=== PATIENT | female | born 1960 | race Hispanic/Latino ===

== ENCOUNTER 2018-08-23 14:15 | Emergency (ER) | payer OTHER ==
[2018-08-23 15:29] LABS: Absolute Monocytes 0.5 K/uL (0.1-1.3); Absolute Neutrophil 7.1 K/uL (1.8-8.0); Basophils % 0.4 % (0-1.3); Eosinophils % 1.7 % (0-4.4); Hematocrit 38.2 % (36.0-45.0); Lymphocytes % 11.6 % (15.3-44.8); MPV 10.1 fL (7.6-11.3); Monocytes % 6.1 % (3.3-12.3); RBC Red Blood Cell Count 4.08 M/uL (3.86-4.86)
[2018-08-23 15:50] LABS: Potassium 4.2 mmol/L (3.5-5.1)
--- NOTE | 2018-08-23 16:41 | ER ---
Nurse's Notes [facility] Name: Jena Corrales Age: 58 yrs Sex: Female : 1960 Arrival Date: 08/23/2018 Time: 14:19 Bed 3 Private MD: Diagnosis: Hypoglycemia, unspecified;Chronic kidney disease, stage 3 (moderate) Presentation: 08/23 14:26 Presenting complaint: EMS states: Called out for low blood sugar. BGL 22, improved to hb 140 after D10 250 mls. 18g LEFT AC. Transition of care: patient was not received from another setting of care. Onset of symptoms was August 23, 2018. Risk Assessment: Do you want to hurt yourself or someone else? Patient reports no desire to harm self or others. Initial Sepsis Screen: Does the patient meet any 2 criteria? No. Patient's initial sepsis screen is negative. Does the patient have a suspected source of infection? No. Patient's initial sepsis screen is negative. Care prior to arrival: Medication(s) given: IV initiated. 18 GA, in the left antecubital area. 14:26 Method Of Arrival: EMS: [facility] 14:26 Acuity: NUZHAT 3 hb Triage Assessment: 14:30 General: Appears in no apparent distress. Behavior is calm, cooperative. Pain: Denies hb pain. EENT: No deficits noted. No signs and/or symptoms were reported regarding the EENT system. Neuro: Level of Consciousness is awake, alert, obeys commands, Oriented to person, place, time, situation. Cardiovascular: Heart tones S1 S2 present Capillary refill < 3 seconds Patient's skin is warm and dry. Respiratory: Airway is patent Respiratory effort is even, unlabored, Respiratory pattern is regular, symmetrical. GI: No signs and/or symptoms were reported involving the gastrointestinal system. : No signs and/or symptoms were reported regarding the genitourinary system. Derm: Skin is intact, is healthy with good turgor. Musculoskeletal: No signs and/or symptoms reported regarding the musculoskeletal system. Historical: - Allergies: 14:30 No Known Allergies; hb - PMHx: 14:30 Diabetes - NIDDM; Myocardial infarction; Hypertension; hb - Immunization history:: Adult Immunizations up to date. - Social history:: Smoking status: Patient/guardian denies using tobacco. - Ebola Screening: : No symptoms or risks identified at this time. Screenin:31 Abuse screen: Denies threats or abuse. Denies injuries from another. Nutritional hb screening: No deficits noted. Tuberculosis screening: No symptoms or risk factors identified. Fall Risk Total Muro Fall Scale indicates Low Risk Score (25-44 pts). Fall prevention measures have been instituted. Side Rails Up X 2 Frequent Obs/Assesments occuring As available Patient and Family Educated on Fall Prevention Program and strategies. Assessment: 14:34 General: SEE TRIAGE ASSESSMENT. hb 15:30 Reassessment: Patient appears in no apparent distress at this time. Patient and/or hb family updated on plan of care and expected duration. Pain level reassessed. Patient is alert, oriented x 3, equal unlabored respirations, skin warm/dry/pink. 16:30 Reassessment: Patient appears in no apparent distress at this time. Patient and/or hb family updated on plan of care and expected duration. Pain level reassessed. Patient is alert, oriented x 3, equal unlabored respirations, skin warm/dry/pink. Vital Signs: 14:28 BP 177 / 79; Pulse 71; Resp 15; Temp 98.1; Pulse Ox 100% on R/A; Pain 0/10; hb 15:41 BP 160 / 79; Pulse 68; Resp 16; Pulse Ox 99% on R/A; sg 16:45 BP 156 / 76; Pulse 66; Resp 16; Pulse Ox 100% on R/A; hb ED Course: 14:19 Patient arrived in ED. hb 14:20 Juan Francois MD is Attending Physician. gs 14:28 Triage completed. hb 14:28 Arm band placed on. hb 14:34 Patient has correct armband on for positive identification. Bed in low position. Call hb light in reach. Side rails up X2. 14:34 Maintain EMS IV. Dressing intact. Good blood return noted. Site clean \T\ dry. Gauge \T\ hb site: 18G LEFT AC. 16:40 Sandeep Ramos MD is Referral Physician. gs 16:42 Capo Bains MD is Referral Physician. gs 17:01 Loren Perez, STEPH is Primary Nurse. hb 17:02 No provider procedures requiring assistance completed. IV discontinued, intact, hb bleeding controlled, No redness/swelling at site. Pressure dressing applied. Administered Medications: No medications were administered Point of Care Testing: Blood Glucose: 14:27 Blood Glucose: 97 mg/dL; hb 15:55 Blood Glucose: 80 mg/dL; hb Ranges: Outcome: 16:40 Discharge ordered by . gs 17:02 Discharged to home via wheelchair, with family. hb 17:02 Condition: stable 17:02 Discharge instructions given to patient, family, Instructed on discharge instructions, follow up and referral plans. medication usage, Demonstrated understanding of instructions, follow-up care, medications. 17:03 Patient left the ED. hb Signatures: Babar Larson RN RN sg Loren Perez RN RN hb Juan Francois MD MD gs Corrections: (The following items were deleted from the chart) 14:35 14:26 Acuity: NUZHAT 4 hb hb
--- NOTE | 2018-08-23 16:41 | EDPHYS ---
Physician Documentation [facility] Name: Jena Corrales Age: 58 yrs Sex: Female : 1960 Arrival Date: 08/23/2018 Time: 14:19 Bed 3 Private MD: ED Physician Juan Francois HPI: 08/23 21:00 This 58 yrs old Female presents to ER via EMS with complaints of Low Blood gs Sugar. 21:00 Onset: The symptoms/episode began/occurred acutely, today. Associated signs and gs symptoms: Pertinent negatives: constipation, decreased urine output. Current symptoms: In the emergency department the patient's symptoms have resolved. The patient has experienced similar episodes in the past, a few times. The patient has not recently seen a physician. Historical: - Allergies: 14:30 No Known Allergies; hb - PMHx: 14:30 Diabetes - NIDDM; Myocardial infarction; Hypertension; hb - Immunization history:: Adult Immunizations up to date. - Social history:: Smoking status: Patient/guardian denies using tobacco. - Ebola Screening: : No symptoms or risks identified at this time. ROS: 21:00 All other systems are negative. gs Exam: 21:00 Head/Face: Normocephalic, atraumatic. Eyes: Pupils equal round and reactive to light, gs extra-ocular motions intact. Lids and lashes normal. Conjunctiva and sclera are non-icteric and not injected. Cornea within normal limits. Periorbital areas with no swelling, redness, or edema. ENT: Nares patent. No nasal discharge, no septal abnormalities noted. Tympanic membranes are normal and external auditory canals are clear. Oropharynx with no redness, swelling, or masses, exudates, or evidence of obstruction, uvula midline. Mucous membranes moist. Neck: Trachea midline, no thyromegaly or masses palpated, and no cervical lymphadenopathy. Supple, full range of motion without nuchal rigidity, or vertebral point tenderness. No Meningismus. Chest/axilla: Normal chest wall appearance and motion. Nontender with no deformity. No lesions are appreciated. Cardiovascular: Regular rate and rhythm with a normal S1 and S2. No gallops, murmurs, or rubs. Normal PMI, no JVD. No pulse deficits. Respiratory: Lungs have equal breath sounds bilaterally, clear to auscultation and percussion. No rales, rhonchi or wheezes noted. No increased work of breathing, no retractions or nasal flaring. Abdomen/GI: Soft, non-tender, with normal bowel sounds. No distension or tympany. No guarding or rebound. No evidence of tenderness throughout. Back: No spinal tenderness. No costovertebral tenderness. Full range of motion. Skin: Warm, dry with normal turgor. Normal color with no rashes, no lesions, and no evidence of cellulitis. MS/ Extremity: Pulses equal, no cyanosis. Neurovascular intact. Full, normal range of motion. Neuro: Awake and alert, GCS 15, oriented to person, place, time, and situation. Cranial nerves II-XII grossly intact. Motor strength 5/5 in all extremities. Sensory grossly intact. Cerebellar exam normal. Normal gait. 21:00 Constitutional: The patient appears alert, awake. Vital Signs: 14:28 BP 177 / 79; Pulse 71; Resp 15; Temp 98.1; Pulse Ox 100% on R/A; Pain 0/10; hb 15:41 BP 160 / 79; Pulse 68; Resp 16; Pulse Ox 99% on R/A; sg 16:45 BP 156 / 76; Pulse 66; Resp 16; Pulse Ox 100% on R/A; hb MDM: 14:45 Patient medically screened. gs 21:00 Differential diagnosis: hypoglycemic episode. Data reviewed: vital signs, nurses notes, gs lab test result(s). Counseling: I had a detailed discussion with the patient and/or guardian regarding: the historical points, exam findings, and any diagnostic results supporting the discharge/admit diagnosis, lab results, radiology results. Response to treatment: the patient's symptoms have markedly improved after treatment, the patient's condition has returned to base line. 08/23 14:24 Order name: Glucose, Ancillary Testing; Complete Time: 14:29 EDMS 08/23 14:49 Order name: CBC with Diff; Complete Time: 15:54 08/23 14:41 Order name: Diet Ada 2000 Gume; Complete Time: 14:41 sg 08/23 14:49 Order name: Basic Metabolic Panel; Complete Time: 15:54 08/23 15:59 Order name: Glucose, Ancillary Testing EDMS 08/23 16:40 Order name: Glucose, Ancillary Testing EDMS Administered Medications: No medications were administered Point of Care Testing: Blood Glucose: 14:27 Blood Glucose: 97 mg/dL; hb 15:55 Blood Glucose: 80 mg/dL; hb Ranges: Critical Glucose Levels:Adult <50 mg/dl or >400 mg/dl <40 mg/dl or >180 mg/dl Disposition: 08/23/18 16:40 Discharged to Home. Impression: Hypoglycemia, unspecified, Chronic kidney disease, stage 3 (moderate). - Condition is Stable. - Discharge Instructions: Hypoglycemia, Blood Glucose Monitoring, Adult, Chronic Kidney Disease, Adult. - Medication Reconciliation Form, Thank You Letter, Antibiotic Education, Prescription Opioid Use form. - Follow up: Sandeep Ramos MD; When: 2 - 3 days; Reason: Re-evaluation by your physician. Follow up: Capo Bains MD; When: 1 - 2 days; Reason: Re-evaluation by your physician. - Notes: half dose of insulin until can see kidney specialist or core driller helper Signatures: Dispatcher [employer] EDLoren Christian RN RN Juan Francois MD MD Corrections: (The following items were deleted from the chart) 16:42 16:40 08/23/2018 16:40 Discharged to Home. Impression: Hypoglycemia, unspecified; gs Chronic kidney disease, stage 3 (moderate). Condition is Stable. Forms are Medication Reconciliation Form, Thank You Letter, Antibiotic Education, Prescription Opioid Use. Follow up: Sandeep Ramos; When: 2 - 3 days; Reason: Re-evaluation by your physician. 17:03 16:42 08/23/2018 16:40 Discharged to Home. Impression: Hypoglycemia, unspecified; hb Chronic kidney disease, stage 3 (moderate). Condition is Stable. Discharge Instructions: Hypoglycemia, Blood Glucose Monitoring, Adult, Chronic Kidney Disease, Adult. Forms are Medication Reconciliation Form, Thank You Letter, Antibiotic Education, Prescription Opioid Use. Follow up: Sandeep Ramos; When: 2 - 3 days; Reason: Re-evaluation by your physician. Follow up: Capo Bains; When: 1 - 2 days; Reason: Re-evaluation by your physician. gs
== END 2018-08-23 17:03 | disposition home or self-care (01) ==
LOC: ER 14:15
DX: E11.22 Type 2 diabetes mellitus with diabetic chronic kidney disease (principal); E11.65 Type 2 diabetes mellitus with hyperglycemia; I12.9 Hypertensive chronic kidney disease with stage 1 through stage 4 chronic kidney disease, or unspecified chronic kidney disease; N18.3 Chronic kidney disease, stage 3 (moderate)
CPT/HCPCS: 36415; 80048; 82962; 85025; 99283

== ENCOUNTER 2019-12-12 08:40 | Emergency (ER) | payer SELFPAY ==
--- OUTSIDE RECORDS SUMMARY | 2019-12-12 08:59 | XMS REPORT | Continuity of Care Document ---
:1960 Author Organization [facility] t Address [address] [place] [address] Care Team Providers Name Role Phone Georgette Mckeon RN Attending Clinician Problems This patient has no known problems. Allergies, Adverse Reactions, Alerts This patient has no known allergies or adverse reactions. Medications This patient has no known medications. Procedures This patient has no known procedures. Encounters Start End Encounter Admission Attending Care Care Encounter Source Date/Time Date/Time Type Type Clinicians Facility Department ID 2019-12-05 2019-12-05 Patient Georgette Mckeon [id number] 00:00:00 00:00:00 Outreach E [place] [id number] [place] [id number] 2019-12-01 2019-12-01 Patient Georgette Mckeon [id number] 00:00:00 00:00:00 Outreach E [place] [id number] [place] [id number] 2019-11-30 2019-11-30 Patient Georgette Mckeon [id number] 00:00:00 00:00:00 Outreach E Reeves [id number] [place] [id number] Results This patient has no known results.
--- OUTSIDE RECORDS SUMMARY | 2019-12-12 09:02 | XMS REPORT | Summary of Care ---
:1960 Author Organization [facility] Address [address] [place] [id number] Care Team Providers Name Role Phone Pcp, Patient Does Not Have A Primary Care Provider +[id number] 0-0000 Reason for Visit Reason Comments Transition Of Care Encounter Details Date Type Department Care Team Description 11/25/[address] [facility] Crys Zhang Transition Of [facility]- [address] [place] [id number] Allergies Active Allergy Reactions Severity Noted Date Comments Levofloxacin Other - See comments 11/17/2019 weaknes Acetaminophen-Codeine Nausea and/or Vomiting 0 documented as of this encounter (statuses as of 11/25/2019) Medications Medication Sig Dispensed Refills Start Date End Date Status insulin NPH hum/reg inject 45 % 0 Active insulin hm (INSULIN under the skin 2 70/30 SC) (two) times daily. calcitrioL 0.5 mcg Take 1 capsule 15 capsule 0 11/25/201911/27 Active capsuleIndications: by mouth every Diabetic foot other day for 30 infection days. furosemide 40 mg Take 2 tablets 60 tablet 0 11/24/2019 020 Active tabletIndications: by mouth daily Diabetic foot for 30 days. infection lisinopril 20 mg Take 1 tablet by 30 tablet 0 11/25/201912/24 Active tabletIndications: mouth daily for Diabetic foot 30 days. infection NIFEdipine ER 90 mg Take 1 tablet by 30 tablet 0 11/25/2019 Active tabletIndications: mouth daily for Diabetic foot 30 days. infection vancomycin 1,000 mg Infuse 1,000 mg 53800 mg 0 11/24/201912/2019 Active injectionIndications: every 24 Diabetic foot (twenty-four) infection hours for 10 doses. amoxicillin-pot Take 1 tablet by 5 tablet 0 11/24/20192019 Active clavulanate 500 mg mouth daily for (AUGMENTIN) 500-125 5 days. mg tabletIndications: Diabetic foot infection documented as of this encounter (statuses as of 11/25/2019) Active Problems Problem Noted Date Diabetic foot infection 11/18/2019 Morbid obesity with body mass index of 50 or higher documented as of this encounter (statuses as of 11/25/2019) Social History Tobacco Use Types Packs/Day Years Used Date Former Smoker Smokeless Tobacco: Never Used Sex Assigned at Date Recorded Not on file Job Start Date Occupation Industry Not on file Not on file Not on file Travel History Travel Start Travel End No recent travel history available. COVID-19 Exposure Response Date Recorded In the last month, have you been in contact with No / Unsure 11/17/2019 10:29 PM CDT someone who was confirmed or suspected to have Coronavirus / COVID-19? documented as of this encounter Last Filed Vital Signs Not on filedocumented in this encounter Plan of Treatment Health Maintenance Due Date Last Done Comments PNEUMOCOCCAL 0-64 YEARS COMBINED 1968 SERIES (1 of 1 - PPSV23) EYE EXAM 1972 LDL-C 1972 URINE MICROALBUMIN 1972 DTaP,Tdap,and Td Vaccines (1 - 1973 Tdap) FOOT EXAM 1980 PAP SMEAR 1983 Breast Cancer Screening 2002 (MAMMOGRAM) COLONOSCOPY 2012 Zoster Recombinant Vaccine 2012 (SHINGRIX) (1 of 2) LUNG CANCER SCREEN: Recommended 2017 for age 55-80 with 30 + pack year history INFLUENZA VACCINE (#1) 2019 HgA1C 05/19/2020 11/17/2019 Depression Screening 11/17/2020 11/18/2019 CREATININE (SERUM) 11/23/2020 11/24/2019, 11/23/2019, 11/21/2019, Additional history exists HEPATITIS C (HCV) SCREEN Completed 11/19/2019 documented as of this encounter Implants Implanted Type Area Hot Roller Device Shelf Model / Identifier Expiration Serial / Date Lot Catheter Hemosplit Hemodialysis Long Ter m Dialysis 14.5fr 27cm Bard #[id number] - Sn/A Dialysis Right: Bard 06/24/2020 [id number] / Implanted: Qty: 1 on 11/21/2019 by Debby Oviedo MD at [facility] Catheter Chest N/A / [id number] documented as of this encounter Results Not on filedocumented in this encounter Insurance Payer Benefit Plan / Subscriber ID Effective Phone Address T ype Group Dates MEDICAID MEDICAID SSI PENDING 2019-Pres [address] [place] [address] documented as of this encounter
--- OUTSIDE RECORDS SUMMARY | 2019-12-12 09:02 | XMS REPORT | Summary of Care ---
:1960 Author Organization [address] [address] Care Team Providers Name Role Phone Pcp, Patient Does Not Have A Primary Care Provider +1-000-00 0-0000 Jeff Mckeon hand glove cleaner Quiana Velazquez MSW Licensed Clinical Mainframe Systems Engineer Unav[employer]a ble Reason for Visit Reason Comments Transportation Encounter Details Date Type Department Care Team Description 12/01/2019 Patient Outreach [facility] Jimena Mckeon, RN Transportation [address] [address] Allergies Active Allergy Reactions Severity Noted Date Comments Levofloxacin Other - See comments 11/17/2019 weaknes Acetaminophen-Codeine Nausea and/or Vomiting 0 documented as of this encounter (statuses as of 12/01/2019) Medications Medication Sig Dispensed Refills Start Date End Date Status insulin NPH hum/reg inject 45 % under 0 Active insulin hm (INSULIN the skin 2 (two) 70/30 SC) times daily. calcitrioL 0.5 mcg Take 1 capsule by 15 capsule 0 11/25/2019 0 12/25/2019 Active capsuleIndications: mouth every other Diabetic foot day for 30 days. infection furosemide 40 mg Take 2 tablets by 60 tablet 0 11/24/2019 08/2 12/2019 Active tabletIndications: mouth daily for Diabetic foot 30 days. infection lisinopril 20 mg Take 1 tablet by 30 tablet 0 11/25/201912/24 Active tabletIndications: mouth daily for Diabetic foot 30 days. infection NIFEdipine ER 90 mg Take 1 tablet by 30 tablet 0 11/25/2019 Active tabletIndications: mouth daily for Diabetic foot 30 days. infection vancomycin 1,000 mg Infuse 1,000 mg 30008 mg 0 11/24/201912/2019 Active injectionIndications every 24 : Diabetic foot (twenty-four) infection hours for 10 doses. documented as of this encounter (statuses as of 12/01/2019) Active Problems Problem Noted Date Diabetic foot infection 11/18/2019 Morbid obesity with body mass index of 50 or higher documented as of this encounter (statuses as of 12/01/2019) Social History Tobacco Use Types Packs/Day Years Used Date Former Smoker Smokeless Tobacco: Never Used Sex Assigned at Date Recorded Not on file COVID-19 Exposure Response Date Recorded In the last month, have you been in contact with No / Unsure 11/17/2019 10:29 PM CDT someone who was confirmed or suspected to have Coronavirus / COVID-19? documented as of this encounter Last Filed Vital Signs Not on filedocumented in this encounter Progress Notes Georgette Mckeon RN - 12/01/2019 3:47 PM CDTCHP: WILLIAM was able to get transportation approved and arranged through [facility] priority transport [phone]. 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 CELESTINA Duffy with [facility] [phone] was notified. WILLIAM called patient's spouse Osman Albrecht and informed him. He stated he was "incredible grateful" and he will go to HD in his own vehicle and will complete all admission paperwork needed. WILLIAM will continue to collaborate with CELESTINA Duffy at [facility] to assist her with getting the patient the coverage needed so she will get access to help her with care and transportation. Georgette Mckeon, BSN, RN, [facility] Outpatient Secondary School TeacherElectric Sealing Machine OperatorScotland Memorial Hospital O: [phone] M: [phone] documented in this encounter Plan of Treatment Health Maintenance Due Date Last Done Comments PNEUMOCOCCAL 0-64 YEARS COMBINED 1968 SERIES (1 of 1 - PPSV23) EYE EXAM 1972 LDL-C 1972 URINE MICROALBUMIN 1972 FOOT EXAM 1980 DTaP,Tdap,and Td Vaccines (1 - 1981 Tdap) PAP SMEAR 1983 Breast Cancer Screening 2002 (MAMMOGRAM) COLON CANCER SCREENING ANNUAL 2012 FIT/FOBT COLON CANCER SCREENING FIT DNA 2012 EVERY 3 YEARS COLON CANCER SCREENING 2012 SIGMOIDOSCOPY EVERY 5 YEARS COLONOSCOPY 2012 Colorectal Cancer Screening 2012 Zoster Recombinant Vaccine 2012 (SHINGRIX) (1 of 2) LUNG CANCER SCREEN: Recommended 2017 for age 55-80 with 30 + pack year history INFLUENZA VACCINE (#1) 2019 HgA1C 05/19/2020 11/17/2019 Depression Screening 11/17/2020 11/18/2019 CREATININE (SERUM) 11/23/2020 11/24/2019, 11/23/2019, 11/21/2019, Additional history exists HEPATITIS C (HCV) SCREEN Completed 11/19/2019 documented as of this encounter Implants Implanted Type Area Sound Engineer Device Shelf Model / Identifier Expiration Serial / Date Lot Catheter Hemosplit Hemodialysis Long Ter m Dialysis 14.5fr 27cm Bard #[id number] - Sn/A Dialysis Right: Bard 06/24/2020 [id number] / Implanted: Qty: 1 on 11/21/2019 by Debby Oviedo MD at [facility] Catheter Chest N/A / [id number] documented as of this encounter Results Not on filedocumented in this encounter
--- OUTSIDE RECORDS SUMMARY | 2019-12-12 09:02 | XMS REPORT | Summary of Care ---
:1960 Author Organization [address] [address] Care Team Providers Name Role Phone Pcp, Patient Does Not Have A Primary Care Provider +1-000-00 0-0000 Jeff Mckeon RNmanager hi Quiana Velazquez MSW Licensed Clinical Flight Communications Officer Unavaila ble Reason for Visit Reason Comments Referral/consult CHP Referral Encounter Details Date Type Department Care Team Description 11/30/2019 Patient Outreach [facility] Georgette Mckeon RN Referral/consult [address] (CHP Refer ral) [place], [place] [address] Allergies Active Allergy Reactions Severity Noted Date Comments Levofloxacin Other - See comments 11/17/2019 weaknes Acetaminophen-Codeine Nausea and/or Vomiting 0 documented as of this encounter (statuses as of 11/30/2019) Medications Medication Sig Dispensed Refills Start Date [...] infection vancomycin 1,000 mg Infuse 1,000 mg 42400 mg 0 11/24/201912/2019 Active injectionIndications every 24 : Diabetic foot (twenty-four) infection hours for 10 doses. documented as of this encounter (statuses as of 11/30/2019) Active Problems Problem Noted Date Diabetic foot infection 11/18/2019 Morbid obesity with body mass index of 50 or higher documented as of this encounter (statuses as of 11/30/2019) Social History Tobacco Use Types Packs/Day Years [...] encounter Progress Notes Georgette Mckeon RN - 11/30/2019 5:24 PM CDTCHP Referral: Acute osteomyelitis of right foot with abscess S/p R 4th and 5th ray resection with bone biopsy of R 3rd metatarsal by Dr. Yanez 11/[address] Yanez. Wound-vac placed.Wound vac approval for discharge to home. IV, zosyn day6 P Woundculturesis wound culture resistant to clindamycin, erythromycin, IDconsultDr Farooqverbal instruction will start Vanco 1 gm with HD for 10 days, Hematuria likely on menses patient to follow up with PCP for post menopausal bleed Patient not sure if she is on her cycle Hgb 7.7 will trend UA ordered Trend CBC/BMP UTI costive e coli found Augmentin 500 mg daily 5 days CKD 5, hyperkalemia, metabolic acidosis Medically manage with IV insulin, kayexalate, IV bicarb drip HD started 11/21 Surgery consult for Permcathdone HD on [facility] with an approved HD chair With Dr Kunal bar HTN, poorly controlled Gioowcthpkryogfrzp77 mg daily Lisinopril 20 mg daily Hydralazine prn Pt. Agreed to participate in CHP. Pt. Needs bloodpressure machine. Please educate patient on all diagnosis. Pt. Is an JASON case. Thank you, Helen Zhang LVN CHP RN CM called the patient and her spouse(per patient). Her spouse explained she has missed both of her HD appts on Mon/Wed d/t not having transportation. She is WC bound weighing at 300 lbs per patient's spouse. CM will speak with team at [facility] in [place] and confirm she still has achair time at 1600. CM will attempt to seek Management's approval to get a voucher for her transportation with [facility] to get patient to/from HD until the SW at [facility] can assist with transportation. The patient and her spouse are considering placement at [facility]; however, they do not accept SSIPending patients. STEPH Bower from [facility] had called in [facility] for the patient to take since she has missed a total of 3 HD appointments. WILLIAM called [facility] to see what was the delay; able to speak with pharmacist and he stated the order was transcribed as powder. He will change to liquid and dispense to patient. CM called and notified patient's spouse he can pick pack worker prior to 7pm. He verbalized understanding. STEPH Bower from [facility] did mention the electronics teacher might suggest patient to go to ER for HD. Per Fabricio, Amanda denies feeling any additional discomforts at this time. CM will route this to inpt team at [facility] in the event she does return. SUSY Gray, RN, [facility] Outpatient Solution Design EngineerOperations/DispatchCount Includes [facility] O: [phone] M: [phone] documented in this encounter Plan of Treatment [...] of this encounter Implants Implanted Type Area Demolition Worker Device Shelf Model / Identifier Expiration Serial / Date Lot Catheter Hemosplit Hemodialysis Long Ter m Dialysis 14.5fr 27cm Bard #[id number] - Sn/A Dialysis Right: Bard 06/24/2020 [id number] / Implanted: Qty: 1 on 11/21/2019 by Debby Oviedo MD at [facility] Catheter Chest N/A / [id number] documented as of this encounter Results Not on filedocumented in this encounter
--- OUTSIDE RECORDS SUMMARY | 2019-12-12 09:02 | XMS REPORT | Summary of Care ---
:1960 Author Organization [address] [address] Care Team Providers Name Role Phone Pcp, Patient Does Not Have A Primary Care Provider +1-000-00 0-0000 Jeff Mckeon manager audit Quiana Velazquez MSW Licensed Clinical Glass Forming Crew Member Unavaila ble Reason for Visit Reason Comments Transportation Encounter Details Date Type Department Care Team Description 12/05/2019 Patient Outreach [facility] Jimena Mckeon, RN Transportation [address] [address] Allergies Active Allergy Reactions Severity Noted Date Comments Levofloxacin Other - See comments 11/17/2019 weaknes Acetaminophen-Codeine Nausea and/or Vomiting 0 documented as of this encounter (statuses as of 12/05/2019) Medications Medication Sig Dispensed Refills Start Date [...] daily for Diabetic foot 30 days. infection documented as of this encounter (statuses as of 12/05/2019) Active Problems Problem Noted Date Diabetic foot infection 11/18/2019 Morbid obesity with body mass index of 50 or higher documented as of this encounter (statuses as of 12/05/2019) Social History Tobacco Use Types Packs/Day Years [...] encounter Progress Notes Georgette Mckeon RN - 12/05/2019 11:30 AM CDTCHP: Pt spouse, Fabricio called CM this am to report the patient did well with HD on Thursday. He also mentioned this week re: transportation. WILLIAM obtained approval from management to arrange [facility] today, Thursday and Thursday for hemodialysis. CM sent the vouchers to [facility] and then called the patient's spouse to inform him of the arranged transportation. He expressed thanks and agreed with plan. SUSY Gray, RN, [facility] Outpatient Mucker CofferdamFreelance PatternmakerNovant Health New [facility] O: [phone] M: [phone] documented in this encounter Plan of Treatment [...] of this encounter Implants Implanted Type Area Stamping Die Try Out Worker Device Shelf Model / Identifier Expiration Serial / Date Lot Catheter Hemosplit Hemodialysis Long Ter m Dialysis 14.5fr 27cm Bard #[id number] - Sn/A Dialysis Right: Bard 06/24/2020 [id number] / Implanted: Qty: 1 on 11/21/2019 by Debby Oviedo MD at [facility] Catheter Chest N/A / [id number] documented as of this encounter Results Not on filedocumented in this encounter
--- OUTSIDE RECORDS SUMMARY | 2019-12-12 09:02 | XMS REPORT | Summary of Care ---
:1960 Author Organization [facility] Address [address] [place] [address] Care Team Providers Name Role Phone Pcp, Patient Does Not Have A Primary Care Provider +1-000-00 0-0000 Reason for Visit Reason Comments Transition Of Care Encounter Details Date Type Department Care Team Description 11/25/[address] [facility] Crys Zhang Transition Of [facility]- [address] [place] [id number] Allergies Active Allergy Reactions Severity Noted Date [...] infection vancomycin 1,000 mg Infuse 1,000 mg 77849 mg 0 11/24/201912/2019 Active injectionIndications: every 24 [...] of this encounter Implants Implanted Type Area Ornamental Metal Worker Helper Device Shelf Model / Identifier Expiration Serial / Date Lot Catheter Hemosplit Hemodialysis Long Ter m Dialysis 14.5fr 27cm Bard #[id number] - Sn/A Dialysis Right: Bard 06/24/2020 [id number] / Implanted: Qty: 1 on 11/21/2019 by Debby Oviedo MD at [facility] Catheter Chest N/A / [id number] documented as of this encounter Results Not on filedocumented in this encounter Insurance Payer Benefit Plan / Subscriber ID Effective Phone Address T ype Group Dates MEDICAID MEDICAID SSI PENDING 2019-Pres [address] [place] [address] documented as of this encounter
--- OUTSIDE RECORDS SUMMARY | 2019-12-12 09:02 | XMS REPORT | Summary of Care ---
:1960 Author Organization [facility] Address [address] [place] [address] Care Team Providers Name Role Phone Pcp, Patient Does Not Have A Primary Care Provider +1-000-00 0-0000 Reason for Visit Reason Comments Follow-up referral from WILLIAM Zhang Encounter Details Date Type Department Care Team Description 11/25/2019 Patient Outreach [facility] Elsy Banks Follow-up ([address] from WILLIAM Zhang ) [place], [place] [address] Allergies Active Allergy Reactions [...] mg Take 2 tablets 60 tablet 0 11/24/2019/ 020 Active tabletIndications: by mouth daily Diabetic foot for 30 days. infection lisinopril 20 mg Take 1 tablet by 30 tablet 0 11/25/201912/24 Active tabletIndications: mouth daily for Diabetic foot 30 days. infection NIFEdipine ER 90 mg Take 1 tablet by 30 tablet 0 11/25/2019 Active tabletIndications: mouth daily for Diabetic foot 30 days. infection vancomycin 1,000 mg Infuse 1,000 mg 68087 mg 0 11/24/201912/2019 Active injectionIndications: every 24 [...] on filedocumented in this encounter Progress Notes Elsy Banks - 11/25/2019 4:04 PM CDTCCHWAbram Banks was sent a referral from WILLIAM Zhang for CHP so I will give her a call. documented in this encounter Plan of Treatment [...] of this encounter Implants Implanted Type Area Special Collections Librarian Device Shelf Model / Identifier Expiration Serial / Date Lot Catheter Hemosplit Hemodialysis Long Ter m Dialysis 14.5fr 27cm Bard #[id number] - Sn/A Dialysis Right: Bard 06/24/2020 [id number] / Implanted: Qty: 1 on 11/21/2019 by Debby Oviedo MD at [facility] Catheter Chest N/A / [id number] documented as of this encounter Results Not on filedocumented in this encounter Insurance Payer Benefit Plan / Subscriber ID Effective Phone Address T ype Group Dates MEDICAID MEDICAID SSI PENDING 2019-Pres [address] [place] [id number] documented as of this encounter
--- OUTSIDE RECORDS SUMMARY | 2019-12-12 09:02 | XMS REPORT | Summary of Care ---
:1960 Author Organization [address] [address] Care Team Providers Name Role Phone Pcp, Patient Does Not Have A Primary Care Provider +1-000-00 0-0000 Jeff Mckeon RNwarp spinner Quiana Velazquez MSW Licensed Clinical Pharmacoepidemiologist Unavaila ble Reason for Visit Reason Comments Referral/consult CHP Referral Encounter Details Date Type Department Care Team Description 11/30/2019 Patient Outreach [facility] Georgette Mckeon RN Referral/consult [address] (CHP Refer ral) [place], [place] [address] Allergies Active Allergy Reactions [...] infection vancomycin 1,000 mg Infuse 1,000 mg 55894 mg 0 11/24/201912/2019 Active injectionIndications every 24 [...] Georgette Mckeon RN - 11/30/2019 5:24 PM CDTCHP: Acute osteomyelitis of right foot with abscess [...] 11/21 Surgery consult for Permcathdone HD on [facility] with an approved HD chair With Dr Kunal bar HTN, poorly controlled Rdiabtljaintkxjigb82 mg daily Lisinopril 20 mg daily Hydralazine [...] spouse. CM will speak with team at [facility] in [place] and confirm she still has achair time at 1600. CM will attempt to seek Management's approval to get a voucher for her transportation with [facility] to get patient to/from HD until the SW at [facility] can assist with transportation. The patient and her spouse are considering placement at [facility]; however, they do not accept SSIPending patients. STEPH Bower from [facility] had called in [facility] for the patient to take since she has missed a total of 3 HD appointments. WILLIAM called [facility] to see what was the delay; able to speak with pharmacist and he stated the order was transcribed as powder. He will change to liquid and dispense to patient. CM called and notified patient's spouse he can pickle pumper prior to 7pm. He verbalized understanding. STEPH Bower from [facility] did mention the scowman might suggest patient to go to ER for HD. Per Fabricio, Amanda denies feeling any additional discomforts at this time. CM will route this to inpt team at [facility] in the event she does return. SUSY Gray, RN, [facility] Outpatient Business ManagerRadial Drill Press OperatorEcu Health Beaufort Hospital O: [phone] M: [phone] documented in this encounter Plan of Treatment [...] of this encounter Implants Implanted Type Area Pattern Carrier Device Shelf Model / Identifier Expiration Serial / Date Lot Catheter Hemosplit Hemodialysis Long Ter m Dialysis 14.5fr 27cm Bard #[id number] - Sn/A Dialysis Right: Bard 06/24/2020 [id number] / Implanted: Qty: 1 on 11/21/2019 by Debby Oviedo MD at [facility] Catheter Chest N/A / [id number] documented as of this encounter Results Not on filedocumented in this encounter
--- OUTSIDE RECORDS SUMMARY | 2019-12-12 09:02 | XMS REPORT | Summary of Care ---
:1960 Author Organization [facility] Address [address] [place] [address] Care Team Providers Name Role Phone Pcp, Patient Does Not Have A Primary Care Provider +[id number] Reason for Referral (Routine) Status Reason Specialty Diagnoses / Referred By Referred To Procedures Contact Contact Pending Review Diagnoses Diabetic foot infection Vashti Mckinney Pcp, Patient Does Procedures Discharge Follow-up: PCP PATIENT DOES NOT HAVE A PCP; 2 Weeks MILADY Wolfe Not Have A [address] [facility] [address] [facility] [address] Phone: (Routine) Status Reason Specialty Diagnoses / Referred By Referred To Procedures Contact Contact Pending Review ORT-ORTHOPAEDIC Diagnoses Diabetic foot infection Varun Yanez SURGERY Procedures Discharge Follow-Up: Specialty Service ORT-ORTHOPAEDIC SURGERY; 2 Weeks , CARLOS [address] [facility] [address] [place] [address] (Routine) Status Reason Specialty Diagnoses / Referred By Referred To Procedures Contact Contact Pending Review IM-NEPHROLOGY Diagnoses Diabetic foot infection Vashti Mckinney Procedures Discharge Follow-Up: Specialty Service IM-NEPHROLOGY; 2 Weeks MILADY Wolfe [address] [facility] [place] [address] (Routine) Status Reason Specialty Diagnoses / Referred By Referred To Procedures Contact Contact New Request Diagnostic Diagnoses ANGEL (acute kidney injury) Elicia Nielsen Procedures FL TIME OR (NON-REPORTABLE) MD Debby [address] [facility] [address] [place] [address] Radiology Services (Routine) Status Reason Specialty Diagnoses / Referred By Referred To Procedures Contact Contact New Request Diagnostic Diagnoses Renal failure, unspecified chronicity Nielsen, Radiology Procedures XR CHEST 1 VW MD Debby [address] [facility] [address] [place] [address] (Routine) Status Reason Specialty Diagnoses / Referred By Referred To Procedures Contact Contact New Request Diagnostic Diagnoses Diabetic foot infection Varun Yanez Radiology Procedures FL TIME OR (NON-REPORTABLE) Jr., DPM [address] [place] [address] [place] [address] MRI/CAT Scan (SUAD) Status Reason Specialty Diagnoses / Referred By Referred To Procedures Contact Contact New Request Diagnostic Diagnoses Diabetic foot infection Varun Yanez Radiology Procedures CT FOOT RIGHT WO CONTRAST Jr., DPM [address] [place] [address] [place] [address] (SUAD) Status Reason Specialty Diagnoses / Referred By Referred To Procedures Contact Contact New Request Vascular Procedures Varun Yanez Sonography BILATERAL DUPLEX Jr., DPM SCAN OF ARTERY BY [address] [place] [address] BROWN [address] [place] [address] Radiology Services (Routine) Status Reason Specialty Diagnoses / Referred By Referred To Procedures Contact Contact New Request Diagnostic Diagnoses Diabetic foot infection Renal failure, unspecified chronicity Alroumoh, Radiology Procedures US RETROPERITONEAL COMPLETE Nicolas Soliman MD [address] [place] [address] [place] [address] Radiology Services (STAT) Status Reason Specialty Diagnoses / Referred By Referred To Procedures Contact Contact New Request Diagnostic Diagnoses Penetrating wound of right foot, initial encounter Petros Glover Radiology Procedures XR FOOT <3 VW RIGHT Siri MD [id number] [place] [address] Reason for Visit Reason Comments Foot Pain right foot infection Auth/Cert Status Reason Specialty Diagnoses / Referred By Referred To Procedures Contact Contact Emergency Medicine [facility] Em ergency Dept [address] [place] [address] Fax: Encounter Details Date Type Department Care Team Description 11/17/2019 - [facility] ADC Medicine Doris Joseph, PAC [address] [facility] [address] [place] [address] Diabetic foot 11/24/2019 Encounter Surgery Unit Rebeca Kraft MD [address] [place] [address] [address] [place] [address] [place], [place] [id number] Allergies Active Allergy Reactions Severity Noted Date Comments Levofloxacin Other - See comments 11/17/2019 weaknes Acetaminophen-Codeine Nausea and/or Vomiting 0 documented as of this encounter (statuses as of 11/24/2019) Medications Medication Sig Dispensed Refills Start Date [...] infection vancomycin 1,000 mg Infuse 1,000 mg 14249 mg 0 11/24/201912/2019 Active injectionIndications: every 24 Diabetic foot (twenty-four) infection hours for 10 doses. amoxicillin-pot Take 1 tablet by 5 tablet 0 11/24/20192019 Active clavulanate 500 mg mouth daily for (AUGMENTIN) 500-125 5 days. mg tabletIndications: Diabetic foot infection documented as of this encounter (statuses as of 11/24/2019) Active Problems Problem Noted Date Diabetic foot infection 11/18/2019 Morbid obesity with body mass index of 50 or higher documented as of this encounter (statuses as of 11/24/2019) Social History Tobacco Use Types Packs/Day Years Used Date Former Smoker Smokeless Tobacco: Never Used Tobacco Cessation: Counseling Given: Yes Sex Assigned at Date Recorded Not on [...] of this encounter Last Filed Vital Signs Vital Sign Reading Time Taken Comments Blood Pressure 156/86 11/24/2019 11:04 AM CDT Pulse 81 11/24/2019 11:04 AM CDT Temperature 36.4 C (97.6 F) 11/24/2019 11:04 AM CDT Respiratory Rate 18 11/24/2019 11:04 AM CDT Oxygen Saturation 97% 11/24/2019 11:04 AM CDT Inhaled Oxygen Concentration - - Weight 140 kg (308 lb 9.6 oz) 11/24/2019 4:04 AM CDT Height 167.6 cm (5' 6") 11/18/2019 4:27 AM CDT Body Mass Index 49.81 11/18/2019 4:27 AM CDT documented in this encounter Discharge Instructions Jose Francisco Peña - 11/21/2019 11:35 AM CDTYour follow up appointment with Dr. Yanez is November, at 1:30 pm. Address: [address] [place] [address] If you need to cancel or make changes call the office as soon as possible. AttachmentsThe following attachments cannot be sent through Care Everywhere. Diabetic Foot Pressure Injuries, Discharge Instructions (Zambian)Vancomycin injection (Zambian)Amoxicillin; Clavulanic Acid tablets (Zambian)Calcitriol capsules (Zambian)Nifedipine extended-release tablets (Zambian)Furosemide tablets (Zambian)Lisinopril tablets (Zambian)documented in this encounter Progress Notes Jaziel Bolden FNP - 11/24/2019 3:51 PM CDT Subjective: Patient is a 59 year old female who presents with right foot pain with increased erythema, tenderness, warmth and an odor. Patient found to have osteomyelitis to right 4th and 5th metatarsal head which I have been consulted for. Patient underwent amputation of right 4th and 5th digit on Thursday. Patient also found to have new onset kidney failure requiring dialysis. Patient examined at bedside. Reports diarrhea improving. Denies pain. Objective: Vitals: 11/23/19 2312 11/24/19 0404 11/24/19 0727 11/24/19 1104 BP: (!) 178/72 (!) 198/72 (!) 162/67 (!) 156/86 Pulse: 77 83 80 81 Resp: 18 18 18 18 Temp: 36.3 C (97.4 F) 36.1 C (96.9 F) 36.2 C (97.1 F) 36.4 C (97.6 F) TempSrc: Temporal Artery Temporal Artery Temporal Artery Temporal Artery SpO2: 95% 97% 95% 97% Weight: 308 lb 9.6 oz (140 kg) Height: CBC WBC (10*3/L) Date Value 11/24/2019 12.15 (H) RBC (10*6/L) Date Value 11/24/2019 2.82 (L) PLT (10*3/L) Date Value 11/24/2019 279 HGB (g/dL) Date Value 11/24/2019 8.3 (L) HCT (%) Date Value 11/24/2019 27.0 (L) CMP NA (mmol/L) Date Value 11/24/2019 136 K (mmol/L) Date Value 11/24/2019 4.2 CALCIUM (mg/dL) Date Value 11/24/2019 8.0 (L) CL (mmol/L) Date Value 11/24/2019 102 BUN (mg/dL) Date Value 11/24/2019 35 (H) CREATININE (mg/dL) Date Value 11/24/2019 3.86 (H) GLUCOSE (mg/dL) Date Value 11/24/2019 224 (H) CO2 TOTAL (mmol/L) Date Value 11/24/2019 27 ALBUMIN (g/dL) Date Value 11/20/2019 2.6 (L) T PROTEIN (g/dL) Date Value 11/20/2019 6.4 TOTAL BILI (mg/dL) Date Value 11/20/2019 0.3 ALTv (U/L) Date Value 11/20/2019 7 AST(SGOT) (U/L) Date Value 11/20/2019 9 (L) ALK PHOS (U/L) Date Value 11/20/[address] right foot 11/17: EXAM: CT FOOT RIGHT WO CONTRAST HISTORY: Osteomyelitis suspected, foot swelling, diabetic COMPARISON: None available. TECHNIQUE: Contiguous 3.0 mm slices were acquired without contrast. Multiplanar reconstructions were obtained. FINDINGS: There is diffuse soft tissue swelling of the foot, and ankle most localized at the plantar lateral aspect of the forefoot. Soft tissue ulceration is seen along the lateral aspect of the fifth metatarsal head and base. Focal osteopenia and cortical erosions are visualized at these sites with associated subcutaneous swelling and gas involving the fifth metatarsal base, head and fifth phalanx with questionable erosions involving the right lateral fourth metatarsal head and proximal phalanx base. Chronic articular collapse with sclerotic remodeling is seen about the great toe proximal phalanx and the articular margins of the talonavicular, subtalar, calcaneocuboid, navicular cuneiform joints as well as the second through fifth TMT joint. A remote lateral malleolus fracture is noted. A remote anterior fragmented tibial plafond fracture versus fragmented osteochondral defect is noted. IMPRESSION Ulcerations with subcutaneous gas and osteomyelitis involving the fifth toe and fifth metatarsal base and head with suspicion for osteomyelitis of the fourth metatarsal head and fourth digit proximal phalanx base. Recommend MRI for further characterization. ROS: CV: S1, S2 RESP: Good breath sounds ABD: nonteneder, bowel sounds present Skin: Right foot wound vac in place with large amount of bloody drainage in canister s/p amputation of 4th and 5th digit Extremities: lymphedema changes, left great toe and 1st toe amputation Assessment and plan: Osteomyelitis to right foot 4th and 5th metatarsal, s/p amputation Diabetes mellitus with neuropathy ESRD, on dialysis UTI, urine culture positive for E.coli Blood culture show no growth Wound culture positive for staph Leukocytosis Zosyn day 2 Upon discharge, recommend Vancomycin with each HD for total of 10 doses for wound infection and Augmentin 500mg PO daily for total of 5 day for UTI Will continue to monitor Patient examined and discussed with Dr. Foley Nicolas Candelaria MD - 11/24/2019 2:55 PM CDT Medicine Progress Note Hemodialysis note Date of Service: 11/24/2019 Chief Complaint: Feeling weak 24-HOUR EVENTS: 59 year-old female with pmh of DM, HTN, CHF, CKD, CAD who presents with one week history of right foot pain for the past 10 days. She notes that she had increased erythema, tenderness, warmth, reddish drainage, and odor. Additional symptoms includes: fever, chills, nausea. Patient to progress to end-stage renal disease is started on dialysis Patient was seen on dialysis blood pressure being not controlled we Haile for 2 L we increased ultrafiltration to 3 L SUBJECTIVE: Patient was started on dialysis today tolerated well CURRENT MEDICATIONS - reviewed. PHYSICAL EXAM: BP (!) 156/86 | Pulse 81 | Temp 36.4 C (97.6 F) (Temporal Artery) | Resp 18 | Ht 5' 6" (1.676 m) | Wt 308 lb 9.6 oz (140 kg) | SpO2 97% | BMI 49.81 kg/m Intake/Output Summary (Last 24 hours) at 11/24/2019 1455 Last data filed at 11/24/2019 0404 Gross per 24 hour Intake Output 1200 ml Net -1200 ml General: alert and oriented x 3; no apparent distress HEENT: pupils equal, round, reactive to light; extraocular movements intact; oropharynx clear; moistmucous membranes, normocephalic atraumatic Neck: supple, no lymphadenopathy, no bruits, no JVD, full range of motion Lungs: clear to auscultation bilaterally Cardio: S1, S2 normal; no murmurs, rubs or gallops, regular rate and rhythm Abdomen: soft; non-tender; non-distended; normoactive bowel sounds Extremities: no clubbing, cyanosis, +2 edema dressing on the right foot with wound VAC Skin: no rashes Neuro: cranial nerves II through XII grossly intact; sensation grossly intact; muscle strength 5 outof 5 in all four extremities LABS/IMAGING - reviewed, pertinent results as below: CBC BMP PT/INR WBC (10*3/L) Date Value 11/24/2019 12.15 (H) NA (mmol/L) Date Value 11/24/2019 136 No results found for: PT RBC (10*6/L) Date Value 11/24/2019 2.82 (L) K (mmol/L) Date Value 11/24/2019 4.2 No results found for: PTINR PLT (10*3/L) Date Value 11/24/2019 279 CALCIUM (mg/dL) Date Value 11/24/2019 8.0 (L) HGB (g/dL) Date Value 11/24/2019 8.3 (L) CL (mmol/L) Date Value 11/24/2019 102 aPTT HCT (%) Date Value 11/24/2019 27.0 (L) BUN (mg/dL) Date Value 11/24/2019 35 (H) No results found for: APTTPAT CREATININE (mg/dL) Date Value 11/24/2019 3.86 (H) Radiology Xr Chest 1 Vw Result Date: 11/21/2019 Cardiomegaly The right internal jugular dialysis catheter with its tip in the upper right atrium is visualized. The patchy opacity in the right paracardiac region is likely result of overlapping shadows. ASSESSMENT/PLAN Jena Whitehead is a 59 year old female with PMH as listed above, admitted to the hospital with: ESRD status post for his dialysis today continue HD Continue Lasix for better volume control Hyperkalmia resolved Low K diet Patient didn't be dialyzed on low potassium bath Secondary hyperparathyroidism Continue calcitriol Will monitor the patient Patient didn't be dialyzed on high calcium bath Edema over volume: Continue the goal add Lasix Ananya Diaz LBSW - 11/24/2019 11:47 AM CDT Care Management Discharge Disposition Note (DCDN) 5-2-1 Interventions: Disease specific education;Clear discharge plan;Teach back 5-2-1 Providers: Physician;Maintenance Trainer/Counselling Psychologist;Nurse 5-2-1 Patient Capacity Improvements: Discharge Plan for ongoing care and services: Home Health (HH);Other Is this a new referral: Yes Patient Choice completed for referred services: Yes DME location: Other DME location: Durable Medical Equipment: Home Health location: [facility], [address] [place] [address] () [phone] (F) [phone] Discharge location(s): [facility], [address] [place] [address] () [phone] (F) [phone] Patient choice completed for referred services: Yes Discussed with patient/patients family involved in decision making: Yes Patient or family caregiver understands, and agrees with discharge plan. Community resources/referrals made or provided to patient: No Resources/Referrals: [facility] Resources Fact Sheets Transportation: Private Vehicle Mental Status: Alert & Oriented to Person,Place & Time Living Arrangement: Home Other living arrangement: Address of living arrangement: [address] [place] [address] [address] [facility] [address] Funding Resources: Self Pay Nursing informed of discharge plan: [place] of RN informed: Expected discharge date: Time: Additional Information: Arrangements have been arranged for new HD with [facility] (-- [phone]) with IV Vanco x 10 days, [employer] wound vac has been delivered and [facility] has been arranged for 6 care home visits CM/SW Name & Contact number: ADRIENNE Huffman Ph. [phone] The following information has been provided to the facility noted above: reason for the patient discharge or transfer; patients physical and psychosocial status; summary of care, treatment, servicesprovided to patient; and the patient progress toward goals. Vashti Kimball FNP - 11/23/2019 2:28 PM CDT [facility] Hospitalist Progress Note SUBJECTIVE: Patient lying in bed denies any pain CURRENT MEDICATIONS - reviewed. Current Facility-Administered Medications Medication Dose Route Frequency Last Rate Last Dose [START ON 11/24/2019] furosemide (LASIX) injection 80 mg 80 mg Slow IV Push DAILY NIFEdipine ER (AFEDITAB CR) tablet 60 mg 60 mg Oral DAILY 60 mg at 11/23/19 0917 piperacillin-tazobactam (ZOSYN) 2.25 g in NaCl 0.9% (NS) 100 mL MINI-BAG 2.25 g IV Piggyback Q12H ABX acetaminophen (TYLENOL) tablet 650 mg 650 mg Oral Q6HPRN 650 mg at 11/23/19 0841 calcitrioL (ROCALTROL) capsule 0.5 mcg 0.5 mcg Oral Q OTHERDAY 0.5 mcg at 11/23/19 1204 hydralAZINE (APRESOLINE) injection 10 mg 10 mg Intravenous PRN - SEE INSTRUCTIONS 10 mg at 11/22/19 1115 lisinopril (PRINIVIL,ZESTRIL) tablet 20 mg 20 mg Oral DAILY NaCl 0.9% (NS) injection 10 mL 10 mL Slow IV Push PRN 10 mL at 11/23/19 1145 dextrose 50 % in water (D50W) injection 25 mL 25 mL Slow IV Push PRN glucagon (GLUCAGEN DIAGNOSTIC KIT) injection 1 mg 1 mg Intramuscular PRN heparin (porcine) injection 5,000 Units 5,000 Units Subcutaneous Q12H Stopped at 11/23/19 0828 ondansetron (ZOFRAN (PF)) injection 4 mg 4 mg Slow IV Push Q6HPRN Sliding Scale Insulin-Regular + Fsbg Testing Subcutaneous AC+HS Stopped at 11/23/19 1130 PHYSICAL EXAM: BP (!) 171/85 | Pulse 69 | Temp 36.4 C (97.5 F) (Oral) | Resp 17 | Ht 1.676 m (5' 6") | Wt 139.5 kg (307 lb 8.7 oz) | SpO2 98% | BMI 49.64 kg/m General: NAD HEENT: Anicteric sclerae, NCAT Lungs: CTAB Cardio: RRR, strong symmetric pulses Abdomen: obese,Soft, NTND Genitourinary: No lesions Musculoskeletal: Right third and fourth toe with wound VAC draining Skin: No rash or lesions, normal turgot Neuro: AAOx3, no focal deficits Psych: Normal affect LABS/IMAGING - reviewed, pertinent results as below: CBC BMP PT/INR WBC (10*3/L) Date Value 11/21/2019 11.43 (H) NA (mmol/L) Date Value 11/23/2019 136 No results found for: PT RBC (10*6/L) Date Value 11/21/2019 2.58 (L) K (mmol/L) Date Value 11/23/2019 4.3 No results found for: PTINR PLT (10*3/L) Date Value 11/21/2019 311 CALCIUM (mg/dL) Date Value 11/23/2019 7.2 (L) HGB (g/dL) Date Value 11/21/2019 7.7 (L) CL (mmol/L) Date Value 11/23/2019 106 aPTT HCT (%) Date Value 11/21/2019 24.4 (L) BUN (mg/dL) Date Value 11/23/2019 50 (H) No results found for: APTTPAT CREATININE (mg/dL) Date Value 11/23/2019 4.84 (H) IMAGING- Hospital Encounter on 11/17/19 XR FOOT <3 VW RIGHT Narrative EXAM: XR FOOT <3 VW RIGHT HISTORY: wound COMPARISON: None FINDINGS: Imaging of the right foot demonstrates diffuse severe swelling. Soft tissue gas and ulceration are seen along the fifth ray at the phalanx, fifth metatarsal head/neck and metatarsal base. Osteolysis and bony fragmentation is seen in these regions. Additionally, soft tissue gas is seen at the level of the great toe with subtle osteolysis noted about the lateral margin of the great toe distal phalanx. Chronic articular collapse with sclerotic remodeling is seen about the great toe proximal phalanx and the articular margins of the talonavicular, subtalar, calcaneocuboid, navicular cuneiform joints and second through fifth TMT joints. Impression Ulcerations with osteomyelitis involving the fifth toe, proximal and fifth metatarsal and great toe. Charcot arthropathy. Cellulitis. IOz MD., have reviewed this study and agree with the above report. FL TIME OR (NON-REPORTABLE) Narrative These images do not require a Radiology diagnostic report. FL TIME OR (NON-REPORTABLE) Narrative These images do not require a Radiology diagnostic report. CT FOOT RIGHT WO CONTRAST Narrative EXAM: CT FOOT RIGHT WO CONTRAST HISTORY: Osteomyelitis suspected, foot swelling, diabetic COMPARISON: None available. TECHNIQUE: Contiguous 3.0 mm slices were acquired without contrast. Multiplanar reconstructions were obtained. FINDINGS: There is diffuse soft tissue swelling of the foot, and ankle most localized at the plantar lateral aspect of the forefoot. Soft tissue ulceration is seen along the lateral aspect of the fifth metatarsal head and base. Focal osteopenia and cortical erosions are visualized at these sites with associated subcutaneous swelling and gas involving the fifth metatarsal base, head and fifth phalanx with questionable erosions involving the right lateral fourth metatarsal head and proximal phalanx base. Chronic articular collapse with sclerotic remodeling is seen about the great toe proximal phalanx and the articular margins of the talonavicular, subtalar, calcaneocuboid, navicular cuneiform joints as well as the second through fifth TMT joint. A remote lateral malleolus fracture is noted. A remote anterior fragmented tibial plafond fracture versus fragmented osteochondral defect is noted. Impression Ulcerations with subcutaneous gas and osteomyelitis involving the fifth toe and fifth metatarsal base and head with suspicion for osteomyelitis of the fourth metatarsal head and fourth digit proximal phalanx base. Recommend MRI for further characterization. Charcot arthropathy. Preliminary Report Dictated by Resident: Romraio Wood I, Oz Peres MD., have reviewed this study and agree with the above report. US RETROPERITONEAL COMPLETE Narrative HISTORY: ANGEL . RENAL ULTRASOUND TECHNIQUE: Limited abdominal ultrasound examination performed evaluating the kidneys using man scale and color doppler imaging. Quality is slightly limited secondary to scanning being performed on a portable unit at bedside. COMPARISON: None. FINDINGS: RIGHT KIDNEY:The right kidney measures 10.5 cm (184 mL). No hydronephrosis. LEFT KIDNEY: Normal size, contour, and echotexture. The left kidney measures 11.5 cm (156 mL). No hydronephrosis. A 3 cm x 2 cm anechoic lesion suggestive of a simple cyst is at the lower pole of left kidney Both kidneys show increased cortical echogenicity with decreased corticomedullary differentiation. Cortical thickness is maintained on both sides. BLADDER: Unremarkable. Incidental finding of a hydropic gallbladder, with multiple echogenic foci with distal shadowing in the dependent part of the gallbladder compatible with gallstones. Impression Bilateral normal size kidneys with increased cortical echogenicity and decreased cortical medullary differentiation. Findings are compatible with medical renal disease. XR CHEST 1 VW Narrative PROCEDURE: XR CHEST 1 VW CLINICAL INDICATION: Line placement COMPARISON: None FINDINGS: A tunneled dialysis catheter with its tip in right atrium is visualized. Heart is enlarged. Central venous congestion. Patchy opacities in the right pericardiac region. Rest of the lungs are clear. No pleural effusion or pneumothorax is seen. The heart is normal in size. No acute bony abnormality. Impression Cardiomegaly The right internal jugular dialysis catheter with its tip in the upper right atrium is visualized. The patchy opacity in the right paracardiac region is likely result of overlapping shadows. ASSESSMENT/PLAN Jena Whitehead is a 59 year old female with PMH as listed above, admitted to the hospital with: Acute osteomyelitis of right foot with abscess S/p R 4th and 5th ray resection with bone biopsy of R 3rd metatarsal by Dr. Yanez 11/[address] Yanez. Wound-vac placed. Waiting for wound vac approval for discharge to home IV, zosyn day 5 Wound cultures is wound culture resistant to clindamycin, erythromycin, ID consult Dr Foley verbal instruction will start Vanco with HD for 10 days, Please defer to ID's note Hematuria likely on menses Patient not sure if she is on her cycle Hgb 7.7 will trend UA ordered Trend CBC/BMP CKD 5, hyperkalemia, metabolic acidosis Medically manage with IV insulin, kayexalate, IV bicarb drip HD started 11/21 Surgery consult for Permcath done HD on [facility] with an approved HD chair With Dr Kunal bar HTN, poorly controlled Increase nifedipine 90 mg daily Lisinopril 20 mg daily Hydralazine prn Prophylaxis: DVT- heparin Stress Ulcer: no indication for prophylaxis Code Status: addressed: full code Disposition: Home health awaiting for approval for wound VAC and non weight bearing right foot, if patient discharged home HD chair approved [facility] was viewed during this stay MILADY Quintero Associated attestation - Saulo Jara MD - 11/23/2019 8:57 PM CDTI personally evaluated and examined the patient on 11/23/2019 and agree with the note as detailed by the nurse practitioner. I actively participated in the decision- making process. In summary, patient was admitted for osteomyelitis of right foot with abscess and ESRD. Rest of plan per below. Saulo Jara M.D. 11/23/2019 8:57 PM Nicolas Syed MD - 11/23/2019 10:23 AM CDT Medicine Progress Note Hemodialysis note Date of Service: 11/23/2019 Chief Complaint: Feeling weak 24-HOUR EVENTS: 59 year-old female with pmh of DM, HTN, CHF, CKD, CAD who presents with one week history of right foot pain for the past 10 days. She notes that she had increased erythema, tenderness, warmth, reddish drainage, and odor. Additional symptoms includes: fever, chills, nausea. Patient to progress to end-stage renal disease is started on dialysis Patient was seen on dialysis blood pressure being not controlled we Haile for 2 L we increased ultrafiltration to 3 L SUBJECTIVE: Patient was started on dialysis today tolerated well CURRENT MEDICATIONS - reviewed. PHYSICAL EXAM: BP (!) 197/94 | Pulse 71 | Temp 36.5 C (97.7 F) (Axillary) | Resp 21 | Ht 5' 6" (1.676 m) |Wt 314 lb (142.4 kg) | SpO2 97% | BMI 50.68 kg/m Intake/Output Summary (Last 24 hours) at 11/23/2019 1019 Last data filed at 11/22/2019 1700 Gross per 24 hour Intake 800 ml Output 1000 ml Net -200 ml General: alert and oriented x 3; no apparent distress HEENT: pupils equal, round, reactive to light; extraocular movements intact; oropharynx clear; moistmucous membranes, normocephalic atraumatic Neck: supple, no lymphadenopathy, no bruits, no JVD, full range of motion Lungs: clear to auscultation bilaterally Cardio: S1, S2 normal; no murmurs, rubs or gallops, regular rate and rhythm Abdomen: soft; non-tender; non-distended; normoactive bowel sounds Extremities: no clubbing, cyanosis, +2 edema dressing on the right foot with wound VAC Skin: no rashes Neuro: cranial nerves II through XII grossly intact; sensation grossly intact; muscle strength 5 outof 5 in all four extremities LABS/IMAGING - reviewed, pertinent results as below: CBC BMP PT/INR WBC (10*3/L) Date Value 11/21/2019 11.43 (H) NA (mmol/L) Date Value 11/23/2019 136 No results found for: PT RBC (10*6/L) Date Value 11/21/2019 2.58 (L) K (mmol/L) Date Value 11/23/2019 4.3 No results found for: PTINR PLT (10*3/L) Date Value 11/21/2019 311 CALCIUM (mg/dL) Date Value 11/23/2019 7.2 (L) HGB (g/dL) Date Value 11/21/2019 7.7 (L) CL (mmol/L) Date Value 11/23/2019 106 aPTT HCT (%) Date Value 11/21/2019 24.4 (L) BUN (mg/dL) Date Value 11/23/2019 50 (H) No results found for: APTTPAT CREATININE (mg/dL) Date Value 11/23/2019 4.84 (H) Radiology Xr Chest 1 Vw Result Date: 11/21/2019 Cardiomegaly The right internal jugular dialysis catheter with its tip in the upper right atrium is visualized. The patchy opacity in the right paracardiac region is likely result of overlapping shadows. ASSESSMENT/PLAN Jena Whitehead is a 59 year old female with PMH as listed above, admitted to the hospital with: ESRD status post for his dialysis today Will challenge the patient increase the goal 3 L Add Lasix for better volume control Hyperkalmia resolved Low K diet Patient didn't be dialyzed on low potassium bath Secondary hyperparathyroidism Start the patient on calcitriol Will monitor the patient Patient didn't be dialyzed on high calcium bath Edema over volume: Increase the goal add Lasix Nicolas Syed MD - 11/23/2019 10:19 AM CDT Medicine Progress Note Date of Service: 11/23/2019 Chief Complaint: Feeling weak 24-HOUR EVENTS: 59 year-old female with pmh of DM, HTN, CHF, CKD, CAD who presents with one week history of right foot pain for the past 10 days. She notes that she had increased erythema, tenderness, warmth, reddish drainage, and odor. Additional symptoms includes: fever, chills, nausea. Patient to progress to end-stage renal disease is started on dialysis SUBJECTIVE: Patient was started on dialysis today tolerated well CURRENT MEDICATIONS - reviewed. PHYSICAL EXAM: BP (!) 197/94 | Pulse 71 | Temp 36.5 C (97.7 F) (Axillary) | Resp 21 | Ht 5' 6" (1.676 m) |Wt 314 lb (142.4 kg) | SpO2 97% | BMI 50.68 kg/m Intake/Output Summary (Last 24 hours) at 11/23/2019 1019 Last data filed at 11/22/2019 1700 Gross per 24 hour Intake 800 ml Output 1000 ml Net -200 ml General: alert and oriented x 3; no apparent distress HEENT: pupils equal, round, reactive to light; extraocular movements intact; oropharynx clear; moistmucous membranes, normocephalic atraumatic Neck: supple, no lymphadenopathy, no bruits, no JVD, full range of motion Lungs: clear to auscultation bilaterally Cardio: S1, S2 normal; no murmurs, rubs or gallops, regular rate and rhythm Abdomen: soft; non-tender; non-distended; normoactive bowel sounds Extremities: no clubbing, cyanosis, +2 edema dressing on the right foot with wound VAC Skin: no rashes Neuro: cranial nerves II through XII grossly intact; sensation grossly intact; muscle strength 5 outof 5 in all four extremities LABS/IMAGING - reviewed, pertinent results as below: CBC BMP PT/INR WBC (10*3/L) Date Value 11/21/2019 11.43 (H) NA (mmol/L) Date Value 11/23/2019 136 No results found for: PT RBC (10*6/L) Date Value 11/21/2019 2.58 (L) K (mmol/L) Date Value 11/23/2019 4.3 No results found for: PTINR PLT (10*3/L) Date Value 11/21/2019 311 CALCIUM (mg/dL) Date Value 11/23/2019 7.2 (L) HGB (g/dL) Date Value 11/21/2019 7.7 (L) CL (mmol/L) Date Value 11/23/2019 106 aPTT HCT (%) Date Value 11/21/2019 24.4 (L) BUN (mg/dL) Date Value 11/23/2019 50 (H) No results found for: APTTPAT CREATININE (mg/dL) Date Value 11/23/2019 4.84 (H) Radiology Xr Chest 1 Vw Result Date: 11/21/2019 Cardiomegaly The right internal jugular dialysis catheter with its tip in the upper right atrium is visualized. The patchy opacity in the right paracardiac region is likely result of overlapping shadows. ASSESSMENT/PLAN Jena Whitehead is a 59 year old female with PMH as listed above, admitted to the hospital with: 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 status post for his dialysis today Will go on another session of dialysis today Will try to challenge the patient to establish better volume control Hyperkalmia Low K diet Patient didn't be dialyzed on low potassium bath Secondary hyperparathyroidism Start the patient on calcitriol Will monitor the patient Patient didn't be dialyzed on high calcium bath HAGMA status post dialysis DC bicarbonate drip Will monitor the patient closely DM As per primary team HTN still elevated Start the patient on JONA inhibitor RT DM foot ulcer S/P Rt 4th and 5th toes amputation Monitor vanco level Follow-up with surgery and hospitalist DM Foot ulcer Ananya Diaz LBSW - 11/23/2019 8:30 AM CDTSubjective Patient ID: Jena Whitehead is a 59 year old female. Arrangements have been made for [facility] (under [facility] for care home wound care) and [facility]. (chair time will be scheduled for M-W-F at 1600, [facility] wound vac referral has been submitted and currently pending authorization. Anticipated discharge today if wound vac if approved and delivered. 1520: Pt has been approved for jorge wound vac. Scheduled for delivery today to patient's room. All arrangements have been made. Per , awaiting recs from Dr. Foley, ID. ADRIENNE Sotelo Counselling Psychologist - Care Management [facility] [phone] [email or web address] Review of Systems Objective Physical Exam Assessment/Plan Home with hh, wound vac and dialysis Saulo Kapoor MD - 11/22/2019 7:57 PM CDT [facility] Hospitalist Progress Note SUBJECTIVE: HD initiated today. CURRENT MEDICATIONS - reviewed. Current Facility-Administered Medications Medication Dose Route Frequency Last Rate Last Dose [START ON 11/23/2019] calcitrioL (ROCALTROL) capsule 0.5 mcg 0.5 mcg Oral Q OTHERDAY heparin (PF) 1,000 unit/mL injection 1,000 Units 1,000 Units Slow IV Push DIALYSIS ONCE - PT ROOM Followed by heparin (PF) 1,000 unit/mL injection 1,000 Units 1,000 Units Slow IV Push DIALYSIS ONCE - PT ROOM hydralAZINE (APRESOLINE) injection 10 mg 10 mg Intravenous PRN - SEE INSTRUCTIONS 10 mg at 11/22/19 1115 [START ON 11/23/2019] lisinopril (PRINIVIL,ZESTRIL) tablet 20 mg 20 mg Oral DAILY [START ON 11/23/2019] NIFEdipine ER (AFEDITAB CR) tablet 90 mg 90 mg Oral DAILY NaCl 0.9% (NS) injection 10 mL 10 mL Slow IV Push PRN dextrose 50 % in water (D50W) injection 25 mL 25 mL Slow IV Push PRN glucagon (GLUCAGEN DIAGNOSTIC KIT) injection 1 mg 1 mg Intramuscular PRN heparin (porcine) injection 5,000 Units 5,000 Units Subcutaneous Q12H 5,000 Units at 11/21/200659 ondansetron (ZOFRAN (PF)) injection 4 mg 4 mg Slow IV Push Q6HPRN piperacillin-tazobactam (ZOSYN) 3.375 g in NaCl 0.9% (NS) 100 mL MINI-BAG 3.375 g IV Piggyback Q6H ABX 3.375 g at 11/22/19 1716 Sliding Scale Insulin-Regular + Fsbg Testing Subcutaneous AC+HS 2 Units at 11/22/19 1716 PHYSICAL EXAM: BP 139/61 | Pulse 79 | Temp 36.6 C (97.8 F) (Temporal Artery) | Resp 18 | Ht 1.676 m (5' 6") | Wt 143 kg (315 lb 4.1 oz) | SpO2 93% | BMI 50.88 kg/m General: No respiratory distress Neuro: AAOx3, no focal deficits Psych: Normal affect LABS/IMAGING - reviewed, pertinent results as below: CBC BMP PT/INR WBC (10*3/L) Date Value 11/21/2019 11.43 (H) NA (mmol/L) Date Value 11/21/2019 139 No results found for: PT RBC (10*6/L) Date Value 11/21/2019 2.58 (L) K (mmol/L) Date Value 11/21/2019 4.8 No results found for: PTINR PLT (10*3/L) Date Value 11/21/2019 311 CALCIUM (mg/dL) Date Value 11/21/2019 6.3 (L) HGB (g/dL) Date Value 11/21/2019 7.7 (L) CL (mmol/L) Date Value 11/21/2019 110 (H) aPTT HCT (%) Date Value 11/21/2019 24.4 (L) BUN (mg/dL) Date Value 11/21/2019 65 (H) No results found for: APTTPAT CREATININE (mg/dL) Date Value 11/21/2019 6.20 (H) IMAGING- Hospital Encounter on 11/17/19 XR FOOT <3 VW RIGHT Narrative EXAM: XR FOOT <3 VW RIGHT HISTORY: wound COMPARISON: None FINDINGS: Imaging of the right foot demonstrates diffuse severe swelling. Soft tissue gas and ulceration are seen along the fifth ray at the phalanx, fifth metatarsal head/neck and metatarsal base. Osteolysis and bony fragmentation is seen in these regions. Additionally, soft tissue gas is seen at the level of the great toe with subtle osteolysis noted about the lateral margin of the great toe distal phalanx. Chronic articular collapse with sclerotic remodeling is seen about the great toe proximal phalanx and the articular margins of the talonavicular, subtalar, calcaneocuboid, navicular cuneiform joints and second through fifth TMT joints. Impression Ulcerations with osteomyelitis involving the fifth toe, proximal and fifth metatarsal and great toe. Charcot arthropathy. Cellulitis. I, Oz Peres MD., have reviewed this study and agree with the above report. FL TIME OR (NON-REPORTABLE) Narrative These images do not require a Radiology diagnostic report. FL TIME OR (NON-REPORTABLE) Narrative These images do not require a Radiology diagnostic report. CT FOOT RIGHT WO CONTRAST Narrative EXAM: CT FOOT RIGHT WO CONTRAST HISTORY: Osteomyelitis suspected, foot swelling, diabetic COMPARISON: None available. TECHNIQUE: Contiguous 3.0 mm slices were acquired without contrast. Multiplanar reconstructions were obtained. FINDINGS: There is diffuse soft tissue swelling of the foot, and ankle most localized at the plantar lateral aspect of the forefoot. Soft tissue ulceration is seen along the lateral aspect of the fifth metatarsal head and base. Focal osteopenia and cortical erosions are visualized at these sites with associated subcutaneous swelling and gas involving the fifth metatarsal base, head and fifth phalanx with questionable erosions involving the right lateral fourth metatarsal head and proximal phalanx base. Chronic articular collapse with sclerotic remodeling is seen about the great toe proximal phalanx and the articular margins of the talonavicular, subtalar, calcaneocuboid, navicular cuneiform joints as well as the second through fifth TMT joint. A remote lateral malleolus fracture is noted. A remote anterior fragmented tibial plafond fracture versus fragmented osteochondral defect is noted. Impression Ulcerations with subcutaneous gas and osteomyelitis involving the fifth toe and fifth metatarsal base and head with suspicion for osteomyelitis of the fourth metatarsal head and fourth digit proximal phalanx base. Recommend MRI for further characterization. Charcot arthropathy. Preliminary Report Dictated by Resident: Romario Wood I, Oz Peres MD., have reviewed this study and agree with the above report. US RETROPERITONEAL COMPLETE Narrative HISTORY: ANGEL . RENAL ULTRASOUND TECHNIQUE: Limited abdominal ultrasound examination performed evaluating the kidneys using man scale and color doppler imaging. Quality is slightly limited secondary to scanning being performed on a portable unit at bedside. COMPARISON: None. FINDINGS: RIGHT KIDNEY:The right kidney measures 10.5 cm (184 mL). No hydronephrosis. LEFT KIDNEY: Normal size, contour, and echotexture. The left kidney measures 11.5 cm (156 mL). No hydronephrosis. A 3 cm x 2 cm anechoic lesion suggestive of a simple cyst is at the lower pole of left kidney Both kidneys show increased cortical echogenicity with decreased corticomedullary differentiation. Cortical thickness is maintained on both sides. BLADDER: Unremarkable. Incidental finding of a hydropic gallbladder, with multiple echogenic foci with distal shadowing in the dependent part of the gallbladder compatible with gallstones. Impression Bilateral normal size kidneys with increased cortical echogenicity and decreased cortical medullary differentiation. Findings are compatible with medical renal disease. XR CHEST 1 VW Narrative PROCEDURE: XR CHEST 1 VW CLINICAL INDICATION: Line placement COMPARISON: None FINDINGS: A tunneled dialysis catheter with its tip in right atrium is visualized. Heart is enlarged. Central venous congestion. Patchy opacities in the right pericardiac region. Rest of the lungs are clear. No pleural effusion or pneumothorax is seen. The heart is normal in size. No acute bony abnormality. Impression Cardiomegaly The right internal jugular dialysis catheter with its tip in the upper right atrium is visualized. The patchy opacity in the right paracardiac region is likely result of overlapping shadows. ASSESSMENT/PLAN Jena Whitehead is a 59 year old female with PMH as listed above, admitted to the hospital with: Acute osteomyelitis of right foot with abscess S/p R 4th and 5th ray resection with bone biopsy of R 3rd metatarsal by Dr. Yanez 11/[address] Yanez. Wound-vac placed. IV vancomycin, zosyn day 4 F/u cultures ID consult CKD 5, hyperkalemia, metabolic acidosis Medically manage with IV insulin, kayexalate, IV bicarb drip HD started 11/21 Surgery consult for Permcath. Dr. Reid notified. NPO pmn. HTN, poorly controlled Increase nifedipine dose Hydralazine prn Prophylaxis: DVT- heparin Stress Ulcer: no indication for prophylaxis Code Status: Full Disposition: Home health vs SNF/LTAC Nicolas Candelaria MD - 11/22/2019 3:17 PM CDT Medicine Progress Note Date of Service: 11/22/2019 Chief Complaint: Feeling weak 24-HOUR EVENTS: 59 year-old female with pmh of DM, HTN, CHF, CKD, CAD who presents with one week history of right foot pain for the past 10 days. She notes that she had increased erythema, tenderness, warmth, reddish drainage, and odor. Additional symptoms includes: fever, chills, nausea. Patient to progress to end-stage renal disease is started on dialysis SUBJECTIVE: Patient was started on dialysis today tolerated well CURRENT MEDICATIONS - reviewed. PHYSICAL EXAM: Patient Vitals for the past 24 hrs: BP Temp Temp src Pulse Resp SpO2 Weight 11/22/19 1409 (!) 140/55 11/22/19 1205 (!) 192/75 36.3 C (97.4 F) TEMPORAL ART 79 18 96 % 11/22/19 1131 (!) 199/86 36.7 C (98 F) 77 18 315 lb 4.1 oz (143 kg) 11/22/19 1120 (!) 219/98 73 11/22/19 1100 (!) 212/103 74 11/22/19 1030 (!) 217/101 73 11/22/19 1000 (!) 211/97 73 11/22/19 0930 (!) 213/105 76 11/22/19 0900 (!) 198/90 79 11/22/19 0846 (!) 204/95 78 11/22/19 0829 (!) 191/88 36.9 C (98.5 F) Oral 81 20 317 lb 7.4 oz (144 kg) 11/22/19 0737 (!) 159/77 36.6 C (97.9 F) TEMPORAL ART 84 20 97 % 11/22/19 0442 (!) 176/81 36.7 C (98.1 F) TEMPORAL ART 80 20 97 % 317 lb (143.8 kg) 11/22/19 0058 (!) 159/78 36.5 C (97.7 F) TEMPORAL ART 83 20 97 % 11/21/19 2018 (!) 148/79 36.7 C (98 F) TEMPORAL ART 78 18 96 % 11/21/19 1644 (!) 160/67 36.7 C (98.1 F) 82 20 95 % 11/21/19 1610 (!) 160/64 20 11/21/19 1555 (!) 159/69 18 11/21/19 1537 (!) 149/61 82 20 91 % 11/21/19 1522 (!) 152/58 36.3 C (97.4 F) TEMPORAL ART 82 20 92 % Intake/Output Summary (Last 24 hours) at 11/22/2019 1517 Last data filed at 11/22/2019 1205 Gross per 24 hour Intake 1122 ml Output 2940 ml Net -1818 ml General: alert and oriented x 3; no apparent distress HEENT: pupils equal, round, reactive to light; extraocular movements intact; oropharynx clear; moistmucous membranes, normocephalic atraumatic Neck: supple, no lymphadenopathy, no bruits, no JVD, full range of motion Lungs: clear to auscultation bilaterally Cardio: S1, S2 normal; no murmurs, rubs or gallops, regular rate and rhythm Abdomen: soft; non-tender; non-distended; normoactive bowel sounds Extremities: no clubbing, cyanosis, +2 edema dressing on the right foot with wound VAC Skin: no rashes Neuro: cranial nerves II through XII grossly intact; sensation grossly intact; muscle strength 5 outof 5 in all four extremities LABS/IMAGING - reviewed, pertinent results as below: CBC BMP PT/INR WBC (10*3/L) Date Value 11/21/2019 11.43 (H) NA (mmol/L) Date Value 11/21/2019 139 No results found for: PT RBC (10*6/L) Date Value 11/21/2019 2.58 (L) K (mmol/L) Date Value 11/21/2019 4.8 No results found for: PTINR PLT (10*3/L) Date Value 11/21/2019 311 CALCIUM (mg/dL) Date Value 11/21/2019 6.3 (L) HGB (g/dL) Date Value 11/21/2019 7.7 (L) CL (mmol/L) Date Value 11/21/2019 110 (H) aPTT HCT (%) Date Value 11/21/2019 24.4 (L) BUN (mg/dL) Date Value 11/21/2019 65 (H) No results found for: APTTPAT CREATININE (mg/dL) Date Value 11/21/2019 6.20 (H) Radiology Xr Chest 1 Vw Result Date: 11/21/2019 Cardiomegaly The right internal jugular dialysis catheter with its tip in the upper right atrium is visualized. The patchy opacity in the right paracardiac region is likely result of overlapping shadows. ASSESSMENT/PLAN Jena Whitehead is a 59 year old female with PMH as listed above, admitted to the hospital with: 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 status post for his dialysis today Will go on another session of dialysis tomorrow Will try to challenge the patient to establish better volume control Hyperkalmia Low K diet Patient didn't be dialyzed on low potassium bath Secondary hyperparathyroidism Start the patient on calcitriol Will monitor the patient Patient didn't be dialyzed on high calcium bath HAGMA status post dialysis DC bicarbonate drip Will monitor the patient closely DM As per primary team HTN still elevated Start the patient on JONA inhibitor RT DM foot ulcer S/P Rt 4th and 5th toes amputation Monitor vanco level Follow-up with surgery and hospitalist DM Foot ulcer Ananya Diaz LBSW - 11/22/2019 12:54 PM CDTSubjective Patient ID: Jena Whitehead is a 59 year old female. Faxed [facility] Wound Vac application for review. Will await determination for financial assistance as patient is unfunded. Will arrange for [facility] for home health for care home visits for wound care. ADRIENNE Sotelo Counselling Psychologist - Care Management [facility] [phone] [email or web address] Review of Systems Objective Physical Exam Assessment/Plan Home with wound vac, contracted care home visits and new HD Maria Victoria Bains MD - 11/21/2019 6:57 PM CDTNephrology follow-up note Subjective A 59 Y/o woman with PMHx of DM on insulin , HTN, CHF , CAD Patient presented with worsening pain over rt foot Patient had CKD , was seen by inspector structural bonding >5 years ago, not following with PCP , labs from last year Cr 3.3, GFR 13 , patient was also taking NSAID intermittently Physical exam General: AAOX3, NAD , obese Chest: CTAB, no, rales or wheezes Herat: RRR, Normal S1,2 Abd: Soft, NT Extremities: trace edema on RT with foot dressed S/P Rt 4th and 5th toes amputation Will start HD once catheter placed, Plan is to stop bicarb drip after HD Physical exam General: AAOX3, NAD , obese Chest: CTAB, no, rales or wheezes Herat: RRR, Normal S1,2 Abd: Soft, NT Extremities: trace edema on RT with foot dressed Assessment and plan 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 US with echogenic kidneys Will initiate HD this admission Will monitor RFT Monitor vanco level Avoid NSAID Hyperkalmia Low K diet HAGMA Due to CKD and Saline bicarb drip as needed DM As per primary team HTN Elevated Will start nifedipine RT DM foot ulcer S/P Rt 4th and 5th toes amputation Monitor vanco level DM Foot ulcer TONTSVarun ray Jr., DPM - 11/21/2019 7:09 AM CDTS: Patient seen at bedside. Is complaining of diarrhea O: Wound vac in place, well sealed. No erythema to wound. No pain. Wound culture returned as Staph. Aureus. Awaiting sensitivities WBC decreased compared to previous day A: S/p right fourth and fifth ray amputation with incision and drainage of right foot P: 1. Continue current antibiotics, awaiting ID consult 2. Social work consult for SNF or LTAC placement 3. PICC line placement 4. Continue wound vac and nonweightbearing right lower extremity TONT Chadwick Miller MD - 11/20/2019 3:29 PM CDT Nephrology progress note Subjective A 59 Y/o woman with PMHx of DM on insulin , HTN, CHF , CAD Patient presented with worsening pain over rt foot Patient had CKD , was seen by inspector structural bonding >5 years ago, not following with PCP , labs from last year Cr 3.3, GFR 13 , patient was also taking NSAID intermittently Today S/P Rt 4th and 5th toes amputation Will start HD tomorrow , once catheter placed Discharge bicarb drip after HD tomorrow SW for OP dialysis arrangement Social History Socioeconomic History Marital status: Spouse name: Not on file Number of children: Not on file Years of education: Not on file Highest education level: Not on file Occupational History Not on file Social Needs Financial resource strain: Not on file Food insecurity: Worry: Not on file Inability: Not on file Transportation needs: Medical: Not on file Non-medical: Not on file Tobacco Use Smoking status: Former Smoker Smokeless tobacco: Never Used Substance and Sexual Activity Alcohol use: Not on file Drug use: Not on file Sexual activity: Not on file Lifestyle Physical activity: Days per week: Not on file Minutes per session: Not on file Stress: Not on file Relationships Social connections: Talks on phone: Not on file Gets together: Not on file Attends bahai service: Not on file Active member of club or organization: Not on file Attends meetings of clubs or organizations: Not on file Relationship status: Not on file Intimate partner violence: Fear of current or ex partner: Not on file Emotionally abused: Not on file Physically abused: Not on file Forced sexual activity: Not on file Other Topics Concern Not on file Social History Narrative Not on file Allergies Allergen Reactions Levaquin [Levofloxacin] Other - See comments weaknes Tylenol-Codeine #3 [Acetaminophen-Codeine] Nausea and/or Vomiting Current Discharge Medication List STOP taking these medications insulin NPH hum/reg insulin hm (INSULIN 70/30 SC) Comments: Reason for Stopping: Current Facility-Administered Medications: [START ON 11/21/2019] sodium bicarbonate 75 mEq IV Solution, 75 mEq, IV Infusion, CONTINUOUS, Chadwick Miller MD NIFEdipine ER (AFEDITAB CR) tablet 60 mg, 60 mg, Oral, DAILY, Chadwick Miller MD, 60 mg at 11/20/19 0834 dextrose 50 % in water (D50W) injection 25 mL, 25 mL, Slow IV Push, PRN, Rebeca Kraft MD glucagon (GLUCAGEN DIAGNOSTIC KIT) injection 1 mg, 1 mg, Intramuscular, PRN, Rebeca Kraft MD heparin (porcine) injection 5,000 Units, 5,000 Units, Subcutaneous, Q12H, Rebeca Kraft MD, 5,000 Units at 11/20/19 0834 ondansetron (ZOFRAN (PF)) injection 4 mg, 4 mg, Slow IV Push, Q6HPRN, Rebeca Kraft MD piperacillin-tazobactam (ZOSYN) 3.375 g in NaCl 0.9% (NS) 100 mL MINI-BAG, 3.375 g, IV Piggyback, Q6H ABX, Rebeca Kraft MD, 3.375 g at 11/20/19 1052 Sliding Scale Insulin-Regular + Fsbg Testing, , Subcutaneous, AC+HS, Rebeca Kraft MD, 8 Units at 11/20/19 1128 BP 125/63 | Pulse 72 | Temp 36.2 C (97.2 F) (Temporal Artery) | Resp 18 | Ht 1.676 m (5' 6") | Wt 144.5 kg (318 lb 8 oz) | SpO2 97% | BMI 51.41 kg/m Physical exam General: AAOX3, NAD , obese Chest: CTAB, no, rales or wheezes Herat: RRR, Normal S1,2 Abd: Soft, NT Extremities: trace edema on RT with foot dressed CBC WBC (10*3/L) Date Value 11/20/2019 18.33 (H) RBC (10*6/L) Date Value 11/20/2019 2.54 (L) PLT (10*3/L) Date Value 11/20/2019 274 HGB (g/dL) Date Value 11/20/2019 7.6 (L) HCT (%) Date Value 11/20/2019 23.9 (L) CMP NA (mmol/L) Date Value 11/20/2019 135 K (mmol/L) Date Value 11/20/2019 4.9 CALCIUM (mg/dL) Date Value 11/20/2019 7.1 (L) CL (mmol/L) Date Value 11/20/2019 110 (H) BUN (mg/dL) Date Value 11/20/2019 59 (H) CREATININE (mg/dL) Date Value 11/20/2019 5.42 (H) GLUCOSE (mg/dL) Date Value 11/20/2019 269 (H) CO2 TOTAL (mmol/L) Date Value 11/20/2019 18 (L) ALBUMIN (g/dL) Date Value 11/20/2019 2.6 (L) T PROTEIN (g/dL) Date Value 11/20/2019 6.4 TOTAL BILI (mg/dL) Date Value 11/20/2019 0.3 ALTv (U/L) Date Value 11/20/2019 7 AST(SGOT) (U/L) Date Value 11/20/2019 9 (L) ALK PHOS (U/L) Date Value 11/20/2019 52 Assessment and plan 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 CURRENT MEDICATIONS - reviewed. Current Facility-Administered Medications Medication Dose Route Frequency Last Rate Last Dose [START ON 11/21/2019] sodium bicarbonate 75 mEq IV Solution 75 mEq IV Infusion CONTINUOUS NIFEdipine ER (AFEDITAB CR) tablet 60 mg 60 mg Oral DAILY 60 mg at 11/20/19 0834 dextrose 50 % in water (D50W) injection 25 mL 25 mL Slow IV Push PRN glucagon (GLUCAGEN DIAGNOSTIC KIT) injection 1 mg 1 mg Intramuscular PRN heparin (porcine) injection 5,000 Units 5,000 Units Subcutaneous Q12H 5,000 Units at 11/20/200734 ondansetron (ZOFRAN (PF)) injection 4 mg 4 mg Slow IV Push Q6HPRN piperacillin-tazobactam (ZOSYN) 3.375 g in NaCl 0.9% (NS) 100 mL MINI-BAG 3.375 g IV Piggyback Q6H ABX 3.375 g at 11/20/19 1052 Sliding Scale Insulin-Regular + Fsbg Testing Subcutaneous AC+HS 8 Units at 11/20/19 1128 PHYSICAL EXAM: BP 125/63 | Pulse 72 | Temp 36.2 C (97.2 F) (Temporal Artery) | Resp 18 | Ht 5' 6" (1.676 m) | Wt 318 lb 8 oz (144.5 kg) | SpO2 97% | BMI 51.41 kg/m General: No respiratory distress Neuro: AAOx3, no focal deficits Psych: Normal affect LABS/IMAGING - reviewed, pertinent results as below: CBC BMP PT/INR WBC (10*3/L) Date Value 11/20/2019 18.33 (H) NA (mmol/L) Date Value 11/20/2019 135 No results found for: PT RBC (10*6/L) Date Value 11/20/2019 2.54 (L) K (mmol/L) Date Value 11/20/2019 4.9 No results found for: PTINR PLT (10*3/L) Date Value 11/20/2019 274 CALCIUM (mg/dL) Date Value 11/20/2019 7.1 (L) HGB (g/dL) Date Value 11/20/2019 7.6 (L) CL (mmol/L) Date Value 11/20/2019 110 (H) aPTT HCT (%) Date Value 11/20/2019 23.9 (L) BUN (mg/dL) Date Value 11/20/2019 59 (H) No results found for: APTTPAT CREATININE (mg/dL) Date Value 11/20/2019 5.42 (H) IMAGING- Hospital Encounter on 11/17/19 XR FOOT <3 VW RIGHT Narrative EXAM: XR FOOT <3 VW RIGHT HISTORY: wound COMPARISON: None FINDINGS: Imaging of the right foot demonstrates diffuse severe swelling. Soft tissue gas and ulceration are seen along the fifth ray at the phalanx, fifth metatarsal head/neck and metatarsal base. Osteolysis and bony fragmentation is seen in these regions. Additionally, soft tissue gas is seen at the level of the great toe with subtle osteolysis noted about the lateral margin of the great toe distal phalanx. Chronic articular collapse with sclerotic remodeling is seen about the great toe proximal phalanx and the articular margins of the talonavicular, subtalar, calcaneocuboid, navicular cuneiform joints and second through fifth TMT joints. Impression Ulcerations with osteomyelitis involving the fifth toe, proximal and fifth metatarsal and great toe. Charcot arthropathy. Cellulitis. I, Oz Peres MD., have reviewed this study and agree with the above report. FL TIME OR (NON-REPORTABLE) Narrative These images do not require a Radiology diagnostic report. CT FOOT RIGHT WO CONTRAST Narrative EXAM: CT FOOT RIGHT WO CONTRAST HISTORY: Osteomyelitis suspected, foot swelling, diabetic COMPARISON: None available. TECHNIQUE: Contiguous 3.0 mm slices were acquired without contrast. Multiplanar reconstructions were obtained. FINDINGS: There is diffuse soft tissue swelling of the foot, and ankle most localized at the plantar lateral aspect of the forefoot. Soft tissue ulceration is seen along the lateral aspect of the fifth metatarsal head and base. Focal osteopenia and cortical erosions are visualized at these sites with associated subcutaneous swelling and gas involving the fifth metatarsal base, head and fifth phalanx with questionable erosions involving the right lateral fourth metatarsal head and proximal phalanx base. Chronic articular collapse with sclerotic remodeling is seen about the great toe proximal phalanx and the articular margins of the talonavicular, subtalar, calcaneocuboid, navicular cuneiform joints as well as the second through fifth TMT joint. A remote lateral malleolus fracture is noted. A remote anterior fragmented tibial plafond fracture versus fragmented osteochondral defect is noted. Impression Ulcerations with subcutaneous gas and osteomyelitis involving the fifth toe and fifth metatarsal base and head with suspicion for osteomyelitis of the fourth metatarsal head and fourth digit proximal phalanx base. Recommend MRI for further characterization. Charcot arthropathy. Preliminary Report Dictated by Resident: Oz Mccarthy MD., have reviewed this study and agree with the above report. US RETROPERITONEAL COMPLETE Narrative HISTORY: ANGEL . RENAL ULTRASOUND TECHNIQUE: Limited abdominal ultrasound examination performed evaluating the kidneys using man scale and color doppler imaging. Quality is slightly limited secondary to scanning being performed on a portable unit at bedside. COMPARISON: None. FINDINGS: RIGHT KIDNEY:The right kidney measures 10.5 cm (184 mL). No hydronephrosis. LEFT KIDNEY: Normal size, contour, and echotexture. The left kidney measures 11.5 cm (156 mL). No hydronephrosis. A 3 cm x 2 cm anechoic lesion suggestive of a simple cyst is at the lower pole of left kidney Both kidneys show increased cortical echogenicity with decreased corticomedullary differentiation. Cortical thickness is maintained on both sides. BLADDER: Unremarkable. Incidental finding of a hydropic gallbladder, with multiple echogenic foci with distal shadowing in the dependent part of the gallbladder compatible with gallstones. Impression Bilateral normal size kidneys with increased cortical echogenicity and decreased cortical medullary differentiation. Findings are compatible with medical renal disease. ASSESSMENT/PLAN Jena Whitehead is a 59 year old female with PMH as listed above, admitted to the hospital with: Acute osteomyelitis of right foot with abscess S/p R 4th and 5th ray resection with bone biopsy of R 3rd metatarsal by Dr. Yanez 11/[address] Yanez. Wound-vac placed. IV vancomycin, zosyn day 3 F/u cultures ID consult CKD 5, hyperkalemia, metabolic acidosis Medically manage with IV insulin, kayexalate, IV bicarb drip Discussed with Dr. Miller. Plan to start HD this admission. Surgery consult for [facility]. Dr. Reid notified. NPO pmn. HTN On nifedipine Prophylaxis: DVT- heparin Stress Ulcer: no indication for prophylaxis Code Status: Full Disposition: Home health vs SNF/LTAC Jac Salvador MD Jac Leblanc MD - 11/19/2019 6:20 PM CDT [facility] Hospitalist Progress Note SUBJECTIVE: No acute events overnight. CURRENT MEDICATIONS - reviewed. Current Facility-Administered Medications Medication Dose Route Frequency Last Rate Last Dose [START ON 11/20/2019] NIFEdipine ER (AFEDITAB CR) tablet 60 mg 60 mg Oral DAILY sodium bicarbonate 75 mEq IV Solution 75 mEq IV Infusion CONTINUOUS 50 mL/hr at 11/19/19 1234 75 mEq at 11/19/19 1234 dextrose 50 % in water (D50W) injection 25 mL 25 mL Slow IV Push PRN glucagon (GLUCAGEN DIAGNOSTIC KIT) injection 1 mg 1 mg Intramuscular PRN heparin (porcine) injection 5,000 Units 5,000 Units Subcutaneous Q12H 5,000 Units at 11/19/200740 ondansetron (ZOFRAN (PF)) injection 4 mg 4 mg Slow IV Push Q6HPRN piperacillin-tazobactam (ZOSYN) 3.375 g in NaCl 0.9% (NS) 100 mL MINI-BAG 3.375 g IV Piggyback Q6H ABX 3.375 g at 11/19/19 1629 Sliding Scale Insulin-Regular + Fsbg Testing Subcutaneous AC+HS 8 Units at 11/19/19 1629 PHYSICAL EXAM: BP (!) 189/77 | Pulse 84 | Temp 37.1 C (98.7 F) | Resp 18 | Ht 5' 6" (1.676 m) | Wt 317 lb 6.4 oz (144 kg) | SpO2 98% | BMI 51.23 kg/m General: No respiratory distress Neuro: AAOx3, no focal deficits Psych: Normal affect LABS/IMAGING - reviewed, pertinent results as below: CBC BMP PT/INR WBC (10*3/L) Date Value 11/19/2019 12.85 (H) NA (mmol/L) Date Value 11/19/2019 136 No results found for: PT RBC (10*6/L) Date Value 11/19/2019 2.71 (L) K (mmol/L) Date Value 11/19/2019 6.0 (H) No results found for: PTINR PLT (10*3/L) Date Value 11/19/2019 252 CALCIUM (mg/dL) Date Value 11/19/2019 7.9 (L) HGB (g/dL) Date Value 11/19/2019 8.2 (L) CL (mmol/L) Date Value 11/19/2019 112 (H) aPTT HCT (%) Date Value 11/19/2019 25.9 (L) BUN (mg/dL) Date Value 11/19/2019 53 (H) No results found for: APTTPAT CREATININE (mg/dL) Date Value 11/19/2019 5.81 (H) IMAGING- Hospital Encounter on 11/17/19 XR FOOT <3 VW RIGHT Narrative EXAM: XR FOOT <3 VW RIGHT HISTORY: wound COMPARISON: None FINDINGS: Imaging of the right foot demonstrates diffuse severe swelling. Soft tissue gas and ulceration are seen along the fifth ray at the phalanx, fifth metatarsal head/neck and metatarsal base. Osteolysis and bony fragmentation is seen in these regions. Additionally, soft tissue gas is seen at the level of the great toe with subtle osteolysis noted about the lateral margin of the great toe distal phalanx. Chronic articular collapse with sclerotic remodeling is seen about the great toe proximal phalanx and the articular margins of the talonavicular, subtalar, calcaneocuboid, navicular cuneiform joints and second through fifth TMT joints. Impression Ulcerations with osteomyelitis involving the fifth toe, proximal and fifth metatarsal and great toe. Charcot arthropathy. Cellulitis. I, Oz Peres MD., have reviewed this study and agree with the above report. FL TIME OR (NON-REPORTABLE) Narrative These images do not require a Radiology diagnostic report. CT FOOT RIGHT WO CONTRAST Narrative EXAM: CT FOOT RIGHT WO CONTRAST HISTORY: Osteomyelitis suspected, foot swelling, diabetic COMPARISON: None available. TECHNIQUE: Contiguous 3.0 mm slices were acquired without contrast. Multiplanar reconstructions were obtained. FINDINGS: There is diffuse soft tissue swelling of the foot, and ankle most localized at the plantar lateral aspect of the forefoot. Soft tissue ulceration is seen along the lateral aspect of the fifth metatarsal head and base. Focal osteopenia and cortical erosions are visualized at these sites with associated subcutaneous swelling and gas involving the fifth metatarsal base, head and fifth phalanx with questionable erosions involving the right lateral fourth metatarsal head and proximal phalanx base. Chronic articular collapse with sclerotic remodeling is seen about the great toe proximal phalanx and the articular margins of the talonavicular, subtalar, calcaneocuboid, navicular cuneiform joints as well as the second through fifth TMT joint. A remote lateral malleolus fracture is noted. A remote anterior fragmented tibial plafond fracture versus fragmented osteochondral defect is noted. Impression Ulcerations with subcutaneous gas and osteomyelitis involving the fifth toe and fifth metatarsal base and head with suspicion for osteomyelitis of the fourth metatarsal head and fourth digit proximal phalanx base. Recommend MRI for further characterization. Charcot arthropathy. Preliminary Report Dictated by Resident: Romario Wood I, zO Peres MD., have reviewed this study and agree with the above report. US RETROPERITONEAL COMPLETE Narrative HISTORY: ANGEL . RENAL ULTRASOUND TECHNIQUE: Limited abdominal ultrasound examination performed evaluating the kidneys using man scale and color doppler imaging. Quality is slightly limited secondary to scanning being performed on a portable unit at bedside. COMPARISON: None. FINDINGS: RIGHT KIDNEY:The right kidney measures 10.5 cm (184 mL). No hydronephrosis. LEFT KIDNEY: Normal size, contour, and echotexture. The left kidney measures 11.5 cm (156 mL). No hydronephrosis. A 3 cm x 2 cm anechoic lesion suggestive of a simple cyst is at the lower pole of left kidney Both kidneys show increased cortical echogenicity with decreased corticomedullary differentiation. Cortical thickness is maintained on both sides. BLADDER: Unremarkable. Incidental finding of a hydropic gallbladder, with multiple echogenic foci with distal shadowing in the dependent part of the gallbladder compatible with gallstones. Impression Bilateral normal size kidneys with increased cortical echogenicity and decreased cortical medullary differentiation. Findings are compatible with medical renal disease. ASSESSMENT/PLAN Jena Whitehead is a 59 year old female with PMH as listed above, admitted to the hospital with: Acute osteomyelitis of right foot with abscess S/p R 4th and 5th ray resection with bone biopsy of R 3rd metatarsal by Dr. Yanez 11/[address] Yanez. Needs woundvac. IV vancomycin, zosyn day 2 F/u cultures ID consult CKD 5, hyperkalemia, metabolic acidosis Medically manage with IV insulin, kayexalate, IV bicarb drip May need HD initiation this admission HTN On nifedipine Prophylaxis: DVT- heparin Stress Ulcer: no indication for prophylaxis Code Status: Full Disposition: Home health Jac Salvador MD Varun Mckeon Jr., DPM - 11/19/2019 4:56 PM CDTS: Patient seen at bedside resting comfortably. No complaints of n/v/f/d O: WBC decreased compared to preop levels Dressing removed at bedside with breakthrough bleeding noted on the dressing. After removal of dressing the wound is noted to have large amounts of granular tissue with no foul odor, no necrotic tissue, no purulence noted A: S/p 1 day right fourth and fifth ray amputation P: 1. NWB right LE 2. Wound vac right foot 125mmHg continuous with dressing change q48h 3. Awaiting surgical pathology to rule out osteomyelitis right third metatarsal Chadwick Snider MD - 11/19/2019 12:46 PM CDT Nephrology progress note Subjective A 59 Y/o woman with PMHx of DM on insulin , HTN, CHF , CAD Patient presented with worsening pain over rt foot Patient had CKD , was seen by inspector structural bonding >5 years ago, not following with PCP , labs from last year Cr 3.3, GFR 13 , patient was also taking NSAID intermittently Today Feels better S/P Rt 4th and 5th toes amputation Cr slightly better K elevated, will start on bicarb drip , received kayexalate If continue to have hyperkaliemia and elevated RFT then will start on HD on Thursday Social History Socioeconomic History Marital status: Spouse name: Not on file Number of children: Not on file Years of education: Not on file Highest education level: Not on file Occupational History Not on file Social Needs Financial resource strain: Not on file Food insecurity: Worry: Not on file Inability: Not on file Transportation needs: Medical: Not on file Non-medical: Not on file Tobacco Use Smoking status: Former Smoker Smokeless tobacco: Never Used Substance and Sexual Activity Alcohol use: Not on file Drug use: Not on file Sexual activity: Not on file Lifestyle Physical activity: Days per week: Not on file Minutes per session: Not on file Stress: Not on file Relationships Social connections: Talks on phone: Not on file Gets together: Not on file Attends bahai service: Not on file Active member of club or organization: Not on file Attends meetings of clubs or organizations: Not on file Relationship status: Not on file Intimate partner violence: Fear of current or ex partner: Not on file Emotionally abused: Not on file Physically abused: Not on file Forced sexual activity: Not on file Other Topics Concern Not on file Social History Narrative Not on file Allergies Allergen Reactions Levaquin [Levofloxacin] Other - See comments weaknes Tylenol-Codeine #3 [Acetaminophen-Codeine] Nausea and/or Vomiting Current Discharge Medication List STOP taking these medications insulin NPH hum/reg insulin hm (INSULIN 70/30 SC) Comments: Reason for Stopping: Current Facility-Administered Medications: [START ON 11/20/2019] NIFEdipine ER (AFEDITAB CR) tablet 60 mg, 60 mg, Oral, DAILY, Chadwick Miller MD sodium bicarbonate 75 mEq IV Solution, 75 mEq, IV Infusion, CONTINUOUS, Chadwick Miller MD, Last Rate: 50 mL/hr at 11/19/19 1234, 75 mEq at 11/19/19 1234 dextrose 50 % in water (D50W) injection 25 mL, 25 mL, Slow IV Push, PRN, Rbeeca Kraft MD glucagon (GLUCAGEN DIAGNOSTIC KIT) injection 1 mg, 1 mg, Intramuscular, PRN, Rebeca Kraft MD heparin (porcine) injection 5,000 Units, 5,000 Units, Subcutaneous, Q12H, Rebeca Kraft MD, 5,000 Units at 11/19/19 0840 ondansetron (ZOFRAN (PF)) injection 4 mg, 4 mg, Slow IV Push, Q6HPRN, Rebeca Kraft MD piperacillin-tazobactam (ZOSYN) 3.375 g in NaCl 0.9% (NS) 100 mL MINI-BAG, 3.375 g, IV Piggyback, Q6H ABX, Rebeca Kraft MD, 3.375 g at 11/19/19 1043 Sliding Scale Insulin-Regular + Fsbg Testing, , Subcutaneous, AC+HS, Rebeca Kraft MD, 8 Units at 11/19/19 1114 BP (!) 174/76 | Pulse 84 | Temp 36.2 C (97.1 F) | Resp 18 | Ht 1.676 m (5' 6") | Wt 144 kg (317 lb 6.4 oz) | SpO2 99% | BMI 51.23 kg/m Physical exam General: AAOX3, NAD , obese Chest: CTAB, no, rales or wheezes Herat: RRR, Normal S1,2 Abd: Soft, NT Extremities: trace edema on RT with foot dressed CBC WBC (10*3/L) Date Value 11/19/2019 12.85 (H) RBC (10*6/L) Date Value 11/19/2019 2.71 (L) PLT (10*3/L) Date Value 11/19/2019 252 HGB (g/dL) Date Value 11/19/2019 8.2 (L) HCT (%) Date Value 11/19/2019 25.9 (L) CMP NA (mmol/L) Date Value 11/19/2019 136 K (mmol/L) Date Value 11/19/2019 6.0 (H) CALCIUM (mg/dL) Date Value 11/19/2019 7.9 (L) CL (mmol/L) Date Value 11/19/2019 112 (H) BUN (mg/dL) Date Value 11/19/2019 53 (H) CREATININE (mg/dL) Date Value 11/19/2019 5.81 (H) GLUCOSE (mg/dL) Date Value 11/19/2019 280 (H) CO2 TOTAL (mmol/L) Date Value 11/19/2019 14 (L) ALBUMIN (g/dL) Date Value 11/17/2019 3.3 (L) T PROTEIN (g/dL) Date Value 11/17/2019 7.8 TOTAL BILI (mg/dL) Date Value 11/17/2019 0.4 ALTv (U/L) Date Value 11/17/2019 9 AST(SGOT) (U/L) Date Value 11/17/2019 16 ALK PHOS (U/L) Date Value 11/17/2019 73 Assessment and plan 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 US with echogenic kidneys Patient might need to initiate HD this admission Will monitor RFT Monitor vanco level Avoid NSAID Hyperkalmia Low K diet Hyperkalemia trreatmetn HAGMA Due to CKD and Saline Will start bicarb drip DM As per primary team HTN Elevated Will start nifedipine RT DM foot ulcer S/P Rt 4th and 5th toes amputation Monitor vanco level DM Foot ulcer Senia Murdock - 11/18/2019 11:53 AM CDTPre-surg visit with patient; high density finishing operator initiated a relationship of care and support with patient, facilitated story telling, and listened empathetically as patient shared her medical and some of her life narrative. Patient expressed her gratitude to and confidence in God and her relationship with Him. Patient is coping well and anticipating wellness. Global Mobility Specialist offered and patient accepted prayer. Global Mobility Specialist provided support through listening presence and prayer. Future high density finishing operator support is available if ne eded/wanted. Ananya Atkins LBSW - 11/18/2019 10:27 AM CDTSubjective Patient ID: Jena Whitehead is a 59 year old female. Care Management Social Functional Assessment Patient Name: Jena Whitehead Age: [age] year old Sex: female Previous admit date: N/A Current diagnosis and co-morbidities: Diabetic foot infectionn;Osteomyelitis Readmission Questions: Was patient discharged from any acute care hospital within the last 30 days: No Social Functional Assessment: Primary language spoken/preferred: Zambian Mental Status: Alert & Oriented to Person,Place & Time Information given by: Self Patient's support system: Spouse Name and number of support system: Fabricio Ch, Primary Nutrition Services Aide: Self;Spouse MPOA: No Living Arrangement: Home Address of living arrangement : [address] [facility] [address] Persons living in home: Self;Spouse Barriers to returning home: None Baseline functional status- ambulation: Requires minimal to moderate assistance Functional status-baseline personal care: Requires minimal to moderate assistance Baseline functional status- driving: Dependent Baseline functional status- grocery shopping: Requires minimal to moderate assistance Functional status-baseline housekeeping: Requires minimal to moderate assistance Functional status-baseline meal prep: Independent Current functional status same as prior: Yes Do you have a PCP?: No Refered to: [facility] Home Health Care Agency: No Provider Services: No DME Company: No Equipment: Wheelchair: Manual;Walker;Cane Hemodialysis: No Community resources utilized: None Funding Resources: Self Pay Prescription coverage plan: Self Pay Pharmacy where meds are filled: Other Other pharmacy: [facility] Anticipated services prior to disharge: Continue Medical Eval Expected mode of discharge transportation: Same as support system Additional Recommendations for DC: Medical clearance Additional info required for discharge planning: Pending medical evaluation Recommended discharge plan: Home [facility] Complete: Social Functional Assessment complete: Yes Alcohol Use Screening (AUDIT-C) How often do you have a drink containing alcohol?: Never SCORE: 0 Did patient elect to have resources provided: No Role of Care Management explained. Any issues or concerns with obtaining/affording your medications at home: no. Are you or your support system able to olive picker medications at discharge: yes. Review of Systems Objective Physical Exam Assessment/Plan Home with . SW will assess for discharge needs. ADRIENNE Sotelo Counselling Psychologist - Care Management [facility] [phone] [email or web address] documented in this encounter Plan of Treatment Name Type Priority Associated Diagnoses Date/Ti me SURGICAL PATHOLOGY EXAM LAB STAT 10/26 4:52 PM CDT Name Type Priority Associated Diagnoses Order S chedule SURGICAL PATHOLOGY EXAM LAB Routine ONCE for 1 Occurrences starting 2019, 1 completed BASIC METABOLIC PANEL LAB Routine EVERY 24 HOURS (START (NA, K, CL, CO2, GLUCOSE, TI ME ADJUSTABLE) for 3 BUN, CREATININE, CA) Days st arting 11/23/2019 until 0, 1 completed URINALYSIS LAB Routine ONCE for 1 Occu rrences starting 2019 until 11/23/2019 Health Maintenance Due Date Last Done Comments [...] 11/17/2019 Depression Screening 11/17/2020 11/18/2019 CREATININE (SERUM) 11/22/2020 11/23/2019, 11/21/2019, 11/20/2019, Additional history exists HEPATITIS C (HCV) SCREEN Completed 11/19/2019 documented as of this encounter Implants Implanted Type Area Protective Signal Operator Device Shelf Model / Identifier Expiration Serial / Date Lot Catheter Hemosplit Hemodialysis Long Ter m Dialysis 14.5fr 27cm Bard #[id number] - Sn/A Dialysis Right: Bard 06/24/2020 [id number] / Implanted: Qty: 1 on 11/21/2019 by Debby Oviedo MD at [facility] Catheter Chest N/A / [id number] documented as of this encounter Procedures Procedure Name Priority Date/Time Associated Comments Diagnosis POCT GLUCOSE Routine 11/24/2019 Results for (AUTOMATED) 12:55 PM CDT this procedure are in the results section. POCT GLUCOSE Routine 11/24/2019 Results for (AUTOMATED) 7:32 AM CDT this procedure are in the results section. CBC WITH DIFF Routine 11/24/2019 Results for 4:30 AM CDT this procedure are in the results section. BASIC METABOLIC PANEL Routine 11/24/2019 Result s for (NA, K, CL, CO2, 4:30 AM CDT this proced ure GLUCOSE, BUN, are in the CREATININE, CA) results section. POCT GLUCOSE Routine 11/23/2019 Results for (AUTOMATED) 7:28 PM CDT this procedure are in the results section. POCT GLUCOSE Routine 11/23/2019 Results for (AUTOMATED) 3:38 PM CDT this procedure are in the results section. POCT GLUCOSE Routine 11/23/2019 Results for (AUTOMATED) 11:05 AM CDT this procedure are in the results section. POCT GLUCOSE Routine 11/23/2019 Results for (AUTOMATED) 7:39 AM CDT this procedure are in the results section. BASIC METABOLIC PANEL Routine 11/23/2019 Result s for (NA, K, CL, CO2, 4:35 AM CDT this proced ure GLUCOSE, BUN, are in the CREATININE, CA) results section. PHOSPHORUS Routine 11/23/2019 Results for 4:35 AM CDT this procedure are in the results section. POCT GLUCOSE Routine 11/22/2019 Results for (AUTOMATED) 8:42 PM CDT this procedure are in the results section. POCT GLUCOSE Routine 11/22/2019 Results for (AUTOMATED) 3:45 PM CDT this procedure are in the results section. POCT GLUCOSE Routine 11/22/2019 Results for (AUTOMATED) 12:08 PM CDT this procedure are in the results section. POCT GLUCOSE Routine 11/22/2019 Results for (AUTOMATED) 7:39 AM CDT this procedure are in the results section. POCT GLUCOSE Routine 11/21/2019 Results for (AUTOMATED) 8:00 PM CDT this procedure are in the results section. POCT GLUCOSE Routine 11/21/2019 Results for (AUTOMATED) 3:40 PM CDT this procedure are in the results section. XR CHEST 1 VW Routine 11/21/2019 Renal failure, Results for 2:13 PM CDT unspecified this procedure chronicity are in the results section. FL TIME OR Routine 11/21/2019 ANGEL (acute kidney Results fo r (NON-REPORTABLE) 1:42 PM CDT injury) this proced ure are in the results section. CENTRAL VENOUS ACCESS Level 2 11/21/2019 penetrating wound CATHETER PLACEMENT (within 6 12:18 PM CDT of Right foot, hours) diabetic foot infection, osteomyelitis, renal failure POCT GLUCOSE Routine 11/21/2019 Results for (AUTOMATED) 7:10 AM CDT this procedure are in the results section. CBC WITH DIFF Routine 11/21/2019 Results for 3:10 AM CDT this procedure are in the results section. BASIC METABOLIC PANEL Routine 11/21/2019 Result s for (NA, K, CL, CO2, 3:10 AM CDT this proced ure GLUCOSE, BUN, are in the CREATININE, CA) results section. POCT GLUCOSE Routine 11/20/2019 Results for (AUTOMATED) 8:40 PM CDT this procedure are in the results section. CLOSTRIDIUM DIFFICILE Routine 11/20/2019 Result s for TOXIN 6:34 PM CDT this procedure are in the results section. POCT GLUCOSE Routine 11/20/2019 Results for (AUTOMATED) 11:09 AM CDT this procedure are in the results section. POCT GLUCOSE Routine 11/20/2019 Results for (AUTOMATED) 7:17 AM CDT this procedure are in the results section. CBC WITH DIFF Routine 11/20/2019 Results for 3:37 AM CDT this procedure are in the results section. COMP. METABOLIC PANEL Routine 11/20/2019 Result s for (40437) 3:37 AM CDT this procedure are in the results section. POCT GLUCOSE Routine 11/19/2019 Results for (AUTOMATED) 11:09 PM CDT this procedure are in the results section. POCT GLUCOSE Routine 11/19/2019 Results for (AUTOMATED) 7:02 PM CDT this procedure are in the results section. BASIC METABOLIC PANEL Routine 11/19/2019 Result s for (NA, K, CL, CO2, 6:41 PM CDT this proced ure GLUCOSE, BUN, are in the CREATININE, CA) results section. POCT GLUCOSE Routine 11/19/2019 Results for (AUTOMATED) 4:16 PM CDT this procedure are in the results section. POCT GLUCOSE Routine 11/19/2019 Results for (AUTOMATED) 10:49 AM CDT this procedure are in the results section. POCT GLUCOSE Routine 11/19/2019 Results for (AUTOMATED) 8:10 AM CDT this procedure are in the results section. BASIC METABOLIC PANEL Routine 11/19/2019 Result s for (NA, K, CL, CO2, 6:19 AM CDT this proced ure GLUCOSE, BUN, are in the CREATININE, CA) results section. THYROID STIMULATING Add-on 11/19/2019 Results for HORMONE 6:19 AM CDT this procedure are in the results section. HBC ANTIBODY (IGM & Routine 11/19/2019 Results for IGG) 3:50 AM CDT this procedure are in the results section. HCV ANTIBODY Routine 11/19/2019 Results for 3:50 AM CDT this procedure are in the results section. HEPATITIS B SURFACE Routine 11/19/2019 Results for ANTIGEN 3:50 AM CDT this procedure are in the results section. HEPATITIS B SURFACE Routine 11/19/2019 Results for ANTIBODY 3:50 AM CDT this procedure are in the results section. CBC WITH DIFF Routine 11/19/2019 Results for 3:50 AM CDT this procedure are in the results section. POCT GLUCOSE Routine 11/18/2019 Results for (AUTOMATED) 7:30 PM CDT this procedure are in the results section. FL TIME OR Routine 11/18/2019 Diabetic foot Results for (NON-REPORTABLE) 5:36 PM CDT infection this proced ure are in the results section. ASPIRATE OR ABSCESS STAT 11/18/2019 Results for CULTURE(AEROBIC/ANAERO 4:48 PM CDT this procedure BIC) are in the results section. FOOT AMPUTATION Level 3 11/18/2019 Right Foot (within 12 4:03 PM CDT osteomyelitis hours) POCT GLUCOSE Routine 11/18/2019 Results for (AUTOMATED) 3:20 PM CDT this procedure are in the results section. US RETROPERITONEAL Routine 11/18/2019 Diabetic foot Results for COMPLETE 10:59 AM CDT infection this procedure Renal failure, are in the unspecified results chronicity section. BILATERAL DUPLEX SCAN SUAD 11/18/2019 OF ARTERY BY VASCULAR 10:53 AM CDT LAB POCT GLUCOSE Routine 11/18/2019 Results for (AUTOMATED) 10:52 AM CDT this procedure are in the results section. CT FOOT RIGHT WO SUAD 11/18/2019 Diabetic foot Results fo r CONTRAST 9:49 AM CDT infection this procedure are in the results section. PROTEIN CREAT RATIO Routine 11/18/2019 Results for URINE RANDOM 9:32 AM CDT this procedure are in the results section. URINE CULTURE Routine 11/18/2019 Results for 9:32 AM CDT this procedure are in the results section. URIC ACID Routine 11/18/2019 Results for 8:17 AM CDT this procedure are in the results section. CREATINE KINASE Routine 11/18/2019 Results for 8:17 AM CDT this procedure are in the results section. POCT GLUCOSE Routine 11/18/2019 Results for (AUTOMATED) 7:28 AM CDT this procedure are in the results section. CHLORIDE, URINE RANDOM Routine 11/18/2019 Resul ts for 7:05 AM CDT this procedure are in the results section. SODIUM, URINE RANDOM Routine 11/18/2019 Results for 7:05 AM CDT this procedure are in the results section. POTASSIUM, URINE Routine 11/18/2019 Results for RANDOM 7:05 AM CDT this procedure are in the results section. UREA NITROGEN, URINE Routine 11/18/2019 Results for RANDOM 7:05 AM CDT this procedure are in the results section. CREATININE, URINE Routine 11/18/2019 Results fo r RANDOM 7:05 AM CDT this procedure are in the results section. POCT GLUCOSE Routine 11/18/2019 Results for (AUTOMATED) 5:35 AM CDT this procedure are in the results section. INTACT PTH CALCIUM Routine 11/18/2019 Results f or GROUP 3:49 AM CDT this procedure are in the results section. URINALYSIS STAT 11/18/2019 Penetrating wound Results fo r 1:56 AM CDT of right foot, this procedur e initial encounter are in the results section. POCT GLUCOSE Routine 11/18/2019 Results for (AUTOMATED) 1:33 AM CDT this procedure are in the results section. POCT GLUCOSE Routine 11/18/2019 Results for (AUTOMATED) 12:55 AM CDT this procedure are in the results section. POCT GLUCOSE Routine 11/18/2019 Results for (AUTOMATED) 12:35 AM CDT this procedure are in the results section. BLOOD CULTURE SCREEN STAT 11/18/2019 Diabetic foot Result s for 12:32 AM CDT infection this procedure are in the results section. COVID-19 (ID NOW RAPID STAT 11/18/2019 Diabetic foot Resu lts for TESTING) 12:31 AM CDT infection this procedure are in the results section. LACTIC ACID WHOLE STAT 11/18/2019 Diabetic foot Results f or BLOOD 12:30 AM CDT infection this procedure are in the results section. BLOOD CULTURE SCREEN STAT 11/18/2019 Diabetic foot Result s for 12:29 AM CDT infection this procedure are in the results section. XR FOOT <3 VW RIGHT STAT 11/17/2019 Penetrating wound Res ults for 11:47 PM CDT of right foot, this procedur e initial encounter are in the results section. GLYCOSYLATED Add-on 11/17/2019 Results for HEMOGLOBIN (A1C) 11:28 PM CDT this proced ure are in the results section. CBC WITH DIFF STAT 11/17/2019 Penetrating wound Results f or 11:28 PM CDT of right foot, this procedur e initial encounter are in the results section. COMP. METABOLIC PANEL STAT 11/17/2019 Penetrating wound R esults for ([id number]) 11:28 PM CDT of right foot, this procedur e initial encounter are in the results section. NOTICE OF PRIVACY Routine 11/17/2019 PRACTICES 10:19 PM CDT CONSENT/REFUSAL FOR Routine 11/17/2019 DIAGNOSIS AND 10:19 PM CDT TREATMENT documented in this encounter Results POCT GLUCOSE (AUTOMATED) (11/24/2019 12:55 PM CDT) Pathologist Sig Medisse POCT GLU 227 (H) 70 - 110 mg/dL [facility] Specimen Blood Performing Organization Address [facility] Phone Number [facility] CLIA: [id number], [address] [place], [place] [address] POCT GLUCOSE (AUTOMATED) (11/24/2019 7:32 AM CDT) Pathologist Sig Medisse POCT GLU 192 (H) 70 - 110 mg/dL [facility] Specimen Blood Performing Organization Address [facility] Phone Number [facility] CLIA: [id number], [address] [place] [address] CBC WITH DIFF (11/24/2019 4:30 AM CDT) Pathologist Sig Medisse WBC 12.15 (H) 4.30 - 11.10 [facility] 10*3/L [facility] RBC 2.82 (L) 3.93 - 5.25 [facility] 10*6/L [facility] HGB 8.3 (L) 11.6 - 15.0 [facility] g/dL [facility] HCT 27.0 (L) 35.7 - 45.2 % [facility] MCV 95.7 (H) 80.6 - 95.5 fL [facility] MCH 29.4 25.9 - 32.8 pg [facility] MCHC 30.7 (L) 31.6 - 35.1 [facility] g/dL [facility] RDW-SD 46.5 39.0 - 49.9 fL [facility] RDW-CV 13.3 12.0 - 15.5 % [facility] PLT 279 166 - 358 [facility] 10*3/L [facility] MPV 11.1 9.5 - 12.9 fL [facility] NRBC/100 WBC 0.0 0.0 - 10.0 /100 [facility] WBCs [facility] NRBC x10^3 <0.01 10*3/L [facility] GRAN MAT (NEUT) % 74.1 % [facility] IMM GRAN % 0.70 % [facility] LYMPH % 13.1 % [facility] MONO % 8.4 % [facility] EOS % 3.3 % [facility] BASO % 0.4 % [facility] GRAN MAT x10^3(ANC) 9.01 (H) 1.88 - 7.09 [facility] 10*3/uL [facility] IMM GRAN x10^3 0.08 (H) 0.00 - 0.06 [facility] 10*3/uL [facility] LYMPH x10^3 1.59 1.32 - 3.29 [facility] 10*3/uL [facility] MONO x10^3 1.02 (H) 0.33 - 0.92 [facility] 10*3/uL [facility] EOS x10^3 0.40 (H) 0.03 - 0.39 [facility] 10*3/uL [facility] BASO x10^3 0.05 0.01 - 0.07 [facility] 10*3/uL [facility] Specimen Blood - HAND, RIGHT Performing Organization Address City/State/Zipcode Phone Number [facility] CLIA: [id number], [address] [place] [address] BASIC METABOLIC PANEL (NA, K, CL, CO2, GLUCOSE, BUN, CREATININE, CA) (11/24/2019 4:30 AM CDT) NA 136 135 - 145 [facility] mmol/L [facility] K 4.2 3.5 - 5.0 [facility] mmol/L [facility] CL 102 98 - 108 mmol/L [facility] CO2 TOTAL 27 23 - 31 mmol/L [facility] AGAP 7 2 - 16 [facility] BUN 35 (H) 7 - 23 mg/dL [facility] GLUCOSE 224 (H) 70 - 110 mg/dL [facility] CREATININE 3.86 (H) 0.50 - 1.04 [facility] mg/dL [facility] CALCIUM 8.0 (L) 8.6 - 10.6 [facility] mg/dL [facility] eGFR Calculation 12.0 mL/min/1.73m2 [facility] ([facility] LABORATORY [place]) eGFR Calculation 14.6 mL/min/1.73m2 [facility] () [facility] Specimen Blood - HAND, RIGHT Narrative Performed At [facility] of Glomerular Filtration Rate (GFR) [facility] and Staging of Kidney Disease* + + +- + | GFR (mL/min/1.73 m2) | With Kidney Damage | Without Kidney Damage + + +- + | >90 | Stage one | Normal + + +- + | 60-89 | Stage two | Decreased GFR + + +- + | 30-59 | Stage three | Stage three + + +- + | 15-29 | Stage four | Stage four + + +- + | <15 (or dialysis) | Stage five | Stage five + + +- + *Each stage assumes the associated GFR level has been in effect for at least three months. Stages 1 to 5, with or without kidney disease, indicate chronic kidney disease. Notes: Determination of stages one and two (with eGFR >59mL/min/1.73 m2) requires estimation of kidney damage for at least three months as defined by structural or functional abnormalities of the kidney, manifested by either: Pathological abnormalities or Markers of kidney damage (including abnormalities in the composition of the blood or urine or abnormalities in imaging tests). Performing Organization Address City/[facility] Cent[facility] Phone Number [facility] CLIA: [id number], [address] [place] [address] POCT GLUCOSE (AUTOMATED) (11/23/2019 7:28 PM CDT) [facility] POCT GLU 241 (H) 70 - 110 mg/dL [facility] Specimen Blood Performing Organization Address City/[facility] Cent[facility]ode Phone Number [facility] CLIA: [id number], [address] [place], [place] [address] POCT GLUCOSE (AUTOMATED) (11/23/2019 3:38 PM CDT) Pathologist Sig nature POCT GLU 223 (H) 70 - 110 mg/dL [facility] Specimen Blood Performing Organization Address [facility] Phone Number [facility] CLIA: [id number], [address] [place] [address] POCT GLUCOSE (AUTOMATED) (11/23/2019 11:05 AM CDT) Pathologist Sig nature POCT GLU 159 (H) 70 - 110 mg/dL [facility] Specimen Blood Performing Organization Address [facility] Phone Number [facility] CLIA: [id number], [address] [place] [address] POCT GLUCOSE (AUTOMATED) (11/23/2019 7:39 AM CDT) Pathologist Sig nature POCT GLU 211 (H) 70 - 110 mg/dL [facility] Specimen Blood Performing Organization Address [facility] Phone Number [facility] CLIA: [id number], [address] BASIC METABOLIC PANEL (NA, K, CL, CO2, GLUCOSE, BUN, CREATININE, CA) (11/23/2019 4:35 AM CDT) NA 136 135 - 145 [facility] mmol/L [facility] K 4.3 3.5 - 5.0 [facility] mmol/L [facility] CL 106 98 - 108 mmol/L [facility] CO2 TOTAL 23 23 - 31 mmol/L [facility] AGAP 7 2 - 16 [facility] BUN 50 (H) 7 - 23 mg/dL [facility] GLUCOSE 243 (H) 70 - 110 mg/dL [facility] CREATININE 4.84 (H) 0.50 - 1.04 [facility] mg/dL [facility] CALCIUM 7.2 (L) 8.6 - 10.6 [facility] mg/dL [facility] eGFR Calculation 9.3 mL/min/1.73m2 [facility] ([facility] [place]) eGFR Calculation 11.2 mL/min/1.73m2 [facility] ([facility]) [facility] Specimen Blood - HAND, RIGHT Narrative Performed At [facility] Glomerular Filtration Rate (GFR) [facility] and Staging of Kidney Disease* + + +- + | GFR (mL/min/1.73 m2) | With Kidney Damage | Without Kidney Damage + + +- + | >90 | Stage one | Normal + + +- + | 60-89 | Stage two | Decreased GFR + + +- + | 30-59 | Stage three | Stage three + + +- + | 15-29 | Stage four | Stage four + + +- + | <15 (or dialysis) | Stage five | Stage five + + +- + *Each stage assumes the associated GFR level has been in effect for at least three months. Stages 1 to 5, with or without kidney disease, indicate chronic kidney disease. Notes: Determination of stages one and two (with eGFR >59mL/min/1.73 m2) requires estimation of kidney damage for at least three months as defined by structural or functional abnormalities of the kidney, manifested by either: Pathological abnormalities or Markers of kidney damage (including abnormalities in the composition of the blood or urine or abnormalities in imaging tests). Performing Organization Address [facility] Cent[facility]ode Phone Number [facility] CLIA: [id number], [address] [place] [address] PHOSPHORUS (11/23/2019 4:35 AM CDT) Pathologist Sig nature PHOSPHORUS 5.5 (H) 2.5 - 5.0 mg/dL [facility] Specimen Blood - HAND, RIGHT Performing Organization Address [facility] Phone Number [facility] CLIA: [id number], [address] POCT GLUCOSE (AUTOMATED) (11/22/2019 8:42 PM CDT) Pathologist Sig nature POCT GLU 271 (H) 70 - 110 mg/dL [facility] Specimen Blood Performing Organization Address [facility] Phone Number [facility] CLIA: [id number], [address] [id number] [address] POCT GLUCOSE (AUTOMATED) (11/22/2019 3:45 PM CDT) Pathologist Sig nature POCT GLU 191 (H) 70 - 110 mg/dL [facility] Specimen Blood Performing Organization Address [facility] Phone Number [facility] CLIA: [id number], [address] POCT GLUCOSE (AUTOMATED) (11/22/2019 12:08 PM CDT) Pathologist Sig nature POCT GLU 157 (H) 70 - 110 mg/dL [facility] Specimen Blood Performing Organization Address [facility] Phone Number [facility] CLIA: [id number], [address] POCT GLUCOSE (AUTOMATED) (11/22/2019 7:39 AM CDT) Pathologist Sig nature POCT GLU 228 (H) 70 - 110 mg/dL [facility] Specimen Blood Performing Organization Address [facility] Phone Number [facility] CLIA: [id number], [address] POCT GLUCOSE (AUTOMATED) (11/21/2019 8:00 PM CDT) Pathologist Sig nature POCT GLU 251 (H) 70 - 110 mg/dL [facility] Specimen Blood Performing Organization Address [facility] Phone Number [facility] CLIA: [id number], [address] POCT GLUCOSE (AUTOMATED) (11/21/2019 3:40 PM CDT) Pathologist Sig nature POCT GLU 211 (H) 70 - 110 mg/dL [facility] Specimen Blood Performing Organization Address [facility] Phone Number [facility] CLIA: [id number], [address] XR CHEST 1 VW (11/21/2019 2:13 PM CDT) Specimen Impressions Performed At PACS/VR/DOSE Cardiomegaly The right internal jugular dialysis cath eter with its tip in the upper right atrium is visualized. The patchy opacity in the right paracard iac region is likely result of overlapping shadows. Narrative Performed At PROCEDURE: XR CHEST 1 VW PACS/VR/DOSE CLINICAL INDICATION: Line placement COMPARISON: None FINDINGS: A tunneled dialysis catheter with its ti p in right atrium is visualized. Heart is enlarged. Central venous conges tion. Patchy opacities in the right pericardiac region. Rest of the lungs are clear. No pleural effusion or pn eumothorax is seen. The heart is normal in size. No acute bony abnormality. Procedure Note [facility], Radiant Results Inft User - 2019 3:17 PM CDT PROCEDURE: XR CHEST 1 VW CLINICAL INDICATION: Line placement COMPARISON: None FINDINGS: A tunneled dialysis catheter with its ti p in right atrium is visualized. Heart is enlarged. Central venous conges tion. Patchy opacities in the right pericardiac region. Rest of the lungs are clear. No pleural effusion or pneumothorax is seen. The heart is normal in size. No acute bony abnormality. IMPRESSION Cardiomegaly The right internal jugular dialysis cath eter with its tip in the upper right atrium is visualized. The patchy opacity in the right paracard iac region is likely result of overlapping shadows. Performing Organization Address City/State/Zipcode Phone Number PACS/VR/DOSE [place] TIME OR (NON-REPORTABLE) (11/21/2019 1:42 PM CDT) Specimen Narrative Performed At These images do not require a Radiology diagnostic rep ort. PACS Performing Organization Address [facility] Cent[facility] Phone Number PACS POCT GLUCOSE (AUTOMATED) (11/21/2019 7:10 AM CDT) Pathologist Sig nature POCT GLU 193 (H) 70 - 110 mg/dL [facility] Specimen Blood Performing Organization Address City/[facility]/Zipcode Phone Number [facility] CLIA: [id number], [address] [place], [place] [address] Basic Metabolic Panel (NA, K, CL, CO2, GLUCOSE, BUN, CREATININE, CA) (11/21/2019 3:10 AM CDT) NA 139 135 - 145 [facility] mmol/L [facility] K 4.8 3.5 - 5.0 [facility] mmol/L [facility] CL 110 (H) 98 - 108 mmol/L [facility] CO2 TOTAL 19 (L) 23 - 31 mmol/L [facility] AGAP 10 2 - 16 [facility] BUN 65 (H) 7 - 23 mg/dL [facility] GLUCOSE 226 (H) 70 - 110 mg/dL [facility] CREATININE 6.20 (H) 0.50 - 1.04 [facility] mg/dL [facility] CALCIUM 6.3 (L) 8.6 - 10.6 [facility] mg/dL [facility] eGFR Calculation 7.0 mL/min/1.73m2 [facility] (Non[facility] LABORATORY [place]) eGFR Calculation 8.4 mL/min/1.73m2 [facility] () [facility] Specimen Blood - ARM, RIGHT Narrative Performed At [facility] Glomerular Filtration Rate (GFR) [facility] and Staging of Kidney Disease* + + +- + | GFR (mL/min/1.73 m2) | With Kidney Damage | Without Kidney Damage + + +- + | >90 | Stage one | Normal + + +- + | 60-89 | Stage two | Decreased GFR + + +- + | 30-59 | Stage three | Stage three + + +- + | 15-29 | Stage four | Stage four + + +- + | <15 (or dialysis) | Stage five | Stage five + + +- + *Each stage assumes the associated GFR level has been in effect for at least three months. Stages 1 to 5, with or without kidney disease, indicate chronic kidney disease. Notes: Determination of stages one and two (with eGFR >59mL/min/1.73 m2) requires estimation of kidney damage for at least three months as defined by structural or functional abnormalities of the kidney, manifested by either: Pathological abnormalities or Markers of kidney damage (including abnormalities in the composition of the blood or urine or abnormalities in imaging tests). Performing Organization Address City/State/Zipcode Phone Number [facility] CLIA: [id number], [address] [place], [place] [address] CBC with Differential (11/21/2019 3:10 AM CDT) [facility] WBC 11.43 (H) 4.30 - 11.10 [facility] 10*3/L [facility] RBC 2.58 (L) 3.93 - 5.25 [facility] 10*6/L [facility] HGB 7.7 (L) 11.6 - 15.0 [facility] g/dL [facility] HCT 24.4 (L) 35.7 - 45.2 % [facility] MCV 94.6 80.6 - 95.5 fL [facility] MCH 29.8 25.9 - 32.8 pg [facility] MCHC 31.6 31.6 - 35.1 [facility] g/dL [facility] RDW-SD 47.8 39.0 - 49.9 fL [facility] RDW-CV 13.7 12.0 - 15.5 % [facility] PLT 311 166 - 358 [facility] 10*3/L [facility] MPV 10.8 9.5 - 12.9 fL [facility] NRBC/100 WBC 0.0 0.0 - 10.0 /100 [facility] WBCs [facility] NRBC x10^3 <0.01 10*3/L [facility] GRAN MAT (NEUT) % 69.1 % [facility] IMM GRAN % 0.60 % [facility] LYMPH % 18.5 % [facility] MONO % 8.1 % [facility] EOS % 3.1 % [facility] BASO % 0.6 % [facility] GRAN MAT x10^3(ANC) 7.90 (H) 1.88 - 7.09 [facility] 10*3/uL [facility] IMM GRAN x10^3 0.07 (H) 0.00 - 0.06 [facility] 10*3/uL [facility] LYMPH x10^3 2.11 1.32 - 3.29 [facility] 10*3/uL [facility] MONO x10^3 0.93 (H) 0.33 - 0.92 [facility] 10*3/uL [facility] EOS x10^3 0.35 0.03 - 0.39 [facility] 10*3/uL [facility] BASO x10^3 0.07 0.01 - 0.07 [facility] 10*3/uL [facility] Specimen Blood - ARM, RIGHT Performing Organization Address City/State/Zipcode Phone Number [facility] CLIA: [id number], [address] [place], [place] [address] POCT GLUCOSE (AUTOMATED) (11/20/2019 8:40 PM CDT) Pathologist Sig nature POCT GLU 230 (H) 70 - 110 mg/dL [facility] Specimen Blood Performing Organization Address [facility] Phone Number [facility] CLIA: [id number], [address] [place] [address] CLOSTRIDIUM DIFFICILE TOXIN (11/20/2019 6:34 PM CDT) Pathologist Sig nature Clostridioides Negative Negative [facility] (Clostridium) difficile [facility] RY Specimen Stool - ANAL Performing Organization Address [facility] Phone Number [facility] CLIA: [id number], [address] [place] [address] POCT GLUCOSE (AUTOMATED) (11/20/2019 11:09 AM CDT) Pathologist Sig nature POCT GLU 336 (H) 70 - 110 mg/dL [facility] Specimen Blood Performing Organization Address [facility] Phone Number [facility] CLIA: [id number], [address] [place] [address] POCT GLUCOSE (AUTOMATED) (11/20/2019 7:17 AM CDT) Pathologist Sig nature POCT GLU 276 (H) 70 - 110 mg/dL [facility] Specimen Blood Performing Organization Address [facility] Phone Number [facility] CLIA: [id number], [address] [place] [address] COMP. METABOLIC PANEL ([id number]) (11/20/2019 3:37 AM CDT) NA 135 135 - 145 [facility] mmol/L [facility] K 4.9 3.5 - 5.0 [facility] mmol/L [facility] CL 110 (H) 98 - 108 mmol/L [facility] CO2 TOTAL 18 (L) 23 - 31 mmol/L [facility] AGAP 7 2 - 16 [facility] BUN 59 (H) 7 - 23 mg/dL [facility] GLUCOSE 269 (H) 70 - 110 mg/dL [facility] CREATININE 5.42 (H) 0.50 - 1.04 [facility] mg/dL [facility] TOTAL BILI 0.3 0.1 - 1.1 mg/dL [facility] CALCIUM 7.1 (L) 8.6 - 10.6 [facility] mg/dL [facility] T PROTEIN 6.4 6.3 - 8.2 g/dL [facility] ALBUMIN 2.6 (L) 3.5 - 5.0 g/dL [facility] ALK PHOS 52 34 - 122 U/L [facility] ALTv 7 5 - 35 U/L [facility] AST(SGOT) 9 (L) 13 - 40 U/L [facility] eGFR Calculation 8.1 mL/min/1.73m2 [facility] [place]) eGFR Calculation 9.9 mL/min/1.73m2 [facility] () [facility] Specimen Blood - ARM, RIGHT Narrative Performed At Association of Glomerular Filtration Rate (GFR) [facility] LAB[facility]ATORY and Staging of Kidney Disease* + + +- + | GFR (mL/min/1.73 m2) | With Kidney Damage | Without Kidney Damage + + +- + | >90 | Stage one | Normal + + +- + | 60-89 | Stage two | Decreased GFR + + +- + | 30-59 | Stage three | Stage three + + +- + | 15-29 | Stage four | Stage four + + +- + | <15 (or dialysis) | Stage five | Stage five + + +- + *Each stage assumes the associated GFR level has been in effect for at least three months. Stages 1 to 5, with or without kidney disease, indicate chronic kidney disease. Notes: Determination of stages one and two (with eGFR >59mL/min/1.73 m2) requires estimation of kidney damage for at least three months as defined by structural or functional abnormalities of the kidney, manifested by either: Pathological abnormalities or Markers of kidney damage (including abnormalities in the composition of the blood or urine or abnormalities in imaging tests). Performing Organization Address City/State/Zipcode Phone Number [facility] CLIA: [id number], [address] [place], [place] [address] CBC with Differential (11/20/2019 3:37 AM CDT) Pathologist Sig nature WBC 18.33 (H) 4.30 - 11.10 [facility] 10*3/L [facility] RBC 2.54 (L) 3.93 - 5.25 [facility] 10*6/L [facility] HGB 7.6 (L) 11.6 - 15.0 [facility] g/dL [facility] HCT 23.9 (L) 35.7 - 45.2 % [facility] MCV 94.1 80.6 - 95.5 fL [facility] MCH 29.9 25.9 - 32.8 pg [facility] MCHC 31.8 31.6 - 35.1 [facility] g/dL [facility] RDW-SD 46.7 39.0 - 49.9 fL [facility] RDW-CV 13.7 12.0 - 15.5 % [facility]OR[facility] PLT 274 166 - 358 [facility] 10*3/L [facility] MPV 10.8 9.5 - 12.9 fL [facility] NRBC/100 WBC 0.0 0.0 - 10.0 /100 [facility] WBCs [facility] NRBC x10^3 <0.01 10*3/L [facility] GRAN MAT (NEUT) % 85.7 % [facility] IMM GRAN % 0.40 % [facility] LYMPH % 8.0 % [facility] MONO % 5.5 % [facility] EOS % 0.2 % [facility] BASO % 0.2 % [facility] GRAN MAT x10^3(ANC) 15.70 (H) 1.88 - 7.09 [facility] 10*3/uL [facility]ITAL [facility] IMM GRAN x10^3 0.08 (H) 0.00 - 0.06 [facility] 10*3/uL [facility] LYMPH x10^3 1.46 1.32 - 3.29 [facility] 10*3/uL [facility] MONO x10^3 1.01 (H) 0.33 - 0.92 [facility] 10*3/uL [facility]ITAL [facility] EOS x10^3 0.04 0.03 - 0.39 [facility] 10*3/uL [facility] BASO x10^3 0.04 0.01 - 0.07 [facility] 10*3/uL [facility] Specimen Blood - ARM, RIGHT Performing Organization Address [facility] Phone Number [facility] CLIA: [id number], [address] [place] [address] POCT GLUCOSE (AUTOMATED) (11/19/2019 11:09 PM CDT) Pathologist Sig nature POCT GLU 279 (H) 70 - 110 mg/dL [facility] Specimen Blood Performing Organization Address [facility] Phone Number [facility] CLIA: [id number], [address] [place] [address] POCT GLUCOSE (AUTOMATED) (11/19/2019 7:02 PM CDT) Pathologist Sig nature POCT GLU 338 (H) 70 - 110 mg/dL [facility] Specimen Blood Performing Organization Address [facility] Phone Number [facility] CLIA: [id number], [address] [place] [address] BASIC METABOLIC PANEL (NA, K, CL, CO2, GLUCOSE, BUN, CREATININE, CA) (11/19/2019 6:41 PM CDT) NA 136 135 - 145 [facility] mmol/L [facility] K 5.1 (H) 3.5 - 5.0 [facility] mmol/L [facility] CL 110 (H) 98 - 108 mmol/L [facility] CO2 TOTAL 16 (L) 23 - 31 mmol/L [facility] AGAP 10 2 - 16 [facility] BUN 55 (H) 7 - 23 mg/dL [facility] GLUCOSE 345 (H) 70 - 110 mg/dL [facility] CREATININE 5.62 (H) 0.50 - 1.04 [facility] mg/dL [facility] CALCIUM 7.6 (L) 8.6 - 10.6 [facility] mg/dL [facility] eGFR Calculation 7.8 mL/min/1.73m2 [facility] ([facility] LABORATORY [place] Citizen) eGFR Calculation 9.4 mL/min/1.73m2 [facility] () [facility] Specimen Blood - ARM, RIGHT Narrative Performed At Association of Glomerular Filtration Rate (GFR) [facility] LAB[facility]ATORY and Staging of Kidney Disease* + + +- + | GFR (mL/min/1.73 m2) | With Kidney Damage | Without Kidney Damage + + +- + | >90 | Stage one | Normal + + +- + | 60-89 | Stage two | Decreased GFR + + +- + | 30-59 | Stage three | Stage three + + +- + | 15-29 | Stage four | Stage four + + +- + | <15 (or dialysis) | Stage five | Stage five + + +- + *Each stage assumes the associated GFR level has been in effect for at least three months. Stages 1 to 5, with or without kidney disease, indicate chronic kidney disease. Notes: Determination of stages one and two (with eGFR >59mL/min/1.73 m2) requires estimation of kidney damage for at least three months as defined by structural or functional abnormalities of the kidney, manifested by either: Pathological abnormalities or Markers of kidney damage (including abnormalities in the composition of the blood or urine or abnormalities in imaging tests). Performing Organization Address [facility] Phone Number [facility] CLIA: [id number], [address] [place] [address] POCT GLUCOSE (AUTOMATED) (11/19/2019 4:16 PM CDT) Pathologist Sig nature POCT GLU 345 (H) 70 - 110 mg/dL [facility] LAB[facility] Specimen Blood Performing Organization Address [facility] Phone Number [facility] CLIA: [id number], [address] [place] [address] POCT GLUCOSE (AUTOMATED) (11/19/2019 10:49 AM CDT) Pathologist Sig nature POCT GLU 379 (H) 70 - 110 mg/dL [facility] LAB[facility] Specimen Blood Performing Organization Address [facility] Phone Number [facility] CLIA: [id number], [address] [place] POCT GLUCOSE (AUTOMATED) (11/19/2019 8:10 AM CDT) Pathologist Sig nature POCT GLU 281 (H) 70 - 110 mg/dL [facility] Specimen Blood Performing Organization Address [facility] Phone Number [facility] CLIA: [id number], [address] [place], [place] [address] THYROID STIMULATING HORMONE (11/19/2019 6:19 AM CDT) Pathologist Sig nature TSH 0.56Comment: Biotin 0.45 - 4.70 [facility] has been reported mIU/L [facility] to cause a negative bias, interpret results relative to patient's use of biotin. Specimen Blood - ARM, LEFT Performing Organization Address [facility] Phone Number [facility] CLIA: [id number], [address] [place], [place] [address] [facility] [facility] Basic Metabolic Panel (NA, K, CL, CO2, GLUCOSE, BUN, CREATININE, CA) (11/19/2019 6:19 AM CDT) NA 136 135 - 145 [facility] mmol/L [facility] K 6.0 (H) 3.5 - 5.0 [facility] mmol/L [facility] CL 112 (H) 98 - 108 mmol/L [facility] CO2 TOTAL 14 (L) 23 - 31 mmol/L [facility] AGAP 10 2 - 16 [facility] BUN 53 (H) 7 - 23 mg/dL [facility] GLUCOSE 280 (H) 70 - 110 mg/dL [facility] CREATININE 5.81 (H) 0.50 - 1.04 [facility] mg/dL [facility] CALCIUM 7.9 (L) 8.6 - 10.6 [facility] mg/dL [facility] eGFR Calculation 7.5 mL/min/1.73m2 [facility] ([facility] LABORATORY [place]) eGFR Calculation 9.1 mL/min/1.73m2 [facility] () [facility] Specimen Blood - ARM, LEFT Narrative Performed At Association of Glomerular Filtration Rate (GFR) [facility] LABORATORY and Staging of Kidney Disease* + + +- + | GFR (mL/min/1.73 m2) | With Kidney Damage | Without Kidney Damage + + +- + | >90 | Stage one | Normal + + +- + | 60-89 | Stage two | Decreased GFR + + +- + | 30-59 | Stage three | Stage three + + +- + | 15-29 | Stage four | Stage four + + +- + | <15 (or dialysis) | Stage five | Stage five + + +- + *Each stage assumes the associated GFR level has been in effect for at least three months. Stages 1 to 5, with or without kidney disease, indicate chronic kidney disease. Notes: Determination of stages one and two (with eGFR >59mL/min/1.73 m2) requires estimation of kidney damage for at least three months as defined by structural or functional abnormalities of the kidney, manifested by either: Pathological abnormalities or Markers of kidney damage (including abnormalities in the composition of the blood or urine or abnormalities in imaging tests). Performing Organization Address City/[facility]/Zipcode Phone Number [facility] CLIA: [id number], [address] [place] [address] [facility] Hepatitis B Core Antibody, Total (11/19/2019 3:50 AM CDT) Pathologist Sig nature HBC Negative [facility] HBC Semi-Quantitative 3.62 [facility] Specimen Blood - ARM, LEFT Performing Organization Address [facility] Phone Number [facility] CLIA: [id number], [address] [place] [address] [facility] HEPATITIS B SURFACE ANTIGEN (11/19/2019 3:50 AM CDT) Pathologist Sig nature HBsAg Negative Negative [facility] HBsAg 0.28 [facility] Semi-Quantitative SERVICES Specimen Blood - ARM, LEFT Performing Organization Address [facility] Phone Number [facility] CLIA: [id number], [address] [place], [place] [address] [facility] HEPATITIS B SURFACE ANTIBODY (11/19/2019 3:50 AM CDT) Pathologist Sig nature HBsAB Negative [facility] HBsAb 0.00 mIU/mL [facility] Semi-Quantitative SERVICES Specimen Blood - ARM, LEFT Narrative Performed At Interpretation: Hepatitis B Surface An tibody [facility] Negative - Patient is considered to be not immu ne to infection with HBV. Positive - Anti-HBs detected at greater than or equal to 12 mIU/mL. Patient is considered to be immune to infection with HBV. Performing Organization Address City/State/Zipcode Phone Number [facility] CLIA: [id number], [address] [place] [address] [facility] HCV ANTIBODY (11/19/2019 3:50 AM CDT) Pathologist Sig nature HCV Ab Negative [facility] HCV Semi-Quantitative 0.02 [facility] Specimen Blood - ARM, LEFT Performing Organization Address City/State/Zipcode Phone Number [facility] CLIA: [id number], [address] [place] [address] [facility] CBC with Differential (11/19/2019 3:50 AM CDT) Pathologist Sig nature WBC 12.85 (H) 4.30 - 11.10 [facility] 10*3/L [facility] RBC 2.71 (L) 3.93 - 5.25 [facility] 10*6/L [facility] HGB 8.2 (L) 11.6 - 15.0 [facility] g/dL [facility] HCT 25.9 (L) 35.7 - 45.2 % [facility] MCV 95.6 (H) 80.6 - 95.5 fL [facility] MCH 30.3 25.9 - 32.8 pg [facility] MCHC 31.7 31.6 - 35.1 [facility] g/dL [facility] RDW-SD 50.2 (H) 39.0 - 49.9 fL [facility] RDW-CV 14.6 12.0 - 15.5 % [facility] PLT 252 166 - 358 [facility] 10*3/L [facility] MPV 12.4 9.5 - 12.9 fL [facility] NRBC/100 WBC 0.0 0.0 - 10.0 /100 [facility] WBCs [facility] NRBC x10^3 <0.01 10*3/L [facility] GRAN MAT (NEUT) % 94.4 % [facility] IMM GRAN % 0.50 % [facility] LYMPH % 4.2 % [facility] MONO % 0.8 % [facility] EOS % 0.0 % [facility] BASO % 0.1 % [facility] GRAN MAT x10^3(ANC) 12.14 (H) 1.88 - 7.09 [facility] 10*3/uL [facility] IMM GRAN x10^3 0.06 0.00 - 0.06 [facility] 10*3/uL HOSPITAL LAB[facility]ORY LYMPH x10^3 0.54 (L) 1.32 - 3.[address] [facility] MONO x10^3 0.10 (L) 0.33 - 0.[address] [facility] EOS x10^3 <0.03 (L) 0.03 - 0.39 [facility] 10*3/uL [facility] BASO x10^3 <0.03 0.01 - 0.[address] [facility] Specimen Blood - ARM, LEFT Performing Organization Address City/[facility] Cent[facility] Phone Number [facility] CLIA: [id number], [address] POCT GLUCOSE (AUTOMATED) (11/18/2019 7:30 PM CDT) Pathologist Sig nature POCT GLU 144 (H) 70 - 110 mg/dL [facility] Specimen Blood Performing Organization Address [facility] Phone Number [facility] CLIA: [id number], [address] FL TIME OR (NON-REPORTABLE) (11/18/2019 5:36 PM CDT) Specimen Narrative Performed At These images do not require a Radiology diagnostic rep ort. PACS Performing Organization Address City/[facility] Cent[facility]ode Phone Number PACS ASPIRATE OR ABSCESS CULTURE(AEROBIC/ANAEROBIC) (11/18/2019 4:48 PM CDT) Aspirate or 2+ Mixed organisms - [facility] Abscess Culture suggests endogenous SERVICES microbial contamination Aspirate or 1+ Staphylococcus [facility] Abscess Culture aureus SERVICES Gram stain Numerous Gram positive [facility] cocci SERVICES Gram stain Few PMNs or [facility] Mononuclear cells SERVICES observed Specimen Swab - WOUND Organism Antibiotic Method Susceptibility Staphylococcus aureus Clindamycin SUSCEPTIBILITY TESTING >=8 : Resistant Staphylococcus aureus Erythromycin SUSCEPTIBILITY TESTING >=8 : Resistant Staphylococcus aureus Oxacillin SUSCEPTIBILITY TESTING 0.5 : Susceptible Staphylococcus aureus Rifampin SUSCEPTIBILITY TESTING <=0 .5: Susceptible Staphylococcus aureus Tetracycline SUSCEPTIBILITY TESTING >=1 6: Resistant Staphylococcus aureus Trimethoprim/Sulfamet SUSCEPTIBILITY TESTI NG <=10: Susceptible hoxazole Performing Organization Address City/[facility]/Zipcode Phone Number [facility] CLIA: [id number], [address] [place], [place] [address] [facility] POCT GLUCOSE (AUTOMATED) (11/18/2019 3:20 PM CDT) [facility] POCT GLU 106 70 - 110 mg/dL [facility] Specimen Blood Performing Organization Address City/[facility]/Zipcode Phone Number [facility] CLIA: [id number], [address] [place], [place] [address] US RETROPERITONEAL COMPLETE (11/18/2019 10:59 AM CDT) Specimen Impressions Performed At PACS/VR/DOSE Bilateral normal size kidneys with incre ased cortical echogenicity and decreased cortical medullary differentiation. Findings are compatible with medical renal disease. Narrative Performed At HISTORY: ANGEL . PACS/VR/DOSE RENAL ULTRASOUND TECHNIQUE: Limited abdominal ultrasound examination performed evaluating the kidneys using man scale and color doppler imaging . Quality is slightly limited secondary to scanning being perf ormed on a portable unit at bedside. COMPARISON: None. FINDINGS: RIGHT KIDNEY:The right kidney measures 1 0.5 cm (184 mL). No hydronephrosis. LEFT KIDNEY: Normal size, contour, and e chotexture. The left kidney measures 11.5 cm (156 mL). No hydronephrosis. A 3 cm x 2 cm anechoic lesion suggestive of a simple cyst is at the lo wer pole of left kidney Both kidneys show increased cortical ech ogenicity with decreased corticomedullary differentiation. Cortical thickness i s maintained on both sides. BLADDER: Unremarkable. Incidental finding of a hydropic gallbladder, with mul tiple echogenic foci with distal shadowing in the dependent part of the gal lbladder compatible with gallstones. Procedure Note [facility] [[email or web address] Radiant Results Inft User - 2019 11:34 AM CDT HISTORY: ANGEL . RENAL ULTRASOUND TECHNIQUE: Limited abdominal ultrasound examination performed evaluating the kidneys using man scale and color d oppler imaging. Quality is slightly limited secondary to scanning being perf ormed on a portable unit at bedside. COMPARISON: None. FINDINGS: RIGHT KIDNEY:The right kidney measures 1 0.5 cm (184 mL). No hydronephrosis. LEFT KIDNEY: Normal size, contour, and e chotexture. The left kidney measures 11.5 cm (156 mL). No hydronephr osis. A 3 cm x 2 cm anechoic lesion suggestive of a simple cyst is at the lo wer pole of left kidney Both kidneys show increased cortical ech ogenicity with decreased corticomedullary differentiation. Cortic al thickness is maintained on both sides. BLADDER: Unremarkable. Incidental finding of a hydropic gallbla dder, with multiple echogenic foci with distal shadowing in the dependent p art of the gallbladder compatible with gallstones. IMPRESSION Bilateral normal size kidneys with incre ased cortical echogenicity and decreased cortical medullary differentia tion. Findings are compatible with medical renal disease. Performing Organization Address City/[facility] Phone Number PACS/VR/DOSE POCT GLUCOSE (AUTOMATED) (11/18/2019 10:52 AM CDT) Pathologist Sig nature POCT GLU 109 70 - 110 mg/dL [facility] Specimen Blood Performing Organization Address City/[facility]/Zipcode Phone Number [facility] CLIA: [id number], [address] [place], [place] [address] FOOT RIGHT WO CONTRAST (11/18/2019 9:49 AM CDT) Specimen Impressions Performed At PACS/VR/DOSE Ulcerations with subcutaneous gas and osteomyelitis in volving the fifth toe and fifth metatarsal base and head with suspicion for osteomyelitis of the fourth metatarsal head and fourth digit proximal phalanx base. Recommend MRI for further characterization. Charcot arthropathy. Preliminary Report Dictated by Resident: Romario Wood I, Oz Peres MD., have reviewed this study and a gree with the above report. Narrative Performed At EXAM: CT FOOT RIGHT WO CONTRAST PACS/VR/DOSE HISTORY: Osteomyelitis suspected, foot s welling, diabetic COMPARISON: None available. TECHNIQUE: Contiguous 3.0 mm slices were acquired without contrast. Multiplanar reconstructions were obtaine d. FINDINGS: There is diffuse soft tissue swelling of the foot, and ankle most localized at the plantar lateral aspect of the for efoot. Soft tissue ulceration is seen along the lateral aspect of the fifth metatarsal head and base. Focal osteopenia and cortical erosions are vis ualized at these sites with associated subcutaneous swelling and gas involving the fifth metatarsal base, head and fifth phalanx with questionable erosion s involving the right lateral fourth metatarsal head and proximal phalanx ba se. Chronic articular collapse with sclerotic remodeling is se en about the great toe proximal phalanx and the articular margins of the talonavicular, subtalar, calcaneocuboid, navicular cuneiform join ts as well as the second through fifth TMT joint. A remote lateral malleo haroon fracture is noted. A remote anterior fragmented tibial plafond fracture versus fra gmented osteochondral defect is noted. Procedure Note [facility], Radiant Results Inft User - 2019 2:05 PM CDT EXAM: CT FOOT RIGHT WO CONTRAST HISTORY: Osteomyelitis suspected, foot s welling, diabetic COMPARISON: None available. TECHNIQUE: Contiguous 3.0 mm slices were acquired without contrast. Multiplanar reconstructions were obtaine d. FINDINGS: There is diffuse soft tissue swelling of the foot, and ankle most localized at the plantar lateral aspect of the for efoot. Soft tissue ulceration is seen along the lateral aspect of the fif th metatarsal head and base. Focal osteopenia and cortical erosions are vis ualized at these sites with associated subcutaneous swelling and gas involving the fifth metatarsal base, head and fifth phalanx with questi onable erosions involving the right lateral fourth metatarsal head and proxi mal phalanx base. Chronic articular collapse with sclerotic remodeling is se en about the great toe proximal phalanx and the articular margins of the talonavicular, subtalar, calcaneocuboid, navicular cuneiform join ts as well as the second through fifth TMT joint. A remote lateral malleo haroon fracture is noted. A remote anterior fragmented tibial plafond fract ure versus fragmented osteochondral defect is noted. IMPRESSION Ulcerations with subcutaneous gas and os teomyelitis involving the fifth toe and fifth metatarsal base and head with suspicion for osteomyelitis of the fourth metatarsal head and fourth digit proximal phalanx base. Recommend MRI for further characterization. Charcot arthropathy. Preliminary Report Dictated by Resident: Romario Wood I, Oz Peres MD., have reviewed th is study and agree with the above report. Performing Organization Address City/State/Zipcode Phone Number PACS/VR/DOSE URINE CULTURE (11/18/2019 9:32 AM CDT) URINE CULTURE >100,000 CFU/mL [facility] Escherichia coli SERVICES Specimen Urine - URINE, CLEAN CATCH Organism Antibiotic Method Susceptibility Escherichia coli Ampicillin SUSCEPTIBILITY TESTING <=2: Temi ceptible Escherichia coli Cefazolin SUSCEPTIBILITY TESTING <=4: Temi ceptible Escherichia coli Ceftriaxone SUSCEPTIBILITY TESTING <=1: Temi ceptible Escherichia coli Ciprofloxacin SUSCEPTIBILITY TESTING <=0.25: Susceptible Escherichia coli Ertapenem SUSCEPTIBILITY TESTING <=0.5: S usceptible Escherichia coli Gentamicin SUSCEPTIBILITY TESTING <=1: Temi ceptible Escherichia coli Levofloxacin SUSCEPTIBILITY TESTING <=0.12: Susceptible Escherichia coli Nitrofurantoin SUSCEPTIBILITY TESTING <=16: Buckley sceptible Escherichia coli Piperacillin/Tazobactam SUSCEPTIBILITY TESTING <=4: Susceptible Escherichia coli Trimethoprim/Sulfamethoxa SUSCEPTIBILITY TESTIN G <=20: Susceptible zole Comment: Nitrofurantoin is not recommended for us e in treating pyelonephritis or systemic disease. Performing Organization Address City/[facility]/Zipcode Phone Number [facility] SERVICES CLIA: [id number], [address] [place], [place] [address] [facility] PROTEIN CREAT RATIO URINE RANDOM (11/18/2019 9:32 AM CDT) Pathologist Sig nature T. PROT U 255 mg/dL [facility] CREAT U 50.0 mg/dL [facility] Protein/Creatinine 5.1 (H) 0.0 - 2.0 [facility] Urine HOSPITAL LABORATORY Specimen Urine - URINE, CLEAN CATCH Performing Organization Address City/[facility]/Zipcode Phone Number [facility] CLIA: [id number], [address] [place], [place] [address] URIC ACID (11/18/2019 8:17 AM CDT) Pathologist Sig nature URIC ACID 6.7 (H) 2.9 - 6.0 mg/dL [facility] Specimen Blood - ARM, LEFT Performing Organization Address City/[facility] Phone Number [facility] CLIA: [id number], [address] [place], [place] [address] CREATINE KINASE (11/18/2019 8:17 AM CDT) Pathologist Sig nature CK 61 33 - 194 U/L [facility] Specimen Blood - ARM, LEFT Performing Organization Address [facility] Phone Number [facility] CLIA: [id number], [address] [place], [place] [address] POCT GLUCOSE (AUTOMATED) (11/18/2019 7:28 AM CDT) Pathologist Sig kenna POCT GLU 72 70 - 110 mg/dL [facility] Specimen Blood Performing Organization Address [facility] Phone Number [facility] CLIA: [id number], [address] [place] [address] [address] CHLORIDE, URINE RANDOM (11/18/2019 7:05 AM CDT) Pathologist Sig nature CL URINE 87 24 - 255 mmol/L [facility] SERVICES Specimen Urine - URINE, CLEAN CATCH Performing Organization Address [facility] Phone Number [facility] CLIA: [id number], [address] [place] [address] [facility] UREA NITROGEN, URINE RANDOM (11/18/2019 7:05 AM CDT) Pathologist Sig nature UREA N UR 256 mg/dL [facility] SERVICES Specimen Urine - URINE, CLEAN CATCH Performing Organization Address [facility] Phone Number [facility] CLIA: [id number], [address] [place] [address] [facility] CREATININE, URINE RANDOM (11/18/2019 7:05 AM CDT) Pathologist Sig nature CREAT U 47.3 mg/dL [facility] Specimen Urine - URINE, CLEAN CATCH Performing Organization Address [facility] Phone Number [facility] CLIA: [id number], [address] [place], [place] [address] SODIUM, URINE RANDOM (11/18/2019 7:05 AM CDT) Pathologist Sig nature NA URINE 99 mmol/L [facility] Specimen Urine - URINE, CLEAN CATCH Performing Organization Address [facility] Phone Number [facility] CLIA: [id number], [address] [place], [place] [address] POTASSIUM, URINE RANDOM (11/18/2019 7:05 AM CDT) Pathologist Sig nature K URINE 14.0 mmol/L [facility] Specimen Urine - URINE, CLEAN CATCH Performing Organization Address [facility] Phone Number [facility] CLIA: [id number], [address] [place] [address] POCT GLUCOSE (AUTOMATED) (11/18/2019 5:35 AM CDT) Pathologist Sig nature POCT GLU 88 70 - 110 mg/dL [facility] Specimen Blood Performing Organization Address [facility] Phone Number [facility] CLIA: [id number], [address] [place], [place] [address] INTACT PTH CALCIUM GROUP (11/18/2019 3:49 AM CDT) CALCIUM 7.5 (L) 8.6 - 10.6 [facility] mg/dL SERVICES PTH-INTACT 593.8 (H) 12.0 - 88.0 [facility] pg/mL SERVICES PTH-CA Interpretation Comment: Further [facility] clinical data SERVICES needed for interpretation. Specimen Blood - ARM, LEFT Performing Organization Address [facility] Phone Number [facility] CLIA: [id number], [address] [place], [place] [address] URINALYSIS (11/18/2019 1:56 AM CDT) Pathologist Sig nature APPEARANCE Cloudy (A) Clear [facility] COLOR Yellow Yellow [facility] PH 5.0 4.8 - 8.0 [facility] SP GRAVITY 1.008 1.003 - 1.030 [facility] GLU U QUAL Normal Normal [facility] BLOOD 3+ (A) Negative [facility] KETONES Negative Negative [facility] PROTEIN 100 mg/dL (A) Negative [facility] UROBILIN Normal Normal [facility] BILIRUBIN Negative Negative [facility] NITRITE Negative Negative [facility] LEUK BRIEN 500/uL (A) Negative [facility] RBC/HPF 76 (H) 0 - 3 HPF [facility] WBC/HPF 137 (H) 0 - 5 HPF [facility] BACTERIA Few (A) Negative [facility] MUCOUS Slight (A) Negative LPF [facility] SQ EPITH 2 HPF [facility] Specimen Urine - URINE, CLEAN CATCH Performing Organization Address [facility] Phone Number [facility] CLIA: [id number], [address] [place] [address] POCT GLUCOSE (AUTOMATED) (11/18/2019 1:33 AM CDT) Pathologist Sig nature POCT GLU 110 70 - 110 mg/dL [facility] Specimen Blood Performing Organization Address [facility] Phone Number [facility] CLIA: [id number], [address] [place] [address] POCT GLUCOSE (AUTOMATED) (11/18/2019 12:55 AM CDT) Pathologist Sig nature POCT GLU 50 (LL) 70 - 110 mg/dL [facility] Specimen Blood Performing Organization Address [facility] Phone Number [facility] CLIA: [id number], [address] [place] [address] POCT GLUCOSE (AUTOMATED) (11/18/2019 12:35 AM CDT) Pathologist Sig nature POCT GLU 45 (LL) 70 - 110 mg/dL [facility] Specimen Blood Performing Organization Address [facility] Phone Number [facility] CLIA: [id number], [address] [place] [address] BLOOD CULTURE SCREEN (11/18/2019 12:32 AM CDT) Blood No organisms isolated No growth [facility] Culture-Aerobic Comment: HOSPITAL Previous preliminary verifie d result was Culture In Progress on 11/18/2019 at 0401 CDT LABORATORY Previous preliminary verifie d result was No growth at 24 hours on 11/19/2019 at 0101 CDT Previous preliminary verifie d result was No growth at 48 hours on 11/20/2019 at 0101 CDT Previous preliminary verifie d result was No growth at 72 hours on 11/21/2019 at 0101 CDT Blood No organisms isolated No growth [facility] Culture-Anaerobic Comment: HOSPITAL Previous preliminary verifie d result was Culture In Progress on 11/18/2019 at 0401 CDT LABORATORY Previous preliminary verifie d result was No growth at 24 hours on 11/19/2019 at 0101 CDT Previous preliminary verifie d result was No growth at 48 hours on 11/20/2019 at 0101 CDT Previous preliminary verifie d result was No growth at 72 hours on 11/21/2019 at 0101 CDT Specimen Blood - VENOUS Performing Organization Address City/State/Zipcode Phone Number [facility] CLIA: [id number], [address] [place], [place] [address] COVID-19 (ID NOW RAPID TESTING) (11/18/2019 12:31 AM CDT) [facility] SARS-CoV-2 Rapid ID Not Detected Not Detected [facility] Specimen Swab - NASOPHARYNGEAL SWAB Narrative Performed At ID NOW COVID-19 Assay is an isothermal nucleic [facility] acid amplification test intended for the qualitative detection of nucleic acid from SARS-CoV-2 viral RNA in nasopharyngeal (FIELD SERVICE COORDINATOR) specimens. It is used under Emergency Use Authorization (EUA) by FDA. The limit of detection (LOD) of the assay is 125 Genome Equivalents/mL. A positive result is indicative of the presence of SARS-CoV-2 RNA. Clinical correlation with patient history and other diagnostic information is necessary to determine patient infection status. A negative (Not Detected) result does not preclude SARS-CoV-2 infection. In patients with clinical symptoms and other tests that are consistent with SARS-CoV-2 infection, negative results should be treated as presumptive negative and a new specimen should be tested with alternative PCR molecular test. Invalid: Please collect a new specimen for repeat patient testing if clinically indicated. Performing Organization Address City/[facility]/Zipcode Phone Number [facility] CLIA: [id number], [address] [place], [place] [address] LABORATORY [facility] Lactic Acid Whole Blood (11/18/2019 12:30 AM CDT) Pathologist Sig nature LACTIC ACID 0.97 mmol/L [facility] Specimen Blood - VENOUS Performing Organization Address [facility]/Zipcode Phone Number [facility] CLIA: [id number], [address] [place], [place] [address] LABORATORY [facility] BLOOD CULTURE SCREEN (11/18/2019 12:29 AM CDT) Blood No organisms isolated No growth [facility] Culture-Aerobic Comment: [facility] Previous preliminary verifie d result was Culture In Progress on 11/18/2019 at 0401 CDT LABORATORY Previous preliminary verifie d result was No growth at 24 hours on 11/19/2019 at 0101 CDT Previous preliminary verifie d result was No growth at 48 hours on 11/20/2019 at 0101 CDT Previous preliminary verifie d result was No growth at 72 hours on 11/21/2019 at 0101 CDT Blood No organisms isolated No growth [facility] Culture-Anaerobic Comment: [facility] Previous preliminary verifie d result was Culture In Progress on 11/18/2019 at 0401 CDT LABORATORY Previous preliminary verifie d result was No growth at 24 hours on 11/19/2019 at 0101 CDT Previous preliminary verifie d result was No growth at 48 hours on 11/20/2019 at 0101 CDT Previous preliminary verifie d result was No growth at 72 hours on 11/21/2019 at 0101 CDT Specimen Blood - VENOUS Performing Organization Address [facility]/Zipcode Phone Number [facility] CLIA: [id number], [address] [place], [place] [address] [facility] XR FOOT <3 VW RIGHT (11/17/2019 11:47 PM CDT) Specimen Impressions Performed At PACS/VR/DOSE Ulcerations with osteomyelitis involving the fifth toe , proximal and fifth metatarsal and great toe. Charcot arthropathy. Cellulitis. I, Oz Peres MD., have reviewed this study and a gree with the above report. Narrative Performed At EXAM: PACS/VR/DOSE XR FOOT <3 VW RIGHT HISTORY: wound COMPARISON: None FINDINGS: Imaging of the right foot demonstrates diffuse severe swelling. Soft tissue gas and ulceration are seen along the fi fth ray at the phalanx, fifth metatarsal head/neck and metatarsal base. Osteolysis a nd bony fragmentation is seen in these regions. Additionally, soft tissue gas is seen at the level of the great toe with subtle osteo lysis noted about the lateral margin of the great toe distal phalanx. Chronic articular collapse with sclerotic remodeling is seen about the great toe proxi mal phalanx and the articular margins of the talonavicular, subtalar, calc aneocuboid, navicular cuneiform joints and second through fift h TMT joints. Procedure Note [facility], Radiant Results Inft User - 2019 7:08 AM CDT EXAM: XR FOOT <3 VW RIGHT HISTORY: wound COMPARISON: None FINDINGS: Imaging of the right foot demonstrates d iffuse severe swelling. Soft tissue gas and ulceration are seen along the fi fth ray at the phalanx, fifth metatarsal head/neck and metatarsal base . Osteolysis and bony fragmentation is seen in these regions. Additionally, soft tissue gas is seen at the level of the great toe with subtle osteo lysis noted about the lateral margin of the great toe distal phalanx. Chronic articular collapse with sclerotic remodeling is seen about the g reat toe proximal phalanx and the articular margins of the talonavicular, subtalar, calcaneocuboid, navicular cuneiform joints and second through fift h TMT joints. IMPRESSION Ulcerations with osteomyelitis involving the fifth toe, proximal and fifth metatarsal and great toe. Charcot arthropathy. Cellulitis. IOz MD., have reviewed th is study and agree with the above report. Performing Organization Address City/State/Zipcode Phone Number PACS/VR/DOSE Glycosylated Hemoglobin (A1C) (11/17/2019 11:28 PM CDT) Pathologist Sig nature HGB A1C 5.3 4.0 - 6.0 % [facility] Specimen Blood - VENOUS Narrative Performed At %A1C (NGSP) Interpretation (ADA) [facility] 4.8-5.6 Normal or (Non-Diabetic Ra nge) 5.7-6.4 Increased Risk (Pre-Diabet ic) >6.5 Diabetes Indicated Performing Organization Address City/State/Zipcode Phone Number [facility] CLIA: [id number], [address] [place] [address] COMP. Metabolic Panel (28188) (11/17/2019 11:28 PM CDT) NA 138 135 - 145 [facility] mmol/L [facility] K 4.4 3.5 - 5.0 [facility] mmol/L [facility] CL 111 (H) 98 - 108 mmol/L [facility] CO2 TOTAL 16 (L) 23 - 31 mmol/L [facility] AGAP 11 2 - 16 [facility] BUN 51 (H) 7 - 23 mg/dL [facility] GLUCOSE 60 (L) 70 - 110 mg/dL [facility] CREATININE 6.47 (H) 0.50 - 1.04 [facility] mg/dL [facility] TOTAL BILI 0.4 0.1 - 1.1 mg/dL [facility] CALCIUM 8.0 (L) 8.6 - 10.6 [facility] mg/dL [facility] T PROTEIN 7.8 6.3 - 8.2 g/dL [facility] ALBUMIN 3.3 (L) 3.5 - 5.0 g/dL [facility] ALK PHOS 73 34 - 122 U/L [facility] ALTv 9 5 - 35 U/L [facility] AST(SGOT) 16 13 - 40 U/L [facility] eGFR Calculation 6.6 mL/min/1.73m2 [facility] (Non-[facility] LABORATORY [place]) eGFR Calculation 8.0 mL/min/1.73m2 [facility] () [facility] Specimen Blood - VENOUS Narrative Performed At Association of Glomerular Filtration Rate (GFR) [facility] and Staging of Kidney Disease* + + +- + | GFR (mL/min/1.73 m2) | With Kidney Damage | Without Kidney Damage + + +- + | >90 | Stage one | Normal + + +- + | 60-89 | Stage two | Decreased GFR + + +- + | 30-59 | Stage three | Stage three + + +- + | 15-29 | Stage four | Stage four + + +- + | <15 (or dialysis) | Stage five | Stage five + + +- + *Each stage assumes the associated GFR level has been in effect for at least three months. Stages 1 to 5, with or without kidney disease, indicate chronic kidney disease. Notes: Determination of stages one and two (with eGFR >59mL/min/1.73 m2) requires estimation of kidney damage for at least three months as defined by structural or functional abnormalities of the kidney, manifested by either: Pathological abnormalities or Markers of kidney damage (including abnormalities in the composition of the blood or urine or abnormalities in imaging tests). Performing Organization Address City/State/Zipcode Phone Number [facility] CLIA: [id number], [address] [place], [place] [address] CBC with DIFF (11/17/2019 11:28 PM CDT) Pathologist Sig nature WBC 16.20 (H) 4.30 - 11.10 [facility] 10*3/L [facility] RBC 3.01 (L) 3.93 - 5.25 [facility] 10*6/L [facility] HGB 8.9 (L) 11.6 - 15.0 [facility] g/dL [facility] HCT 28.8 (L) 35.7 - 45.2 % [facility] MCV 95.7 (H) 80.6 - 95.5 fL [facility] MCH 29.6 25.9 - 32.8 pg [facility] MCHC 30.9 (L) 31.6 - 35.1 [facility] g/dL [facility] RDW-SD 49.1 39.0 - 49.9 fL [facility] RDW-CV 13.9 12.0 - 15.5 % [facility] PLT 287 166 - 358 [facility] 10*3/L [facility] MPV 11.1 9.5 - 12.9 fL [facility] NRBC/100 WBC 0.0 0.0 - 10.0 /100 [facility] WBCs [facility] NRBC x10^3 <0.01 10*3/L [facility] GRAN MAT (NEUT) % 78.2 % [facility] IMM GRAN % 0.80 % [facility] LYMPH % 9.8 % [facility] MONO % 9.6 % [facility] EOS % 1.2 % [facility] BASO % 0.4 % [facility] GRAN MAT x10^3(ANC) 12.68 (H) 1.88 - 7.09 [facility] 10*3/uL [facility] IMM GRAN x10^3 0.13 (H) 0.00 - 0.06 [facility] 10*3/uL [facility] LYMPH x10^3 1.59 1.32 - 3.29 [facility] 103/uL [facility] MONO x10^3 1.55 (H) 0.33 - 0.92 [facility] 103/uL [facility] EOS x10^3 0.19 0.03 - 0.[address]/uL [facility] BASO x10^3 0.06 0.01 - 0.[address]/[facility] LABORATORY Specimen Blood - VENOUS Performing Organization Address City/State/Zipcode Phone Number [facility] CLIA: [id number], [address] [place] [address] documented in this encounter Visit Diagnoses Diagnosis Diabetic foot infection - Primary 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, not stated as uncontrolled Penetrating wound of right foot, initial encounter Osteomyelitis of right foot, unspecified type Renal failure, unspecified chronicity ANGEL (acute kidney injury) Acute kidney failure, unspecified Morbid obesity with body mass index of 5 0 or higher documented in this encounter Administered Medications Medication Order MAR Action Action Date Dose Rate Site acetaminophen (TYLENOL) tablet Given 11/24/2019 8:22 AM CDT 650 mg 650 mg 650 mg, Oral, Q6HPRN, Starting Thu11/22/19 at 2144, Until Discontinued, Routine, Pain (scale 1-3) Given 11/23/2019 5:27 PM CDT 650 mg Given 11/23/2019 8:41 AM CDT 650 mg calcitrioL (ROCALTROL) capsule 0.5 mcg Given 11/23/2019 12:04 PM CDT 0.5 mcg 0.5 mcg, Oral, Q OTHERDAY, First dose on Thu11/23/19 at 0900, Until Discontinued, Routine furosemide (LASIX) injection 80 mg Given 11/24/2019 8:22 AM CDT 80 mg 80 mg, Slow IV Push, DAILY, First dose on Thu11/24/19 at 0900, Until Discontinued, Routine heparin (porcine) injection Given 11/24/2019 8:22 AM CDT 5,000 Units Abdomen-SC 5,000 Units 5,000 Units, Subcutaneous, Q12H, First dose on Thu11/18/19 at 0800, Until Discontinued, Routine Given 11/23/2019 9:26 PM CDT 5,000 Units Abdo men-SC Given 11/22/2019 8:45 PM CDT 5,000 Units Abdo men-SC hydralAZINE (APRESOLINE) injection 10 mg Given 11/22/2019 11:15 AM CDT 10 mg 10 mg, Intravenous, PRN - SEE INSTRUCTIONS, Starting Thu11/22/19 at 0840, Until Discontinued, Routine, Hypertensive emergency, Hypertension, Q4h for SBP>160 or DBP>100 lisinopril (PRINIVIL,ZESTRIL) tablet 20 mg 20 mg, Oral, DAILY, First dose on Thu at 0900, Until Discontinued, Routine NaCl 0.9% (NS) injection 10 mL Given 11/23/2019 11:45 AM CDT 10 mL 10 mL, Slow IV Push, PRN, Starting Thu11/21/19 at 0707, Until Discontinued, Routine, molding line assistant NIFEdipine ER (AFEDITAB CR) tablet 90 mg Given 11/24/2019 8:21 AM CDT 90 mg 90 mg, Oral, DAILY, First dose on Thu11/24/19 at 0900, Until Discontinued, Routine ondansetron (ZOFRAN (PF)) injection 4 mg Given 11/24/2019 3:22 PM CDT 4 mg 4 mg, Slow IV Push, Q6HPRN, Starting Thu11/18/19 at 0251, Until Discontinued, Routine, Nausea and Vomiting (N/V) piperacillin-tazobactam (ZOSYN) 2.25 g in Given 11/24/2019 4:22 AM CDT 2.25 g NaCl 0.9% (NS) 100 mL MINI-BAG 2.25 g, IV Piggyback, Q12H ABX, First dose on Thu11/23/19 at 1630, Until Discontinued, 100 mL, Reason for Anti-Infective: Empiric Therapy for Suspected Infection, Empiric Therapy Site: Urine, Duration of therapy: 7 days Given 11/23/2019 5:27 PM CDT 2.25 g Sliding Scale Insulin-Regular + Given 11/24/2019 12:57 PM CDT 4 Units Abdomen-SC Fsbg Testing Subcutaneous, AC+HS, First dose on Thu11/18/19 at 0730, Until Discontinued, Routine Given 11/24/2019 8:24 AM CDT 2 Units Abdo men-SC Given 11/23/2019 9:26 PM CDT 4 Units Abdo men-SC Medication Order MAR Action Action Date Dose Rate Site dextrose 50 % in water (D50W) Given 11/18/2019 1:02 AM CDT 25 m L injection 25 mL 25 mL, Intravenous, ONCE, 1 dose, Thu11/18/19 at 0215, STAT dextrose 50 % in water (D50W) injection 50 mL Given 11/19/2019 8:44 AM CDT 50 mL 50 mL, Slow IV Push, ONCE, 1 dose, 11/19/19 at 0915, Routine heparin (PF) 1,000 unit/mL injection Given 11/23/2019 10:45 AM C DT 1,500 Units 1,500 Units 1,500 Units, Slow IV Push, DIALYSIS ONCE - PT ROOM, 1 dose, Thu11/23/19 at 1015, Routine heparin (PF) 1,000 unit/mL injection Given 11/23/2019 11:42 AM C DT 3,900 Units 3,900 Units 3,900 Units, Slow IV Push, DIALYSIS ONCE - PT ROOM, 1 dose, Thu11/23/19 at 1115, Routine heparin (PF) 1,000 unit/mL injection Given 11/22/2019 11:11 AM C DT 3,900 Units 4,000 Units 4,000 Units, Slow IV Push, DIALYSIS ONCE - [facility], 1 dose, Tu11/22/19 at 1130, Routine heparin 1,000 unit/mL 10,000 Units Given 11/21/2019 1:30 PM CDT 10,000 Units Chest in NaCl 0.9% (NS) 100 mL 10,000 Units, Intravenous, ONCE, 1 dose, 11/21/19 at 1200, Routine HYDROmorphone (DILAUDID) injection 0.2 m g Given 11/18/2019 6:23 PM CDT 0.2 mg 0.2 mg, Slow IV Push, Q5MIN PRN, 10 doses, Starting 11/18/19 at 1813, Until 11/18/19 at 1859, Routine, Pain (scale 7-10), PACU, Use approved by (Faculty): PACU USE -ANESTHESIA SERVICE-HYDROMORPHONE INJECTIONS Given 11/18/2019 6:16 PM CDT 0.4 mg Given 11/18/2019 6:14 PM CDT 0.2 mg insulin regular human (HUMULIN R) Given 11/19/2019 8:41 AM CDT 10 Units injection 10 Units 10 Units, IV Push, ONCE, 1 dose, 11/19/19 at 0915, Routine labetalol (NORMODYNE) injection 10 mg Given 11/22/2019 12:33 PM CDT 10 mg 10 mg, Slow IV Push, ONCE, 1 dose, 11/22/19 at 1315, Routine lactated ringers IV infusion New Bag 11/18/2019 8:07 PM CDT 1,000 mL 75 mL/hr 1,000 mL at 75 mL/hr, 1,000 mL, IV Infusion, CONTINUOUS, Starting Thu11/18/19 at 1800, Until 11/19/19 at 0806, Routine, PACU morpHINE injection 2 mg Given 11/24/2019 3:22 PM CDT 2 mg 2 mg, Slow IV Push, ONCE, 1 dose, Nila 11/24/19 at 1630, Routine NaCl 0.9% (NS) IV infusion 1,000 New Bag 11/18/2019 3:15 AM C DT 1,000 mL 100 mL/hr mL at 100 mL/hr, IV Infusion, CONTINUOUS, Starting Thu11/18/19 at 0300, Until 11/18/19 at 1451, Routine NaCl 0.9% (NS) IV infusion 1,000 New Bag 11/19/2019 8:36 AM C DT 1,000 mL 70 mL/hr mL at 70 mL/hr, IV Infusion, CONTINUOUS, Starting Thu11/18/19 at 1500, Until 11/19/19 at 1143, Routine NIFEdipine ER (AFEDITAB CR) tablet 30 mg Given 11/19/2019 8:37 AM CDT 30 mg 30 mg, Oral, DAILY, First dose on Thu11/18/19 at 1500, Until Discontinued, Routine NIFEdipine ER (AFEDITAB CR) tablet 30 mg Given 11/22/2019 12:33 PM CDT 30 mg 30 mg, Oral, ONCE, 1 dose, Thu11/22/19 at 1315, Routine NIFEdipine ER (AFEDITAB CR) tablet 60 mg Given 11/22/2019 10:19 AM CDT 60 mg 60 mg, Oral, DAILY, First dose on Thu11/20/19 at 0900, Until Discontinued, Routine Given 11/20/2019 8:34 AM CDT 60 mg NIFEdipine ER (AFEDITAB CR) tablet 60 mg Given 11/23/2019 9:17 AM CDT 60 mg 60 mg, Oral, DAILY, First dose on Thu11/23/19 at 0900, Until Discontinued, Routine piperacillin-tazobactam (ZOSYN) 3.375 g in Given 11/22 4:26 AM CDT 3.375 g NaCl 0.9% (NS) 100 mL MINI-BAG 3.375 g, IV Piggyback, Q6H ABX, First dose on Thu11/18/19 at 0430, Until Discontinued, 100 mL, Reason for Anti-Infective: Empiric Therapy for Suspected Infection, Empiric Therapy Site: Urine, Duration of therapy: 7 days Given 11/22/2019 10:30 PM CDT 3.375 g Given 11/22/2019 5:16 PM CDT 3.375 g sodium bicarbonate 75 mEq IV New Bag 11/20/2019 10:52 AM CDT 75 mE q 50 mL/hr Solution IV Infusion, CONTINUOUS, Starting Thu11/19/19 at 1300, Until Thu11/20/19 at 1111, 1,000 mL New Bag 11/19/2019 12:34 PM CDT 75 mEq 50 mL/hr sodium bicarbonate 75 mEq IV New Bag 11/21/2019 7:53 AM CDT 75 mE q 50 mL/hr Solution IV Infusion, CONTINUOUS, Starting Thu11/21/19 at 0700, Until Thu11/22/19 at 1525, 1,000 mL sodium polystyrene sulfonate (KAYEXALATE) 15 Given 0 8:37 AM CDT 15 g gram/60 mL suspension 15 g 15 g, Oral, ONCE, 1 dose, 11/19/19 at 0915, Routine vancomycin (VANCOCIN) 1,000 mg in NaCl Given 11/18/2019 1:30 AM CDT 1,000 mg 0.9% (NS) 250 mL VIAL-MATE IV piggyback 1,000 mg, IV Piggyback, ONCE, 1 dose, 11/18/19 at 0130, 250 mL, Reason for Anti-Infective: Documented Infection, Documented Infection Site: Skin / Soft Tissue, Duration of Therapy: Other (see Comments) documented in this encounter Additional Health Concerns Infection Onset Date Last Indicated Resolved Time COVID-19 Rule Out 11/18/2019 11/18/2019 11/18/2019 1: 01 AM CDT documented as of this encounter Insurance Payer Benefit Plan / Subscriber ID Effective Phone Address T ype Group Dates MEDICAID MEDICAID SSI PENDING 2019-Pres [address] [place] [address] documented as of this encounter
--- NOTE | 2019-12-12 10:37 | RAD REPORT ---
EXAM DESCRIPTION: RAD - Abdomen 1 View (KUB) - 12/12/2019 9:57 am CLINICAL HISTORY: Abdomen pain. FINDINGS: The bowel gas pattern is diminished. Small round calcification in the right pelvis probably a phlebolith. Moderate stool is present within the colon
--- NOTE | 2019-12-12 11:27 | RAD REPORT ---
EXAM DESCRIPTION: CT - Stone Protocol - 12/12/2019 11:07 am CLINICAL HISTORY: Abdominal pain. Constipation COMPARISON: None. TECHNIQUE: Computed axial tomography of the abdomen pelvis was obtained without oral or IV contrast. Lack of IV and oral contrast limits evaluation of solid organs, bowel, and vessels. Coronal reformat sascha images were obtained and reviewed. All CT scans are performed using dose optimization technique as appropriate and may include automated exposure control or mA/KV adjustment according to patient size. FINDINGS: A renal calculus is not seen. An ureteral calculus is not noted. A bladder calculus is not present. 26 millimeter low-density mass extends off of the left kidney. Mild left renal cortical thi nning is present likely secondary to prior inflammation The liver, spleen, pancreas and adrenals appear grossly normal There is no evidence of diverticulitis. Cholelithiasis without gallbladder wall thickening Small periumbilical hernia contains fat Rectum is mildly distended with stool Small pericardial effusion or thickening IMPRESSION: Negative for a genitourinary calculus Cholelithiasis. Mild rectal distention
[2019-12-12] MEDS ORDERED: FLEET ENEMA ADULT PR ONE (12:01)
--- NOTE | 2019-12-12 13:09 | ER ---
Nurse's Notes [facility] Name: Jena Corrales Age: 59 yrs Sex: Female : 1960 Arrival Date: 12/12/2019 Time: 08:51 Bed 14 Private MD: Diagnosis: Constipation, unspecified Presentation: 12/11 08:44 Chief complaint: EMS states: pt from home c/o abdominal pain, mostly epigastric area, iw but also c/o no BM for 3-4 days, Dialysis pt MWF - due at 4pm today, has wound vac in place for wound on the lateral aspect of Right foot, amputations of 4th \\T\\ 5th digit Right foot, hx of amputation Left great toe \\T\\ 2nd digit, vs stable, negative for covid like symptoms. Coronavirus screen: Client denies travel out of the [place] in the last 14 days. At this time, the client does not indicate any symptoms associated with coronavirus-19. Ebola Screen: Patient denies travel to an Ebola-affected area in the 21 days before illness onset. Initial Sepsis Screen: Does the patient meet any 2 criteria? No. Patient's initial sepsis screen is negative. Does the patient have a suspected source of infection? No. Patient's initial sepsis screen is negative. Risk Assessment: Do you want to hurt yourself or someone else? Patient reports no desire to harm self or others. Onset of symptoms was December 12, 2019. 08:44 Method Of Arrival: EMS: [facility] iw 08:44 Acuity: NUZHAT 3 iw Triage Assessment: 08:58 General: Appears in no apparent distress. obese, Behavior is calm, cooperative, iw appropriate for age. Pain: Complains of pain in epigastric area. GI: Reports upper abdominal pain, constipation. Historical: - Allergies: 09:39 Levaquin; tw2 09:39 Lisinopril; tw2 09:39 Tylenol-Codeine #3 (Vomiting); tw2 - Home Meds: 09:39 Novolin 70/30 [place] Sub-Q 30 units AM, 30 units PM [Active]; sodium polystyrene tw2 sulfonate 15 gram/60 mL oral susp 60 mL every other day for Hyperkalemia [Active]; furosemide 40 mg Oral tab 2 tabs once daily [Active]; calcitriol 0.5 mcg oral cap 1 cap every other day [Active]; nifedipine 90 mg Oral tr24 1 tab once daily [Active]; - PMHx: 08:58 Diabetes - NIDDM; Hypertension; Myocardial infarction; Dialysis; MWF; iw - PSHx: 08:58 amputation of 4th \\T\\ 5th digits Right foot; amputation of great toe \\T\\ 2nd digit LEFT iw foot; - Immunization history:: Adult Immunizations. - Social history:: Smoking status: . Screenin:38 Abuse screen: Denies threats or abuse. Nutritional screening: No deficits noted. tw2 Tuberculosis screening: No symptoms or risk factors identified. Fall Risk Secondary diagnosis (15 points) impaired mobility. Assessment: 09:00 General: Appears in no apparent distress. obese, Behavior is calm, cooperative, tw2 appropriate for age. 09:00 Pain: Complains of pain in abdomen. Neuro: Level of Consciousness is awake, alert, tw2 obeys commands, Oriented to person, place, time, situation. Cardiovascular: Heart tones S1 S2 Patient's skin is warm and dry. Respiratory: Airway is patent Respiratory effort is even, unlabored, Respiratory pattern is regular, symmetrical, Breath sounds are clear bilaterally. GI: Abdomen is round non-distended, obese, Bowel sounds present X 4 quads. Abd is soft X 4 quads Reports lower abdominal pain, constipation. : No signs and/or symptoms were reported regarding the genitourinary system. EENT: No signs and/or symptoms were reported regarding the EENT system. Derm: No signs and/or symptoms reported regarding the dermatologic system. Musculoskeletal: Range of motion: limited in left knee, left ankle, right knee and right ankle. 09:50 Reassessment: No changes from previously documented assessment. Patient and/or family tw2 updated on plan of care and expected duration. Pain level reassessed. Patient is alert, oriented x 3, equal unlabored respirations, skin warm/dry/pink. 10:29 Reassessment: No changes from previously documented assessment. Patient and/or family tw2 updated on plan of care and expected duration. Pain level reassessed. Patient is alert, oriented x 3, equal unlabored respirations, skin warm/dry/pink. 11:43 Reassessment: No changes from previously documented assessment. Patient and/or family tw2 updated on plan of care and expected duration. Pain level reassessed. Patient is alert, oriented x 3, equal unlabored respirations, skin warm/dry/pink. 13:07 Reassessment: Patient and/or family updated on plan of care and expected duration. Pain tw2 level reassessed. Patient is alert, oriented x 3, equal unlabored respirations, skin warm/dry/pink. Patient states feeling better. Patient states symptoms have improved. pt states "i do feel much better now to have some of that stool out". 13:53 Reassessment: No changes from previously documented assessment. Patient and/or family tw2 updated on plan of care and expected duration. Pain level reassessed. Patient is alert, oriented x 3, equal unlabored respirations, skin warm/dry/pink. Patient states feeling better. Patient states symptoms have improved. Vital Signs: 08:44 BP 169 / 74; Pulse 75; Resp 16; Temp 98.3(O); Pulse Ox 98% on R/A; Weight 133.81 kg iw (R); Height 5 ft. 6 in. (167.64 cm); Pain 5/10; 09:45 BP 153 / 73; Pulse 71; Resp 17; Pulse Ox 99% on R/A; tw2 11:43 BP 162 / 70; Pulse 70; Resp 17; Pulse Ox 98% on R/A; tw2 12:37 BP 105 / 56; Pulse 57; Resp 16; Pulse Ox 100% on R/A; tw2 13:20 BP 175 / 87; Pulse 75; Resp 17; Pulse Ox 98% on R/A; tw2 08:44 Body Mass Index 47.61 (133.81 kg, 167.64 cm) ED Course: 08:51 Patient arrived in ED. iw 08:52 Bed in low position. Side rails up X2. personnel monitor on. Pulse ox on. NIBP on. Warm tw2 blanket given. 08:54 Roger Franco PA is PHCP. [facility] 08:54 Ghulam Salazar MD is Attending Physician. jm 08:57 Triage completed. iw 08:59 Halima Triana, RN is Primary Nurse. iw 08:59 Arm band placed on. iw 09:01 Jessica Francisco, RN is Primary Nurse. tw2 09:57 Abdomen 1 View (KUB) XRAY In Process Unspecified. EDMS 11:07 CT Stone Protocol In Process Unspecified. EDMS 12:54 digital disimpaction at this time. 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 13:18 Awaiting transportation, Awaiting: prior to discharge, pt unable to ambulate or get tw2 into personal vehicle. 13:53 Patient did not have IV access during this emergency room visit. tw2 Administered Medications: 12:35 Drug: Fleet Enema 133 ml Route: NC; tw2 12:40 Follow up: Response: No adverse reaction; No change in condition; No change in tw2 condition, provider notified pt is side lying at this time. Outcome: 13:08 Discharge ordered by . santo 13:53 Discharged to home via EMS at this time tw2 13:53 Condition: stable 13:53 Discharge instructions given to patient, Instructed on discharge instructions, follow up and referral plans. medication usage, Demonstrated understanding of instructions, follow-up care, medications, Prescriptions given X 1. 13:54 Patient left the ED. tw2 Signatures: Dispatcher [employer] EDMS Roger Franco PA PA Halima Camacho, STEPH RN Jessica Forde RN RN tw2 Corrections: (The following items were deleted from the chart) 13:07 12:54 digital disimpaction at this time. 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 obese, Behavior is calm, cooperative, tw2 appropriate for age, tw2 13:20 13:07 Reassessment: Patient and/or family updated on plan of care and expected tw2 duration. Pain level reassessed. Patient is alert, oriented x 3, equal unlabored respirations, skin warm/dry/pink. Patient states feeling better. Patient states symptoms have improved. tw2
--- NOTE | 2019-12-12 13:09 | EDPHYS ---
Physician Documentation [facility] Name: Jena Corrales Age: 59 yrs Sex: Female : 1960 Arrival Date: 12/12/2019 Time: 08:51 Bed 14 Private MD: ED Physician Ghulam Salazar HPI: 12/11 09:14 This 59 yrs old Female presents to ER via EMS with complaints of Abd Pain > 50 jmm y/o, Constipation. 09:14 The patient presents with abdominal pain. Onset: The symptoms/episode began/occurred jmm just prior to arrival, 3 day(s) ago. The symptoms do not radiate. Associated signs and symptoms: Pertinent positives: constipation. This is a 59 year old female with a history of ESRD, DM, HTN that presents to the ED with complaints of constipation for the past 3 days. Patient was recently discharged after amputation approx 1 week ago. Patient states she initially had good bm's upon discharge but over the past 3 days unable to void. . Historical: - Allergies: 09:39 Levaquin; tw2 09:39 Lisinopril; tw2 09:39 Tylenol-Codeine #3 (Vomiting); tw2 - Home Meds: 09:39 Novolin 70/30 [place] Sub-Q 30 units AM, 30 units PM [Active]; sodium polystyrene tw2 sulfonate 15 gram/60 mL oral susp 60 mL every other day for Hyperkalemia [Active]; furosemide 40 mg Oral tab 2 tabs once daily [Active]; calcitriol 0.5 mcg oral cap 1 cap every other day [Active]; nifedipine 90 mg Oral tr24 1 tab once daily [Active]; - PMHx: 08:58 Diabetes - NIDDM; Hypertension; Myocardial infarction; Dialysis; MWF; iw - PSHx: 08:58 amputation of 4th \T\ 5th digits Right foot; amputation of great toe \T\ 2nd digit LEFT iw foot; - Immunization history:: Adult Immunizations. - Social history:: Smoking status: . ROS: 09:14 Constitutional: Negative for fever, chills, and weight loss, Cardiovascular: Negative jmm for chest pain, palpitations, and edema, Respiratory: Negative for shortness of breath, cough, wheezing, and pleuritic chest pain. 09:14 Abdomen/GI: Positive for abdominal pain, constipation. 09:14 All other systems are negative. Exam: 09:14 Constitutional: This is a well developed, well nourished patient who is awake, alert, jmm and in no acute distress. Head/Face: atraumatic. Eyes: EOMI, no conjunctival erythema appreciated ENT: Moist Mucus Membranes Neck: Trachea midline, Supple Chest/axilla: Normal chest wall appearance and motion. Cardiovascular: Regular rate and rhythm. No edema appreciated Respiratory: Normal respirations, no respiratory distress appreciated Abdomen/GI: Non distended, soft Back: Normal ROM Skin: General appearance color normal MS/ Extremity: Moves all extremities, no obvious deformities appreciated, no edema noted to the lower extremities Neuro: Awake and alert, normal gait Psych: Behavior is normal, Mood is normal, Patient is cooperative and pleasant Vital Signs: 08:44 BP 169 / 74; Pulse 75; Resp 16; Temp 98.3(O); Pulse Ox 98% on R/A; Weight 133.81 kg iw (R); Height 5 ft. 6 in. (167.64 cm); Pain 5/10; 09:45 BP 153 / 73; Pulse 71; Resp 17; Pulse Ox 99% on R/A; tw2 11:43 BP 162 / 70; Pulse 70; Resp 17; Pulse Ox 98% on R/A; tw2 12:37 BP 105 / 56; Pulse 57; Resp 16; Pulse Ox 100% on R/A; tw2 13:20 BP 175 / 87; Pulse 75; Resp 17; Pulse Ox 98% on R/A; tw2 08:44 Body Mass Index 47.61 (133.81 kg, 167.64 cm) Procedures: 13:07 Performed Digital Disimpaction. A large amount of stool was removed. Patient tolerated [facility] the procedure well. . MDM: 09:14 Patient medically screened. [facility] 13:07 Data reviewed: vital signs, nurses notes. Counseling: I had a detailed discussion with [facility] the patient and/or guardian regarding: the historical points, exam findings, and any diagnostic results supporting the discharge/admit diagnosis, radiology results, the need for outpatient follow up, to return to the emergency department if symptoms worsen or persist or if there are any questions or concerns that arise at home. 12/11 09:15 Order name: Abdomen 1 View (KUB) XRAY; Complete Time: 10:[address] [facility] 12/11 10:41 Order name: CT Stone Protocol; Complete Time: 11:[address] [facility] Administered Medications: 12:35 Drug: Fleet Enema 133 ml Route: HI; tw2 12:40 Follow up: Response: No adverse reaction; No change in condition; No change in tw2 condition, provider notified pt is side lying at this time. Disposition: 17:30 Co-signature as Attending Physician, Ghulam Salazar MD. rn Disposition: 12/12/19 13:08 Discharged to Home. Impression: Constipation, unspecified. - Condition is Stable. - Discharge Instructions: Constipation, Adult. - Prescriptions for Miralax 17 gram/dose Oral - take 1 packet by ORAL route once daily dilute powder in 8 ounces of water or juice; 1 box. - Medication Reconciliation Form, Thank You Letter, Antibiotic Education, Prescription Opioid Use form. - Follow up: Private Physician; When: 2 - 3 days; Reason: Recheck today's complaints, Continuance of care, Re-evaluation by your physician. Signatures: Dispatcher [employer] EDPR Roger Franco PA [facility] Cameron, RN Ghulam Ortega MD MD rn Wise, Tara, RN RN tw2 Corrections: (The following items were deleted from the chart) 13:54 13:08 12/12/2019 13:08 Discharged to Home. Impression: Constipation, unspecified. tw2 Condition is Stable. Forms are Medication Reconciliation Form, Thank You Letter, Antibiotic Education, Prescription Opioid Use. Follow up: Private Physician; When: 2 - 3 days; Reason: Recheck today's complaints, Continuance of care, Re-evaluation by your physician. [facility]
[2019-12-12 14:04] VITALS: TEMP 98.3
[2019-12-12 14:09] VITALS: BP 175/87; O2SAT 98
== END 2019-12-12 13:54 | disposition home or self-care (01) ==
LOC: ER 08:40
DX: K59.00 Constipation, unspecified (principal); I10 Essential (primary) hypertension; E11.9 Type 2 diabetes mellitus without complications; Z79.4 Long term (current) use of insulin; I25.2 Old myocardial infarction; Z99.2 Dependence on renal dialysis; Z88.5 Allergy status to narcotic agent; Z88.6 Allergy status to analgesic agent; Z88.8 Allergy status to other drugs, medicaments and biological substances; Z89.412 Acquired absence of left great toe; Z89.421 Acquired absence of other right toe(s)
CPT/HCPCS: 74018; 74176; 76377; 99284

== ENCOUNTER 2022-05-04 21:34 | Emergency (ER) | payer OTHER, SELFPAY ==
--- OUTSIDE RECORDS SUMMARY | 2022-05-04 21:41 | XMS REPORT | Continuity of Care Document ---
:1960 Author Organization [facility] t Address [address] [place] [address] Care Team Providers Name Role Phone Georgette Mckeon RN Attending Clinician Lit Day Attending Clinician Unavailable Helen Zhang Attending Clinician Elsy Banks Attending Clinician Doris Vergara Attending Clinician Rebeca Kraft MD Attending Clinician Rebeca Kraft MD Admitting Clinician Payers Payer Name Policy Type Policy Number Effective Date Expiration Date S ource Problems Condition Condition Condition Status Onset Resolution Last Treating Co mments Source Name Details Category Date Date Treatment Clinician Date Diabetic Diabetic Disease Active [facility] foot foot 11-17 [place] Morbid Morbid Disease Active [facility] obesity obesity 11-17 [place] with body with [place] mass index mass index 00 Me dical of 50 or of 50 or Branch higher higher Allergies, Adverse Reactions, Alerts Allergy Allergy Status Severity Reaction(s) Onset Inactive Treating Comm ents Source Name Type Date Date Clinician Levoflox Propensi Active Other - See weaknes Univers acin ty to comments 11-16 ity of adverse 00:00: [place] reaction 00 Medical s Branch Acetamin Propensi Active Nausea Univer s ophen-Co ty to and/or 11-16 ity of deine adverse Vomiting 00:00: [place] reaction 00 Medical s Branch LEVOFLOX DRUG Active Other-Cmnt Univ ers ACIN INGREDI 11-16 ity of 00:00: [place] 00 Medical Branch ACETAMIN DRUG Active N/V Univers OPHEN-CO 11-16 ity of DEINE 00:00: [place] 00 Medical Branch NO KNOWN Drug Active Univers ALLERGIE Class ity of S [facility] Social History Social Habit Start Date Stop Date Quantity Comments Source Sex Assigned At [facility] Medical Branch Exposure to Not sure [facility] SARS-CoV-2 (event) Medica l Branch Tobacco use and 2019-11-22 2019-11-22 Never used [facility] exposure 00:00:00 00:00:00 Medical Branch Smoking Status Start Date Stop Date Source Former smoker 2019-11-22 00:00:00 2019-11-22 00:00:00 [facility] Medications Ordered Filled Start Stop Current Ordering Indication Dosage Frequency Signature Comments Components Source Medication Medication Date Date Medication? Clinician (SIG) Name Name calcitrioL 2020- No [id number] .5ug Take 1 Univers 0.5 mcg 7-31 08-31 capsule by ity o f capsule 00:00: 04:59 mouth [place] 00 :00 every Medical other day Branch for 30 days. lisinopril 2020- No [id number] 20mg Take 1 Univers 20 mg 7-31 08-31 tablet by ity of tablet 00:00: 04:59 mouth [place] 00 :00 daily for Medical 30 days. Branch NIFEdipine 2020- No [id number] 90mg Take 1 Univers ER 90 mg 7-31 08-31 tablet by ity o f tablet 00:00: 04:59 mouth [place] 00 :00 daily for Medical 30 days. Branch calcitrioL 2020- No [id number] .5ug Take 1 Univers 0.5 mcg 7-31 08-31 capsule by ity o f capsule 00:00: 04:59 mouth [place] 00 :00 every Medical other day Branch for 30 days. lisinopril 2020- No [id number] 20mg Take 1 Univers 20 mg 7-31 08-31 tablet by ity of tablet 00:00: 04:59 mouth [place] 00 :00 daily for Medical 30 days. Branch NIFEdipine 2020- No [id number] 90mg Take 1 Univers ER 90 mg 7-31 08-31 tablet by ity o f tablet 00:00: 04:59 mouth [place] 00 :00 daily for Medical 30 days. Branch calcitrioL 2019-0 2020- No [id number] .5ug Take 1 Univers 0.5 mcg 7-31 08-31 capsule by ity o f capsule 00:00: 04:59 mouth [place] 00 :00 every Medical other day Branch for 30 days. lisinopril 2019- 2020- No [id number] 20mg Take 1 Univers 20 mg 7-31 08-31 tablet by ity of tablet 00:00: 04:59 mouth [place] 00 :00 daily for Medical 30 days. Branch NIFEdipine 2019-0 2020- No [id number] 90mg Take 1 Univers ER 90 mg 7-31 08-31 tablet by ity o f tablet 00:00: 04:59 mouth [place] 00 :00 daily for Medical 30 days. Branch calcitrioL 2019-2019- No [id number] .5ug Take 1 Univers 0.5 mcg 7-31 08-31 capsule by ity o f capsule 00:00: 04:59 mouth [place] 00 :00 every Medical other day Branch for 30 days. lisinopril 2019-0 2019- No [id number] 20mg Take 1 Univers 20 mg 7-31 08-31 tablet by ity of tablet 00:00: 04:59 mouth [place] 00 :00 daily for Medical 30 days. Branch NIFEdipine 2019-0 2019- No [id number] 90mg Take 1 Univers ER 90 mg 7-31 08-31 tablet by ity o f tablet 00:00: 04:59 mouth [place] 00 :00 daily for Medical 30 days. Branch calcitrioL 2019-0 2020- No [id number] .5ug Take 1 Univers 0.5 mcg 7-31 08-31 capsule by ity o f capsule 00:00: 04:59 mouth [place] 00 :00 every Medical other day Branch for 30 days. lisinopril 2019-0 2020- No [id number] 20mg Take 1 Univers 20 mg 7-31 08-31 tablet by ity of tablet 00:00: 04:59 mouth [place] 00 :00 daily for Medical 30 days. Branch NIFEdipine 2019- 2020- No [id number] 90mg Take 1 Univers ER 90 mg 7-31 08-31 tablet by ity o f tablet 00:00: 04:59 mouth [place] 00 :00 daily for Medical 30 days. Branch calcitrioL 2019-0 2020- No [id number] .5ug Take 1 Univers 0.5 mcg 7-31 08-31 capsule by ity o f capsule 00:00: 04:59 mouth [place] 00 :00 every Medical other day Branch for 30 days. lisinopril 2019-0 2020- No [id number] 20mg Take 1 Univers 20 mg 7-31 08-31 tablet by ity of tablet 00:00: 04:59 mouth [place] 00 :00 daily for Medical 30 days. Branch NIFEdipine 2019-0 2019- No [id number] 90mg Take 1 Univers ER 90 mg 7-31 08-31 tablet by ity o f tablet 00:00: 04:59 mouth [place] 00 :00 daily for Medical 30 days. Branch calcitrioL 2019-0 2020- No [id number] .5ug Take 1 Univers 0.5 mcg 7-31 08-31 capsule by ity o f capsule 00:00: 04:59 mouth [place] 00 :00 every Medical other day Branch for 30 days. lisinopril 2019-0 2020- No [id number] 20mg Take 1 Univers 20 mg 7-31 08-31 tablet by ity of tablet 00:00: 04:59 mouth [place] 00 :00 daily for Medical 30 days. Branch NIFEdipine 2019-0 2020- No [id number] 90mg Take 1 Univers ER 90 mg 7-31 08-31 tablet by ity o f tablet 00:00: 04:59 mouth [place] 00 :00 daily for Medical 30 days. Branch calcitrioL 2019-0 2020- No [id number] .5ug Take 1 Univers 0.5 mcg 7-31 08-31 capsule by ity o f capsule 00:00: 04:59 mouth [place] 00 :00 every Medical other day Branch for 30 days. lisinopril 2019-0 2020- No [id number] 20mg Take 1 Univers 20 mg 7-31 08-31 tablet by ity of tablet 00:00: 04:59 mouth [place] 00 :00 daily for Medical 30 days. Branch NIFEdipine 2020-0 2020- No [id number] 90mg Take 1 Univers ER 90 mg 7-31 08-31 tablet by ity o f tablet 00:00: 04:59 mouth [place] 00 :00 daily for Medical 30 days. Branch calcitrioL 2019-0 2020- No [id number] .5ug Take 1 Univers 0.5 mcg 7-31 08-31 capsule by ity o f capsule 00:00: 04:59 mouth [place] 00 :00 every Medical other day Branch for 30 days. lisinopril 2020-0 2020- No [id number] 20mg Take 1 Univers 20 mg 7-31 08-31 tablet by ity of tablet 00:00: 04:59 mouth [place] 00 :00 daily for Medical 30 days. Branch NIFEdipine 2019-0 2020- No [id number] 90mg Take 1 Univers ER 90 mg 7-31 08-31 tablet by ity o f tablet 00:00: 04:59 mouth [place] 00 :00 daily for Medical 30 days. Branch calcitrioL 2019-0 2020- No [id number] .5ug Take 1 Univers 0.5 mcg 7-31 08-31 capsule by ity o f capsule 00:00: 04:59 mouth [place] 00 :00 every Medical other day Branch for 30 days. lisinopril 2020-0 2020- No [id number] 20mg Take 1 Univers 20 mg 7-31 08-31 tablet by ity of tablet 00:00: 04:59 mouth [place] 00 :00 daily for Medical 30 days. Branch NIFEdipine 2019-0 2020- No [id number] 90mg Take 1 Univers ER 90 mg 7-31 08-31 tablet by ity o f tablet 00:00: 04:59 mouth [place] 00 :00 daily for Medical 30 days. Branch calcitrioL 2019-0 2020- No [id number] .5ug Take 1 Univers 0.5 mcg 7-31 08-31 capsule by ity o f capsule 00:00: 04:59 mouth [place] 00 :00 every Medical other day Branch for 30 days. lisinopril 2020-0 2020- No [id number] 20mg Take 1 Univers 20 mg 7-31 08-31 tablet by ity of tablet 00:00: 04:59 mouth [place] 00 :00 daily for Medical 30 days. Branch NIFEdipine 2020-0 2020- No [id number] 90mg Take 1 Univers ER 90 mg 7-31 08-31 tablet by ity o f tablet 00:00: 04:59 mouth [place] 00 :00 daily for Medical 30 days. Branch calcitrioL 2020-0 2020- No [id number] .5ug Take 1 Univers 0.5 mcg 7-31 08-31 capsule by ity o f capsule 00:00: 04:59 mouth [place] 00 :00 every Medical other day Branch for 30 days. lisinopril 2020-0 2020- No [id number] 20mg Take 1 Univers 20 mg 7-31 08-31 tablet by ity of tablet 00:00: 04:59 mouth [place] 00 :00 daily for Medical 30 days. Branch NIFEdipine 2019-0 2019- No [id number] 90mg Take 1 Univers ER 90 mg 7-31 08-31 tablet by ity o f tablet 00:00: 04:59 mouth [place] 00 :00 daily for Medical 30 days. Branch calcitrioL 2019-0 2020- No [id number] .5ug Take 1 Univers 0.5 mcg 7-31 08-31 capsule by ity o f capsule 00:00: 04:59 mouth [place] 00 :00 every Medical other day Branch for 30 days. lisinopril 2019-0 2020- No [id number] 20mg Take 1 Univers 20 mg 7-31 08-31 tablet by ity of tablet 00:00: 04:59 mouth [place] 00 :00 daily for Medical 30 days. Branch NIFEdipine 2019-0 2019- No [id number] 90mg Take 1 Univers ER 90 mg 7-31 08-31 tablet by ity o f tablet 00:00: 04:59 mouth [place] 00 :00 daily for Medical 30 days. Branch calcitrioL 2019-0 2019- No [id number] .5ug Take 1 Univers 0.5 mcg 7-31 08-31 capsule by ity o f capsule 00:00: 04:59 mouth [place] 00 :00 every Medical other day Branch for 30 days. lisinopril 2019-0 2019- No [id number] 20mg Take 1 Univers 20 mg 7-31 08-31 tablet by ity of tablet 00:00: 04:59 mouth [place] 00 :00 daily for Medical 30 days. Branch NIFEdipine 2019-0 2019- No [id number] 90mg Take 1 Univers ER 90 mg 7-31 08-31 tablet by ity o f tablet 00:00: 04:59 mouth [place] 00 :00 daily for Medical 30 days. Branch calcitrioL 2019-0 2020- No [id number] .5ug Take 1 Univers 0.5 mcg 7-31 08-31 capsule by ity o f capsule 00:00: 04:59 mouth [place] 00 :00 every Medical other day Branch for 30 days. lisinopril 2020-0 2020- No [id number] 20mg Take 1 Univers 20 mg 7-31 08-31 tablet by ity of tablet 00:00: 04:59 mouth [place] 00 :00 daily for Medical 30 days. Branch NIFEdipine 2019-0 2020- No [id number] 90mg Take 1 Univers ER 90 mg 7-31 08-31 tablet by ity o f tablet 00:00: 04:59 mouth [place] 00 :00 daily for Medical 30 days. Branch calcitrioL 2020-0 2020- No [id number] .5ug Take 1 Univers 0.5 mcg 7-31 08-31 capsule by ity o f capsule 00:00: 04:59 mouth [place] 00 :00 every Medical other day Branch for 30 days. lisinopril 2019-0 2020- No [id number] 20mg Take 1 Univers 20 mg 7-31 08-31 tablet by ity of tablet 00:00: 04:59 mouth [place] 00 :00 daily for Medical 30 days. Branch NIFEdipine 2019-0 2020- No [id number] 90mg Take 1 Univers ER 90 mg 7-31 08-31 tablet by ity o f tablet 00:00: 04:59 mouth [place] 00 :00 daily for Medical 30 days. Branch calcitrioL 2019-0 2020- No [id number] .5ug Take 1 Univers 0.5 mcg 7-31 08-31 capsule by ity o f capsule 00:00: 04:59 mouth [place] 00 :00 every Medical other day Branch for 30 days. lisinopril 2019-0 2020- No [id number] 20mg Take 1 Univers 20 mg 7-31 08-31 tablet by ity of tablet 00:00: 04:59 mouth [place] 00 :00 daily for Medical 30 days. Branch NIFEdipine 2019-0 2020- No [id number] 90mg Take 1 Univers ER 90 mg 7-31 08-31 tablet by ity o f tablet 00:00: 04:59 mouth [place] 00 :00 daily for Medical 30 days. Branch calcitrioL 2020-0 2020- No [id number] .5ug Take 1 Univers 0.5 mcg 7-31 08-31 capsule by ity o f capsule 00:00: 04:59 mouth [place] 00 :00 every Medical other day Branch for 30 days. lisinopril 2020-0 2020- No [id number] 20mg Take 1 Univers 20 mg 7-31 08-31 tablet by ity of tablet 00:00: 04:59 mouth [place] 00 :00 daily for Medical 30 days. Branch NIFEdipine 2020-0 2020- No [id number] 90mg Take 1 Univers ER 90 mg 7-31 08-31 tablet by ity o f tablet 00:00: 04:59 mouth [place] 00 :00 daily for Medical 30 days. Branch calcitrioL 2020-0 2020- No [id number] .5ug Take 1 Univers 0.5 mcg 7-31 08-31 capsule by ity o f capsule 00:00: 04:59 mouth [place] 00 :00 every Medical other day Branch for 30 days. lisinopril 2020-0 2020- No [id number] 20mg Take 1 Univers 20 mg 7-31 08-31 tablet by ity of tablet 00:00: 04:59 mouth [place] 00 :00 daily for Medical 30 days. Branch NIFEdipine 2020-0 2020- No [id number] 90mg Take 1 Univers ER 90 mg 7-31 08-31 tablet by ity o f tablet 00:00: 04:59 mouth [place] 00 :00 daily for Medical 30 days. Branch calcitrioL 2020-0 2020- No [id number] .5ug Take 1 Univers 0.5 mcg 7-31 08-31 capsule by ity o f capsule 00:00: 04:59 mouth [place] 00 :00 every Medical other day Branch for 30 days. lisinopril 2020-0 2020- No [id number] 20mg Take 1 Univers 20 mg 7-31 08-31 tablet by ity of tablet 00:00: 04:59 mouth [place] 00 :00 daily for Medical 30 days. Branch NIFEdipine 2020-0 2020- No [id number] 90mg Take 1 Univers ER 90 mg 7-31 08-31 tablet by ity o f tablet 00:00: 04:59 mouth [place] 00 :00 daily for Medical 30 days. Branch insulin NPH 2020-0 Yes 45% inject 45 U nivers hum/reg 7-30 % under ity of insulin hm 21:57: the skin 2 [place] (INSULIN 17 (two) Medical 70/30 [place]) times Branch daily. insulin NPH 2020-0 Yes 45% inject 45 U nivers hum/reg 7-30 % under ity of insulin hm 21:57: the skin 2 [place] (INSULIN 17 (two) Medical 70/30 SC) times Branch daily. insulin NPH 2020-0 Yes 45% inject 45 U nivers hum/reg 7-30 % under ity of insulin hm 21:57: the skin 2 [place] (INSULIN 17 (two) Medical 70/30 [place]) times Branch daily. insulin NPH 2020-0 Yes 45% inject 45 U nivers hum/reg 7-30 % under ity of insulin hm 21:57: the skin 2 [place] (INSULIN 17 (two) Medical 70/30 SC) times Branch daily. insulin NPH 2020-0 Yes 45% inject 45 U nivers hum/reg 7-30 % under ity of insulin hm 21:57: the skin 2 [place] (INSULIN 17 (two) Medical 70/30 SC) times Branch daily. insulin NPH 2020-0 Yes 45% inject 45 U nivers hum/reg 7-30 % under ity of insulin hm 21:57: the skin 2 [place] (INSULIN 17 (two) Medical 70/30 SC) times Branch daily. insulin NPH 2020-0 Yes 45% inject 45 U nivers hum/reg 7-30 % under ity of insulin hm 21:57: the skin 2 [place] (INSULIN 17 (two) Medical 70/30 SC) times Branch daily. insulin NPH 2020-0 Yes 45% inject 45 U nivers hum/reg 7-30 % under ity of insulin hm 21:57: the skin 2 [place] (INSULIN 17 (two) Medical 70/30 SC) times Branch daily. insulin NPH 2020-0 Yes 45% inject 45 U nivers hum/reg 7-30 % under ity of insulin hm 21:57: the skin 2 [place] (INSULIN 17 (two) Medical 70/30 SC) times Branch daily. insulin NPH 2020-0 Yes 45% inject 45 U nivers hum/reg 7-30 % under ity of insulin hm 21:57: the skin 2 [place] (INSULIN 17 (two) Medical 70/30 SC) times Branch daily. insulin NPH 2020-0 Yes 45% inject 45 U nivers hum/reg 7-30 % under ity of insulin hm 21:57: the skin 2 [place] (INSULIN 17 (two) Medical 70/30 SC) times Branch daily. insulin NPH 2020-0 Yes 45% inject 45 U nivers hum/reg 7-30 % under ity of insulin hm 21:57: the skin 2 [place] (INSULIN 17 (two) Medical 70/30 SC) times Branch daily. insulin NPH 2020-0 Yes 45% inject 45 U nivers hum/reg 7-30 % under ity of insulin hm 21:57: the skin 2 [place] (INSULIN 17 (two) Medical 70/30 SC) times Branch daily. insulin NPH 2020-0 Yes 45% inject 45 U nivers hum/reg 7-30 % under ity of insulin hm 21:57: the skin 2 [place] (INSULIN 17 (two) Medical 70/30 SC) times Branch daily. insulin NPH 2020-0 Yes 45% inject 45 U nivers hum/reg 7-30 % under ity of insulin hm 21:57: the skin 2 [place] (INSULIN 17 (two) Medical 70/30 SC) times Branch daily. insulin NPH 2020-0 Yes 45% inject 45 U nivers hum/reg 7-30 % under ity of insulin hm 21:57: the skin 2 [place] (INSULIN 17 (two) Medical 70/30 SC) times Branch daily. insulin NPH 2020-0 Yes 45% inject 45 U nivers hum/reg 7-30 % under ity of insulin hm 21:57: the skin 2 [place] (INSULIN 17 (two) Medical 70/30 SC) times Branch daily. insulin NPH 2020-0 Yes 45% inject 45 U nivers hum/reg 7-30 % under ity of insulin hm 21:57: the skin 2 [place] (INSULIN 17 (two) Medical 70/30 SC) times Branch daily. insulin NPH 2020-0 Yes 45% inject 45 U nivers hum/reg 7-30 % under ity of insulin hm 21:57: the skin 2 [place] (INSULIN 17 (two) Medical 70/30 SC) times Branch daily. insulin NPH 2020-0 Yes 45% inject 45 U nivers hum/reg 7-30 % under ity of insulin hm 21:57: the skin 2 [place] (INSULIN 17 (two) Medical 70/30 SC) times Branch daily. insulin NPH 2020-0 Yes 45% inject 45 U nivers hum/reg 7-30 % under ity of insulin hm 21:57: the skin 2 [place] (INSULIN 17 (two) Medical 70/30 SC) times Branch daily. insulin NPH 2020-0 Yes 45% inject 45 U nivers hum/reg 7-30 % under ity of insulin hm 21:57: the skin 2 [place] (INSULIN 17 (two) Medical 70/30 SC) times Branch daily. morpHINE 2020-0 2020- No 2mg 2 mg, Slow Un amrita injection 2 7-30 07-30 IV Push, ity of mg 21:30: 20:22 ONCE, 1 [place] 00 :00 dose, [place] Medical 11/24/19 at Branch 1630, Routine NIFEdipine 2020-0 Yes 90mg 90 mg, Unive rs ER 7-30 Oral, ity of (AFEDITAB 14:00: DAILY, [place] CR) tablet 00 First dose Med ical 90 mg on [place] Branch 11/24/19 at 0900, Until Discontinu ed, Routine furosemide 2020-0 Yes 80mg 80 mg, Unive rs (LASIX) 7-30 Slow IV ity of injection 14:00: Push, [place] 80 mg 00 DAILY, Medical First dose Branch on [place] 11/24/19 at 0900, Until Discontinu ed, Routine furosemide 2020-0 2020- No [id number] 80mg Take 2 Univers 40 mg 7-30 08-30 tablets by ity of tablet 00:00: 04:59 mouth [place] 00 :00 daily for Medical 30 days. Branch furosemide 2020-0 2020- No [id number] 80mg Take 2 Univers 40 mg 7-30 08-30 tablets by ity of tablet 00:00: 04:59 mouth [place] 00 :00 daily for Medical 30 days. Branch furosemide 2020-0 2020- No [id number] 80mg Take 2 Univers 40 mg 7-30 08-30 tablets by ity of tablet 00:00: 04:59 mouth [place] 00 :00 daily for Medical 30 days. Branch furosemide 2020-0 2020- No [id number] 80mg Take 2 Univers 40 mg 7-30 08-30 tablets by ity of tablet 00:00: 04:59 mouth [place] 00 :00 daily for Medical 30 days. Branch furosemide 2020-0 2020- No [id number] 80mg Take 2 Univers 40 mg 7-30 08-30 tablets by ity of tablet 00:00: 04:59 mouth [place] 00 :00 daily for Medical 30 days. Branch furosemide 2020-0 2020- No [id number] 80mg Take 2 Univers 40 mg 7-30 08-30 tablets by ity of tablet 00:00: 04:59 mouth [place] 00 :00 daily for Medical 30 days. Branch furosemide 2020-0 2020- No [id number] 80mg Take 2 Univers 40 mg 7-30 08-30 tablets by ity of tablet 00:00: 04:59 mouth [place] 00 :00 daily for Medical 30 days. Branch furosemide 2020-0 2020- No [id number] 80mg Take 2 Univers 40 mg 7-30 08-30 tablets by ity of tablet 00:00: 04:59 mouth [place] 00 :00 daily for Medical 30 days. Branch furosemide 2020-0 2020- No [id number] 80mg Take 2 Univers 40 mg 7-30 08-30 tablets by ity of tablet 00:00: 04:59 mouth [place] 00 :00 daily for Medical 30 days. Branch furosemide 2020-0 2020- No [id number] 80mg Take 2 Univers 40 mg 7-30 08-30 tablets by ity of tablet 00:00: 04:59 mouth [place] 00 :00 daily for Medical 30 days. Branch furosemide 2020-0 2020- No [id number] 80mg Take 2 Univers 40 mg 7-30 08-30 tablets by ity of tablet 00:00: 04:59 mouth [place] 00 :00 daily for Medical 30 days. Branch furosemide 2020-0 2020- No [id number] 80mg Take 2 Univers 40 mg 7-30 08-30 tablets by ity of tablet 00:00: 04:59 mouth [place] 00 :00 daily for Medical 30 days. Branch furosemide 2020-0 2020- No [id number] 80mg Take 2 Univers 40 mg 7-30 08-30 tablets by ity of tablet 00:00: 04:59 mouth [place] 00 :00 daily for Medical 30 days. Branch furosemide 2020-0 2020- No [id number] 80mg Take 2 Univers 40 mg 7-30 08-30 tablets by ity of tablet 00:00: 04:59 mouth [place] 00 :00 daily for Medical 30 days. Branch furosemide 2020-0 2020- No [id number] 80mg Take 2 Univers 40 mg 7-30 08-30 tablets by ity of tablet 00:00: 04:59 mouth [place] 00 :00 daily for Medical 30 days. Branch furosemide 2020-0 2020- No [id number] 80mg Take 2 Univers 40 mg 7-30 08-30 tablets by ity of tablet 00:00: 04:59 mouth [place] 00 :00 daily for Medical 30 days. Branch furosemide 2020-0 2020- No [id number] 80mg Take 2 Univers 40 mg 7-30 08-30 tablets by ity of tablet 00:00: 04:59 mouth [place] 00 :00 daily for Medical 30 days. Branch furosemide 2020-0 2020- No [id number] 80mg Take 2 Univers 40 mg 7-30 08-30 tablets by ity of tablet 00:00: 04:59 mouth [place] 00 :00 daily for Medical 30 days. Branch furosemide 2020-0 2020- No [id number] 80mg Take 2 Univers 40 mg 7-30 08-30 tablets by ity of tablet 00:00: 04:59 mouth [place] 00 :00 daily for Medical 30 days. Branch furosemide 2020-0 2020- No [id number] 80mg Take 2 Univers 40 mg 7-30 08-30 tablets by ity of tablet 00:00: 04:59 mouth [place] 00 :00 daily for Medical 30 days. Branch vancomycin 2019-0 2020- No [id number] 1000mg Infuse Univers 1,000 mg 7-30 08-10 1,000 mg ity of injection 00:00: 04:59 every 24 [place] 00 :00 (twenty-fo Medical ur) hours Branch for 10 doses. vancomycin 2019- 2020- No [id number] 1000mg Infuse Univers 1,000 mg 7-30 08-10 1,000 mg ity of injection 00:00: 04:59 every 24 [place] 00 :00 (twenty-fo Medical ur) hours Branch for 10 doses. vancomycin 2019-0 2020- No [id number] 1000mg Infuse Univers 1,000 mg 7-30 08-10 1,000 mg ity of injection 00:00: 04:59 every 24 [place] 00 :00 (twenty-fo Medical ur) hours Branch for 10 doses. vancomycin 2019-0 2020- No [id number] 1000mg Infuse Univers 1,000 mg 7-30 08-10 1,000 mg ity of injection 00:00: 04:59 every 24 [place] 00 :00 (twenty-fo Medical ur) hours Branch for 10 doses. vancomycin 2019-0 2020- No [id number] 1000mg Infuse Univers 1,000 mg 7-30 08-10 1,000 mg ity of injection 00:00: 04:59 every 24 [place] 00 :00 (twenty-fo Medical ur) hours Branch for 10 doses. vancomycin 2020-0 2020- No [id number] 1000mg Infuse Univers 1,000 mg 7-30 08-10 1,000 mg ity of injection 00:00: 04:59 every 24 [place] 00 :00 (twenty-fo Medical ur) hours Branch for 10 doses. vancomycin 2019-0 2020- No [id number] 1000mg Infuse Univers 1,000 mg 7-30 08-10 1,000 mg ity of injection 00:00: 04:59 every 24 [place] 00 :00 (twenty-fo Medical ur) hours Branch for 10 doses. amoxicillin 2019- No [id number] 500mg Take 1 Univers -pot 7-24 12-05 tablet by ity of clavulanate 00:00: 04:59 [place] 500 mg 00 :00 daily for Medical (AUGMENTIN) 5 days. Branc h 500-125 mg tablet amoxicillin 2019- No [id number] 500mg Take 1 Univers -pot -24 12-05 tablet by ity of clavulanate 00:00: 04:59 mouth [place] 500 mg 00 :00 daily for Medical (AUGMENTIN) 5 days. Branc h 500-125 mg tablet amoxicillin 2019- No [id number] 500mg Take 1 Univers -pot 7-24 12- tablet by ity of clavulanate 00:00: 04:59 mouth [place] 500 mg 00 :00 daily for Medical (AUGMENTIN) 5 days. Branc h 500-125 mg tablet amoxicillin 2019- No [id number] 500mg Take 1 Univers -pot 11-23-05 tablet by ity of clavulanate 00:00: 04:59 mouth [place] 500 mg 00 :00 daily for Medical (AUGMENTIN) 5 days. Branc h 500-125 mg tablet piperacilli Yes 2.25g 2.25 g, IV Univers n-tazobacta 11-22 Piggyback, it y of m (ZOSYN) 21:26: Q12H ABX, [place] 2.25 g in 00 First dose Medi cory NaCl 0.9% on Thu Branch (NS) 100 mL 11/23/19 at MINI-BAG 1630, Until Discontinu ed, 100 mL
R elizabeth for Anti-Infec tive: Empiric Therapy for Suspected Infection< br>Empiric Therapy Site: Urine
D uration of therapy: 7 days heparin 2019- No [id number] 3,900 Univers (PF) 1,000 11-22 07-29 Units, ity of unit/mL 16:15: 16:42 Slow IV [place] injection 00 :00 Push, Medical 3,900 Units DIALYSIS Bran ch ONCE - PT ROOM, 1 dose, Thu11/23/19 at 1115, Routine heparin 2020-0 2020- No 1500U 1,500 Univers (PF) 1,000 11-22 Units, ity of unit/mL 15:00: 15:45 Slow IV [place] injection 00 :00 Push, Medical 1,500 Units DIALYSIS Bran ch ONCE - PT ROOM, 1 dose, Thu11/23/19 at 1015, Routine calcitrioL 2020-0 Yes .5ug 0.5 mcg, Uni vers (ROCALTROL) 11-22 Oral, Q ity o f capsule 0.5 14:00: OTHERDAY, [place] mcg 00 First dose Medical on Thu11/23/19 at 0900, Until Discontinu ed, Routine lisinopril 2019-0 Yes 20mg 20 mg, Unive rs (PRINIVIL,Z 11-22 Oral, ity of ESTRIL) 14:00: DAILY, [place] tablet 20 00 First dose Medi cory mg on Thu11/23/19 at 0900, Until Discontinu ed, Routine NIFEdipine 2019-0 2020- No 60mg 60 mg, Univ ers ER 11-22 Oral, ity of (AFEDITAB 14:00: 13:21 DAILY, [place] CR) tablet 00 :28 First dose Med ical 60 mg on Thu11/23/19 at 0900, Until Discontinu ed, Routine acetaminoph 2019-0 Yes 650mg 650 mg, Un amrita en 11-22 Oral, ity of (TYLENOL) 02:44: Q6HPRN, [place] tablet 650 19 Starting Medic al mg Thu11/22/19 at 2144, Until Discontinu ed, Routine, Pain (scale 1-3) NIFEdipine 2019-0 2020- No 30mg 30 mg, Univ ers ER 11-21 Oral, ity of (AFEDITAB 18:15: 17:33 ONCE, 1 [place] CR) tablet 00 :00 dose, Thu Medi cory 30 mg 11/22/19 at Branch 1315, Routine labetalol 2019-0 2020- No 10mg 10 mg, Unive rs (NORMODYNE) 11-21 Slow IV ity of injection 18:15: 17:33 Push, [place] 10 mg 00 :00 ONCE, 1 Medical dose, Thu28/20 at 1315, Routine heparin 2020-0 2020- No 4000U 4,000 Univers (PF) 1,000 11-21 Units, ity of unit/mL 16:30: 16:11 Slow IV [place] injection 00 :00 Push, Medical 4,000 Units DIALYSIS Bran ch ONCE - YANET DSU, 1 dose, [facility] 11/22/19 at 1130, Routine hydralAZINE 2020-0 Yes 10mg 10 mg, Univ ers (APRESOLINE 11-21 Intravenou it y of ) injection 13:40: s, [place]N - [place] 10 mg 37 SEE Medical INSTRUCTIO Branch NS, Starting [facility] 11/22/19 at 0840, Until Discontinu ed, Routine, Hypertensi ve emergency, Hypertensi on, Q4h for SBP>160 or DBP>100 heparin 2020-0 2020- No 16725W 10,000 Unive rs 1,000 11-20 Units, ity of unit/mL 17:00: 18:30 Intravenou Mark as 10,000 00 :00 s, ONCE, 1 Medical Units in dose, [facility] NaCl 0.9% 11/21/19 at (NS) 100 mL 1200, Routine NaCl 0.9% 2020-0 Yes 10mL 10 mL, Univer s (NS) 11-20 Slow IV ity of injection 12:07: [place], [place] 10 mL 30 Starting [facility] 11/21/19 at 0707, Until Discontinu ed, Routine, line maintenanc e sodium 2020-0 2020- No 75meq IV Univers bicarbonate 11-20 Infusion, it y of 75 mEq IV 12:00: 20:25 CONTINUOUS [place] Solution 00 :01 , Starting Medic al [facility] 11/21/19 at 0700, Until [facility] 11/22/19 at 1525, 1,000 mL NIFEdipine 2020-0 2020- No 60mg 60 mg, Univ ers ER 11-19 Oral, ity of (AFEDITAB 14:00: 17:13 DAILY, [place] CR) tablet 00 :54 First dose Med ical 60 mg on [facility] 11/20/19 at 0900, Until Discontinu ed, Routine sodium 2020-0 2020- No 75meq IV Univers bicarbonate 11-18 Infusion, it y of 75 mEq IV 18:00: 16:11 CONTINUOUS [place] Solution 00 :14 , Starting Medic al Sat Branch 11/19/19 at 1300, Until 11/20/19 at 1111, 1,000 mL insulin 2019-2019- No 10U 10 Units, Univ ers regular 11-18 IV Push, ity of human 14:15: 13:41 ONCE, 1 [place] (HUMULIN R) 00 :00 dose, Sat Med ical injection 11/19/19 at Bran ch 10 Units 0915, Routine sodium 2019-0 2020- No 15g 15 g, Univers polystyrene 11-18 Oral, ity of sulfonate 14:15: 13:37 ONCE, [place] (KAYEXALATE 00 :00 dose, Sat Med ical ) 15 11/19/19 at Branch gram/60 mL 0915, suspension Routine 15 g dextrose 50 2019-0 2020- No 50mL 50 mL, Uni vers % in water 11-18 Slow IV ity o f (D50W) 14:15: 13:44 Push, [place] injection 00 :00 ONCE, 1 Medical 50 mL dose, Sat Branch 11/19/19 at 0915, Routine HYDROmorpho 2020- No .2mg 0.2 mg, Un amrita ne 11-17 Slow IV ity of (DILAUDID) 23:13: 23:59 Push, [place] injection 23 :52 Q5MIN PRN, Medi cory 0.2 mg 10 doses, Branch Starting Thu11/18/19 at 1813, Until Thu11/18/19 at 1859, Routine, Pain (scale 7-10), PACU
Us e approved by (Faculty): PACU USE -ANESTHESI A SERVICE-HY DROMORPHON E INJECTIONS lactated 2019- 2020- No 1000mL at 75 Unive rs ringers IV 11-17- mL/hr, ity of infusion 23:00: 13:06 1,000 mL, Mark as 1,000 mL 00 :50 IV Medical Infusion, Branch CONTINUOUS , Starting 11/18/19 at 1800, Until 11/19/19 at 0806, Routine, PACU NaCl 0.9% 2019-0 2020- No 1000mL at 70 Univ ers (NS) IV 7-24 07-25 mL/hr, IV ity of infusion 20:00: 16:43 Infusion, Mark as 1,000 mL 00 :41 CONTINUOUS Medic al , Starting Branch Thu11/18/19 at 1500, Until 11/19/19 at 1143, Routine NIFEdipine 2020-0 2020- No 30mg 30 mg, [facility] ers ER 11-1725 Oral, ity of (AFEDITAB 20:00: 16:43 DAILY, [place] CR) tablet 00 :41 First dose Med ical 30 mg on Thu Branch 11/18/19 at 1500, Until Discontinu ed, Routine heparin 2020-0 Yes 5000U 5,000 Univers (porcine) 11-17 Units, ity of injection 13:00: [place]cut[place]o [place] 5,000 Units 00 us, Q12H, Med ical First dose Branch on Thu11/18/19 at 0800, Until Discontinu ed, Routine Sliding 2020-0 Yes Subcutaneo [facility] ers Scale 7 us, AC+HS, ity of Insulin-Reg 12:30: First dose [place] ular + Fsbg 00 on Thu Medica l Testing 11/18/19 at Branch 0730, Until Discontinu ed, Routine piperacilli 2020-0 2020- No 3.375g 3.375 g, Univers n-tazobacta 11-17 0729 IV ity of m (ZOSYN) 09:30: 12:31 Pig[place]back, [place] 3.375 g in 00 :31 Q6H ABX, Medic al NaCl 0.9% First dose Bran ch (NS) 100 mL on Thu MINI-BAG 11/18/19 at 0430, Until Discontinu ed, 100 mL
R elizabeth for Anti-Infec tive: Empiric Therapy for Suspected Infection< br>Empiric Therapy Site: Urine
D uration of therapy: 7 days NaCl 0.9% 2020-0 2020- No 1000mL at 100 Uni vers (NS) IV 11-17-24 mL/hr, IV ity of infusion 08:00: 19:51 Infusion, Mark as 1,000 mL 00 :13 CONTINUOUS Medic al , Starting Branch Thu11/18/19 at 0300, Until Thu11/18/19 at 1451, Routine glucagon 2020-0 Yes 1mg 1 mg, Univers (GLUCAGEN 11-17 Intramuscu ity of DIAGNOSTIC 07:51: lar, PRN, [place] KIT) 32 Starting Medical injection 1 Fri Branch mg 11/18/19 at 0251, Until Discontinu ed, SUAD, Blood Glucose < or = 70 mg/dL and patient is unable to swallow or has mental changes. dextrose 50 2020-0 Yes 25mL 25 mL, Univ ers % in water 11-17 Slow IV ity of (D50W) 07:51: Push, PRN, [place] injection 32 Starting Medica l 25 mL Fri Branch 11/18/19 at 0251, Until Discontinu ed, SUAD, Blood Glucose < or = 70 mg/dL and patient is unable to swallow or has mental status changes. ondansetron 2019- Yes 4mg 4 mg, Slow Univers (ZOFRAN 11-17 IV Push, ity of (PF)) 07:51: Q6HPRN, [place] injection 4 25 Starting Medi cory mg [facility] Branch 11/18/19 at 0251, Until Discontinu ed, Routine, Nausea and Vomiting (N/V) dextrose 50 2019-0 2020- No 25mL 25 mL, Uni vers % in water 11-1724 Intravenou it y of (D50W) 07:15: 06:02 s, ONCE, 1 [place] injection 00 :00 dose, Fri Medic al 25 mL 11/18/19 at Branch 0215, STAT vancomycin 2020- No 1000mg 1,000 mg, Univers (VANCOCIN) 11-17 IV ity of 1,000 mg in 06:30: 07:30 [place], [place] NaCl 0.9% 00 :00 ONCE, 1 Medical (NS) 250 mL dose, Fri [facility] VIAL-MATE 11/18/19 at IV 0130, 250 piggyback mL
Reas on for Anti-Infec tive: Documented Infection< br>Documen sascha Infection Site: Skin / Soft Tissue
Duration of Therapy: Other (see Comments) Vital Signs Vital Name Observation Time Observation Value Comments Source Systolic blood 2019-11-24 16:04:00 156 mm[Hg] [facility] Diastolic blood 2019-11-24 16:04:00 86 [facility]Hg[facility] 2019-11-24 16:04:00 81 /min [facility] Body temperature 2019-11-24 16:04:00 36.44 Dorie [facility] Respiratory rate 2019-11-24 16:04:00 18 /min [facility] Oxygen saturation in 2019-11-24 16:04:00 97 /min [facility] Arterial blood by [facility] Pulse oximetry [place] Body weight 2019-11-24 09:04:00 139.98 kg [facility] BMI 2019-11-24 09:04:00 49.81 kg/m2 [facility] Body height 2019-11-18 09:27:00 167.6 cm [facility] Procedures Procedure Date / Time Performing Clinician Source Performed POCT GLUCOSE (AUTOMATED) 2019-11-24 17:55:00 Abena Aydinblessing Zimride [facility] POCT GLUCOSE (AUTOMATED) 2019-11-24 12:32:00 Abena yAdinblessing Zimride [facility] BASIC METABOLIC PANEL (NA, 2019-11-24 09:30:00 Nicolas Syed [facility] K, CL, CO2, GLUCOSE, BUN, Medica l Branch CREATININE, CA) CBC WITH DIFF 2019-11-24 09:30:00 Vashti Mckinney [facility] POCT GLUCOSE (AUTOMATED) 2019-11-24 00:28:00 Rebeca Kraft Zimride [facility] POCT GLUCOSE (AUTOMATED) 2019-11-23 20:38:00 Rebeca Kraft Zimride [facility] POCT GLUCOSE (AUTOMATED) 2019-11-23 16:05:00 Abena Avazblessing Zimride [facility] POCT GLUCOSE (AUTOMATED) 2019-11-23 12:39:00 Abena Avazblessing Zimride [facility] PHOSPHORUS 2019-11-23 09:35:00 Nicolas Syed [facility] BASIC METABOLIC PANEL (NA, 2019-11-23 09:35:00 Saulo Jara [facility] K, CL, CO2, GLUCOSE, BUN, Medica l Branch CREATININE, CA) POCT GLUCOSE (AUTOMATED) 2019-11-23 01:42:00 Edionmarco antonio, Aydiny Uni [facility] POCT GLUCOSE (AUTOMATED) 2019-11-22 20:45:00 Edionwe, [facility] POCT GLUCOSE (AUTOMATED) 2019-11-22 17:08:00 [facility]we[facility] POCT GLUCOSE (AUTOMATED) 2019-11-22 12:39:00 Edionwe, Aydiny Uni [facility] POCT GLUCOSE (AUTOMATED) 2019-11-22 01:00:00 Edionwe, Aydiny Uni [facility] POCT GLUCOSE (AUTOMATED) 2019-11-21 20:40:00 Edmarcus, Rebeca Zimride [facility] XR CHEST 1 VW 2019-11-21 19:13:43 Debby Nielsen [facility] FL TIME OR 2019-11-21 18:42:13 Debby Nielsen [facility] (NON-REPORTABLE) [facility] CENTRAL VENOUS ACCESS 2019-11-21 17:18:00 Debby Nielsen [facility] CATHETER PLACEMENT Medical Bran h POCT GLUCOSE (AUTOMATED) 2019-11-21 12:10:00 [facility] BASIC METABOLIC PANEL (NA, 2019-11-21 08:10:00 Rebeca Kraft U [facility] K, CL, CO2, GLUCOSE, BUN, Medica l Branch CREATININE, CA) CBC WITH DIFF 2019-11-21 08:10:00 [facility] [place] [facility] POCT GLUCOSE (AUTOMATED) 2019-11-21 01:40:[address] [facility] CLOSTRIDIUM DIFFICILE 2019-11-20 23:34:00 Jac Salvador [facility] TOXIN [facility] POCT GLUCOSE (AUTOMATED) 2019-11-20 16:09:00 [facility]arcus [facility] POCT GLUCOSE (AUTOMATED) 2019-11-20 12:17:00 Abena [facility] COMP. METABOLIC PANEL 2019-11-20 08:37:00 Jac Salvador [facility] ([id number]) Medical Branch CBC WITH DIFF 2019-11-20 08:37:00 Edionwe, [facility] POCT GLUCOSE (AUTOMATED) 2019-11-20 04:09:00 [facility] POCT GLUCOSE (AUTOMATED) 2019-11-20 00:02:00 Abena [facility] BASIC METABOLIC PANEL (NA, 2019-11-19 23:41:00 Jac Salvador [facility] K, CL, CO2, GLUCOSE, BUN, Medica l Branch CREATININE, CA) POCT GLUCOSE (AUTOMATED) 2019-11-19 21:16:00 [facility] POCT GLUCOSE (AUTOMATED) 2019-11-19 15:49:00 [facility] POCT GLUCOSE (AUTOMATED) 2019-11-19 13:10:00 Abena [facility] THYROID STIMULATING 2019-11-19 11:19:00 Chadwick Miller [facility] HORMONE [facility] BASIC METABOLIC PANEL (NA, 2019-11-19 11:19:00 Rebeca Kraft [facility] K, CL, CO2, GLUCOSE, BUN, Medica l Branch CREATININE, CA) CBC WITH DIFF 2019-11-19 08:50:00 Abena [facility] HEPATITIS B SURFACE 2019-11-19 08:50:00 [facility] ANTIBODY [facility] HEPATITIS B SURFACE 2019-11-19 08:50:00 [facility] ANTIGEN [facility] HCV ANTIBODY 2019-11-19 08:50:00 Angela [facility] HBC ANTIBODY (IGM & IGG) 2019-11-19 08:50:00 Chadwick Miller [facility] POCT GLUCOSE (AUTOMATED) 2019-11-19 00:30:00 Abena [facility] FL TIME OR 2019-11-18 22:36:16 Varun Yanez [facility] (NON-REPORTABLE) [facility] ASPIRATE OR ABSCESS 2019-11-18 21:48:24 Varun Yanez [facility] CULTURE(AEROBIC/ANAEROBIC) Medic al Branch FOOT AMPUTATION 2019-11-18 21:03:00 Varun [facility]anez [facility] POCT GLUCOSE (AUTOMATED) 2019-11-18 20:20:00 Rebeca Kraft [facility] US RETROPERITONEAL 2019-11-18 15:59:08 Nicolas Syed [facility] COMPLETE [facility] BILATERAL DUPLEX SCAN OF 2019-11-18 15:53:57 Varun Yanez [facility] ARTERY BY VASCULAR LAB Medical B ran POCT GLUCOSE (AUTOMATED) 2019-11-18 15:52:[address] [facility] CT FOOT RIGHT WO CONTRAST 2019-11-18 14:49:00 Varun Yanez [facility] URINE CULTURE 2019-11-18 14:32:00 Jac [facility] PROTEIN CREAT RATIO URINE 2019-11-18 14:32:00 Nicolas Syed [facility] CREATINE KINASE 2019-11-18 13:17:00 Nicolas Syed [facility] URIC ACID 2019-11-18 13:17:00 Nicolas Syed [facility] POCT GLUCOSE (AUTOMATED) 2019-11-18 12:28:[address] [facility] CREATININE, URINE RANDOM 2019-11-18 12:05:[address] [facility] UREA NITROGEN, URINE 2019-11-18 12:05:00 Rebeca Kraft [facility] POTASSIUM, URINE RANDOM 2019-11-18 12:05:00 Rebeca Kraft [facility] SODIUM, URINE RANDOM 2019-11-18 12:05:00 Rebeca Kraft [facility] CHLORIDE, URINE RANDOM 2019-11-18 12:05:00 Rebeca Kraft [facility] POCT GLUCOSE (AUTOMATED) 2019-11-18 10:35:[address] [facility] INTACT PTH CALCIUM GROUP 2019-11-18 08:49:[address] [facility] URINALYSIS 2019-11-18 06:56:00 Doris Joseph [place] [facility] POCT GLUCOSE (AUTOMATED) 2019-11-18 06:33:[address] [facility] POCT GLUCOSE (AUTOMATED) 2019-11-18 05:55:[address] [facility] POCT GLUCOSE (AUTOMATED) 2019-11-18 05:35:[address] [facility] BLOOD CULTURE SCREEN 2019-11-18 05:32:00 Doris Joseph [facility] COVID-19 (ID NOW RAPID 2019-11-18 05:31:00 Doris Joseph [facility] TESTING) [facility] LACTIC ACID WHOLE BLOOD 2019-11-18 05:30:00 Doris Joseph [facility] BLOOD CULTURE SCREEN 2019-11-18 05:29:00 Doris Joseph [facility] XR FOOT <3 VW RIGHT 2019-11-18 04:47:52 Petros Glover [facility] COMP. METABOLIC PANEL 2019-11-18 04:28:00 Petros Glover [facility] ([id number]) [facility] CBC WITH DIFF 2019-11-18 04:28:00 Petros Glover [facility] GLYCOSYLATED HEMOGLOBIN 2019-11-18 04:28:00 Rebeca Kraft [facility] (A1C) [facility] NOTICE OF PRIVACY 2019-11-18 03:19:44 Doctor Unajon, [facility] PRACTICES Elsie [facility] CONSENT/REFUSAL FOR 2019-11-18 03:19:18 Doctor Unajon, [facility] DIAGNOSIS AND TREATMENT Elsie Medical [place] Encounters Start End Encounter Admission Attending Care Care Encounter Source Date/Time Date/Time Type Type Clinicians Facility Department ID 2020-01-30 2020-01-30 Georgette Goode 1.2.840.114 [id number] [facility] 00:00:00 00:00:00 Outreach E Reeves [id number] [place] [id number] [address] 2019-12-26 2019-12-26 Patient Georgette Mckeonmagda 1.2.840.114 [id number] Univers 00:00:00 00:00:00 Outreach E [place] [id number] [id number] [id number] [address] 2019-12-23 2019-12-23 Letter Georgette Mckeonmagda 1.2.840.114 [id number] Univers 00:00:00 00:00:00 (Out) E Reeves [id number] [place] [id number] [address] 2019-12-23 2019-12-23 Patient Armida Velazquez [id number] Univers 00:00:00 00:00:00 Outreach Lit [place]gu[place] [id number] [place] [id number] [address] 2019-12-22 2019-12-22 Patient Georgette Mckeon Armida 1.2.840.114 [id number] Univers 00:00:00 00:00:00 Outreach E [place] [id number] [place] [id number] [address] 2019-12-20 2019-12-20 Patient Georgette Mckeon Armida 1.2.840.114 [id number] Univers 00:00:00 00:00:00 Outreach E [place] [id number] [place] [id number] [address] 2019-12-19 2019-12-19 Patient Armida Velazquez 1.2.840.114 [id number] Univers 00:00:00 00:00:00 Outreach Lit [place] [id number] [place] [id number] [address] 2019-12-16 2019-12-16 Patient Armida Velazquez 1.2.840.114 [id number] Univers 00:00:00 00:00:00 Outreach Lit Araya Reeves [id number] [place] [id number] [address] 2019-12-16 2019-12-16 Patient Georgette Mckeon 1.2.840.114 [id number] Univers 00:00:00 00:00:00 Outreach E [place] [id number] [place] [id number] [address] 2019-12-15 2019-12-15 Patient Armida Velazquez 1.2.840.114 [id number] Univers 00:00:00 00:00:00 Outreach Lit Araya Reeves [id number] [place] [phone] [address] 2019-12-14 2019-12-14 Patient Georgette Mckeon 1.2.840.114 [id number] Univers 00:00:00 00:00:00 Outreach E [place] [id number] [place] [phone] [address] 2019-12-14 2019-12-14 Patient Armida Velazquez 1.2.840.114 [id number] Univers 00:00:00 00:00:00 Outreach Lit Araya Reeves [id number] [place] [id number] [address] 2019-12-14 2019-12-14 Patient Georgette Mckeon 1.2.840.114 [id number] Univers 00:00:00 00:00:00 Outreach E [place] [id number] [place] [id number] [address] 2019-12-12 2019-12-12 Patient Georgette Mckeon 1.2.840.114 [id number] Univers 00:00:00 00:00:00 Outreach E [place]eves 350.1.13.10 [place] [id number] [place] [address] Branch 2019-12-05 2019-12-05 Patient Georgette Mckeon 1.2.840.114 [id number] 00:00:00 00:00:00 Outreach E Reeves [id number] [place] 4.2.7.2.686 [id number] [facility] 2019-12-05 2019-12-05 Patient Georgette Mckeon 1.2.840.114 [id number] Univers 00:00:00 00:00:00 Outreach E [place]eves 350.1.13.10 [place] [phone] [place] [address] Branch 2019-12-01 2019-12-01 Patient Georgette Mckeon 1.2.840.114 [id number] 00:00:00 00:00:00 Outreach E Reeves 350.1.13.10 [place] 4.2.7.2.686 [id number] [facility] 2019-12-01 2019-12-01 Patient Georgette Mckeon 1.2.840.114 [id number] Univers 00:00:00 00:00:00 Outreach E [place] 350.1.13.10 [place] [id number] [address] 2019-11-30 2019-11-30 Patient Georgette Mckeon 1.2.840.114 [id number] 00:00:00 00:00:00 Outreach E Reeves 350.1.13.10 [place] 4.2.7.2.686 [id number] [facility] 2019-11-30 2019-11-30 Patient Georgette Mckeon 1.2.840.114 [id number] Univers 00:00:00 00:00:00 Outreach E [place] 350.1.13.10 [place] [id number] [place] [address] Branch 2019-11-25 2019-11-25 Transition Armida Zhang 1.2.840.114 [id number] Univers 00:00:00 00:00:00 of Care Helen Reeves 350.1.13.10 [place] [id number] [address] 2019-11-25 2019-11-25 Transition Armida Zhang 1.2.840.114 [id number] Univers 00:00:00 00:00:00 of Care Helen Reeves 350.1.13.10 [place] [id number] [address] 2019-11-25 2019-11-25 Patient Armida Banks 1.2.840.114 [id number] Univers 00:00:00 00:00:00 Outreach Elsy Arguetay 350.1.13.10 [place] [id number] [address] 2019-11-17 2019-11-24 Hospital Doris Joseph [facility] 1.2.840.1 [id number] Univers 22:36:41 16:56:00 Encounter Rebeca Kraft 350.1.13.10 [place] [id number] [facility] 081 Branch 2019-11-17 2019-11-17 Emergency X [facility] ERT [id number] Univers 22:17:00 22:17:00 [facility] Test Description Test Time Test Comments Results Result Comments Source POCT GLUCOSE (AUTOMATED) 2019-11-24 17:58:00 Test Item Value Reference Range Interpretation Comme nts POCT GLU (test code = 0188664688) 227 mg/dL 70-110 H Lab Interpretation (test code = 12781-6) [facility]-11-24 12:36:00 Test Item Value Reference Range Interpretation Comments POCT GLU (test code = 7609411097) 192 mg/dL 70-110 H Lab Interpretation (test code = Abnormal 03663-2) [facility] (NA, K, CL, CO2, GLUCOSE, BUN, CREATININE, CA)2019-11-24 10:21:00 Test Item Value Reference Range Interpretation Comments NA (test code = 136 mmol/L 135-145 8377821075) K (test code = 4.2 mmol/L 3.5-5 4865016565) CL (test code = 102 mmol/L 98-108 0946739155) CO2 TOTAL (test code = 27 mmol/L 23-31 0833577334) AGAP (test code = 2-16 7037620797) BUN (test code = 35 mg/dL 7-23 H 9875697994) GLUCOSE (test code = 224 mg/dL 70-110 H 5141425793) CREATININE (test code = 3.86 mg/dL 0.5-1.04 H 9872806749) CALCIUM (test code = 8.0 mg/dL 8.6-10.6 L 0255154493) eGFR Calculation mL/min/1.73m2 (Non-) (test code = 1516880581) eGFR Calculation mL/min/1.73m2 () (test code = 0104223504) ALDO (test code = ALDO) Association of Glomerular Filtration Rate (GFR) and Staging of Kidney Disease* + --+ --+ ------+| GFR (mL/min/1.73 m2) ?| With Kidney Damage ?| ?Without Kidney Damage+ --------+ --------+ +| ?>90 ?| ?Stage one ?| ? Normal ?+ ---+ ---+ -------+| ?60-89 ?| ?Stage two ?| ? Decreased GFR ? + --+ --+ ------+| ?30-59 ?| ?Stage three ?| ? Stage three ? + --+ --+ ------+| ?15-29 ?| ?Stage four ? | ? Stage four ?+ ---+ ---+ -------+| ?<15 (or dialysis) ? ?| ?Stage five ? | ? Stage five ?+ ---+ ---+ -------+ *Each stage assumes the associated GFR level has been in effect for at least three months. ?Stages 1 to 5, with or without kidney disease, indicate chronic kidney disease. Notes: Determination of stages one and two (with eGFR >59mL/min/1.73 m2) requires estimation of kidney damage for at least three months as defined by structural or functional abnormalities of the kidney, manifested by either:Pathological abnormalities or Markers of kidney damage (including abnormalities in the composition of the blood or urine or abnormalities in imaging tests). Lab Interpretation Abnormal (test code = 56765-8) [facility] WITH [id number] 09:58:00 Test Item Value Reference Range Interpretation Comments WBC (test code = See_Comment H [Automated 6690-2) message] The sy stem which generated this result transmitted reference range : 4.30 - 11.10 10*3/?L. The reference range was not used to interpret this result as normal/abnormal . RBC (test code = See_Comment L [Automated 789-8) message] The sy stem which generated this result transmitted reference range : 3.93 - 5.25 10*6/?L. The reference range was not used to interpret this result as normal/abnormal . HGB (test code = 8.3 g/dL 11.6-15 L 718-7) HCT (test code = 27.0 % 35.7-45.2 L 4544-3) MCV (test code = 95.7 fL 80.6-95.5 H 787-2) MCH (test code = 29.4 pg 25.9-32.8 785-6) MCHC (test code = 30.7 g/dL 31.6-35.1 L 786-4) RDW-SD (test code = 46.5 fL 39-49.9 18692-0) RDW-CV (test code = 13.3 % 12-15.5 788-0) PLT (test code = See_Comment [Automated 777-3) message] The sy stem which generated this result transmitted reference range : 166 - 358 10*3/ ?L. The reference r woody was not used to interpret this result as normal/abnormal . MPV (test code = 11.1 fL 9.5-12.9 04482-3) NRBC/100 WBC (test See_Comment [Automat ed code = 2583038690) message] The system which generated this result transmitted reference range : 0.0 - 10.0 /100 WBCs. The refer ence range was not u sed to interpret th is result as normal/abnormal . NRBC x10^3 (test code <0.01 See_Comment [Auto mated = [id number]) message] The s ystem which generated this result transmitted reference range : 10*3/?L. The reference range was not used to interpret this result as normal/abnormal . GRAN MAT (NEUT) % 74.1 % (test code = 770-8) IMM GRAN % (test code 0.70 % = [id number]) LYMPH % (test code = 13.1 % 736-9) MONO % (test code = 8.4 % 5905-5) EOS % (test code = 3.3 % 713-8) BASO % (test code = 0.4 % 706-2) GRAN MAT x10^3(ANC) 9.01 10*3/uL 1.88-7.09 H (test code = 6699178677) IMM GRAN x10^3 (test 0.08 10*3/uL 0-0.06 H code = 0647197207) LYMPH x10^3 (test code 1.59 10*3/uL 1.32-3.29 = 731-0) MONO x10^3 (test code 1.02 10*3/uL 0.33-0.92 H = 742-7) EOS x10^3 (test code = 0.40 10*3/uL 0.03-0.39 H 711-2) BASO x10^3 (test code 0.05 10*3/uL 0.01-0.07 = 704-7) Lab Interpretation Abnormal (test code = 37076-4) [facility] GLUCOSE (AUTOMATED)2019-11-24 01:21:00 Test Item Value Reference Range Interpretation Comments POCT GLU (test code = 7269025925) 241 mg/dL 70-110 H Lab Interpretation (test code = Abnormal 65742-7) [facility] GLUCOSE (AUTOMATED)2019-11-23 20:46:00 Test Item Value Reference Range Interpretation Comments POCT GLU (test code = 8586163197) 223 mg/dL 70-110 H Lab Interpretation (test code = Abnormal 15066-6) [facility] GLUCOSE (AUTOMATED)2019-11-23 16:08:00 Test Item Value Reference Range Interpretation Comments POCT GLU (test code = 3004816381) 159 mg/dL 70-110 H Lab Interpretation (test code = Abnormal 53162-1) [facility] GLUCOSE (AUTOMATED)2019-11-23 12:44:00 Test Item Value Reference Range Interpretation Comments POCT GLU (test code = 6856008240) 211 mg/dL 70-110 H Lab Interpretation (test code = Abnormal 73656-5) [facility] METABOLIC PANEL (NA, K, CL, CO2, GLUCOSE, BUN, CREATININE, CA)2019-11-23 10:17:00 Test Item Value Reference Range Interpretation Comments NA (test code = 136 mmol/L 135-145 4546726750) K (test code = 4.3 mmol/L 3.5-5 0832690601) CL (test code = 106 mmol/L 98-108 6580028329) CO2 TOTAL (test code = 23 mmol/L 23-31 1422131103) AGAP (test code = 2-16 7009497470) BUN (test code = 50 mg/dL 7-23 H 5337536451) GLUCOSE (test code = 243 mg/dL 70-110 H 7276141421) CREATININE (test code = 4.84 mg/dL 0.5-1.04 H 7740788298) CALCIUM (test code = 7.2 mg/dL 8.6-10.6 L 4970738516) eGFR Calculation mL/min/1.73m2 (Non-) (test code = 9534626096) eGFR Calculation mL/min/1.73m2 () (test code = 5557509989) ALDO (test code = ALDO) Association of Glomerular Filtration Rate (GFR) and Staging of Kidney Disease* + --+ --+ ------+| GFR (mL/min/1.73 m2) ?| With Kidney Damage ?| ?Without Kidney Damage+ --------+ --------+ +| ?>90 ?| ?Stage one ?| ? Normal ?+ ---+ ---+ -------+| ?60-89 ?| ?Stage two ?| ? Decreased GFR ? + --+ --+ ------+| ?30-59 ?| ?Stage three ?| ? Stage three ? + --+ --+ ------+| ?15-29 ?| ?Stage four ? | ? Stage four ?+ ---+ ---+ -------+| ?<15 (or dialysis) ? ?| ?Stage five ? | ? Stage five ?+ ---+ ---+ -------+ *Each stage assumes the associated GFR level has been in effect for at least three months. ?Stages 1 to 5, with or without kidney disease, indicate chronic kidney disease. Notes: Determination of stages one and two (with eGFR >59mL/min/1.73 m2) requires estimation of kidney damage for at least three months as defined by structural or functional abnormalities of the kidney, manifested by either:Pathological abnormalities or Markers of kidney damage (including abnormalities in the composition of the blood or urine or abnormalities in imaging tests). Lab Interpretation Abnormal (test code = 67405-8) [facility] Test Item Value Reference Range Interpretation Comments PHOSPHORUS (test code = 0254045011) 5.5 mg/dL 2.5-5 H Lab Interpretation (test code = Abnormal 08420-4) [facility] [id number] 06:02:00 Test Item Value Reference Range Interpretation Comments Blood Culture-Aerobic No organisms No growth Previo us (test code = 21669-2) isolated prelim inary verified result was Culture In Progress on 11/18/2019 at 07 26 CDTPrevious preliminary verified result was No growth a t 24 hours on 11/19/2019 at 04 27 CDTPrevious preliminary verified result was No growth a t 48 hours on 11/20/2019 at 04 27 CDTPrevious preliminary verified result was No growth a t 72 hours on 11/21/2019 at 04 27 CDT Blood No organisms No growth Previous Culture-Anaerobic isolated preliminar y (test code = 71524-5) verifi ed result was Culture In Progress on 11/18/2019 at 07 26 CDTPrevious preliminary verified result was No growth a t 24 hours on 11/19/2019 at 04 27 CDTPrevious preliminary verified result was No growth a t 48 hours on 11/20/2019 at 04 27 CDTPrevious preliminary verified result was No growth a t 72 hours on 11/21/2019 at 04 27 CDT Lab Interpretation Normal (test code = 74018-2) [facility] [id number] 06:01:00 Test Item Value Reference Range Interpretation Comments Blood Culture-Aerobic No organisms No growth Previo us (test code = 52006-3) isolated prelim inary verified result was Culture In Progress on 11/18/2019 at 04 CDTPrevious preliminary verified result was No growth a t 24 hours on 11/19/2019 at 01 CDTPrevious preliminary verified result was No growth a t 48 hours on 11/20/2019 at 01 CDTPrevious preliminary verified result was No growth a t 72 hours on 11/21/2019 at 04 27 CDT Blood No organisms No growth Previous Culture-Anaerobic isolated preliminar y (test code = 45047-1) verifi ed result was Culture In Progress on 11/18/2019 at 04 01 CDTPrevious preliminary verified result was No growth a t 24 hours on 11/19/2019 at 04 27 CDTPrevious preliminary verified result was No growth a t 48 hours on 11/20/2019 at 04 27 CDTPrevious preliminary verified result was No growth a t 72 hours on 11/21/2019 at 01 CDT Lab Interpretation Normal (test code = 60123-4) [facility] GLUCOSE (AUTOMATED)2019-11-23 01:45:00 Test Item Value Reference Range Interpretation Comments POCT GLU (test code = 0825668448) 271 mg/dL 70-110 H Lab Interpretation (test code = Abnormal 18160-9) [facility] GLUCOSE (AUTOMATED)2019-11-22 21:31:00 Test Item Value Reference Range Interpretation Comments POCT GLU (test code = 2639201913) 191 mg/dL 70-110 H Lab Interpretation (test code = Abnormal 15277-6) [facility] GLUCOSE (AUTOMATED)2019-11-22 17:10:00 Test Item Value Reference Range Interpretation Comments POCT GLU (test code = 5849536042) 157 mg/dL 70-110 H Lab Interpretation (test code = Abnormal 37262-3) [facility] GLUCOSE (AUTOMATED)2019-11-22 12:53:00 Test Item Value Reference Range Interpretation Comments POCT GLU (test code = 5638105135) 228 mg/dL 70-110 H Lab Interpretation (test code = Abnormal 52125-7) [facility] GLUCOSE (AUTOMATED)2019-11-22 10:06:00 Test Item Value Reference Range Interpretation Comments POCT GLU (test code = 2958838677) 251 mg/dL 70-110 H Lab Interpretation (test code = Abnormal 34643-4) [facility]2019-11-21 21:20:00 Test Item Value Reference Range Interpretation Comments POCT GLU (test code = 5245354443) 211 mg/dL 70-110 H Lab Interpretation (test code = Abnormal 94331-6) [facility] 1 [id number] 20:16:48 Cardiomegaly The right internal jugular dialysis catheter with its tip in the upperright atrium is visualized.The patchy opacity in the right paracardiac region is likely result ofoverlapping shadows.PROCEDURE: XR CHEST 1 VW CLINICAL INDICATION: Line placement COMPARISON: None FINDINGS: A tunneled dialysis catheter with its tip in right atrium is visualized. Heart is enlarged. Central venous congestion. Patchy ?opacities in theright pericardiac region. Rest of the lungs are clear. No pleural effusion or pneumothorax is seen.The heart is normal in size. No acute bony abnormality. [facility], Radiant Results Inft 11/21/2019 3:17 PM CDTPROCEDURE: XR CHEST 1 VWCLINICAL INDICATION: Line placement COM PARISON: NoneFINDINGS:A tunneled dialysis catheter with its tip in right atrium is visualized.Heart is enlarged. Central venous congestion. Patchy opacities in theright pericardiac region.Rest of the lungs are clear. No pleural effusion or pneumothorax is seen.The heart is normal in size.No acute bony abnormality.IMPRESSIONCardiomegaly The right internal jugular dialysis catheter with its tip in theupperright atrium is visualized.The patchy opacity in the right paracardiac region is likely result ofoverlapping shadows.[facility] HospitalFL [facility] OR (NON-REPORTABLE)2019-11-21 18:43:07These images do not require a Radiology diagnostic report.[facility] POCT GLUCOSE (AUTOMATED)2019-11-21 12:51:00 Test Item Value Reference Range Interpretation Comments POCT GLU (test code = 6513841920) 193 mg/dL 70-110 H Lab Interpretation (test code = Abnormal 90892-6) [facility] (NA, K, CL, CO2, GLUCOSE, BUN, CREATININE, CA)2019-11-21 09:12:00 Test Item Value Reference Range Interpretation Comments NA (test code = 139 mmol/L 135-145 4009701562) K (test code = 4.8 mmol/L 3.5-5 0828301282) CL (test code = 110 mmol/L 98-108 H 3066057677) CO2 TOTAL (test code = 19 mmol/L 23-31 L 7358391739) AGAP (test code = 2-16 1381294435) BUN (test code = 65 mg/dL 7-23 H 2208298208) GLUCOSE (test code = 226 mg/dL 70-110 H 1671750814) CREATININE (test code = 6.20 mg/dL 0.5-1.04 H 9378080452) CALCIUM (test code = 6.3 mg/dL 8.6-10.6 L 6358139022) eGFR Calculation mL/min/1.73m2 (Non-) (test code = 3080678256) eGFR Calculation mL/min/1.73m2 () (test code = 2650056326) ALDO (test code = ALDO) Association of Glomerular Filtration Rate (GFR) and Staging of Kidney Disease* + --+ --+ ------+| GFR (mL/min/1.73 m2) ?| With Kidney Damage ?| ?Without Kidney Damage+ --------+ --------+ +| ?>90 ?| ?Stage one ?| ? Normal ?+ ---+ ---+ -------+| ?60-89 ?| ?Stage two ?| ? Decreased GFR ? + --+ --+ ------+| ?30-59 ?| ?Stage three ?| ? Stage three ? + --+ --+ ------+| ?15-29 ?| ?Stage four ? | ? Stage four ?+ ---+ ---+ -------+| ?<15 (or dialysis) ? ?| ?Stage five ? | ? Stage five ?+ ---+ ---+ -------+ *Each stage assumes the associated GFR level has been in effect for at least three months. ?Stages 1 to 5, with or without kidney disease, indicate chronic kidney disease. Notes: Determination of stages one and two (with eGFR >59mL/min/1.73 m2) requires estimation of kidney damage for at least three months as defined by structural or functional abnormalities of the kidney, manifested by either:Pathological abnormalities or Markers of kidney damage (including abnormalities in the composition of the blood or urine or abnormalities in imaging tests). Lab Interpretation Abnormal (test code = 97576-1) [facility] with [id number] 08:27:00 Test Item Value Reference Range Interpretation Comments WBC (test code = See_Comment H [Automated 6690-2) message] The sy stem which generated this result transmitted reference range : 4.30 - 11.10 10*3/?L. The reference range was not used to interpret this result as normal/abnormal . RBC (test code = See_Comment L [Automated 789-8) message] The sy stem which generated this result transmitted reference range : 3.93 - 5.25 10*6/?L. The reference range was not used to interpret this result as normal/abnormal . HGB (test code = 7.7 g/dL 11.6-15 L 718-7) HCT (test code = 24.4 % 35.7-45.2 L 4544-3) MCV (test code = 94.6 fL 80.6-95.5 787-2) MCH (test code = 29.8 pg 25.9-32.8 785-6) MCHC (test code = 31.6 g/dL 31.6-35.1 786-4) RDW-SD (test code = 47.8 fL 39-49.9 12197-5) RDW-CV (test code = 13.7 % 12-15.5 788-0) PLT (test code = See_Comment [Automated 777-3) message] The sy stem which generated this result transmitted reference range : 166 - 358 10*3/ ?L. The reference r woody was not used to interpret this result as normal/abnormal . MPV (test code = 10.8 fL 9.5-12.9 87383-9) NRBC/100 WBC (test See_Comment [Automat ed code = 3885465053) message] The system which generated this result transmitted reference range : 0.0 - 10.0 /100 WBCs. The refer ence range was not u sed to interpret th is result as normal/abnormal . NRBC x10^3 (test code <0.01 See_Comment [Auto mated = 0218939100) message] The s ystem which generated this result transmitted reference range : 10*3/?L. The reference range was not used to interpret this result as normal/abnormal . GRAN MAT (NEUT) % 69.1 % (test code = 770-8) IMM GRAN % (test code 0.60 % = 2886794466) LYMPH % (test code = 18.5 % 736-9) MONO % (test code = 8.1 % 5905-5) EOS % (test code = 3.1 % 713-8) BASO % (test code = 0.6 % 706-2) GRAN MAT x10^3(ANC) 7.90 10*3/uL 1.88-7.09 H (test code = 2830410147) IMM GRAN x10^3 (test 0.07 10*3/uL 0-0.06 H code = 1353262989) LYMPH x10^3 (test code 2.11 10*3/uL 1.32-3.29 = 731-0) MONO x10^3 (test code 0.93 10*3/uL 0.33-0.92 H = 742-7) EOS x10^3 (test code = 0.35 10*3/uL 0.03-0.39 711-2) BASO x10^3 (test code 0.07 10*3/uL 0.01-0.07 = 704-7) Lab Interpretation Abnormal (test code = 03560-2) [facility] GLUCOSE (AUTOMATED)2019-11-21 01:54:00 Test Item Value Reference Range Interpretation Comments POCT GLU (test code = 2913006169) 230 mg/dL 70-110 H Lab Interpretation (test code = Abnormal 34237-6) [facility] [id number] 01:43:00 Test Item Value Reference Range Interpretation Comments Clostridioides (Clostridium) Negative Negative difficile (test code = 07877-9) Lab Interpretation (test code = Normal 66816-8) [facility] GLUCOSE (AUTOMATED)2019-11-20 16:31:00 Test Item Value Reference Range Interpretation Comments POCT GLU (test code = 9772629986) 336 mg/dL 70-110 H Lab Interpretation (test code = Abnormal 77680-9) [facility]2019-11-20 16:00:00 Test Item Value Reference Range Interpretation Comments POCT GLU (test code = 7114097563) 276 mg/dL 70-110 H Lab Interpretation (test code = Abnormal 16119-6) [facility] with [id number] 09:51:00 Test Item Value Reference Range Interpretation Comments WBC (test code = See_Comment H [Automated 6690-2) message] The system which generated this result transmit sascha reference range : 4.30 - 11.10 10*3/?L. The reference range was not used to interpret this result as normal/abnormal . RBC (test code = See_Comment L [Automated 789-8) message] The system which generated this result transmit sascha reference range : 3.93 - 5.25 10*6/?L. The reference range was not used to interpret this result as normal/abnormal . HGB (test code = 7.6 g/dL 11.6-15 L 718-7) HCT (test code = 23.9 % 35.7-45.2 L 4544-3) MCV (test code = 94.1 fL 80.6-95.5 787-2) MCH (test code = 29.9 pg 25.9-32.8 785-6) MCHC (test code = 31.8 g/dL 31.6-35.1 786-4) RDW-SD (test code = 46.7 fL 39-49.9 24598-9) RDW-CV (test code = 13.7 % 12-15.5 788-0) PLT (test code = See_Comment [Automated 777-3) message] The system which generated this result transmit sascha reference range : 166 - 358 10*3/ ?L. The reference range was not u sed to interpret th is result as normal/abnormal . MPV (test code = 10.8 fL 9.5-12.9 67453-9) NRBC/100 WBC (test See_Comment [Automat ed code = 0658382888) message] The system which generated this result transmit sascha reference range : 0.0 - 10.0 /100 WBCs. The reference range was not used to interpret this result as normal/abnormal . NRBC x10^3 (test code <0.01 See_Comment [Auto mated = 8849725705) message] The system which generated this result transmit sascha reference range : 10*3/?L. The reference range was not used to interpret this result as normal/abnormal . GRAN MAT (NEUT) % 85.7 % (test code = 770-8) IMM GRAN % (test code 0.40 % = 2856259415) LYMPH % (test code = 8.0 % 736-9) MONO % (test code = 5.5 % 5905-5) EOS % (test code = 0.2 % 713-8) BASO % (test code = 0.2 % 706-2) GRAN MAT x10^3(ANC) 15.70 10*3/uL 1.88-7.09 H (test code = 6356730004) IMM GRAN x10^3 (test 0.08 10*3/uL 0-0.06 H code = 3673616767) LYMPH x10^3 (test code 1.46 10*3/uL 1.32-3.29 = 731-0) MONO x10^3 (test code 1.01 10*3/uL 0.33-0.92 H = 742-7) EOS x10^3 (test code = 0.04 10*3/uL 0.03-0.39 711-2) BASO x10^3 (test code 0.04 10*3/uL 0.01-0.07 = 704-7) Lab Interpretation Abnormal (test code = 63127-0) [facility]. METABOLIC PANEL (58880)2019-11-20 09:35:00 Test Item Value Reference Range Interpretation Comments NA (test code = 135 mmol/L 135-145 2399323081) K (test code = 4.9 mmol/L 3.5-5 9698393169) CL (test code = 110 mmol/L 98-108 H 2021762392) CO2 TOTAL (test code = 18 mmol/L 23-31 L 9880941630) AGAP (test code = 2-16 5294769797) BUN (test code = 59 mg/dL 7-23 H 1833383389) GLUCOSE (test code = 269 mg/dL 70-110 H 6736683179) CREATININE (test code = 5.42 mg/dL 0.5-1.04 H 2426561729) TOTAL BILI (test code = 0.3 mg/dL 0.1-1.4 1063775967) CALCIUM (test code = 7.1 mg/dL 8.6-10.6 L 7661047813) T PROTEIN (test code = 6.4 g/dL 6.3-8.2 9899741387) ALBUMIN (test code = 2.6 g/dL 3.5-5 L 0677277560) ALK PHOS (test code = 52 U/L 34-122 6444379285) ALTv (test code = 7 U/L 5-35 1742-6) AST(SGOT) (test code = 9 U/L 13-40 L 1031669952) eGFR Calculation mL/min/1.73m2 (Non-) (test code = 6411374374) eGFR Calculation mL/min/1.73m2 () (test code = 0370301264) ALDO (test code = ALDO) Association of Glomerular Filtration Rate (GFR) and Staging of Kidney Disease* + --+ --+ ------+| GFR (mL/min/1.73 m2) ?| With Kidney Damage ?| ?Without Kidney Damage+ --------+ --------+ +| ?>90 ?| ?Stage one ?| ? Normal ?+ ---+ ---+ -------+| ?60-89 ?| ?Stage two ?| ? Decreased GFR ? + --+ --+ ------+| ?30-59 ?| ?Stage three ?| ? Stage three ? + --+ --+ ------+| ?15-29 ?| ?Stage four ? | ? Stage four ?+ ---+ ---+ -------+| ?<15 (or dialysis) ? ?| ?Stage five ? | ? Stage five ?+ ---+ ---+ -------+ *Each stage assumes the associated GFR level has been in effect for at least three months. ?Stages 1 to 5, with or without kidney disease, indicate chronic kidney disease. Notes: Determination of stages one and two (with eGFR >59mL/min/1.73 m2) requires estimation of kidney damage for at least three months as defined by structural or functional abnormalities of the kidney, manifested by either:Pathological abnormalities or Markers of kidney damage (including abnormalities in the composition of the blood or urine or abnormalities in imaging tests). Lab Interpretation Abnormal (test code = 28278-2) [facility] GLUCOSE (AUTOMATED)2019-11-20 04:26:00 Test Item Value Reference Range Interpretation Comments POCT GLU (test code = 2660317230) 279 mg/dL 70-110 H Lab Interpretation (test code = Abnormal 84145-6) [facility] GLUCOSE (AUTOMATED)2019-11-20 00:25:00 Test Item Value Reference Range Interpretation Comments POCT GLU (test code = 7139416470) 338 mg/dL 70-110 H Lab Interpretation (test code = Abnormal 55230-8) [facility] METABOLIC PANEL (NA, K, CL, CO2, GLUCOSE, BUN, CREATININE, CA)2019-11-20 00:23:00 Test Item Value Reference Range Interpretation Comments NA (test code = 136 mmol/L 135-145 9638458112) K (test code = 5.1 mmol/L 3.5-5 H 9078918093) CL (test code = 110 mmol/L 98-108 H 5265635487) CO2 TOTAL (test code = 16 mmol/L 23-31 L 6927603290) AGAP (test code = 2-16 0997825302) BUN (test code = 55 mg/dL 7-23 H 6346991567) GLUCOSE (test code = 345 mg/dL 70-110 H 8286047485) CREATININE (test code = 5.62 mg/dL 0.5-1.04 H 1475339541) CALCIUM (test code = 7.6 mg/dL 8.6-10.6 L 9906525100) eGFR Calculation mL/min/1.73m2 (Non-) (test code = 8184446945) eGFR Calculation mL/min/1.73m2 () (test code = 8945968401) ALDO (test code = ALDO) Association of Glomerular Filtration Rate (GFR) and Staging of Kidney Disease* + --+ --+ ------+| GFR (mL/min/1.73 m2) ?| With Kidney Damage ?| ?Without Kidney Damage+ --------+ --------+ +| ?>90 ?| ?Stage one ?| ? Normal ?+ ---+ ---+ -------+| ?60-89 ?| ?Stage two ?| ? Decreased GFR ? + --+ --+ ------+| ?30-59 ?| ?Stage three ?| ? Stage three ? + --+ --+ ------+| ?15-29 ?| ?Stage four ? | ? Stage four ?+ ---+ ---+ -------+| ?<15 (or dialysis) ? ?| ?Stage five ? | ? Stage five ?+ ---+ ---+ -------+ *Each stage assumes the associated GFR level has been in effect for at least three months. ?Stages 1 to 5, with or without kidney disease, indicate chronic kidney disease. Notes: Determination of stages one and two (with eGFR >59mL/min/1.73 m2) requires estimation of kidney damage for at least three months as defined by structural or functional abnormalities of the kidney, manifested by either:Pathological abnormalities or Markers of kidney damage (including abnormalities in the composition of the blood or urine or abnormalities in imaging tests). Lab Interpretation Abnormal (test code = 12772-9) [facility] 21:31:00 Test Item Value Reference Range Interpretation Comments POCT GLU (test code = 8306165470) 345 mg/dL 70-110 H Lab Interpretation (test code = Abnormal 36810-0) [facility] HospitalHepatitis B Core Antibody, [id number] 19:51:00 Test Item Value Reference Range Interpretation Comments HBC (test code = 5124039730) Negative HBC Semi-Quantitative (test code = 5865567589) [facility]TH[facility]ATING [id number] 18:38:00 Test Item Value Reference Range Interpretation Comments TSH (test code = See_Comment Biotin has been 6221025891) reported to cau se a negative bias, interpret resul ts relative to pat lucrecia's use of biotin. [Automated mess age] The system [employer] generated this result transmitted ref erence range: 0.45 - 4 .70 mIU/L. The refe rence range was not u sed to interpret this result as normal/abnor mal. Lab Interpretation (test Normal code = 54576-4) [facility] HospitalHCV [id number] 17:20:00 Test Item Value Reference Range Interpretation Comments HCV Ab (test code = 74110-5) Negative HCV Semi-Quantitative (test code = 21496-0) [facility]HEP[facility]IS [facility] SURFACE [id number] 17:15:00 Test Item Value Reference Range Interpretation Comments HBsAB (test code = Negative 0604918732) HBsAb mIU/mL Semi-Quantitative (test code = 1631920718) ALDO (test code = Interpretation: ALDO) ?Hepatitis B Surface Antibody ? Negative - Patient is considered to be not immune to infection with HBV. ? ? Positive - Anti-HBs detected at greater than or equal to 12 mIU/mL. ?Patient is considered to be immune to infection with HBV. ? [facility] B SURFACE [id number] 16:57:00 Test Item Value Reference Range Interpretation Comments HBsAg Semi-Quantitative (test code = Negative Negative 5195-3) [facility] GLUCOSE (AUTOMATED)2019-11-19 16:23:00 Test Item Value Reference Range Interpretation Comments POCT GLU (test code = 4292358937) 379 mg/dL 70-110 H Lab Interpretation (test code = Abnormal 63863-9) [facility] GLUCOSE (AUTOMATED)2019-11-19 13:20:00 Test Item Value Reference Range Interpretation Comments POCT GLU (test code = 6107968771) 281 mg/dL 70-110 H Lab Interpretation (test code = Abnormal 79848-1) [facility] (NA, K, CL, CO2, GLUCOSE, BUN, CREATININE, CA)2019-11-19 12:03:00 Test Item Value Reference Range Interpretation Comments NA (test code = 136 mmol/L 135-145 6372477263) K (test code = 6.0 mmol/L 3.5-5 H 8895966728) CL (test code = 112 mmol/L 98-108 H 7182309726) CO2 TOTAL (test code = 14 mmol/L 23-31 L 1117730373) AGAP (test code = 2-16 2829317802) BUN (test code = 53 mg/dL 7-23 H 3979200709) GLUCOSE (test code = 280 mg/dL 70-110 H 6297275948) CREATININE (test code = 5.81 mg/dL 0.5-1.04 H 1316510025) CALCIUM (test code = 7.9 mg/dL 8.6-10.6 L 5654505951) eGFR Calculation mL/min/1.73m2 (Non-) (test code = 6767262886) eGFR Calculation mL/min/1.73m2 () (test code = 1918487150) ALDO (test code = ALDO) Association of Glomerular Filtration Rate (GFR) and Staging of Kidney Disease* + --+ --+ ------+| GFR (mL/min/1.73 m2) ?| With Kidney Damage ?| ?Without Kidney Damage+ --------+ --------+ +| ?>90 ?| ?Stage one ?| ? Normal ?+ ---+ ---+ -------+| ?60-89 ?| ?Stage two ?| ? Decreased GFR ? + --+ --+ ------+| ?30-59 ?| ?Stage three ?| ? Stage three ? + --+ --+ ------+| ?15-29 ?| ?Stage four ? | ? Stage four ?+ ---+ ---+ -------+| ?<15 (or dialysis) ? ?| ?Stage five ? | ? Stage five ?+ ---+ ---+ -------+ *Each stage assumes the associated GFR level has been in effect for at least three months. ?Stages 1 to 5, with or without kidney disease, indicate chronic kidney disease. Notes: Determination of stages one and two (with eGFR >59mL/min/1.73 m2) requires estimation of kidney damage for at least three months as defined by structural or functional abnormalities of the kidney, manifested by either:Pathological abnormalities or Markers of kidney damage (including abnormalities in the composition of the blood or urine or abnormalities in imaging tests). Lab Interpretation Abnormal (test code = 60130-0) [facility] with [id number] 09:42:00 Test Item Value Reference Range Interpretation Comments WBC (test code = See_Comment H [Automated 6690-2) message] The system which generated this result transmit sascha reference range : 4.30 - 11.10 10*3/?L. The reference range was not used to interpret this result as normal/abnormal . RBC (test code = See_Comment L [Automated 789-8) message] The system which generated this result transmit sascha reference range : 3.93 - 5.25 10*6/?L. The reference range was not used to interpret this result as normal/abnormal . HGB (test code = 8.2 g/dL 11.6-15 L 718-7) HCT (test code = 25.9 % 35.7-45.2 L 4544-3) MCV (test code = 95.6 fL 80.6-95.5 H 787-2) MCH (test code = 30.3 pg 25.9-32.8 785-6) MCHC (test code = 31.7 g/dL 31.6-35.1 786-4) RDW-SD (test code = 50.2 fL 39-49.9 H 23139-2) RDW-CV (test code = 14.6 % 12-15.5 788-0) PLT (test code = See_Comment [Automated 777-3) message] The system which generated this result transmit sascha reference range : 166 - 358 10*3/ ?L. The reference range was not u sed to interpret th is result as normal/abnormal . MPV (test code = 12.4 fL 9.5-12.9 89603-9) NRBC/100 WBC (test See_Comment [Automat ed code = 5487520318) message] The system which generated this result transmit sascha reference range : 0.0 - 10.0 /100 WBCs. The reference range was not used to interpret this result as normal/abnormal . NRBC x10^3 (test code <0.01 See_Comment [Auto mated = 8851343259) message] The system which generated this result transmit sascha reference range : 10*3/?L. The reference range was not used to interpret this result as normal/abnormal . GRAN MAT (NEUT) % 94.4 % (test code = 770-8) IMM GRAN % (test code 0.50 % = 7460718389) LYMPH % (test code = 4.2 % 736-9) MONO % (test code = 0.8 % 5905-5) EOS % (test code = 0.0 % 713-8) BASO % (test code = 0.1 % 706-2) GRAN MAT x10^3(ANC) 12.14 10*3/uL 1.88-7.09 H (test code = 5301400514) IMM GRAN x10^3 (test 0.06 10*3/uL 0-0.06 code = 1745375876) LYMPH x10^3 (test code 0.54 10*3/uL 1.32-3.29 L = 731-0) MONO x10^3 (test code 0.10 10*3/uL 0.33-0.92 L = 742-7) EOS x10^3 (test code = <0.03 0.03-0.39 L 711-2) BASO x10^3 (test code <0.03 0.01-0.07 = 704-7) Lab Interpretation Abnormal (test code = 27867-0) [facility] GLUCOSE (AUTOMATED)2019-11-19 01:15:00 Test Item Value Reference Range Interpretation Comments POCT GLU (test code = 7788665729) 144 mg/dL 70-110 H Lab Interpretation (test code = Abnormal 02594-0) [facility] TIME OR (NON-REPORTABLE)2019-11-18 22:37:32 These images do not require a Radiology diagnostic report.[facility] GLUCOSE (AUTOMATED)2019-11-18 20:25:00 Test Item Value Reference Range Interpretation Comments POCT GLU (test code = 6380357380) 106 mg/dL 70-110 Lab Interpretation (test code = Normal 84290-4) [facility] FOOT RIGHT WO [id number] 19:04:14 Ulcerations with subcutaneous gas and osteomyelitis involving the fifth toeand fifth metatarsal base and head with suspicion for osteomyelitis of thefourth metatarsal head and fourth digit proximal phalanx base. RecommendMRI for further characterization. Charcot arthropathy. Preliminary Report Dictated by Resident: Romario Wood I, Oz Peres MD., have reviewed this study and agree with the abovereport.EXAM: CT FOOT RIGHT WO CONTRAST HISTORY: Osteomyelitis suspected, foot swelling, diabetic COMPARISON: None available. TECHNIQUE: Contiguous 3.0 mm slices were acquired without contrast.Multiplanar reconstructions were obtained. FINDINGS: There is diffuse soft tissue swelling of the foot, andankle most localizedat the plantar lateral aspect of the forefoot. Soft tissue ulceration isseen along the lateral aspect of the fifth metatarsal head and base. Focalosteopenia and cortical erosions are visualized at these sites withassociated subcutaneous swelling and gas involving the fifth metatarsalbase, head and fifth phalanx with questionable erosions involving the rightlateral fourth metatarsal head and proximal phalanx base. Chronic articularcollapse with sclerotic remodeling is seen about the great toe proximalphalanx and the articular margins of the talonavicular, subtalar,calcaneocuboid,navicular cuneiform joints as well as the second throughfifth TMT joint. A remote lateral malleolus fracture is noted. A remoteanterior fragmented tibial plafond fracture versus fragmented osteochondraldefect is noted. [facility], Radiant Results Inft User - 11/18/2019 2:05 PM CDTEXAM: CT FOOT RIGHT WO CONTRASTHISTORY: Osteomyelitis suspected, foot swelling, diabetic COMPARISON: None available.TECHNIQUE: Contiguous 3.0 mm slices were acquired without contrast.Multiplanar reconstructions were obtained.FINDINGS:There is diffuse soft tissue swelling of the foot, and ankle most localizedat the plantar lateral aspect of the forefoot. Soft tissue ulceration isseen along the lateral aspect of the fifth metatarsal head and base. Focalosteopenia and cortical erosions are visualized at these sites withassociatedsubcutaneous swelling and gas involving the fifth metatarsalbase, head and fifth phalanx with questionable erosions involving the rightlateral fourth metatarsal head and proximal phalanx base. Chronic articularcollapse with sclerotic remodeling is seen about the great toe proximalphalanx and the articu lar margins of the talonavicular, subtalar,calcaneocuboid, navicular cuneiform joints as well as thesecond throughfifth TMT joint. A remote lateral malleolus fracture is noted. A remoteanterior fragmented tibial plafond fracture versus fragmented osteochondraldefect is noted.IMPRESSIONUlcerations with subcutaneous gas and osteomyelitis involving the fifth toeand fifth metatarsal base and head with suspicion for osteomyelitis of thefourth metatarsal head and fourth digit proximal phalanx base. RecommendMRI for further characterization.Charcot arthropathy.Preliminary Report Dictated by Resident: Romario Lao, Oz Peres MD., have reviewed this study and agree with the abovereport.[facility]PR[facility]AT RATIO URINE [id number] 17:57:00 Test Item Value Reference Range Interpretation Comments T. PROT U (test code = 2888-6) 255 mg/dL CREAT U (test code = 3213955935) 50.0 mg/dL Protein/Creatinine Ratio Urine 0.0-2.0 H (test code = 6125612585) Lab Interpretation (test code = Abnormal 45456-2) [facility]IN[facility] CALCIUM [id number] 17:04:00 Test Item Value Reference Range Interpretation Comments CALCIUM (test code = 7.5 mg/dL 8.6-10.6 L 2261137009) PTH-INTACT (test code = 593.8 pg/mL 12-88 H 9816419888) PTH-CA Interpretation Furthe r clinical (test code = 3289746044) chandni a needed for interpretation. Lab Interpretation (test Abnormal code = 03404-5) [facility] HospitalUS RETROPERITONEAL [id number] 16:33:55 Bilateral normal size kidneys with increased cortical echogenicity anddecreased cortical medullary differentiation. Findings are compatible withmedical renal disease.HISTORY: ANGEL . RENAL ULTRASOUND TECHNIQUE: Limited abdominal ultrasound examination performed evaluatingthe kidneys using man scale and color doppler imaging. Quality is slightlylimited secondary to scanning being performed on a portable unit atbedside. COMPARISON: None. FINDINGS: RIGHT KIDNEY:The right kidney measures 10.5 cm (184 mL). ?Nohydronephrosis. LEFT KIDNEY: Normal size, contour, and echotexture. ?The left kidneymeasures 11.5 cm (156 mL). No hydronephrosis. A 3 cm x 2 cm anechoic lesionsuggestive of a simple cyst is at thelower pole of left kidney Both kidneys show increased cortical echogenicity with decreasedcorticomedullary differentiation. Cortical thickness is maintained on bothsides. BLADDER: Unremarkable. Incidental finding of a hydropic gallbladder, with multiple echogenic fociwith distal shadowing in the dependent part of the gallbladder compatiblewith gallstones. [facility], Radiant Results Inft User - 11/18/2019 11:34 AM CDTHISTORY: ANGEL . RENAL ULTRASOUNDTECHNIQUE: Limited abdominal ultrasound examination performed evaluatingthe kidneys using man scale and color doppler imaging. Quality is slightlylimited secondary to scanning being performed on a portable unit atbedside.COMPARISON: None.FINDINGS: RIGHT KIDNEY:The right kidney measures 10.5 cm (184 mL). Nohydronephrosis.LEFT KIDNEY: Normal size, contour, andechotexture. The left kidneymeasures 11.5 cm (156 mL). No hydronephrosis. A 3 cm x 2 cm anechoic lesionsuggestive of a simple cyst is at the lower pole of left kidneyBoth kidneys show increased cortical echogenicity with decreasedcorticomedullary differentiation. Cortical thickness is maintained on bothsides.BLADDER: Unremarkable.Incidental finding of a hydropic gallbladder, with multiple echogenic fociwith distal shadowing in the dependent part of the gallbladder compatiblewith gallstones.IMPRESSIONBilateral normal size kidneys with increased cortical echogenicity anddecreased cortical medullary differentiation. 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 [facility] HospitalUREA NITROGEN, URINE [id number] 16:07:00 Test Item Value Reference Range Interpretation Comments UREA N UR (test code = 2452836788) 256 mg/dL [facility] HospitalCHLORIDE, URINE [id number] 16:07:00 Test Item Value Reference Range Interpretation Comments CL URINE (test code = 9925336176) 87 mmol/L 24-255 Lab Interpretation (test code = Normal 32643-2) [facility]2019-11-18 15:55:00 Test Item Value Reference Range Interpretation Comments POCT GLU (test code = 3499415129) 109 mg/dL 70-110 Lab Interpretation (test code = Normal 10927-1) [facility] HospitalCREATINE [id number] 13:43:00 Test Item Value Reference Range Interpretation Comments CK (test code = 7255536310) 61 U/L 33-194 Lab Interpretation (test code = Normal 60442-0) [facility] HospitalURIC [id number] 13:43:00 Test Item Value Reference Range Interpretation Comments URIC ACID (test code = 6553907851) 6.7 mg/dL 2.9-6 H Lab Interpretation (test code = Abnormal 43036-7) [facility] HospitalCREATININE, URINE [id number] 12:40:00 Test Item Value Reference Range Interpretation Comments CREAT U (test code = 8268315540) 47.3 mg/dL [facility] HospitalPOTASSIUM, URINE [id number] 12:36:00 Test Item Value Reference Range Interpretation Comments K URINE (test code = 6291129718) 14.0 mmol/L [facility] HospitalSODIUM, URINE [id number] 12:36:00 Test Item Value Reference Range Interpretation Comments NA URINE (test code = 1009645941) 99 mmol/L [facility]PO[facility])2019-11-18 12:31:00 Test Item Value Reference Range Interpretation Comments POCT GLU (test code = 4273746472) 72 mg/dL 70-110 Lab Interpretation (test code = Normal 15871-2) [facility] HospitalXR FOOT <3 VW [id number] 12:07:14 Ulcerations with osteomyelitis involving the fifth toe, proximal and fifthmetatarsal and great toe.Charcot arthropathy. Cellulitis. IOz MD., have reviewed this study and agree with theabovereport.EXAM: XR FOOT <3 VW RIGHT HISTORY: wound COMPARISON: None FINDINGS: Imaging of the rig ht foot demonstrates diffuse severe swelling. Soft tissuegas and ulceration are seen along the fifthray at the phalanx, fifthmetatarsal head/neck and metatarsal base. Osteolysis and bony fragmentationis seen in these regions. Additionally, soft tissue gas is seen at thelevel of the great toe with subtle osteolysis noted about the lateralmargin of the great toe distal phalanx. Chronic articular collapse withsclerotic remodeling is seen about the great toe proximal phalanx and thearticular margins ofthe talonavicular, subtalar, calcaneocuboid, navicularcuneiform joints and second through fifth TMT joints. [facility], Radiant Results Inft User - 11/18/2019 7:08 AM CDTEXAM:XR FOOT <3 VW RIGHTHISTORY:wou nd COMPARISON:NoneFINDINGS: Imaging of the right foot demonstrates diffuse severe swelling. Soft tissuegas and ulceration are seen along the fifth ray at the phalanx, fifthmetatarsal head/neck and metatarsal base. Osteolysis and bony fragmentationis seen in these regions. Additionally, soft tissue gasis seen at thelevel of the great toe with subtle osteolysis noted about the lateralmargin of the great toe distal phalanx. Chronic articular collapse withsclerotic remodeling is seen about the great toe proximal phalanx and thearticular margins of the talonavicular, subtalar, calcaneocuboid, navicularcuneiform joints and second through fifth TMT joints.IMPRESSIONUlcerations with osteomyelitis involving the fifth toe, proximal and fifthmetatarsal and great toe.Charcot arthropathy.Cellulitis.I, Oz Peres MD., have reviewed this study and agree with the abovereport.[facility]PO[facility])2019-11-18 10:38:00 Test Item Value Reference Range Interpretation Comments POCT GLU (test code = 9381678452) 88 mg/dL 70-110 Lab Interpretation (test code = Normal 03237-7) [facility] HospitalGlycosylated Hemoglobin (A1C)2019-11-18 09:43:00 Test Item Value Reference Range Interpretation Comments HGB A1C (test code = 5.3 % 4-6 4548-4) ALDO (test code = ALDO) %A1C (NGSP) Interpretation (ADA)4.8-5.6 ? ? Normal or (Non-Diabetic Range)5.7-6.4 ? ? Increased Risk (Pre-Diabetic)>6.5 ?Diabetes Indicated Lab Interpretation Normal (test code = 53546-1) [facility] HospitalURINALYSIS2020-07-24 07:22:00 Test Item Value Reference Range Interpretation Comments APPEARANCE (test code = Cloudy Clear A 6621691308) COLOR (test code = Yellow Yellow 0243674238) PH (test code = 4.8-8.0 5945234230) SP GRAVITY (test code = 1.003-1.030 9772323841) GLU U QUAL (test code = Normal Normal 1217361391) BLOOD (test code = 3+ Negative A 8718496974) KETONES (test code = Negative Negative 9341661543) PROTEIN (test code = 100 mg/dL Negative A 2887-8) UROBILIN (test code = Normal Normal 4811630100) BILIRUBIN (test code = Negative Negative 7212452888) NITRITE (test code = Negative Negative 6132592779) LEUK BRIEN (test code = 500/uL Negative A 4693460976) RBC/HPF (test code = See_Comment H [Autom ated message] 3654834313) The system [employer] generated this result transmit sascha reference range : 0 - 3 HPF. The refe rence range was not u sed to interpret th is result as normal/abnormal . WBC/HPF (test code = See_Comment H [Autom ated message] 1852397750) The system [employer] generated this result transmit sascha reference range : 0 - 5 HPF. The refe rence range was not u sed to interpret th is result as normal/abnormal . BACTERIA (test code = Few Negative A 9064091843) MUCOUS (test code = Slight Negative LPF A 0923728541) SQ EPITH (test code = HPF 1455879793) Lab Interpretation (test Abnormal code = 83129-4) [facility] with [id number] 06:37:00 Test Item Value Reference Range Interpretation Comments WBC (test code = See_Comment H [Automated 6690-2) message] The system which generated this result transmit sascha reference range : 4.30 - 11.10 10*3/?L. The reference range was not used to interpret this result as normal/abnormal . RBC (test code = See_Comment L [Automated 789-8) message] The system which generated this result transmit sascha reference range : 3.93 - 5.25 10*6/?L. The reference range was not used to interpret this result as normal/abnormal . HGB (test code = 8.9 g/dL 11.6-15 L 718-7) HCT (test code = 28.8 % 35.7-45.2 L 4544-3) MCV (test code = 95.7 fL 80.6-95.5 H 787-2) MCH (test code = 29.6 pg 25.9-32.8 785-6) MCHC (test code = 30.9 g/dL 31.6-35.1 L 786-4) RDW-SD (test code = 49.1 fL 39-49.9 86442-2) RDW-CV (test code = 13.9 % 12-15.5 788-0) PLT (test code = See_Comment [Automated 777-3) message] The system which generated this result transmit sascha reference range : 166 - 358 10*3/ ?L. The reference range was not u sed to interpret th is result as normal/abnormal . MPV (test code = 11.1 fL 9.5-12.9 78760-1) NRBC/100 WBC (test See_Comment [Automat ed code = 6076518176) message] The system which generated this result transmit sascha reference range : 0.0 - 10.0 /100 WBCs. The reference range was not used to interpret this result as normal/abnormal . NRBC x10^3 (test code <0.01 See_Comment [Auto mated = 7428191427) message] The system which generated this result transmit sascha reference range : 10*3/?L. The reference range was not used to interpret this result as normal/abnormal . GRAN MAT (NEUT) % 78.2 % (test code = 770-8) IMM GRAN % (test code 0.80 % = 0590519982) LYMPH % (test code = 9.8 % 736-9) MONO % (test code = 9.6 % 5905-5) EOS % (test code = 1.2 % 713-8) BASO % (test code = 0.4 % 706-2) GRAN MAT x10^3(ANC) 12.68 10*3/uL 1.88-7.09 H (test code = 9505790536) IMM GRAN x10^3 (test 0.13 10*3/uL 0-0.06 H code = 7968264517) LYMPH x10^3 (test code 1.59 10*3/uL 1.32-3.29 = 731-0) MONO x10^3 (test code 1.55 10*3/uL 0.33-0.92 H = 742-7) EOS x10^3 (test code = 0.19 10*3/uL 0.03-0.39 711-2) BASO x10^3 (test code 0.06 10*3/uL 0.01-0.07 = 704-7) Lab Interpretation Abnormal (test code = 89840-5) [facility] GLUCOSE (AUTOMATED)2019-11-18 06:35:00 Test Item Value Reference Range Interpretation Comments POCT GLU (test code = 0447069257) 110 mg/dL 70-110 Lab Interpretation (test code = Normal 45921-3) [facility] GLUCOSE (AUTOMATED)2019-11-18 06:29:00 Test Item Value Reference Range Interpretation Comments POCT GLU (test code = 2460082965) 45 mg/dL 70-110 LL Lab Interpretation (test code = Abnormal 94716-3) [facility] GLUCOSE (AUTOMATED)2019-11-18 06:29:00 Test Item Value Reference Range Interpretation Comments POCT GLU (test code = 9767992500) 50 mg/dL 70-110 LL Lab Interpretation (test code = Abnormal 01274-1) [facility] HospitalLaiaic Acid Whole [id number] 06:05:00 Test Item Value Reference Range Interpretation Comments LACTIC ACID (test code = 0.97 mmol/L 3130024748) [facility] HospitalCOVID-[facility] (ID NOW RAPID TESTING)2019-11-18 06:01:00 Test Item Value Reference Range Interpretation Comments SARS-CoV-2 Rapid ID NOW Not Detected Not Detected (test code = 09556-3) ALDO (test code = ALDO) ID NOW COVID-19 Assay is an isothermal nucleic acid amplification test intended for the qualitative detection of nucleic acid from SARS-CoV-2 viral RNA in nasopharyngeal ([employer]GER) specimens. It is used under Emergency Use Authorization (EUA) by FDA. The limit of detection (LOD) of the assay is 125 Genome Equivalents/mL. A positive result is indicative of the presence of SARS-CoV-2 RNA. ?Clinical correlation with patient history and other diagnostic [...] for repeat patient testing if clinically indicated. Lab Interpretation Normal (test code = 90131-8) [facility]. Metabolic Panel (29038)2019-11-18 05:57:00 Test Item Value Reference Range Interpretation Comments NA (test code = 138 mmol/L 135-145 6843289742) K (test code = 4.4 mmol/L 3.5-5 1926253552) CL (test code = 111 mmol/L 98-108 H 0112208173) CO2 TOTAL (test code = 16 mmol/L 23-31 L 7149031141) AGAP (test code = 2-16 0049117583) BUN (test code = 51 mg/dL 7-23 H 0183865487) GLUCOSE (test code = 60 mg/dL 70-110 L 7477071310) CREATININE (test code = 6.47 mg/dL 0.5-1.04 H 1524228008) TOTAL BILI (test code = 0.4 mg/dL 0.1-1.7 2600058627) CALCIUM (test code = 8.0 mg/dL 8.6-10.6 L 6668426969) T PROTEIN (test code = 7.8 g/dL 6.3-8.2 6767256322) ALBUMIN (test code = 3.3 g/dL 3.5-5 L 7225155271) ALK PHOS (test code = 73 U/L 34-122 3306072770) ALTv (test code = 9 U/L 5-35 1742-6) AST(SGOT) (test code = 16 U/L 13-40 8585496074) eGFR Calculation mL/min/1.73m2 (Non-) (test code = 1089150997) eGFR Calculation mL/min/1.73m2 () (test code = 1776472484) ALDO (test code = ALDO) Association of Glomerular Filtration Rate (GFR) and Staging of Kidney Disease* + --+ --+ ------+| GFR (mL/min/1.73 m2) ?| With Kidney Damage ?| ?Without Kidney Damage+ --------+ --------+ +| ?>90 ?| ?Stage one ?| ? Normal ?+ ---+ ---+ -------+| ?60-89 ?| ?Stage two ?| ? Decreased GFR ? + --+ --+ ------+| ?30-59 ?| ?Stage three ?| ? Stage three ? + --+ --+ ------+| ?15-29 ?| ?Stage four ? | ? Stage four ?+ ---+ ---+ -------+| ?<15 (or dialysis) ? ?| ?Stage five ? | ? Stage five ?+ ---+ ---+ -------+ *Each stage assumes the associated GFR level has been in effect for at least three months. ?Stages 1 to 5, with or without kidney disease, indicate chronic kidney disease. Notes: Determination of stages one and two (with eGFR >59mL/min/1.73 m2) requires estimation of kidney damage for at least three months as defined by structural or functional abnormalities of the kidney, manifested by either:Pathological abnormalities or Markers of kidney damage (including abnormalities in the composition of the blood or urine or abnormalities in imaging tests). Lab Interpretation Abnormal (test code = 04581-1) [facility]"
[2022-05-04 22:55] LABS: Urine Blood 1+ (Negative); Urine Glucose Negative (Negative); Urine Protein 3+ (Negative); Urine Specific Gravity 1.015 (1.005-1.030); Urine pH 6.5 (5.0-7.0)
[2022-05-04 23:17] LABS: Albumin 3.1 g/dL (3.4-5.0); Bilirubin Total 0.5 mg/dL (0.2-1.0); Potassium 5.3 mmol/L (3.5-5.1); Protein, Total 7.7 g/dL (6.4-8.2)
[2022-05-04 23:28] LABS: Urine Bacteria None Seen /HPF (<20); Urine Mucus Slight /HPF (None Seen); Urine RBC <5 /HPF (None Seen)
[2022-05-04 23:54] LABS: Absolute Lymphocytes (CBC) 0.7 K/uL (0.7-4.9); Hematocrit 35.9 % (36.0-45.0); Lymphocytes % 7.8 % (15.3-44.8); MCV 99.1 fL (80-100); MPV 9.7 fL (7.6-11.3); RBC Red Blood Cell Count 3.62 M/uL (3.86-4.86)
[2022-05-04] MEDS ORDERED: SOD POLYSTYREN SUL 15 GM/60 ML UCUP ONE (23:56)
[2022-05-04] MEDS ORDERED: ALBUTEROL 2.5 MG/3 ML NEB SOL ONE (23:56)
--- NOTE | 2022-05-05 00:30 | ER ---
Nurse's Notes [facility] Name: Jena Corrales Age: 62 yrs Sex: Female : 1960 Arrival Date: 05/04/2022 Time: 21:39 Bed 6 Private MD: Diagnosis: UTI/ Urinary tract infection, site not specified;Nausea with vomiting, unspecified;Hyperkalemia Presentation: 05/04 21:57 Chief complaint: Patient states: nausea, diarrhea, right flank pain since Thu, fever kb3 and bilateral flank pain began this morning. Pt reports diarrhea has resolved but nausea continues. Coronavirus screen: Vaccine status: Patient reports being unvaccinated. Client denies travel out of the [place] in the last 14 days. Ebola Screen: Patient negative for fever greater than or equal to 101.5 degrees Fahrenheit, and additional compatible Ebola Virus Disease symptoms Patient denies exposure to infectious person. Patient denies travel to an Ebola-affected area in the 21 days before illness onset. Initial Sepsis Screen: Does the patient meet any 2 criteria? No. Patient's initial sepsis screen is negative. Does the patient have a suspected source of infection? No. Patient's initial sepsis screen is negative. Risk Assessment: Do you want to hurt yourself or someone else? Patient reports no desire to harm self or others. Onset of symptoms was April 30, 2022. 21:57 Method Of Arrival: Ambulatory kb3 21:57 Acuity: NUZHAT 3 kb3 Triage Assessment: 21:59 General: Appears in no apparent distress. uncomfortable, Behavior is calm, cooperative. kb3 Pain: Complains of pain in left low back and right low back Pain does not radiate. Pain currently is 4 out of 10 on a pain scale. at worst was 8 out of 10 on a pain scale. GI: Reports diarrhea, nausea. 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 Last tetanus immunization: unknown. - Social history:: Smoking status: Patient denies any tobacco usage or history of. Screenin/09 00:28 Abuse screen: Denies threats or abuse. Denies injuries from another. Nutritional as6 screening: No deficits noted. Tuberculosis screening: No symptoms or risk factors identified. 00:44 [facility] ED Fall Risk Assessment (Adult) Mobility Assist Device Used Yes (1 pt) as6 Score/Fall Risk Level 0 - 2 = Low Risk. Assessment: 05/04 22:00 General: Appears in no apparent distress. comfortable, Behavior is calm, cooperative, mb9 appropriate for age. Pain: Complains of pain in back and right low back and left low back Pain does not radiate. Pain currently is 5 out of 10 on a pain scale. Quality of pain is described as aching, throbbing. Neuro: Díaz Agitation-Sedation Scale (RASS): 0 - Alert and Calm Level of Consciousness is awake, alert, obeys commands, Oriented to person, place, time, situation, Appropriate for age. Cardiovascular: Rhythm is regular. Respiratory: Airway is patent Respiratory effort is even, unlabored, Respiratory pattern is regular, symmetrical, Breath sounds are clear bilaterally. GI: Abdomen is round non-distended, Bowel sounds present X 4 quads. Abd is soft and non tender X 4 quads. Reports diarrhea, nausea, vomiting. : Urine is cloudy. EENT: No signs and/or symptoms were reported regarding the EENT system. Derm: Skin is pink, warm \T\ dry. 22:00 Musculoskeletal: Range of motion: intact in all extremities. mb9 22:55 Reassessment: pt taken to CT. mb9 23:00 Reassessment: No changes from previously documented assessment. Patient is alert, mb9 oriented x 3, equal unlabored respirations, skin warm/dry/pink. Cardiovascular: Rhythm is regular. Vital Signs: 21:57 BP 178 / 59; Pulse 82; Resp 20; Temp 100.2; Pulse Ox 100% ; Weight 131.54 kg; Height 5 kb3 ft. 2 in. (157.48 cm); Pain 4/10; 23:01 BP 168 / 52; Pulse 82; Resp 19; Pulse Ox 97% on R/A; Pain 5/10; mb9 05/05 00:27 BP 158 / 70; Pulse 74; Resp 19 S; Pulse Ox 100% on R/A; as6 05/04 21:57 Body Mass Index 53.04 (131.54 kg, 157.48 cm) kb3 ED Course: 05/04 21:39 Patient arrived in ED. ja2 21:46 Symone Don FNP-C is [facility]. kb 21:46 Nura Bergeron MD is Attending Physician. kb 21:50 Ethan Magana, RN is Primary Nurse. as6 21:59 Triage completed. kb3 21:59 Arm band placed on right wrist. Patient placed in an exam room, on a stretcher. kb3 22:56 Primary Nurse role handed off by Ethan Magana, STEPH mb9 22:56 Georgette Whittaker RN is Primary Nurse. mb9 22:56 Urine Microscopic Only Sent. mb9 23:26 CT Abd/Pelvis - Without Contrast In Process Unspecified. EDMS 05/05 00:27 Bed in low position. Call light in reach. Side rails up X2. as6 00:40 No provider procedures requiring assistance completed. Patient did not have IV access as6 during this emergency room visit. Administered Medications: 00:13 Drug: Albuterol 2.5 mg Route: Inhalation; as6 00:44 Follow up: Response: No adverse reaction as6 00:45 Follow up: Response: No adverse reaction as6 00:13 Drug: Albuterol 2.5 mg Route: Inhalation; as6 00:13 Drug: Albuterol 2.5 mg Route: Inhalation; as6 00:40 Not Given (Patient Refused): Kayexalate (polystyrene) 30 grams PO once as6 Medication: 00:28 VIS not applicable for this client. as6 Outcome: 00:29 Discharge ordered by . kb 00:44 Discharged to home via wheelchair, with significant other. as6 00:44 Condition: stable 00:44 Discharge instructions given to patient, Instructed on discharge instructions, follow up and referral plans. medication usage, Demonstrated understanding of instructions, follow-up care, medications, Prescriptions given X 1. 00:45 Patient left the ED. as6 Signatures: Dispatcher [employer] EDAZ Symone Dno FNP-C VISUAL PRESENTATION MANAGER-Liliane Meng ja2 Ethan Magana RN RN as6 Janna March RN RN kb3 Remedios, Carly, RN RN mb9
--- NOTE | 2022-05-05 00:30 | EDPHYS ---
Physician Documentation [facility] Name: Jena Corrales Age: 62 yrs Sex: Female : 1960 Arrival Date: 05/04/2022 Time: 21:39 Bed 6 Private MD: ED Physician Nura Bergeron HPI: 05/05 00:31 This 62 yrs old Female presents to ER via Ambulatory with complaints of kb Possible Kidney Stone. 00:31 The patient presents to the emergency department with nausea, vomiting, diarrhea. kb Onset: The symptoms/episode began/occurred 5 day(s) ago. Possible causes: unknown. The symptoms are aggravated by nothing. The symptoms are alleviated by nothing. Associated signs and symptoms: Pertinent positives: diarrhea, nausea, vomiting. Severity of symptoms: At their worst the symptoms were moderate in the emergency department the symptoms have improved. The patient has not experienced similar symptoms in the past. The patient has not recently seen a physician. That is now resolved patient reports nausea, diarrhea, low back pain that started on Thursday. Diarrhea has resolved since then. Patient came in tonight concern for UTI. Denies dysuria, frequency, urgency. Denies fever.. 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 Last tetanus immunization: unknown. - Social history:: Smoking status: Patient denies any tobacco usage or history of. ROS: 05/05 00:25 Constitutional: Negative for fever, chills, and weight loss. kb Abdomen/GI: Positive for nausea, vomiting, and diarrhea, Negative for abdominal pain. Back: Positive for of the low back area. All other systems are negative. Exam: 00:25 Constitutional: This is a well developed, well nourished patient who is awake, alert, kb and in no acute distress. Head/Face: Normocephalic, atraumatic. ENT: Moist Mucous membranes Cardiovascular: Regular rate and rhythm with a normal S1 and S2. No gallops, murmurs, or rubs. No pulse deficits. Respiratory: Respirations even and unlabored. No increased work of breathing. Talking in full sentences Abdomen/GI: Soft, non-tender. No distention Back: No spinal tenderness. No costovertebral tenderness. Full range of motion. Skin: Warm, dry with normal turgor. Normal color. MS/ Extremity: Pulses equal, no cyanosis. Neurovascular intact. Full, normal range of motion. Neuro: Awake and alert, GCS 15, oriented to person, place, time, and situation. Moves all extremities. Normal gait. Psych: Awake, alert, with orientation to person, place and time. Behavior, mood, and affect are within normal limits. 00:31 ECG was reviewed by the Attending Physician. kb Vital Signs: 05/04 21:57 BP 178 / 59; Pulse 82; Resp 20; Temp 100.2; Pulse Ox 100% ; Weight 131.54 kg; Height 5 kb3 ft. 2 in. (157.48 cm); Pain 4/10; 23:01 BP 168 / 52; Pulse 82; Resp 19; Pulse Ox 97% on R/A; Pain 5/10; mb9 05/05 00:27 BP 158 / 70; Pulse 74; Resp 19 S; Pulse Ox 100% on R/A; as6 05/04 21:57 Body Mass Index 53.04 (131.54 kg, 157.48 cm) kb3 MDM: 05/04 21:49 Patient medically screened. kb 05/05 00:23 Data reviewed: vital signs, nurses notes. Data interpreted: Pulse oximetry: on room air kb is 97 %. Interpretation: normal. Counseling: I had a detailed discussion with the patient and/or guardian regarding: the historical points, exam findings, and any diagnostic results supporting the discharge/admit diagnosis, lab results, radiology results, the need for outpatient follow up, a family practitioner, to return to the emergency department if symptoms worsen or persist or if there are any questions or concerns that arise at home. 00:26 Differential diagnosis: gastritis, viral gastroenteritis, UTI. kb 00:33 ED course: Consideration of hospitalization: Considered hospitalization due to kb hyperkalemia but I discussed case with Dr. Bergeron and with patient. Patient will go home and keep dialysis appointment for tomorrow. Albuterol given to decrease potassium in the interim. Patient refuses Kayexalate. Management of the patient was discussed with the following: Dr. Bergeron; History obtained from: Patient; Care significantly affected by the following chronic conditions: End-stage renal disease on hemodialysis . 05/04 21:52 Order name: CBC with Diff; Complete Time: 23:58 kb 05/04 21:52 Order name: CMP; Complete Time: 23:25 kb 05/04 21:52 Order name: Lipase; Complete Time: 23:25 kb 05/04 21:52 Order name: Urine Microscopic Only; Complete Time: 23:49 kb 05/04 22:55 Order name: Urine Dipstick-Ancillary; Complete Time: 23:00 EDMS 05/04 23:50 Order name: Urine Culture EDMS 05/04 21:52 Order name: CT Abd/Pelvis - Without Contrast kb 05/04 21:52 Order name: Labs collected and sent; Complete Time: 22:56 kb 05/04 21:52 Order name: Urine Dipstick-Ancillary (obtain specimen); Complete Time: 22:56 kb 05/04 23:50 Order name: EKG; Complete Time: 23:51 kb 05/04 23:50 Order name: EKG - Nurse/Tech; Complete Time: 00:13 kb EC:31 Rate is 75 beats/min. Rhythm is regular. QRS [place] is Normal. HI interval is normal at kb 142 msec. QRS interval is normal at 148 msec. QT interval is normal at 477 msec. Administered Medications: 00:13 Drug: Albuterol 2.5 mg Route: Inhalation; as6 00:44 Follow up: Response: No adverse reaction as6 00:45 Follow up: Response: No adverse reaction as6 00:13 Drug: Albuterol 2.5 mg Route: Inhalation; as6 00:13 Drug: Albuterol 2.5 mg Route: Inhalation; as6 00:40 Not Given (Patient Refused): Kayexalate (polystyrene) 30 grams PO once as6 Disposition: 06:09 Co-signature as Attending Physician, Nura Bergeron MD I agree with the assessment and rt plan of care. Disposition Summary: 05/05/22 00:29 Discharge Ordered Location: Home kb Condition: Stable kb Diagnosis - UTI/ Urinary tract infection, site not specified kb - Nausea with vomiting, unspecified kb - Hyperkalemia kb Followup: kb - With: Emergency Department - When: As needed - Reason: Worsening of condition Followup: kb - With: Private Physician - When: 2 - 3 days - Reason: Recheck today's complaints, Continuance of care, Re-evaluation by your physician Discharge Instructions: - Discharge Summary Sheet kb - Viral Gastroenteritis, Adult, [id number] kb - Urinary Tract Infection, Adult, [id number] kb Forms: - Medication Reconciliation Form kb - Thank You Letter kb - Antibiotic Education kb - Prescription Opioid Use kb Prescriptions: - Cephalexin 250 mg Oral Capsule - take 1 capsule by ORAL route every 12 hours for 10 days; 20 capsule; Refills: kb 0, Product Selection Permitted Signatures: Dispatcher [employer] EDMS Symone Don, WILLIANC MILADY-Ethan Salguero RN RN as6 Janna March RN RN kb3 Nura Bergeron MD MD rt
[2022-05-05 00:50] VITALS: TEMP 100.2
[2022-05-05 00:53] VITALS: BP 158/70; O2SAT 100
--- NOTE | 2022-05-05 16:25 | EKG ---
Test Date: 2022-05-05 Test Time: 00:06:40 Mouthpiece Maker: MEASUREMENT RESULTS: Intervals: Rate: 75 ND: 142 QRSD: 148 QT: 428 QTc: 477 [place]: P: 19 ND: 142 QRS: -16 T: 40 INTERPRETIVE STATEMENTS: Normal sinus rhythm Right bundle branch block Septal infarct, age undetermined Abnormal ECG Compared to ECG 05/23/2008 15:10:32 Right bundle-branch block now present Myocardial infarct finding now present Electronically Signed On 05-05-22 16:25:21 PITCH FILLER by Uriel Fierro
--- NOTE | 2022-05-06 10:31 | RAD REPORT ---
EXAM DESCRIPTION: CT - Abdomen Pelvis Wo Contrast - 05/05/2022 6:43 am CLINICAL HISTORY: 62 years, Female, abd pain COMPARISON: 12/12/2019 TECHNIQUE: Multiple transaxial tomograms of the abdomen and pelvis were performed from the lung base s to the symphysis pubis 5 m slice thickness at 5 mm interval reconstruction, without administration of IV and oral contrast. Multiplanar reformats in the sagittal and coronal plane were generated and reviewed. This exam was performed according to our departmental dose-optimization protocol, which includes auto mated exposure control, adjustment of the mA and/or kV according to patient size and/or use of iterat luther reconstruction technique. FINDINGS: The lack of IV and oral contrast limits evaluation of solid organs, subtle lesions cannot be excluded. The lung bases demonstrate very minimal dependent atelectatic changes. Mild elevation right hemidiaph ragm. Grossly the unopacified liver, pancreas, spleen and adrenal glands demonstrate to be within normal li mits, no significant focal lesions were identified. The gallbladder is somewhat distended with the presence of multiple layering high density material co rresponding to cholelithiasis. No significant biliary duct dilatation. The kidneys demonstrate diffuse cortical thinning suggesting medical renal disease. There is no andrey dence for nephrolithiasis and/or hydronephrosis. Again there is a exophytic lower pole left renal c yst measuring 2.2 cm on image 45. No follow-up is recommended Grossly the unopacified stomach, small bowel and large bowel demonstrate to be within normal limits. There is no evidence for bowel dilatation/or free air. The appendix is unremarkable. There is minimal oral contrast within the left site colon perhaps suggesting previous upper GI study. There is minima l diverticulosis within the left site colon. The urinary bladder what partially distended with no gross abnormalities. The uterus demonstrate to b e within normal limits. No adnexal masses are identified. The aorta demonstrate minimal atherosclerot ic disease extending into the aortic bifurcation. There is no retroperitoneal lymphadenopathy. Th ere is no evidence for ascites. The rest of the soft tissue demonstrate to be grossly unremarkable. IMPRESSION: No evidence for nephrolithiasis and/or hydronephrosis. Diffuse cortical thinning suggesting medical renal disease. Cholelithiasis. Minimal diverticulosis without evidence for acute diverticulitis. Electronically signed by: Kaiser Melendez MD 05/04/2022 11:56 PM [facility]ER Due to temporary technical issues with the PACS/Fluency reporting system, reports are being signed by the in house radiologists without review as a courtesy to insure prompt reporting. The interpreting radiologist is fully responsible for the content of the report.
== END 2022-05-05 00:45 | disposition home or self-care (01) ==
LOC: ER 21:34
DX: N39.0 Urinary tract infection, site not specified (principal); E87.5 Hyperkalemia; I50.9 Heart failure, unspecified; I10 Essential (primary) hypertension; Z99.2 Dependence on renal dialysis; Z88.1 Allergy status to other antibiotic agents; Z88.5 Allergy status to narcotic agent; Z88.8 Allergy status to other drugs, medicaments and biological substances
CPT/HCPCS: 93005; 87088; 85025; 87086; 36415; 83690; 80053; 74176; J7613; 81003; 81015; 87077; 87186; 99284

== ENCOUNTER → 2023-05-29 | Emergency (ER) | payer OTHER ==
[~2023-05-29] MED LIST: NA CHLORIDE 0.9% 250 ML ONE
--- OUTSIDE RECORDS SUMMARY | 2023-05-29 12:48 | XMS REPORT | Continuity of Care Document ---
Author Name Unknown Address [address] [facility] [place] [address] [facility] thconnect Address [address] [facility] [place] [address] Care Team Providers Care Imagery Intelligence Name Role Phone Pcp, Patient Does Not Have A Primary Care Physic irina FRANK MATOS Attending Clinician Unavailable EVANGELIST XIE Attending Clinician Unavailabl Nomi Peres MD Attending Clinician [phone] Evangelist Xie MD Attending Clinician [phone] LIZETTE GOETZ Attending Clinician Unavailable Lizette Mccauley Attending Clinician [phone] Doug Abreu RN Attending Clinician Unavail able CHIKA CUETO Attending Clinician Unavailable Gumaro Wise DO Attending Clinician [phone] Chika Cueto MD Attending Clinician [phone] Georgette Mckeon RN Attending Clinician [phone] Evangelist Day Attending Clinician Unavail able Helen Zhang Attending Clinician [phone] Elsy Banks Attending Clinician [phone] Doris Vergara Attending Clinician [phone] Rebeca Kraft MD Attending Clinician [phone] CHIKA CUETO Admitting Clinician Unavailable Chika Cueto MD Admitting Clinician [phone] Rebeca Kraft MD Admitting Clinician [phone] Payers Payer Name Policy Type Policy Number Effective Date Expirati on Date Source KARINA/JORY [employer] ADV CHOICE PPO [id number] 2023 00:00:00 [employer] [place] [id number] 2023 00:00:00 Problems Condition Name Condition Details Condition Category Status Onset Date Resolution Date Last Treatment Date Treating Clinician Comments Source CHF (congestiv e heart failure) CHF (congestiv e heart failure) Disease Active 05-23 00:00: 00 [facility] ESRD (end stage renal disease) ESRD (end stage renal disease) Disease Active 05-23 00:00: 00 [facility] Atrial fibrillati on, unspecifie d type Atrial fibrillati on, unspecifie d type Disease Active 05-06 00:00: 00 [facility] Diabetic foot infection Diabetic foot infection Disease Active 11-17 00:00: 00 [facility] Morbid obesity with body mass index of 50 or higher Morbid obesity with body mass index of 50 or higher Disease Active 11-17 00:00: 00 [facility] Allergies, Adverse Reactions, Alerts Allergy Name Allergy Type Status Severity Reaction(s) Onset Date Inactive Date Treating Clinician Comments Source LISINOPR IL DRUG INGREDI Active COUGH 05-06 00:00: 00 [facility] Lisinopr il Propensi ty to adverse reaction s Active Cough 05-06 00:00: 00 [facility] Levoflox acin Propensi ty to adverse reaction s Active Other - See comments 11-16 00:00: 00 weaknes [facility] Acetamin ophen-Co deine Propensi ty to adverse reaction s Active Nausea and/or Vomiting 11-16 00:00: 00 [facility] LEVOFLOX ACIN DRUG INGREDI Active Other-Cmnt 11-16 00:00: 00 [facility] ACETAMIN OPHEN-CO DEINE DRUG Active N/V 11-16 00:00: 00 [facility] NO KNOWN ALLERGIE S Drug Class Active [facility] Social History Social Habit Start Date Stop Date Quantity Comments Source History of tobacco use Passive smoker [facility] to SARS-CoV-2 (event) Not sure [facility] History of Social function 2023-05-21 00:00:00 2023-05-21 00:00:00 [facility] Tobacco use and exposure 2023-05-07 00:00:00 2023-05-07 00:00:00 Smokeless tobacco non-user [facility] Sex Assigned At 1960 00:00:00 1960 00:00:00 [facility] Smoking Status Start Date Stop Date Source Never smoked tobacco [facility] Former smoker 2019-11-22 00:00:00 2019-11-22 00:00:00 [facility] Medications Ordered Medication Name Filled Medication Name Start Date Stop Date Current Medication? Ordering Clinician Indication Dosage Frequency Signature (SIG) Comments Components Source apixaban (ELIQUIS) tablet 5 mg 05-13 02:00: 00 05-20 01:59 :00 Yes 5mg 5 mg, Oral, BID, 14 doses, First dose on Thu05/12/23 at 2000, Last dose on Thu05/19/23 at 0800, Routine
Indicatio ns: Non-Valvul ar Atrial Fibrillati on [facility] losartan 25 mg tablet 05-13 00:00: 00 06-13 05:59 :00 Yes [id number] 25mg Take 1 tablet by mouth in the morning for 30 days. [facility] losartan 25 mg tablet 05-13 00:00: 00 06-13 05:59 :00 Yes [id number] 25mg Take 1 tablet by mouth in the morning for 30 days. [facility] losartan 25 mg tablet 05-13 00:00: 00 06-13 05:59 :00 Yes [id number] 25mg Take 1 tablet by mouth in the morning for 30 days. [facility] losartan 25 mg tablet 05-13 00:00: 00 06-13 05:59 :00 Yes [id number] 25mg Take 1 tablet by mouth in the morning for 30 days. [facility] losartan 25 mg tablet 05-13 00:00: 00 06-13 05:59 :00 Yes [id number] 25mg Take 1 tablet by mouth in the morning for 30 days. [facility] insulin NPH hum/reg insulin hm (INSULIN 70/30 SC) 05-12 13:50: 40 Yes 45% inject 45 % under the skin 2 (two) times daily. [facility] calcium acetate 667 mg Tab 05-12 13:50: 40 Yes 3{capsu le} Take 3 capsules by mouth in the morning and 3 capsules at noon and 3 capsules in the evening. [facility] calcium acetate 667 mg Tab 05-12 13:50: 40 Yes 1{capsu le} Take 1 capsule by mouth 2 (two) times daily with meals as needed for Other. [facility] furosemide 80 mg tablet 05-12 13:50: 40 Yes 80mg Take 1 tablet by mouth in the morning and 1 tablet in the evening. [facility] aspirin 81 mg Cap 05-12 13:50: 40 Yes 1{tbl} Take 1 tablet by mouth in the morning. [facility] vitamin b complex-vit to c-folic acid (REGINA-WILBER) 0.8 mg tablet 05-12 13:50: 40 Yes 1{tbl} Take 1 tablet by mouth in the morning. [facility] pregabalin 25 mg capsule 05-12 13:50: 40 Yes 25mg Take 1 capsule by mouth in the morning. [facility] insulin NPH hum/reg insulin hm (INSULIN 70/30 SC) 05-12 13:50: 40 Yes 45% inject 45 % under the skin 2 (two) times daily. [facility] calcium acetate 667 mg Tab 05-12 13:50: 40 Yes 3{capsu le} Take 3 capsules by mouth in the morning and 3 capsules at noon and 3 capsules in the evening. [facility] calcium acetate 667 mg Tab 05-12 13:50: 40 Yes 1{capsu le} Take 1 capsule by mouth 2 (two) times daily with meals as needed for Other. [facility] furosemide 80 mg tablet 05-12 13:50: 40 Yes 80mg Take 1 tablet by mouth in the morning and 1 tablet in the evening. [facility] aspirin 81 mg Cap 05-12 13:50: 40 Yes 1{tbl} Take 1 tablet by mouth in the morning. [facility] vitamin b complex-vit to c-folic acid (REGINA-WILBER) 0.8 mg tablet 05-12 13:50: 40 Yes 1{tbl} Take 1 tablet by mouth in the morning. [facility] pregabalin 25 mg capsule 05-12 13:50: 40 Yes 25mg Take 1 capsule by mouth in the morning. [facility] insulin NPH hum/reg insulin hm (INSULIN 70/30 SC) 05-12 13:50: 40 Yes 45% inject 45 % under the skin 2 (two) times daily. [facility] calcium acetate 667 mg Tab 05-12 13:50: 40 Yes 3{capsu le} Take 3 capsules by mouth in the morning and 3 capsules at noon and 3 capsules in the evening. [facility] calcium acetate 667 mg Tab 05-12 13:50: 40 Yes 1{capsu le} Take 1 capsule by mouth 2 (two) times daily with meals as needed for Other. [facility] furosemide 80 mg tablet 05-12 13:50: 40 Yes 80mg Take 1 tablet by mouth in the morning and 1 tablet in the evening. [facility] aspirin 81 mg Cap 05-12 13:50: 40 Yes 1{tbl} Take 1 tablet by mouth in the morning. [facility] vitamin b complex-vit to c-folic acid (REGINA-WILBER) 0.8 mg tablet 05-12 13:50: 40 Yes 1{tbl} Take 1 tablet by mouth in the morning. [facility] pregabalin 25 mg capsule 05-12 13:50: 40 Yes 25mg Take 1 capsule by mouth in the morning. [facility] insulin NPH hum/reg insulin hm (INSULIN 70/30 SC) 05-12 13:50: 40 Yes 45% inject 45 % under the skin 2 (two) times daily. [facility] calcium acetate 667 mg Tab 05-12 13:50: 40 Yes 3{capsu le} Take 3 capsules by mouth in the morning and 3 capsules at noon and 3 capsules in the evening. [facility] calcium acetate 667 mg Tab 05-12 13:50: 40 Yes 1{capsu le} Take 1 capsule by mouth 2 (two) times daily with meals as needed for Other. [facility] furosemide 80 mg tablet 05-12 13:50: 40 Yes 80mg Take 1 tablet by mouth in the morning and 1 tablet in the evening. [facility] aspirin 81 mg Cap 05-12 13:50: 40 Yes 1{tbl} Take 1 tablet by mouth in the morning. [facility] vitamin b complex-vit to c-folic acid (REGINA-WILBER) 0.8 mg tablet 05-12 13:50: 40 Yes 1{tbl} Take 1 tablet by mouth in the morning. [facility] pregabalin 25 mg capsule 05-12 13:50: 40 Yes 25mg Take 1 capsule by mouth in the morning. [facility] insulin NPH hum/reg insulin hm (INSULIN 70/30 SC) 05-12 13:50: 40 Yes 45% inject 45 % under the skin 2 (two) times daily. [facility] calcium acetate 667 mg Tab 05-12 13:50: 40 Yes 3{capsu le} Take 3 capsules by mouth in the morning and 3 capsules at noon and 3 capsules in the evening. [facility] calcium acetate 667 mg Tab 05-12 13:50: 40 Yes 1{capsu le} Take 1 capsule by mouth 2 (two) times daily with meals as needed for Other. [facility] furosemide 80 mg tablet 05-12 13:50: 40 Yes 80mg Take 1 tablet by mouth in the morning and 1 tablet in the evening. [facility] aspirin 81 mg Cap 05-12 13:50: 40 Yes 1{tbl} Take 1 tablet by mouth in the morning. [facility] vitamin b complex-vit to c-folic acid (REGINA-WILBER) 0.8 mg tablet 05-12 13:50: 40 Yes 1{tbl} Take 1 tablet by mouth in the morning. [facility] pregabalin 25 mg capsule 05-12 13:50: 40 Yes 25mg Take 1 capsule by mouth in the morning. [facility] losartan 100 mg tablet 05-12 10:22: 08 05-12 00:00 :00 No 100mg Take 1 tablet by mouth in the morning. [facility] apixaban 5 mg tablet 05-12 00:00: 00 06-12 05:59 :00 Yes [id number] 5mg Take 1 tablet by mouth in the morning and 1 tablet in the evening. Do all this for 30 days. Indication s: atrial fibrillati on [facility] metoprolol tartrate 25 mg tablet 05-12 00:00: 00 06-12 05:59 :00 Yes [id number] 25mg Take 1 tablet by mouth in the morning and 1 tablet in the evening. Do all this for 30 days. [facility] sevelamer 800 mg tablet 05-12 00:00: 00 06-12 05:59 :00 Yes [id number] 800mg Take 1 tablet by mouth in the morning and 1 tablet at noon and 1 tablet in the evening. Take with meals. Do all this for 30 days. [facility] apixaban 5 mg tablet 05-12 00:00: 00 06-12 05:59 :00 Yes [id number] 5mg Take 1 tablet by mouth in the morning and 1 tablet in the evening. Do all this for 30 days. Indication s: atrial fibrillati on [facility] metoprolol tartrate 25 mg tablet 4-0 16 00:00: 00 06-12 05:59 :00 Yes [id number] 25mg Take 1 tablet by mouth in the morning and 1 tablet in the evening. Do all this for 30 days. [facility] sevelamer 800 mg tablet 4-0 16 00:00: 00 06-12 05:59 :00 Yes [id number] 800mg Take 1 tablet by mouth in the morning and 1 tablet at noon and 1 tablet in the evening. Take with meals. Do all this for 30 days. [facility] apixaban 5 mg tablet 2023-0 16 00:00: 00 06-12 05:59 :00 Yes [id number] 5mg Take 1 tablet by mouth in the morning and 1 tablet in the evening. Do all this for 30 days. Indication s: atrial fibrillati on [facility] metoprolol tartrate 25 mg tablet 2023-0 16 00:00: 00 06-12 05:59 :00 Yes [id number] 25mg Take 1 tablet by mouth in the morning and 1 tablet in the evening. Do all this for 30 days. [facility] sevelamer 800 mg tablet 4-0 16 00:00: 00 06-12 05:59 :00 Yes [id number] 800mg Take 1 tablet by mouth in the morning and 1 tablet at noon and 1 tablet in the evening. Take with meals. Do all this for 30 days. [facility] apixaban 5 mg tablet 2023-0 16 00:00: 00 06-12 05:59 :00 Yes [id number] 5mg Take 1 tablet by mouth in the morning and 1 tablet in the evening. Do all this for 30 days. Indication s: atrial fibrillati on [facility] metoprolol tartrate 25 mg tablet 4-0 16 00:00: 00 06-12 05:59 :00 Yes [id number] 25mg Take 1 tablet by mouth in the morning and 1 tablet in the evening. Do all this for 30 days. [facility] sevelamer 800 mg tablet 05-12 00:00: 00 06-12 05:59 :00 Yes [id number] 800mg Take 1 tablet by mouth in the morning and 1 tablet at noon and 1 tablet in the evening. Take with meals. Do all this for 30 days. [facility] apixaban 5 mg tablet 05-12 00:00: 00 06-12 05:59 :00 Yes [id number] 5mg Take 1 tablet by mouth in the morning and 1 tablet in the evening. Do all this for 30 days. Indication s: atrial fibrillati on [facility] metoprolol tartrate 25 mg tablet 05-12 00:00: 00 06-12 05:59 :00 Yes [id number] 25mg Take 1 tablet by mouth in the morning and 1 tablet in the evening. Do all this for 30 days. [facility] sevelamer 800 mg tablet 05-12 00:00: 00 06-12 05:59 :00 Yes [id number] 800mg Take 1 tablet by mouth in the morning and 1 tablet at noon and 1 tablet in the evening. Take with meals. Do all this for 30 days. [facility] lidocaine 1% (PF) (XYLOCAINE) injection 0.3 mL 05-11 15:15: 00 05-11 15:10 :00 No [id number] .3mL 0.3 mL, Infiltrati on, ONCE, 1 dose, On Thu05/11/23 at 0915, Routine [facility] polyethylen e glycol 3350 powder 17 g 05-09 16:45: 00 Yes 17g 17 g, Oral, DAILY, First dose on 05/09/23 at 1045, Until Discontinu ed, Routine [facility] docusate (COLACE) capsule 100 mg 05-09 16:45: 00 Yes 100mg 100 mg, Oral, BID, First dose on 05/09/23 at 1045, Until Discontinu ed, Routine [facility] sevelamer (RENVELA) tablet 800 mg 05-09 14:00: 00 Yes 800mg 800 mg, Oral, TID MEALS, First dose on Thu05/09/23 at 0800, Until Discontinu ed, Routine [facility] lidocaine 1% (PF) (XYLOCAINE) injection 0.3 mL 05-08 21:00: 00 05-08 20:11 :00 No [id number] .3mL 0.3 mL, Subcutaneo us, DIALYSIS ONCE - PT ROOM, 1 dose, On Thu05/08/23 at 1500, Routine [facility] losartan (COZAAR) tablet 25 mg 05-08 15:00: 00 Yes 25mg 25 mg, Oral, DAILY, First dose (after last modificati on) on Thu05/08/23 at 0900, Until Discontinu ed, Routine [facility] cefTRIAXone (ROCEPHIN) 1,000 mg in NaCl 0.9% (NS) 100 mL MINI-BAG 05-07 23:30: 00 05-10 00:18 :40 No 1000mg 1,000 mg, IV Piggyback, Q24H ABX, 6 doses, First dose on Thu05/07/23 at 1730, Last dose on Thu05/12/23 at 1730, Administer over 30 Minutes, 100 mL
Reas on for Anti-Infec tive: Documented Infection< br>Documen sascha Infection Site: Urine
D uration of Therapy: Other (see Comments) [facility] heparin (porcine) injection 5,000 Units 05-07 20:00: 00 05-12 14:59 :28 No 5000U 5,000 Units, Subcutaneo us, Q8H, First dose (after last modificati on) on Thu05/07/23 at 1400, Until Discontinu ed, Routine [facility] mupirocin (BACTROBAN NASAL OINT) 2 % nasal ointment 05-07 18:43: 11 Yes Nasal, Q12H, For 5 days, First dose conditiona l, Routine [facility] aspirin chewable tablet 81 mg 05-07 15:00: 00 Yes 81mg 81 mg, Oral, DAILY, First dose on Thu05/07/23 at 0900, Until Discontinu ed [facility] pregabalin (LYRICA) capsule 25 mg 05-07 15:00: 00 Yes 25mg 25 mg, Oral, DAILY, First dose on Thu05/07/23 at 0900, Until Discontinu ed, Routine [facility] losartan (COZAAR) tablet 100 mg 05-07 15:00: 00 05-07 22:44 :07 No 100mg 100 mg, Oral, DAILY, First dose on Thu05/07/23 at 0900, Until Discontinu ed, [facility] 05-07 13:30: 00 Yes Subcutaneo us, AC+HS, First dose on Thu05/07/23 at 0730, Until Discontinu ed, Routine [facility] furosemide (LASIX) injection 60 mg 05-07 09:00: 00 05-09 01:36 :42 No 60mg 60 mg, Slow IV Push, Q12H ABX, First dose on Thu05/07/23 at 0300, Until Discontinu ed, Routine [facility] heparin (porcine) injection 5,000 Units 05-07 04:00: 00 05-07 13:21 :30 No 5000U 5,000 Units, Subcutaneo us, Q8H, First dose on Thu05/06/23 at 2200, Until Discontinu ed, Routine [facility] glucagon (GLUCAGEN DIAGNOSTIC KIT) injection 1 mg 05-07 03:40: 55 Yes 1mg 1 mg, Intramuscu lar, PRN, Starting on Thu05/06/23 at 2140, Until Discontinu ed, SUAD, Blood Glucose < or = 70 mg/dL and patient is NPO, unable to swallow or has mental changes. [facility] dextrose 50 % in water (D50W) injection 25 mL 2024-0 1-11 03:40: 55 Yes 25mL 25 mL, Slow IV Push, PRN, Starting on Thu05/06/23 at 2140, Until Discontinu ed, SUAD, Blood Glucose < or = 70 mg/dL and patient is NPO, unable to swallow or has mental status changes. [facility] metoprolol tartrate (LOPRESSOR) tablet 25 mg 05-07 02:00: 00 Yes 25mg 25 mg, Oral, BID, First dose on Thu05/06/23 at 2000, Until Discontinu ed, Routine [facility] ondansetron (ZOFRAN (PF)) injection 4 mg 05-07 00:10: 37 Yes 4mg 4 mg, Slow IV Push, Q6HPRN, Starting on Thu05/06/23 at 1810, Until Discontinu ed, Routine, Nausea and Vomiting (N/V) [facility] acetaminoph en (TYLENOL) tablet 650 mg 05-07 00:10: 21 Yes 650mg 650 mg, Oral, Q6HPRN, Starting on Thu05/06/23 at 1810, Until Discontinu ed, Routine, Pain (scale 1-3), Temp > 38 C [facility] cefTRIAXone (ROCEPHIN) 1,000 mg in NaCl 0.9% (NS) 100 mL MINI-BAG 05-06 23:45: 00 05-06 23:51 :00 No 1000mg 1,000 mg, IV Piggyback, ONCE, 1 dose, On Thu05/06/23 at 1745, Administer over 30 Minutes, 100 mL
Reas on for Anti-Infec tive: Empiric Therapy for Suspected Infection< br>Empiric Therapy Site: Urine
D uration of therapy: Once (ED) [facility] diltiazem (CARDIZEM IV) injection 15 mg 05-06 19:00: 00 05-06 19:01 :00 No 15mg 15 mg, IV Push, ONCE, 1 dose, On Thu05/06/23 at 1300, STAT [facility] calcitrioL 0.5 mcg capsule 11-24 00:00: 00 12-25 04:59 :00 No [id number] .5ug Take 1 capsule by mouth every other day for 30 days. [facility] lisinopril 20 mg tablet 11-24 00:00: 00 12-25 04:59 :00 No [id number] 20mg Take 1 tablet by mouth daily for 30 days. [facility] NIFEdipine ER 90 mg tablet 11-24 00:00: 12-25 04:59 :00 No [id number] 90mg Take 1 tablet by mouth daily for 30 days. [facility] calcitrioL 0.5 mcg capsule 11-24 00:00: 12-25 04:59 :00 No [id number] .5ug Take 1 capsule by mouth every other day for 30 days. [facility] lisinopril 20 mg tablet 11-24 00:00: 00 12-25 04:59 :00 No [id number] 20mg Take 1 tablet by mouth daily for 30 days. [facility] NIFEdipine ER 90 mg tablet 11-24 00:00: 12-25 04:59 :00 No [id number] 90mg Take 1 tablet by mouth daily for 30 days. [facility] calcitrioL 0.5 mcg capsule 11-24 00:00: 00 12-25 04:59 :00 No [id number] .5ug Take 1 capsule by mouth every other day for 30 days. [facility] lisinopril 20 mg tablet 11-24 00:00: 00 12-25 04:59 :00 No [id number] 20mg Take 1 tablet by mouth daily for 30 days. [facility] NIFEdipine ER 90 mg tablet 11-24 00:00: 00 12-25 04:59 :00 No [id number] 90mg Take 1 tablet by mouth daily for 30 days. [facility] calcitrioL 0.5 mcg capsule 11-24 00:00: 00 12-25 04:59 :00 No [id number] .5ug Take 1 capsule by mouth every other day for 30 days. [facility] lisinopril 20 mg tablet 11-24 00:00: 00 12-25 04:59 :00 No [id number] 20mg Take 1 tablet by mouth daily for 30 days. [facility] NIFEdipine ER 90 mg tablet 11-24 00:00: 00 12-25 04:59 :00 No [id number] 90mg Take 1 tablet by mouth daily for 30 days. [facility] calcitrioL 0.5 mcg capsule 11-24 00:00: 00 12-25 04:59 :00 No [id number] .5ug Take 1 capsule by mouth every other day for 30 days. [facility] lisinopril 20 mg tablet 11-24 00:00: 12-25 04:59 :00 No [id number] 20mg Take 1 tablet by mouth daily for 30 days. [facility] NIFEdipine ER 90 mg tablet 11-24 00:00: 12-25 04:59 :00 No [id number] 90mg Take 1 tablet by mouth daily for 30 days. [facility] calcitrioL 0.5 mcg capsule 11-24 00:00: 12-25 04:59 :00 No [id number] .5ug Take 1 capsule by mouth every other day for 30 days. [facility] lisinopril 20 mg tablet 11-24 00:00: 00 12-25 04:59 :00 No [id number] 20mg Take 1 tablet by mouth daily for 30 days. [facility] NIFEdipine ER 90 mg tablet 11-24 00:00: 12-25 04:59 :00 No [id number] 90mg Take 1 tablet by mouth daily for 30 days. [facility] calcitrioL 0.5 mcg capsule 11-24 00:00: 12-25 04:59 :00 No [id number] .5ug Take 1 capsule by mouth every other day for 30 days. [facility] lisinopril 20 mg tablet 11-24 00:00: 00 12-25 04:59 :00 No [id number] 20mg Take 1 tablet by mouth daily for 30 days. [facility] NIFEdipine ER 90 mg tablet 11-24 00:00: 00 12-25 04:59 :00 No [id number] 90mg Take 1 tablet by mouth daily for 30 days. [facility] calcitrioL 0.5 mcg capsule 11-24 00:00: 00 12-25 04:59 :00 No [id number] .5ug Take 1 capsule by mouth every other day for 30 days. [facility] lisinopril 20 mg tablet 11-24 00:00: 12-25 04:59 :00 No [id number] 20mg Take 1 tablet by mouth daily for 30 days. [facility] NIFEdipine ER 90 mg tablet 11-24 00:00: 00 12-25 04:59 :00 No [id number] 90mg Take 1 tablet by mouth daily for 30 days. [facility] calcitrioL 0.5 mcg capsule 11-24 00:00: 12-25 04:59 :00 No [id number] .5ug Take 1 capsule by mouth every other day for 30 days. [facility] lisinopril 20 mg tablet 11-24 00:00: 12-25 04:59 :00 No [id number] 20mg Take 1 tablet by mouth daily for 30 days. [facility] NIFEdipine ER 90 mg tablet 11-24 00:00: 12-25 04:59 :00 No [id number] 90mg Take 1 tablet by mouth daily for 30 days. [facility] calcitrioL 0.5 mcg capsule 11-24 00:00: 12-25 04:59 :00 No [id number] .5ug Take 1 capsule by mouth every other day for 30 days. [facility] lisinopril 20 mg tablet 11-24 00:00: 00 12-25 04:59 :00 No [id number] 20mg Take 1 tablet by mouth daily for 30 days. [facility] NIFEdipine ER 90 mg tablet 11-24 00:00: 12-25 04:59 :00 No [id number] 90mg Take 1 tablet by mouth daily for 30 days. [facility] calcitrioL 0.5 mcg capsule 11-24 00:00: 00 12-25 04:59 :00 No [id number] .5ug Take 1 capsule by mouth every other day for 30 days. [facility] lisinopril 20 mg tablet 11-24 00:00: 00 12-25 04:59 :00 No [id number] 20mg Take 1 tablet by mouth daily for 30 days. [facility] NIFEdipine ER 90 mg tablet 11-24 00:00: 00 12-25 04:59 :00 No [id number] 90mg Take 1 tablet by mouth daily for 30 days. [facility] calcitrioL 0.5 mcg capsule 11-24 00:00: 00 12-25 04:59 :00 No [id number] .5ug Take 1 capsule by mouth every other day for 30 days. [facility] lisinopril 20 mg tablet 11-24 00:00: 12-25 04:59 :00 No [id number] 20mg Take 1 tablet by mouth daily for 30 days. [facility] NIFEdipine ER 90 mg tablet 11-24 00:00: 00 12-25 04:59 :00 No [id number] 90mg Take 1 tablet by mouth daily for 30 days. [facility] calcitrioL 0.5 mcg capsule 11-24 00:00: 12-25 04:59 :00 No [id number] .5ug Take 1 capsule by mouth every other day for 30 days. [facility] lisinopril 20 mg tablet 11-24 00:00: 00 12-25 04:59 :00 No [id number] 20mg Take 1 tablet by mouth daily for 30 days. [facility] NIFEdipine ER 90 mg tablet 11-24 00:00: 12-25 04:59 :00 No [id number] 90mg Take 1 tablet by mouth daily for 30 days. [facility] calcitrioL 0.5 mcg capsule 11-24 00:00: 12-25 04:59 :00 No [id number] .5ug Take 1 capsule by mouth every other day for 30 days. [facility] lisinopril 20 mg tablet 11-24 00:00: 00 12-25 04:59 :00 No [id number] 20mg Take 1 tablet by mouth daily for 30 days. [facility] [facility] NIFEdipine ER 90 mg tablet 11-24 00:00: 12-25 04:59 :00 No [id number] 90mg Take 1 tablet by mouth daily for 30 days. [facility] calcitrioL 0.5 mcg capsule 11-24 00:00: 00 12-25 04:59 :00 No [id number] .5ug Take 1 capsule by mouth every other day for 30 days. [facility] lisinopril 20 mg tablet 11-24 00:00: 12-25 04:59 :00 No [id number] 20mg Take 1 tablet by mouth daily for 30 days. [facility] NIFEdipine ER 90 mg tablet 11-24 00:00: 12-25 04:59 :00 No [id number] 90mg Take 1 tablet by mouth daily for 30 days. [facility] calcitrioL 0.5 mcg capsule 11-24 00:00: 00 12-25 04:59 :00 No [id number] .5ug Take 1 capsule by mouth every other day for 30 days. [facility] lisinopril 20 mg tablet 11-24 00:00: 12-25 04:59 :00 No [id number] 20mg Take 1 tablet by mouth daily for 30 days. [facility] NIFEdipine ER 90 mg tablet 11-24 00:00: 12-25 04:59 :00 No [id number] 90mg Take 1 tablet by mouth daily for 30 days. [facility] calcitrioL 0.5 mcg capsule 11-24 00:00: 12-25 04:59 :00 No [id number] .5ug Take 1 capsule by mouth every other day for 30 days. [facility] lisinopril 20 mg tablet 11-24 00:00: 12-25 04:59 :00 No [id number] 20mg Take 1 tablet by mouth daily for 30 days. [facility] NIFEdipine ER 90 mg tablet 11-24 00:00: 12-25 04:59 :00 No [id number] 90mg Take 1 tablet by mouth daily for 30 days. [facility] calcitrioL 0.5 mcg capsule 11-24 00:00: 12-25 04:59 :00 No [id number] .5ug Take 1 capsule by mouth every other day for 30 days. [facility] lisinopril 20 mg tablet 11-24 00:00: 12-25 04:59 :00 No [id number] 20mg Take 1 tablet by mouth daily for 30 days. [facility] NIFEdipine ER 90 mg tablet 11-24 00:00: 12-25 04:59 :00 No [id number] 90mg Take 1 tablet by mouth daily for 30 days. [facility] calcitrioL 0.5 mcg capsule 11-24 00:00: 12-25 04:59 :00 No [id number] .5ug Take 1 capsule by mouth every other day for 30 days. [facility] lisinopril 20 mg tablet 11-24 00:00: 12-25 04:59 :00 No [id number] 20mg Take 1 tablet by mouth daily for 30 days. [facility] NIFEdipine ER 90 mg tablet 11-24 00:00: 00 12-25 04:59 :00 No [id number] 90mg Take 1 tablet by mouth daily for 30 days. [facility] calcitrioL 0.5 mcg capsule 11-24 00:00: 12-25 04:59 :00 No [id number] .5ug Take 1 capsule by mouth every other day for 30 days. [facility] lisinopril 20 mg tablet 11-24 00:00: 12-25 04:59 :00 No [id number] 20mg Take 1 tablet by mouth daily for 30 days. [facility] NIFEdipine ER 90 mg tablet 11-24 00:00: 00 12-25 04:59 :00 No [id number] 90mg Take 1 tablet by mouth daily for 30 days. [facility] insulin NPH hum/reg insulin hm (INSULIN 70/30 SC) 11-23 21:57: 17 Yes 45% inject 45 % under the skin 2 (two) times daily. [facility] insulin NPH hum/reg insulin hm (INSULIN 70/30 SC) 11-23 21:57: 17 Yes 45% inject 45 % under the skin 2 (two) times daily. [facility] insulin NPH hum/reg insulin hm (INSULIN 70/30 SC) 11-23 21:57: 17 Yes 45% inject 45 % under the skin 2 (two) times daily. [facility] insulin NPH hum/reg insulin hm (INSULIN 70/30 SC) 11-23 21:57: 17 Yes 45% inject 45 % under the skin 2 (two) times daily. [facility] insulin NPH hum/reg insulin hm (INSULIN 70/30 SC) 11-23 21:57: 17 Yes 45% inject 45 % under the skin 2 (two) times daily. [facility] insulin NPH hum/reg insulin hm (INSULIN 70/30 SC) 11-23 21:57: 17 Yes 45% inject 45 % under the skin 2 (two) times daily. [facility] insulin NPH hum/reg insulin hm (INSULIN 70/30 SC) 11-23 21:57: 17 Yes 45% inject 45 % under the skin 2 (two) times daily. [facility] insulin NPH hum/reg insulin hm (INSULIN 70/30 SC) 11-23 21:57: 17 Yes 45% inject 45 % under the skin 2 (two) times daily. [facility] insulin NPH hum/reg insulin hm (INSULIN 70/30 SC) 11-23 21:57: 17 Yes 45% inject 45 % under the skin 2 (two) times daily. [facility] insulin NPH hum/reg insulin hm (INSULIN 70/30 SC) 11-23 21:57: 17 Yes 45% inject 45 % under the skin 2 (two) times daily. [facility] hum/reg insulin hm (INSULIN 70/30 SC) 11-23 21:57: 17 Yes 45% inject 45 % under the skin 2 (two) times daily. [facility] insulin NPH hum/reg insulin hm (INSULIN 70/30 SC) 11-23 21:57: 17 Yes 45% inject 45 % under the skin 2 (two) times daily. [facility] insulin NPH hum/reg insulin hm (INSULIN 70/30 SC) 11-23 21:57: 17 Yes 45% inject 45 % under the skin 2 (two) times daily. [facility] insulin NPH hum/reg insulin hm (INSULIN 70/30 SC) 11-23 21:57: 17 Yes 45% inject 45 % under the skin 2 (two) times daily. [facility] insulin NPH hum/reg insulin hm (INSULIN 70/30 SC) 11-23 21:57: 17 Yes 45% inject 45 % under the skin 2 (two) times daily. [facility] insulin NPH hum/reg insulin hm (INSULIN 70/30 SC) 11-23 21:57: 17 Yes 45% inject 45 % under the skin 2 (two) times daily. [facility] insulin NPH hum/reg insulin hm (INSULIN 70/30 SC) 11-23 21:57: 17 Yes 45% inject 45 % under the skin 2 (two) times daily. [facility] insulin NPH hum/reg insulin hm (INSULIN 70/30 SC) 11-23 21:57: 17 Yes 45% inject 45 % under the skin 2 (two) times daily. [facility] insulin NPH hum/reg insulin hm (INSULIN 70/30 SC) 11-23 21:57: 17 Yes 45% inject 45 % under the skin 2 (two) times daily. [facility] insulin NPH hum/reg insulin hm (INSULIN 70/30 SC) 11-23 21:57: 17 Yes 45% inject 45 % under the skin 2 (two) times daily. [facility] insulin NPH hum/reg insulin hm (INSULIN 70/30 SC) 11-23 21:57: 17 Yes 45% inject 45 % under the skin 2 (two) times daily. [facility] insulin NPH hum/reg insulin hm (INSULIN 70/30 SC) 11-23 21:57: 17 Yes 45% inject 45 % under the skin 2 (two) times daily. [facility] morpHINE injection 2 mg 11-23 21:30: 00 11-23 20:22 :00 No 2mg 2 mg, Slow IV Push, ONCE, 1 dose, Nila 11/24/19 at 1630, Routine [facility] NIFEdipine ER (AFEDITAB CR) tablet 90 mg 11-23 14:00: 00 Yes 90mg 90 mg, Oral, DAILY, First dose on Nila 11/24/19 at 0900, Until Discontinu ed, Routine [facility] furosemide (LASIX) injection 80 mg 11-23 14:00: 00 Yes 80mg 80 mg, Slow IV Push, DAILY, First dose on Nila 11/24/19 at 0900, Until Discontinu ed, Routine [facility] furosemide 40 mg tablet 11-23 00:00: 12-24 04:59 :00 No [id number] 80mg Take 2 tablets by mouth daily for 30 days. [facility] furosemide 40 mg tablet 11-23 00:00: 12-24 04:59 :00 No [id number] 80mg Take 2 tablets by mouth daily for 30 days. [facility] furosemide 40 mg tablet 11-23 00:00: 12-24 04:59 :00 No [id number] 80mg Take 2 tablets by mouth daily for 30 days. [facility] furosemide 40 mg tablet 11-23 00:00: 12-24 04:59 :00 No [id number] 80mg Take 2 tablets by mouth daily for 30 days. [facility] furosemide 40 mg tablet 11-23 00:00: 12-24 04:59 :00 No [id number] 80mg Take 2 tablets by mouth daily for 30 days. [facility] furosemide 40 mg tablet 0 7 00:00: 12-24 04:59 :00 No [id number] 80mg Take 2 tablets by mouth daily for 30 days. [facility] furosemide 40 mg tablet 0 11-23 00:00: 12-24 04:59 :00 No [id number] 80mg Take 2 tablets by mouth daily for 30 days. [facility] furosemide 40 mg tablet 0 11-23 00:00: 12-24 04:59 :00 No [id number] 80mg Take 2 tablets by mouth daily for 30 days. [facility] furosemide 40 mg tablet 0 11-23 00:00: 12-24 04:59 :00 No [id number] 80mg Take 2 tablets by mouth daily for 30 days. [facility] f[facility]ide [facility] mg tablet 0 11-23 00:00: 12-24 04:59 :00 No [id number] 80mg Take 2 tablets by mouth daily for 30 days. [facility] furosemide 40 mg tablet 0 11-23 00:00: 12-24 04:59 :00 No [id number] 80mg Take 2 tablets by mouth daily for 30 days. [facility] furosemide 40 mg tablet 0 11-23 00:00: 12-24 04:59 :00 No [id number] 80mg Take 2 tablets by mouth daily for 30 days. [facility] furosemide 40 mg tablet 0 11-23 00:00: 12-24 04:59 :00 No [id number] 80mg Take 2 tablets by mouth daily for 30 days. [facility] furosemide 40 mg tablet 0 30 00:00: 12-24 04:59 :00 No [id number] 80mg Take 2 tablets by mouth daily for 30 days. [facility] furosemide 40 mg tablet 0 30 00:00: 12-24 04:59 :00 No [id number] 80mg Take 2 tablets by mouth daily for 30 days. [facility] furosemide 40 mg tablet 11-23 00:00: 12-24 04:59 :00 No [id number] 80mg Take 2 tablets by mouth daily for 30 days. [facility] furosemide 40 mg tablet 11-23 00:00: 12-24 04:59 :00 No [id number] 80mg Take 2 tablets by mouth daily for 30 days. [facility] furosemide 40 mg tablet 11-23 00:00: 12-24 04:59 :00 No [id number] 80mg Take 2 tablets by mouth daily for 30 days. [facility] furosemide 40 mg tablet 11-23 00:00: 12-24 04:59 :00 No [id number] 80mg Take 2 tablets by mouth daily for 30 days. [facility] furosemide 40 mg tablet 11-23 00:00: 12-24 04:59 :00 No [id number] 80mg Take 2 tablets by mouth daily for 30 days. [facility] vancomycin 1,000 mg injection 11-23 00:00: 12-04 04:59 :00 No [id number] 1000mg Infuse 1,000 mg every 24 (twenty-fo ur) hours for 10 doses. [facility] vancomycin 1,000 mg injection 11-23 00:00: 12-04 04:59 :00 No [id number] 1000mg Infuse 1,000 mg every 24 (twenty-fo ur) hours for 10 doses. [facility] vancomycin 1,000 mg injection 11-23 00:00: 12-04 04:59 :00 No [id number] 1000mg Infuse 1,000 mg every 24 (twenty-fo ur) hours for 10 doses. [facility] vancomycin 1,000 mg injection 11-23 00:00: 12-04 04:59 :00 No [id number] 1000mg Infuse 1,000 mg every 24 (twenty-fo ur) hours for 10 doses. [facility] vancomycin 1,000 mg injection 11-23 00:00: 12-04 04:59 :00 No [id number] 1000mg Infuse 1,000 mg every 24 (twenty-fo ur) hours for 10 doses. [facility] vancomycin 1,000 mg injection 11-23 00:00: 12-04 04:59 :00 No [id number] 1000mg Infuse 1,000 mg every 24 (twenty-fo ur) hours for 10 doses. [facility] vancomycin 1,000 mg injection 11-23 00:00: 12-04 04:59 :00 No [id number] 1000mg Infuse 1,000 mg every 24 (twenty-fo ur) hours for 10 doses. [facility] amoxicillin -pot clavulanate 500 mg (AUGMENTIN) 500-125 mg tablet 11-23 00:00: 11-29 04:59 :00 No [id number] 500mg Take 1 tablet by mouth daily for 5 days. [facility] amoxicillin -pot clavulanate 500 mg (AUGMENTIN) 500-125 mg tablet 11-23 00:00: 11-29 04:59 :00 No [id number] 500mg Take 1 tablet by mouth daily for 5 days. [facility] amoxicillin -pot clavulanate 500 mg (AUGMENTIN) 500-125 mg tablet 11-23 00:00: 11-29 04:59 :00 No [id number] 500mg Take 1 tablet by mouth daily for 5 days. [facility] amoxicillin -pot clavulanate 500 mg (AUGMENTIN) 500-125 mg tablet 11-23 00:00: 11-29 04:59 :00 No [id number] 500mg Take 1 tablet by mouth daily for 5 days. [facility] piperacilli n-tazobacta m (ZOSYN) 2.25 g in NaCl 0.9% (NS) 100 mL MINI-BAG 11-22 21:26: 00 Yes 2.25g 2.25 g, IV Piggyback, Q12H ABX, First dose on Thu11/23/19 at 1630, Until Discontinu ed, 100 mL
Reas on for Anti-Infec tive: Empiric Therapy for Suspected Infection< br>Empiric Therapy Site: Urine
D uration of therapy: 7 days [facility] heparin (PF) 1,000 unit/mL injection 3,900 Units 11-22 16:15: 00 11-22 16:42 :00 No [id number] 3,900 Units, Slow IV Push, DIALYSIS ONCE - PT ROOM, 1 dose, Thu11/23/19 at 1115, Routine [facility] heparin (PF) 1,000 unit/mL injection 1,500 Units 11-22 15:00: 00 11-22 15:45 :00 No 1500U 1,500 Units, Slow IV Push, DIALYSIS ONCE - PT ROOM, 1 dose, Thu11/23/19 at 1015, Routine [facility] calcitrioL (ROCALTROL) capsule 0.5 mcg 11-22 14:00: 00 Yes .5ug 0.5 mcg, Oral, Q OTHERDAY, First dose on Thu11/23/19 at 0900, Until Discontinu ed, Routine [facility] lisinopril (PRINIVIL,Z ESTRIL) tablet 20 mg 11-22 14:00: 00 Yes 20mg 20 mg, Oral, DAILY, First dose on Thu11/23/19 at 0900, Until Discontinu ed, Routine [facility] NIFEdipine ER (AFEDITAB CR) tablet 60 mg 11-22 14:00: 00 11-23 13:21 :28 No 60mg 60 mg, Oral, DAILY, First dose on Thu11/23/19 at 0900, Until Discontinu ed, Routine [facility] acetaminoph en (TYLENOL) tablet 650 mg 11-22 02:44: 19 Yes 650mg 650 mg, Oral, Q6HPRN, Starting Thu11/22/19 at 2144, Until Discontinu ed, Routine, Pain (scale 1-3) [facility] NIFEdipine ER (AFEDITAB CR) tablet 30 mg 11-21 18:15: 00 11-21 17:33 :00 No 30mg 30 mg, Oral, ONCE, 1 dose, Thu11/22/19 at 1315, Routine [facility] labetalol (NORMODYNE) injection 10 mg 11-21 18:15: 00 11-21 17:33 :00 No 10mg 10 mg, Slow IV Push, ONCE, 1 dose, Thu11/22/19 at 1315, Routine [facility] heparin (PF) 1,000 unit/mL injection 4,000 Units 11-21 16:30: 00 11-21 16:11 :00 No 4000U 4,000 Units, Slow IV Push, DIALYSIS ONCE - YANET DSU, 1 dose, Thu11/22/19 at 1130, Routine [facility] hydralAZINE (APRESOLINE ) injection 10 mg 11-21 13:40: 37 Yes 10mg 10 mg, Intravenou s, PRN - SEE INSTRUCTIO NS, Starting Thu11/22/19 at 0840, Until Discontinu ed, Routine, Hypertensi ve emergency, Hypertensi on, Q4h for SBP>160 or DBP>100 [facility] heparin 1,000 unit/mL 10,000 Units in NaCl 0.9% (NS) 100 mL 11-20 17:00: 00 11-20 18:30 :00 No [id number] 10,000 Units, Intravenou s, ONCE, 1 dose, Thu11/21/19 at 1200, Routine [facility] NaCl 0.9% (NS) injection 10 mL 11-20 12:07: 30 Yes 10mL 10 mL, Slow IV Push, PRN, Starting Thu11/21/19 at 0707, Until Discontinu ed, Routine, line maintenanc e [facility] sodium bicarbonate 75 mEq IV Solution 11-20 12:00: 00 11-21 20:25 :01 No 75meq IV Infusion, CONTINUOUS , Starting Thu11/21/19 at 0700, Until Thu11/22/19 at 1525, 1,000 mL [facility] NIFEdipine ER (AFEDITAB CR) tablet 60 mg 11-19 14:00: 00 11-21 17:13 :54 No 60mg 60 mg, Oral, DAILY, First dose on Thu11/20/19 at 0900, Until Discontinu ed, Routine [facility] sodium bicarbonate 75 mEq IV Solution 11-18 18:00: 00 11-19 16:11 :14 No 75meq IV Infusion, CONTINUOUS , Starting 11/19/19 at 1300, Until Thu11/20/19 at 1111, 1,000 mL [facility] insulin regular human (HUMULIN R) injection 10 Units 11-18 14:15: 00 11-18 13:41 :00 No 10U 10 Units, IV Push, ONCE, 1 dose, 11/19/19 at 0915, Routine [facility] sodium polystyrene sulfonate (KAYEXALATE ) 15 gram/60 mL suspension 15 g 11-18 14:15: 00 11-18 13:37 :00 No 15g 15 g, Oral, ONCE, 1 dose, 11/19/19 at 0915, Routine [facility] dextrose 50 % in water (D50W) injection 50 mL 11-18 14:15: 00 11-18 13:44 :00 No 50mL 50 mL, Slow IV Push, ONCE, 1 dose, 11/19/19 at 0915, Routine [facility] HYDROmorpho ne (DILAUDID) injection 0.2 mg 11-17 23:13: 23 11-17 23:59 :52 No .2mg 0.2 mg, Slow IV Push, Q5MIN PRN, 10 doses, Starting Thu11/18/19 at 1813, Until Thu11/18/19 at 1859, Routine, Pain (scale 7-10), PACU
Us e approved by (Faculty): PACU USE -ANESTHESI A SERVICE-HY DROMORPHON E INJECTIONS [facility] lactated ringers IV infusion 1,000 mL 11-17 23:00: 00 11-18 13:06 :50 No 1000mL at 75 mL/hr, 1,000 mL, IV Infusion, CONTINUOUS , Starting Thu11/18/19 at 1800, Until 11/19/19 at 0806, Routine, PACU [facility] NaCl 0.9% (NS) IV infusion 1,000 mL 11-17 20:00: 00 11-18 16:43 :41 No 1000mL at 70 mL/hr, IV Infusion, CONTINUOUS , Starting Thu11/18/19 at 1500, Until Thu11/19/19 at 1143, Routine [facility] NIFEdipine ER (AFEDITAB CR) tablet 30 mg 11-17 20:00: 00 11-18 16:43 :41 No 30mg 30 mg, Oral, DAILY, First dose on Thu11/18/19 at 1500, Until Discontinu ed, Routine [facility] heparin (porcine) injection 5,000 Units 11-17 13:00: 00 Yes 5000U 5,000 Units, Subcutaneo us, Q12H, First dose on Thu11/18/19 at 0800, Until Discontinu ed, Routine [facility] Sliding Scale Insulin-Reg ular + Fsbg Testing 11-17 12:30: 00 Yes Subcutaneo us, AC+HS, First dose on Thu11/18/19 at 0730, Until Discontinu ed, Routine [facility] piperacilli n-tazobacta m (ZOSYN) 3.375 g in NaCl 0.9% (NS) 100 mL MINI-BAG 11-17 09:30: 00 11-22 12:31 :31 No 3.375g 3.375 g, IV Piggyback, Q6H ABX, First dose on Thu11/18/19 at 0430, Until Discontinu ed, 100 mL
Reas on for Anti-Infec tive: Empiric Therapy for Suspected Infection< br>Empiric Therapy Site: Urine
D uration of therapy: 7 days [facility] NaCl 0.9% (NS) IV infusion 1,000 mL 11-17 08:00: 00 11-17 19:51 :13 No 1000mL at 100 mL/hr, IV Infusion, CONTINUOUS , Starting Thu11/18/19 at 0300, Until Thu11/18/19 at 1451, Routine [facility] glucagon (GLUCAGEN DIAGNOSTIC KIT) injection 1 mg 11-17 07:51: 32 Yes 1mg 1 mg, Intramuscu lar, PRN, Starting Thu11/18/19 at 025, Until Discontinu ed, SUAD, Blood Glucose < or = 70 mg/dL and patient is unable to swallow or has mental changes. [facility] dextrose 50 % in water (D50W) injection 25 mL 11-17 07:51: 32 Yes 25mL 25 mL, Slow IV Push, PRN, Starting Thu11/18/19 at 0251, Until Discontinu ed, SUAD, Blood Glucose < or = 70 mg/dL and patient is unable to swallow or has mental status changes. [facility] ondansetron (ZOFRAN (PF)) injection 4 mg 11-17 07:51: 25 Yes 4mg 4 mg, Slow IV Push, Q6HPRN, Starting Thu11/18/19 at 250, Until Discontinu ed, Routine, Nausea and Vomiting (N/V) [facility] dextrose 50 % in water (D50W) injection 25 mL 11-17 07:15: 00 11-17 06:02 :00 No 25mL 25 mL, Intravenou s, ONCE, 1 dose, Thu11/18/19 at 0215, STAT [facility] vancomycin (VANCOCIN) 1,000 mg in NaCl 0.9% (NS) 250 mL VIAL-MATE IV piggyback 11-17 06:30: 00 11-17 07:30 :00 No 1000mg 1,000 mg, IV Piggyback, ONCE, 1 dose, Thu11/18/19 at 0130, 250 mL
Reas on for Anti-Infec tive: Documented Infection< br>Documen sascha Infection Site: Skin / Soft Tissue
Duration of Therapy: Other (see Comments) [facility] Immunizations Ordered Immunization Name Filled Immunization Name Date Status Comments Source Influenza Virus Vaccine [facility] Influ[facility] Virus Vaccine [facility] Influenza Virus Vaccine Unknown [facility] Vital Signs Vital Name Observation Time Observation Value Comments S ource Systolic blood pressure 2023-05-27 20:00:00 156 mm[Hg] [facility] Diastolic blood pressure 2023-05-27 20:00:00 68 mm[Hg] [facility] Heart rate 2023-05-27 20:00:00 71 /min [facility] Respiratory rate 2023-05-27 20:00:00 19 /min [facility] Oxygen saturation in Arterial blood by Pulse oximetry 2023-05-27 20:00:00 98 /min [facility] Body temperature 2023-05-27 16:20:51 36.44 [facility] Body height 2023-05-27 10:50:00 167.6 cm [facility] Body weight 2023-05-27 10:50:00 130 kg [facility] BMI 2023-05-27 10:50:00 46.26 kg/m2 [facility] Systolic blood pressure 2023-05-21 16:12:00 129 mm[Hg] [facility] Diastolic blood pressure 2023-05-21 16:12:00 57 mm[Hg] [facility] Heart rate 2023-05-21 16:12:00 65 /min [facility] Body temperature 2023-05-21 16:12:00 36.67 [facility] Body height 2023-05-21 16:12:00 167.6 cm [facility] Body weight 2023-05-21 16:12:00 131.997 kg [facility] BMI 2023-05-21 16:12:00 46.97 kg/m2 [facility] Oxygen saturation in Arterial blood by Pulse oximetry 2023-05-21 16:12:00 95 /min [facility] Systolic blood pressure 2023-05-12 17:32:00 150 mm[Hg] [facility] Diastolic blood pressure 2023-05-12 17:32:00 68 mm[Hg] [facility] Heart rate 2023-05-12 17:32:00 64 /min [facility] Body temperature 2023-05-12 17:32:00 36.11 [facility] Respiratory rate 2023-05-12 17:32:00 18 /min [facility] Oxygen saturation in Arterial blood by Pulse oximetry 2023-05-12 17:32:00 97 /min [facility] Body weight 2023-05-12 10:14:00 136.76 kg [facility] BMI 2023-05-12 10:14:00 48.66 kg/m2 [facility] Body height 2023-05-07 01:39:00 167.6 cm [facility] Systolic blood pressure 2019-11-24 16:04:00 156 mm[Hg] [facility] Diastolic blood pressure 2019-11-24 16:04:00 86 mm[Hg] [facility] Heart rate 2019-11-24 16:04:00 81 /min [facility] Body temperature 2019-11-24 16:04:00 36.44 [facility] Respiratory rate 2019-11-24 16:04:00 18 /min [facility] Oxygen saturation in Arterial blood by Pulse oximetry 2019-11-24 16:04:00 97 /min [facility] Body weight 2019-11-24 09:04:00 139.98 kg [facility] BMI 2019-11-24 09:04:00 49.81 kg/m2 [facility] Body height 2019-11-18 09:27:00 167.6 cm [facility] Procedures Procedure Date / Time Performed Performing Clinician Source TRANSFUSE PACKED RBC 2023-05-27 16:05:00 [facility] PREPARE PACKED RBC 2023-05-27 15:47:41 [facility] ABORH CONFIRMATION (LAB ONLY) 2023-05-27 14:42:00 [facility] US PELVIS COMPLETE WITH TRANSVAGINAL 2023-05-27 14:32:23 [facility] XR CHEST 1 VW 2023-05-27 12:41:39 Nomi Canales [facility] COMP. METABOLIC PANEL (11523) 2023-05-27 11:54:00 [facility] CBC WITH DIFF 2023-05-27 11:54:00 Nomi Canales [facility] PROTHROMBIN TIME / INR 2023-05-27 11:54:00 [facility] ACTIVATED PARTIAL THRMPLAS CARLOS 2023-05-27 11:54:00 Nomi [facility] HB ABO GROUPING 2023-05-27 11:54:00 Nomi Canales [facility] NOTICE OF PRIVACY PRACTICES 2023-05-27 10:37:48 Doctor Unassigned, [facility] CONSENT/REFUSAL FOR DIAGNOSIS AND TREATMENT 2023-05-27 10:36:28 Doctor Unassigned, [facility] CRITICAL CARE 2023-05-27 10:35:00 Evangelist Xie [facility] POCT GLUCOSE (AUTOMATED) 2023-05-12 17:30:00 [facility] POCT GLUCOSE (AUTOMATED) 2023-05-12 13:33:00 [facility] POCT GLUCOSE (AUTOMATED) 2023-05-12 02:27:00 [facility] POCT GLUCOSE (AUTOMATED) 2023-05-11 22:43:00 Sandra [facility] POCT GLUCOSE (AUTOMATED) 2023-05-11 17:45:00 Sandra [facility] POCT GLUCOSE (AUTOMATED) 2023-05-11 13:33:00 Sandra [facility] PHOSPHORUS 2023-05-11 09:15:00 Chika Cueto [facility] MAGNESIUM 2023-05-11 09:15:00 Chika Cueto [facility] BASIC METABOLIC PANEL (NA, K, CL, CO2, GLUCOSE, BUN, CREATININE, CA) 2023-05-11 09:15:00 [facility] CBC WITH DIFF 2023-05-11 09:15:00 Chika Cueto [facility] POCT GLUCOSE (AUTOMATED) 2023-05-11 03:11:00 [facility] POCT GLUCOSE (AUTOMATED) 2023-05-10 22:44:00 [facility] POCT GLUCOSE (AUTOMATED) 2023-05-10 17:41:00 [facility] BASIC METABOLIC PANEL (NA, K, CL, CO2, GLUCOSE, BUN, CREATININE, CA) 2023-05-10 16:03:00 [facility] 2023-05-10 13:29:00 [facility] PHOSPHORUS 2023-05-10 10:54:00 Chika Cueto [facility] MAGNESIUM 2023-05-10 10:54:00 Chika Cueto [facility] BASIC METABOLIC PANEL (NA, K, CL, CO2, GLUCOSE, BUN, CREATININE, CA) 2023-05-10 10:54:00 [facility]) 2023-05-10 03:12:00 Sandra Cueto [facility] POCT GLUCOSE (AUTOMATED) 2023-05-09 22:28:00 [facility] PO[facility]UCOSE (AUTOMATED) 2023-05-09 17:54:00 [facility] XR CHEST 1 VW 2023-05-09 17:12:23 Chika Cueto [facility] POCT GLUCOSE (AUTOMATED) 2023-05-09 13:27:00 [facility] PHOSPHORUS 2023-05-09 09:56:00 Chika Cueto [facility] MAGNESIUM 2023-05-09 09:56:00 Chika Cueto [facility] BASIC METABOLIC PANEL (NA, K, CL, CO2, GLUCOSE, BUN, CREATININE, CA) 2023-05-09 09:56:00 [facility] CBC WITHOUT DIFF 2023-05-09 09:56:00 [facility] 2023-05-09 02:15:00 [facility] MRSA / MSSA SCREEN BY PCR, MADDIE 2023-05-09 00:41:00 [facility] POCT GLUCOSE (AUTOMATED) 2023-05-09 00:30:00 [facility] HEPATITIS B SURFACE ANTIBODY 2023-05-08 20:44:00 [facility] POCT GLUCOSE (AUTOMATED) 2023-05-08 17:13:00 [facility] XR CHEST 1 VW 2023-05-08 14:07:53 [facility] TRANSTHORACIC ECHO (TTE) COMPLETE 2023-05-08 13:52:00 [facility] POCT GLUCOSE (AUTOMATED) 2023-05-08 13:43:00 [facility] LDH TOTAL BODY FLUID 2023-05-08 12:50:00 Jensen [facility] T.PROTEIN BODY FLUID 2023-05-08 12:50:00 Jensen [facility] BODY FLUID DIRECT COUNT 2023-05-08 12:50:00 [facility] BODY FLUID CULTURE(AEROBIC/ANAEROBIC) 2023-05-08 12:50:00 Jensen [facility] PHOSPHORUS 2023-05-08 09:51:00 Chika Cueto [facility] MAGNESIUM 2023-05-08 09:51:00 Chika Cueto [facility] BASIC METABOLIC PANEL (NA, K, CL, CO2, GLUCOSE, BUN, CREATININE, CA) 2023-05-08 09:51:00 [facility] CBC WITH DIFF 2023-05-08 09:51:00 Chika Cueto [facility] POCT GLUCOSE (AUTOMATED) 2023-05-08 09:49:00 [facility] POCT GLUCOSE (AUTOMATED) 2023-05-08 02:42:00 [facility] POCT GLUCOSE (AUTOMATED) 2023-05-07 22:19:00 [facility] POCT GLUCOSE (AUTOMATED) 2023-05-07 17:32:00 [facility] POCT GLUCOSE (AUTOMATED) 2023-05-07 13:30:00 [facility] COVID-19 (ID NOW RAPID TESTING) 2023-05-07 10:09:00 Abena [facility] LAB ONLY COVID INTERPRETATION 2023-05-07 10:09:00 Abena [facility] MAGNESIUM 2023-05-07 10:08:00 Chika Cueto [facility] BASIC METABOLIC PANEL (NA, K, CL, CO2, GLUCOSE, BUN, CREATININE, CA) 2023-05-07 10:08:00 [facility] CBC WITH DIFF 2023-05-07 10:08:00 Chika Cueto [facility] HEPATITIS B SURFACE ANTIGEN 2023-05-07 10:08:00 [facility] GLYCOSYLATED HEMOGLOBIN (A1C) 2023-05-07 04:30:00 Abena [facility] BLOOD CULTURE SCREEN 2023-05-06 23:09:00 Singer [facility] URINE CULTURE 2023-05-06 23:09:00 Gumaro Wise [facility] URINALYSIS 2023-05-06 20:06:00 [facility] XR CHEST 1 VW 2023-05-06 19:26:12 Singer [facility] HB ECG ROUTINE & RHYTHM STRIP 2023-05-06 19:12:43 G[facility] PHOSPHORUS 2023-05-06 19:01:00 Chika Cueto [facility] TROPONIN I 2023-05-06 19:01:00 Gumaro Wise [facility] COMP. METABOLIC PANEL ([id number]) 2023-05-06 19:01:00 Wise, [facility] CBC WITH DIFF 2023-05-06 19:01:00 Wise, [facility] N-TERMINAL PRO-BNP 2023-05-06 19:01:00 Singer [facility] EKG-12 LEAD 2023-05-06 18:37:34 Wise, [facility] CONSENT/REFUSAL FOR DIAGNOSIS AND TREATMENT 2023-05-06 18:27:09 Doctor Unassigned, [facility] DISCLOSURE AND CONSENT, MEDICAL AND SURGICAL PROCEDURES 2023-05-06 06:01:00 Doctor Unassigned, [facility] POCT GLUCOSE (AUTOMATED) 2019-11-24 17:55:00 Abena [facility] POCT GLUCOSE (AUTOMATED) 2019-11-24 12:32:00 Abena [facility] BASIC METABOLIC PANEL (NA, K, CL, CO2, GLUCOSE, BUN, CREATININE, CA) 2019-11-24 09:30:00 [facility] CBC WITH DIFF 2019-11-24 09:30:00 [facility] POCT GLUCOSE (AUTOMATED) 2019-11-24 00:28:00 Abena [facility] POCT GLUCOSE (AUTOMATED) 2019-11-23 20:38:00 Abena [facility] POCT GLUCOSE (AUTOMATED) 2019-11-23 16:05:00 Abena [facility] POCT GLUCOSE (AUTOMATED) 2019-11-23 12:39:00 Abena [facility] PHOSPHORUS 2019-11-23 09:35:00 Nicolas Syed [facility] BASIC METABOLIC PANEL (NA, K, CL, CO2, GLUCOSE, BUN, CREATININE, CA) 2019-11-23 09:35:00 [facility] POCT GLUCOSE (AUTOMATED) 2019-11-23 01:42:00 Abena [facility] POCT GLUCOSE (AUTOMATED) 2019-11-22 20:45:00 Edionwe, [facility] POCT GLUCOSE (AUTOMATED) 2019-11-22 17:08:00 Abena [facility] POCT GLUCOSE (AUTOMATED) 2019-11-22 12:39:00 Abena [facility] POCT GLUCOSE (AUTOMATED) 2019-11-22 01:00:00 Abena [facility] POCT GLUCOSE (AUTOMATED) 2019-11-21 20:40:00 Abena [facility] XR CHEST 1 VW 2019-11-21 19:13:43 Debby Nielsen [facility] FL TIME OR (NON-REPORTABLE) 2019-11-21 18:42:13 [facility] CENTRAL VENOUS ACCESS CATHETER PLACEMENT 2019-11-21 17:18:00 [facility] POCT GLUCOSE (AUTOMATED) 2019-11-21 12:10:00 Abena [facility] BASIC METABOLIC PANEL (NA, K, CL, CO2, GLUCOSE, BUN, CREATININE, CA) 2019-11-21 08:10:00 Abena [facility] CBC WITH DIFF 2019-11-21 08:10:00 [facility] ([facility]OMATED) 2019-11-21 01:40:00 [facility]LOSTR[facility] DIFFICILE TOXIN 2019-11-20 23:34:00 [facility] POCT GLUCOSE (AUTOMATED) 2019-11-20 16:09:00 Abena [facility] POCT GLUCOSE (AUTOMATED) 2019-11-20 12:17:00 [facility] COMP. METABOLIC PANEL (33606) 2019-11-20 08:37:00 [facility] CBC WITH DIFF 2019-11-20 08:37:00 [facility] POCT GLUCOSE (AUTOMATED) 2019-11-20 04:09:00 Abena [facility] POCT GLUCOSE (AUTOMATED) 2019-11-20 00:02:00 Abena [facility] BASIC METABOLIC PANEL (NA, K, CL, CO2, GLUCOSE, BUN, CREATININE, CA) 2019-11-19 23:41:00 [facility] POCT GLUCOSE (AUTOMATED) 2019-11-19 21:16:00 Abena [facility] POCT GLUCOSE (AUTOMATED) 2019-11-19 15:49:00 Abena [facility] POCT GLUCOSE (AUTOMATED) 2019-11-19 13:10:00 Abena [facility] THYROID STIMULATING HORMONE 2019-11-19 11:19:00 [facility]OLIC PANEL (NA, K, CL, CO2, GLUCOSE, BUN, CREATININE, CA) 2019-11-19 11:19:00 Abena [facility] CBC WITH DIFF 2019-11-19 08:50:00 Abena [facility] HEPATITIS B SURFACE ANTIBODY 2019-11-19 08:50[facility]TIGEN 2019-11-19 08:50[facility]TIBODY 2019-11-19 08:50:00 [facility] HBC ANTIBODY (IGM & IGG) 2019-11-19 08:50:00 [facility] POCT GLUCOSE (AUTOMATED) 2019-11-19 00:30:00 [facility] FL TIME OR (NON-REPORTABLE) 2019-11-18 22:36:16 [facility] ASPIRATE OR ABSCESS CULTURE(AEROBIC/ANAEROBIC) 2019-11-18 21:48:24 [facility] FOOT AMPUTATION 2019-11-18 21:03:00 Varun [facility] POCT GLUCOSE (AUTOMATED) 2019-11-18 20:20:00 Abena [facility] US RETROPERITONEAL COMPLETE 2019-11-18 15:59:08 [facility] BILATERAL DUPLEX SCAN OF ARTERY BY VASCULAR LAB 2019-11-18 15:53:57 Varun Yanez [facility] POCT GLUCOSE (AUTOMATED) 2019-11-18 15:52:00 Abena [facility] CT FOOT RIGHT WO CONTRAST 2019-11-18 14:49:00 [facility] URINE CULTURE 2019-11-18 14:32:00 Jac [facility] PROTEIN CREAT RATIO URINE RANDOM 2019-11-18 14:32:00 [facility] CREATINE KINASE 2019-11-18 13:17:00 [facility] URIC ACID 2019-11-18 13:17:00 Nicolas Syed [facility] POCT GLUCOSE (AUTOMATED) 2019-11-18 12:28:00 Abena [facility] CREATININE, URINE RANDOM 2019-11-18 12:05:00 Abena [facility] UREA NITROGEN, URINE RANDOM 2019-11-18 12:05:00 Abena [facility] POTASSIUM, URINE RANDOM 2019-11-18 12:05:00 [facility] SODI[facility], URINE RANDOM 2019-11-18 12:05:00 Abena [facility] CHLORIDE, URINE RANDOM 2019-11-18 12:05:00 Me Abena [facility] POCT GLUCOSE (AUTOMATED) 2019-11-18 10:35:00 Abena [facility] INTACT PTH CALCIUM GROUP 2019-11-18 08:49:00 Abena [facility] URINALYSIS 2019-11-18 06:56:00 Doris [facility] POCT GLUCOSE (AUTOMATED) 2019-11-18 06:33:00 [facility] POCT GLUCOSE (AUTOMATED) 2019-11-18 05:55:00 [facility] POCT GLUCOSE (AUTOMATED) 2019-11-18 05:35:00 [facility] BLOOD CULTURE SCREEN 2019-11-18 05:32:00 [facility] COVID-19 (ID NOW RAPID TESTING) 2019-11-18 05:31:00 [facility] LACTIC ACID WHOLE BLOOD 2019-11-18 05:30:00 [facility] BLOOD CULTURE SCREEN 2019-11-18 05:29:00 [facility] XR FOOT <3 VW RIGHT 2019-11-18 04:47:52 [facility] COMP. METABOLIC PANEL (21077) 2019-11-18 04:28:00 [facility] CBC WITH DIFF 2019-11-18 04:28:00 [facility] GLYCOSYLATED HEMOGLOBIN (A1C) 2019-11-18 04:28:00 [facility] NOTICE OF PRIVACY PRACTICES 2019-11-18 03:19:44 Doctor Unassigned, [facility] CONSENT/REFUSAL FOR DIAGNOSIS AND TREATMENT 2019-11-18 03:19:18 Doctor Unassigned, [facility] Encounters Start Date/Time End Date/Time Encounter Type Admission Type Attending [facility] Facility Care Department Encounter ID Source 2023-06-15 13:00:00 2023-06-15 13:00:00 Outpatient FRANK GROVE [facility] [id number] [facility] 2023-05-27 04:56:00 2023-05-27 14:28:00 Emergency EVANGELIST ESTEVEZ [facility] ERT [id number] [facility] 2023-05-27 04:56:00 2023-05-27 14:28:00 Emergency Nomi Canales Robert Lee [facility] [id number] 350.1.13.10 4.2.7.2.686 [id number] [facility] 2023-05-21 10:00:00 2023-05-21 10:38:13 Outpatient R LIZETTE GOETZ [facility] [id number] [facility] 2023-05-21 10:00:00 2023-05-21 10:38:13 Office Visit Lizette Goetz [facility] 1.2840.114 350.1.13.10 4.2.7.2.686 [id number] [facility] 2023-05-14 00:00:00 2023-05-14 00:00:00 Transition of Care Zbigniew Abreuele Janny CRUZ 1.284.114 350.1.13.10 4.2.7.2.686 [id number] [facility] 2023-05-06 12:33:00 2023-05-12 13:30:00 Inpatient X JAVIERGISSEL CHIKA [facility] [id number] [facility] 2023-05-06 12:33:00 2023-05-12 13:30:00 [facility]..114 350.1.13.10 4.2.7.2.686 [id number] [facility] 2020-01-30 00:00:00 2020-01-30 00:00:00 Patient Outreach Georgette Mckeon 1.284.114 350.1.13.10 4.2.7.2.686 [id number] 403 [id number] [facility] 2019-12-26 00:00:00 2019-12-26 00:00:00 Patient Outreach Georgette Mckeon 1.284.114 350.1.13.10 4.2.7.2.686 [id number] [facility] 2019-12-23 00:00:00 2019-12-23 00:00:00 Letter (Out) Georgette Mckeon 1.2.840.114 350.1.13.10 4.2.7.2.686 [id number] 403 [id number] [facility] 2019-12-23 00:00:00 2019-12-23 00:00:00 Patient Outreach Evangelist Velazquez 1.2.840.114 350.1.13.10 4.2.7.2.686 [id number] [facility] 2019-12-22 00:00:00 2019-12-22 00:00:00 Patient Outreach Georgette Mckeon 1.2.840.114 350.1.13.10 4.2.7.2.686 [id number] 403 [id number] [facility] 2019-12-20 00:00:00 2019-12-20 00:00:00 Patient Outreach Georgette Mckeon 1.2.840.114 350.1.13.10 4.2.7.2.686 [id number] [facility] 2019-12-19 00:00:00 2019-12-19 00:00:00 Patient Outreach Evangelist Velazquez 1.2.840.114 350.1.13.10 4.2.7.2.686 [id number] [facility] 2019-12-16 00:00:00 2019-12-16 00:00:00 Patient Outreach Evangelist Velazquez 1.2.840.114 350.1.13.10 4.2.7.2.686 [id number] 403 [id number] [facility] 2019-12-16 00:00:00 2019-12-16 00:00:00 Patient Outreach Georgette Mckeon 1.2.840.114 350.1.13.10 4.2.7.2.686 [id number] [facility] 2019-12-15 00:00:00 2019-12-15 00:00:00 Patient Outreach Evangelist Velazquez 1.2.840.114 350.1.13.10 4.2.7.2.686 [id number] 403 [id number] [facility] 2019-12-14 00:00:00 2019-12-14 00:00:00 Patient Outreach Georgette Mckeon 1.2.840.114 350.1.13.10 4.2.7.2.686 [id number] 403 [id number] [facility] 2019-12-14 00:00:00 2019-12-14 00:00:00 Patient Outreach Evangelist Velazquez 1.2.840.114 350.1.13.10 4.2.7.2.686 [id number] [facility] 2019-12-14 00:00:00 2019-12-14 00:00:00 Patient Outreach Georgette Mckeon 1.2.840.114 350.1.13.10 4.2.7.2.686 [id number] [facility] 2019-12-12 00:00:00 2019-12-12 00:00:00 Patient Outreach Georgette Mckeon 1.2.840.114 350.1.13.10 4.2.7.2.686 [id number] [facility] 2019-12-05 00:00:00 2019-12-05 00:00:00 Patient Outreach Georgette Mckeon 1.2.840.114 350.1.13.10 4.2.7.2.686 [id number] 403 [id number] 2019-12-05 00:00:00 2019-12-05 00:00:00 Patient Outreach Georgette Mckeon 1.2.840.114 350.1.13.10 4.2.7.2.686 [id number] 403 [id number] [facility] 2019-12-01 00:00:00 2019-12-01 00:00:00 Patient Outreach Georgette Mckeon 1.2.840.114 350.1.13.10 4.2.7.2.686 [id number] 403 [id number] 2019-12-01 00:00:00 2019-12-01 00:00:00 Patient Outreach Georgette Mckeon 1.2.840.114 350.1.13.10 4.2.7.2.686 [id number] [facility] 2019-11-30 00:00:00 2019-11-30 00:00:00 Patient Outreach Georgette Mckeon 1.2.840.114 350.1.13.10 4.2.7.2.686 [id number] 403 [id number] 2019-11-30 00:00:00 2019-11-30 00:00:00 Patient Outreach Georgette Mckeon 1.2.840.114 350.1.13.10 4.2.7.2.686 [id number] 403 [id number] [facility] 2019-11-25 00:00:00 2019-11-25 00:00:00 Transition of Care Helen Zhang 1.2.840.114 350.1.13.10 4.2.7.2.686 [id number] 403 [id number] [facility] 2019-11-25 00:00:00 2019-11-25 00:00:00 Transition of Care Helen Zhang 1.2.840.114 350.1.13.10 4.2.7.2.686 [id number] 403 [id number] [facility] 2019-11-25 00:00:00 2019-11-25 00:00:00 Patient Outreach Elsy Banks Jeff Cruz 1.2.840.114 350.1.13.10 4.2.7.2.686 [id number] [facility] 2019-11-17 22:36:41 2019-11-24 16:56:00 Hospital Encounter Doris Joseph [facility] 1.2.840.114 350.1.13.10 4.2.7.2.686 [id number] [facility] 2019-11-17 22:17:00 2019-11-17 22:17:00 Emergency X [facility] ERT [id number] [facility] Results Test Description Test Time Test Comments Results Result Co mments Source [facility] Confirmation (Lab Only)2023-05-27 15:01:00* Test Item Value Reference Range Interpretation Comme nts ABO & RH (test code = 20) A Positive [facility] PELVIS COMPLETE WITH [id number] 14:46:29HISTORY: ?Vaginal bleeding. TECHNIQUE: Both transabdominal and transvaginal pelvic ultrasound studieswere completed by the technologist. FINDINGS: This examination is severely limited due to large body habitus ofthe patient. Uterus is poorly visualized even with endovaginal technique, appears to beslightly enlarged, measures approximately 8.5 x 4.4 x 4.5 cm in size withhomogeneous heterogeneous myometrial texture due to multiplecalcifications. Small nabothian cysts are seen in the cervix. Endometrial echo complex is8.2 mm. No free fluid in the cul-de-sac. Right ovary is 2.1 x 1.7 x 1.2 cm (2.41 ?ml) and left ovary is notvisualized. CONCLUSIONS: Very limited study with poor visualization of the uterus.Several calcifications within the myometrium including submucosal liningnoted obscuring the details of the endometrium. Endometrial stripe isthickened for the patient's age.[facility] Hospital[facility] CHE[facility] 1 [id number] 13:48:14EXAM: XR CHEST 1 VW COMPARISON: Chest radiograph on 05/09/2023. HISTORY: ESRD, evaluate for interstitial edema, etc. FINDINGS: Lungs: The left lung volume is decreased with chronic small to moderatepleural effusion. The right lung appears well-expanded and clear. Heart/Mediastinum: The cardiac silhouette appears enlarged accounting fortechnique and degree of inspiration. Moderate aortic arch calcificationsare present. Bones and soft tissues: No osseous abnormality is visualized.[facility]2024-01-31 10:35:00Evangelist Xie MD ? ? 05/27/2023 ?9:48 AMCritical Care Performed by: Evangelist Xie MDAuthorized by: Evangelist Xie MD ?Critical care provider statement: ?Critical care time (minutes): ?35?Critical care time was exclusive of: ?Separately billable procedures and treating other patients ?Critical care was necessary to treat or prevent imminent or life-threatening deterioration of the following conditions: ?Cardiac failure, shock and circulatory failure ?Critical care was time spent personally by me on the following activities: ?Development of treatment plan with patient or surrogate, evaluation of patient's response to treatment, examination of patient, obtaining history from patient or surrogate, ordering and performing treatments and interventions, ordering and review of laboratory studies, ordering and review of radiographic studies, pulse oximetry, re- evaluation of patient's condition and review of old charts ?I assumed direction of critical care for this patient from another provider in my specialty: yes ?Comments: ? Blood transfusion.[facility] GLUCOSE (AUTOMATED)2023-05-12 17:31:56* Test Item Value Reference Range Interpretation Comme nts POCT GLU (test code = 0387103581) 182 mg/dL 70-110 H Lab Interpretation (test cod e = 04543-7) Abnormal [facility] GLUCOSE (AUTOMATED)2023-05-12 13:34:32* Test Item Value Reference Range Interpretation Comme nts POCT GLU (test code = 8448298730) 144 mg/dL 70-110 H Lab Interpretation (test cod e = 40092-9) Abnormal [facility] GLUCOSE (AUTOMATED)2023-05-12 02:28:49* Test Item Value Reference Range Interpretation Comme nts POCT GLU (test code = 4762455869) 184 mg/dL 70-110 H Lab Interpretation (test cod e = 30765-7) [facility]normal [facility] C[facility]URE [id number] 00:01:10* Test Item Value Reference Range Interpretation Comme nts Blood Culture-Aerobic (test code = 17533-9) No organisms isolated No growth Previous preliminary verified result was Culture In Progress on 05/06/2023 at 2102 CSTPrevious preliminary verified result was No growth at 24 hours on 05/07/2023 at 1801 CSTPrevious preliminary verified result was No growth at 48 hours on 05/08/2023 at 1801 CSTPrevious preliminary verified result was No growth at 72 hours on 05/09/2023 at 1801 [employer] Lab Interpretation (test code = 58319-8) Normal [facility] CULTURE [id number] 00:01:10* Test Item Value Reference Range Interpretation Comme nts Blood Culture-Aerobic (test code = 22109-9) No organisms isolated No growth Previous preliminary verified result was Culture In Progress on 05/06/2023 at 2102 CSTPrevious preliminary verified result was No growth at 24 hours on 05/07/2023 at 1801 CSTPrevious preliminary verified result was No growth at 48 hours on 05/08/2023 at 1801 CSTPrevious preliminary verified result was No growth at 72 hours on 05/09/2023 at 1801 [employer] Lab Interpretation (test code = 04618-6) Normal [facility] GLUCOSE (AUTOMATED)2023-05-11 22:43:48* Test Item Value Reference Range Interpretation Comme nts POCT GLU (test code = 8713200689) 140 mg/dL 70-110 H Lab Interpretation (test cod e = 90870-6) Abnormal [facility] GLUCOSE (AUTOMATED)2023-05-11 17:46:45* Test Item Value Reference Range Interpretation Comme nts POCT GLU (test code = 0433355395) 134 mg/dL 70-110 H Lab Interpretation (test cod e = 75524-9) Abnormal [facility] GLUCOSE (AUTOMATED)2023-05-11 13:35:22* Test Item Value Reference Range Interpretation Comme nts POCT GLU (test code = 1480520675) 133 mg/dL 70-110 H Lab Interpretation (test cod e = 89299-4) Abnormal [facility] GLUCOSE (AUTOMATED)2023-05-11 03:14:45* Test Item Value Reference Range Interpretation Comme nts POCT GLU (test code = 0688677722) 179 mg/dL 70-110 H Lab Interpretation (test cod e = 92145-1) [facility] (AUT[facility]ATED)2023-05-10 22:46:00* Test Item Value Reference Range Interpretation Comme nts POCT GLU (test code = 6599829335) 174 mg/dL 70-110 H Lab Interpretation (test cod e = 88555-8) Abnormal [facility] GLUCOSE (AUTOMATED)2023-05-10 17:42:26* Test Item Value Reference Range Interpretation Comme nts POCT GLU (test code = 8282630034) 169 mg/dL 70-110 H Lab Interpretation (test cod e = 30937-3) Abnormal [facility] ([facility]ATED)2023-05-10 13:30:48* Test Item Value Reference Range Interpretation Comme nts POCT GLU (test code = 9325602113) 172 mg/dL 70-110 H Lab Interpretation (test cod e = 43642-5) Abnormal [facility] GLUCOSE (AUTOMATED)2023-05-10 03:14:11* Test Item Value Reference Range Interpretation Comme nts POCT GLU (test code = 9829309763) 144 mg/dL 70-110 H Lab Interpretation (test cod e = 50327-9) Abnormal [facility] GLUCOSE (AUTOMATED)2023-05-09 22:39:43* Test Item Value Reference Range Interpretation Comme nts POCT GLU (test code = 7017812896) 162 mg/dL 70-110 H Lab Interpretation (test cod e = 40360-3) Abnormal [facility] [facility] 17:55:46* Test Item Value Reference Range Interpretation Comme nts POCT GLU (test code = 4311201595) 172 mg/dL 70-110 H Lab Interpretation (test cod e = 98843-6) [facility] [id number] 17:22:01ORDERING PHYSICIAN: CHIKA CUETO HISTORY: Respiratory failure. COMPARISON: Portable chest x-ray from yesterday at 0758 hours. Technique: Portable AP view of the chest. FINDINGS:[facility] GLUCOSE (AUTOMATED) 2023-05-09 13:28:30* Test Item Value Reference Range Interpretation Comme nts POCT GLU (test code = 1444209798) 162 mg/dL 70-110 H Lab Interpretation (test cod e = 60296-6) Abnormal [facility] without [id number] 12:19:27* Test Item Value Reference Range Interpretation Comme nts WBC (test code = 6690-2) 10.31 See_Comment [Automated message] The system which generated this result transmitted reference range: 4.30 - 11.10 10*3/?L. The reference range was not used to interpret this result as normal/abnormal. RBC (test code = 789-8) 2.93 See_Comment L [Automated message] The system which generated this result transmitted reference range: 3.93 - 5.25 10*6/?L. The reference range was not used to interpret this result as normal/abnormal. HGB (test code = 718-7) 9.6 g/dL 11.6-15.0 L HCT (test code = 4544-3) 29.9 % 35.7-45.2 L MCH (test code = 785-6) 32.8 pg 25.9-32.8 MCV (test code = 787-2) 102.0 fL 80.6-95.5 H MCHC (test code = 786-4) 32.1 g/dL 31.6-35.1 PLT (test code = 777-3) 266 See_Comment [Automated message] The system which generated this result transmitted reference range: 166 - 358 10*3/?L. The reference range was not used to interpret this result as normal/abnormal. MPV (test code = 79369-6) 10.9 fL 9.5-12.9 RDW-CV (test code = 788-0) 13.0 % 12.0-15.5 RDW-SD (test code = 05578-9) 48.2 fL 39.0-49.9 NRBC x10^3 (test code = 2010343527) See_Comment [Automated messa ge] The system which generated this result transmitted reference range: 10*3/?L. The reference range was not used to interpret this result as normal/abnormal. NRBC/100 WBC (test code = 4017302362) 0.0 See_Comment [Automated messa ge] The system which generated this result transmitted reference range: 0.0 - 10.0 /100 WBCs. The reference range was not used to interpret this result as normal/abnormal. IPF % (test code = 5125675051) Lab Interpretation (test code = 77954-5) [facility] 11:52:40* Test Item Value Reference Range Interpretation Comme nts MAGNESIUM (test code = 2723178197) 2.2 mg/dL 1.7-2.4 Lab Interpretation (test cod e = 18364-7) [facility] (NA, K, CL, CO2, GLUCOSE, BUN, CREATININE, CA)2023-05-09 11:52:20* Test Item Value Reference Range Interpretation Comme nts NA (test code = 7935055154) 132 mmol/L 135-145 L K (test code = 5212851445) 4.0 mmol/L 3.5-5.0 CL (test code = 6761149285) 98 mmol/L 98-108 CO2 TOTAL (test code = 4723791231) 26 mmol/L 23-31 AGAP (test code = 8732346213) 8 2-16 BUN (test code = 4608974978) 41 mg/dL 7-23 H GLUCOSE (test code = 4796736265) 221 mg/dL 70-110 H CREATININE (test code = 6438187388) 5.10 mg/dL 0.50-1.04 H CALCIUM (test code = 4424284267) 8.2 mg/dL 8.6-10.6 L eGFR (test code = 54648-2) 9.1 mL/min/1.73m2 CKD-EPI eGFR (2020). Assuming creatinine has been stable day-to-day for at least three months, the eGFR indicates Category G5 (<= 14mL/min/1.73 m2) Lab Interpretation (test code = 08964-0) [facility]24-[facility] 11:52:19* Test Item Value Reference Range Interpretation Comme nts PHOSPHORUS (test code = 6268359972) 4.7 mg/dL 2.5-5.0 Lab Interpretation (test cod e = 26415-6) [facility] HospitalHepatitis B Surface Antibody (HBsAb)2023-05-09 11:25:36* Test Item Value Reference Range Interpretation Comme nts HBsAB (test code = 7680959372) Negative HBsAb Semi-Quantitative (test code = 0875701161) 0.00 mIU/mL ALDO (test code = ALDO) Interpretation: ?Hepatitis B Surface Antibody ? Negative - Patient is considered to be not immune to infection with HBV. ? ? Positive - Anti-HBs detected at greater than or equal to 12 mIU/mL. ?Patient is considered to be immune to infection with HBV. ? [facility] GLUCOSE (AUTOMATED)2023-05-09 02:26:24* Test Item Value Reference Range Interpretation Comme [facility] POCT GLU (test code = 1375560319) 156 mg/dL 70-110 H Lab Interpretation (test cod e = 92241-0) Abnormal [facility] GLUCOSE (AUTOMATED)2023-05-09 00:41:52* Test Item Value Reference Range Interpretation Comme [facility] POCT GLU (test code = 7744712723) 122 mg/dL 70-110 H Lab Interpretation (test cod e = 14212-8) [facility] Hospital[facility] Fluid Manual [id number] 20:25:32* Test Item Value Reference Range Interpretation Comme [facility] BF SEGS% (test code = 06656-3) 31 % BF LYMPHS% (test code = 96548-0) 41 % BF REACTIVE LYMPHS % (test c ode = 83864-3) 2 % BF MACROPHAGE% (test code = 95466-9) 20 % BF MESOS% (test code = 96668-6) 6 % BF #CELLS CNTD (test code = 0064507937) 100 cells/u L [facility]an[facility]hor[facility] (TTE)2023-05-08 18:16:50* Test Item Value Reference Range Interpretation Comme nts Height (test code = 2999945531) 66 in Weight (test code = 5897808961) 292 lbs Systolic BP (test code = 1565113349) 94 mmHg Diastolic BP (test code = 6741800273) 64 mmHg Heart Rate (test code = 7326903777) 60 bpm BSA (test code = 0693193060) 2.35 m2 Ao root diam (test code = 1911550434) 2.90 cm Aortic root (test code = 6821670571) 2.9 cm Ao root annulus (test code = 6704739382) 2.9 cm LVOT diameter (test code = 5625165498) 1.88 cm LVOT area (test code = 1525989479) 2.80 cm2 LA size (test code = 6325280169) 3.8 cm LVIDD (test code = 8727427562) 5.50 cm Left Ventricular End Diastolic Volume by Teichholz Method (test code = 4800683) 147.9 mL IVS (test code = 0063946863) 1.29 cm Interventricular Septum Diastolic Thickness by 2D (test code = 3326083) 1.29 cm LVPWD (test code = 0736267413) 1.27 cm PW (test code = 6330588957) 1.27 cm 0.6-1.1 EF(Teich) (test code = 7308842940) 58.80 % LVIDS (test code = 5645644910) 3.80 cm Left Ventricular End Systolic Volume by Teichholz Method (test code = 3048311) 60.9 mL FS (test code = 6923633775) 32 % EF - 2D (test code = 14595841) 58.80 % TR Peak Toño (test code = 8486562722) 204.8 cm/s Triscuspid Valve Regurgitation Peak Gradient (test code = 7554015992) 16.9 mmHg LAV(MOD-sp4) (test code = 2434178181) 88.10 mL E wave decelartion time (test code = 2378545316) 0.21 s MV Peak E Toño (test code = 3655008787) 85.9 cm/s MV stenosis pressure 1/2 time (test code = 5290682661) 62.5 ms MV Peak A Toño (test code = 2341952180) 66.0 cm/s E/A ratio (test code = 9872782309) 1.30 ratio MV Prop V (test code = 7937301660) 48.10 cm/s MV E/e' septal (test code = 5573136025) 11.5 cm/s Tapse (test code = 0498156954) 1.58 cm LVOT stroke volume (test code = 4550136429) 81.60 cm3 LVOT peak toño (test code = 1367341528) 150.4 cm/s LVOT mn grad (test code = 4182914083) 4.3 mmHg AV LVOT peak gradient (test code = 0385895442) 9.0 mmHg LVOT peak VTI (test code = 4909847689) 29.5 cm LV V1 mean (test code = 1768627934) 96.20 cm/s Aortic valve mean velocity (test code = 0670173238) 127.9 cm/s Ao peak toño (test code = 9571361805) 187.7 cm/s Ao VTI (test code = 7985975666) 34.2 cm AV area by cont VTI (test code = 4487062912) 2.4 cm2 AV area peak toño (test code = 1280177310) 2.2 cm2 Ao max PG (test code = 3290007624) 14.10 mm[Hg] AV peak gradient (test code = 5602228382) 14.1 mmHg AV valve area (test code = 8445881899) 2.39 cm2 AV mean gradient (test code = 3876557322) 7.3 mmHg Radiology Study observation (narrative) (test code = 00109-6) ALDO (test code = ALDO) ?Left?Ventricle: Left ventricle size is normal. Normal wall thickness. Normal wall motion. Low normal systolic function with a visually estimated EF of 50 - 55%. Diastolic dysfunction. ?Right?Ventricle: Right ventricle size is normal. Mildly reduced systolic function. ?Tricuspid?Valve: Right ventricular systolic pressure is normal. ?RA pressure is 0-5 mmHg. ?Pericardium: Large pericardial effusion laterally and moderate pericardial effusion elsewhere. No indication of cardiac tamponade. Left pleural effusion. Left VentricleLeft ventricle size is normal. Normal wall thickness. Normal wall motion. Low normal systolic function with a visually estimated EF of 50 - 55%. Diastolic dysfunction.Right VentricleRight ventricle size is normal. Mildly reduced systolic function.Left AtriumLeft atrium is mildly dilated.Right AtriumRight atrium size is normal.IVC/SVCIVC diameter is less than or equal to 21 mm and decreases greater than 50% during inspiration; therefore the estimated right atrial pressure is normal (~0-5 mmHg).Mitral ValveMitral valve structure is normal. Trace transvalvular regurgitation.Tricusp id ValveTricuspid valve structure is normal. Trace transvalvular regurgitation. Right ventricular systolic pressure is normal. RA pressure is 0-5 mmHg.Aortic ValveTricuspid. Mildly thickened cusps.Pulmonic ValveNot well visualized.Ascending AortaNormal sized aorta.PericardiumLarg e pericardial effusion laterally and moderate pericardial effusion elsewhere. No indication of cardiac tamponade. Left pleural effusion.Study DetailsStudy quality experienced technical difficulty. A complete echocardiogram was performed using 2D, color flow Doppler and spectral Doppler. [facility] [id number] 17:29:45EXAM: XR CHEST 1 VW COMPARISON: 05/06/2023 HISTORY:63 years old, Female ?with s/p LEFT thoracentesis. FINDINGS: Lungs/Pleura: Interval decrease in the left-sided pleural effusion withimproved left lung aeration, status post thoracentesis with residual smallvolume effusion and associated atelectasis. Mild interstitial opacities arenoted bilaterally, tracing through the minor fissure. No definitepneumothorax. Heart/Mediastinum: The cardiac silhouette remains enlarged. Bones and soft tissues: No acute osseous abnormality is identified. [facility]23-[facility] 17:22:31* Test Item Value Reference Range Interpretation Comme [facility] POCT GLU (test code = 5032574401) 204 mg/dL 70-110 H Lab Interpretation (test cod e = 36934-7) [facility] HospitalLactate Yxnpzhqqibqpc8321-64-48 15:52:41* Test Item Value Reference Range Interpretation Comme nts LDH (test code = 0507806867) 104 U/L 120-246 L Lab Interpretation (test cod e = 32606-0) [facility] HospitalBody Fluid Direct [id number] 15:44:03* Test Item Value Reference Range Interpretation Comme nts BF COLOR (test code = 1556756020) Yellow TURBIDITY (test code = 6171618931) Slightly Turbid BF WBC Count (test code = 4325528922) 3000 See_Comment [Automated message] The system which generated this result transmitted reference range: /?L. The reference range was not used to interpret this result as normal/abnormal. BF RBC Count (test code = 4392785574) 1323 See_Comment [Automated message] The system which generated this result transmitted reference range: /?L. The reference range was not used to interpret this result as normal/abnormal. ALDO (test code = ALDO) The reference range and other method performance specifications have not been established for this body fluid. ?The test results must be integrated into the clinical context for interpretation. [facility] GLUCOSE (AUTOMATED)2023-05-08 14:00:42* Test Item Value Reference Range Interpretation Comme nts POCT GLU (test code = 0947724333) 151 mg/dL 70-110 H Lab Interpretation (test cod e = 59391-4) Abnormal [facility] GLUCOSE (AUTOMATED)2023-05-08 09:53:30* Test Item Value Reference Range Interpretation Comme nts POCT GLU (test code = 9730581298) 160 mg/dL 70-110 H Lab Interpretation (test cod e = 82304-3) Abnormal [facility] GLUCOSE (AUTOMATED)2023-05-08 02:43:46* Test Item Value Reference Range Interpretation Comme nts POCT GLU (test code = 6732052929) 199 mg/dL 70-110 H Lab Interpretation (test cod e = 65431-0) Abnormal [facility] GLUCOSE (AUTOMATED)2023-05-07 22:20:26* Test Item Value Reference Range Interpretation Comme nts POCT GLU (test code = 8586524882) 200 mg/dL 70-110 H Lab Interpretation (test cod e = 04885-3) Abnormal [facility] GLUCOSE (AUTOMATED)2023-05-07 17:34:15* Test Item Value Reference Range Interpretation Comme nts POCT GLU (test code = 0195318162) 122 mg/dL 70-110 H Lab Interpretation (test cod e = 85914-8) [facility] HospitalHepatitis B Surface Antigen (HBsAg)2023-05-07 17:16:12* Test Item Value Reference Range Interpretation Comme nts HBsAg Semi-Quantitative (rach t code = 5195-3) 0.07 Negative [facility] GLUCOSE (AUTOMATED)2023-05-07 13:31:59* Test Item Value Reference Range Interpretation Comme nts POCT GLU (test code = 9930495773) 93 mg/dL 70-110 Lab Interpretation (test cod e = 71142-2) Normal [facility] with Wynsizqyxrhx3839-74-67 12:38:24* Test Item Value Reference Range Interpretation Comme nts WBC (test code = 6690-2) 15.86 See_Comment H [Automated message] The system which generated this result transmitted reference range: 4.30 - 11.10 10*3/?L. The reference range was not used to interpret this result as normal/abnormal. RBC (test code = 789-8) 2.59 See_Comment L [Automated message] The system which generated this result transmitted reference range: 3.93 - 5.25 10*6/?L. The reference range was not used to interpret this result as normal/abnormal. HGB (test code = 718-7) 8.3 g/dL 11.6-15.0 L HCT (test code = 4544-3) 25.5 % 35.7-45.2 L MCV (test code = 787-2) 98.5 fL 80.6-95.5 H MCH (test code = 785-6) 32.0 pg 25.9-32.8 MCHC (test code = 786-4) 32.5 g/dL 31.6-35.1 RDW-SD (test code = 08549-8) 45.8 fL 39.0-49.9 RDW-CV (test code = 788-0) 12.9 % 12.0-15.5 PLT (test code = 777-3) 310 See_Comment [Automated message] The system which generated this result transmitted reference range: 166 - 358 10*3/?L. The reference range was not used to interpret this result as normal/abnormal. MPV (test code = 15208-8) 10.8 fL 9.5-12.9 NRBC/100 WBC (test code = 6791104264) 0.0 See_Comment [Automated message] The system which generated this result transmitted reference range: 0.0 - 10.0 /100 WBCs. The reference range was not used to interpret this result as normal/abnormal. NRBC x10^3 (test code = 9816498298) See_Comment [Automated message] The system which generated this result transmitted reference range: 10*3/?L. The reference range was not used to interpret this result as normal/abnormal. GRAN MAT (NEUT) % (test code = 770-8) 74.6 % IMM GRAN % (test code = 8694120743) 0.60 % LYMPH % (test code = 736-9) 11.9 % MONO % (test code = 5905-5) 11.7 % EOS % (test code = 713-8) 0.8 % BASO % (test code = 706-2) 0.4 % GRAN MAT x10^3(ANC) (test code = 9541285794) 11.84 10*3/uL 1.88-7.09 H IMM GRAN x10^3 (test code = 1754727100) 0.10 10*3/uL 0.00-0.06 H LYMPH x10^3 (test code = 731-0) 1.88 10*3/uL 1.32-3.29 MONO x10^3 (test code = 742-7) 1.85 10*3/uL 0.33-0.92 H EOS x10^3 (test code = 711-2) 0.13 10*3/uL 0.03-0.39 BASO x10^3 (test code = 704-7) 0.06 10*3/uL 0.01-0.07 Lab Interpretation (test code = 22914-6) Abnormal [facility] Metabolic Panel (NA, K, CL, CO2, GLUCOSE, BUN, CREATININE, CA)2023-05-07 11:34:18* Test Item Value Reference Range Interpretation Comme nts NA (test code = 6997247202) 134 mmol/L 135-145 L K (test code = 9634224361) 4.3 mmol/L 3.5-5.0 CL (test code = 6193363934) 100 mmol/L 98-108 CO2 TOTAL (test code = 4978686133) 22 mmol/L 23-31 L AGAP (test code = 7483015057) 12 2-16 BUN (test code = 9749213562) 44 mg/dL 7-23 H GLUCOSE (test code = 9351605631) 105 mg/dL 70-110 CREATININE (test code = 5792951055) 6.16 mg/dL 0.50-1.04 H CALCIUM (test code = 2798443986) 8.5 mg/dL 8.6-10.6 L eGFR (test code = 52241-1) 7.2 mL/min/1.73m2 CKD-EPI eGFR (2020). Assuming creatinine has been stable day-to-day for at least three months, the eGFR indicates Category G5 (<= 14mL/min/1.73 m2) Lab Interpretation (test code = 22604-0) [facility] HospitalMagnesium Uygmv1296-06-73 11:34:18* Test Item Value Reference Range Interpretation Comme nts MAGNESIUM (test code = 4178180225) 2.2 mg/dL 1.7-2.4 Lab Interpretation (test cod e = 36784-5) [facility] Hospital[facility]orus [id number] 06:23:46* Test Item Value Reference Range Interpretation Comme nts PHOSPHORUS (test code = 0113496137) 4.5 mg/dL 2.5-5.0 Lab Interpretation (test cod e = 05043-0) [facility] HospitalCbc with Oykz8211-92-23 20:04:07* Test Item Value Reference Range Interpretation Comme nts WBC (test code = 6690-2) 14.65 See_Comment H [Automated message] The system which generated this result transmitted reference range: 4.30 - 11.10 10*3/?L. The reference range was not used to interpret this result as normal/abnormal. RBC (test code = 789-8) 3.20 See_Comment L [Automated message] The system which generated this result transmitted reference range: 3.93 - 5.25 10*6/?L. The reference range was not used to interpret this result as normal/abnormal. HGB (test code = 718-7) 10.2 g/dL 11.6-15.0 L HCT (test code = 4544-3) 30.9 % 35.7-45.2 L MCV (test code = 787-2) 96.6 fL 80.6-95.5 H MCH (test code = 785-6) 31.9 pg 25.9-32.8 MCHC (test code = 786-4) 33.0 g/dL 31.6-35.1 RDW-SD (test code = 85288-1) 45.2 fL 39.0-49.9 RDW-CV (test code = 788-0) 12.7 % 12.0-15.5 PLT (test code = 777-3) 282 See_Comment [Automated message] The system which generated this result transmitted reference range: 166 - 358 10*3/?L. The reference range was not used to interpret this result as normal/abnormal. MPV (test code = 35666-1) 10.9 fL 9.5-12.9 NRBC/100 WBC (test code = 2807271715) 0.0 See_Comment [Automated message] The system which generated this result transmitted reference range: 0.0 - 10.0 /100 WBCs. The reference range was not used to interpret this result as normal/abnormal. NRBC x10^3 (test code = 3024906451) See_Comment [Automated message] The system which generated this result transmitted reference range: 10*3/?L. The reference range was not used to interpret this result as normal/abnormal. GRAN MAT (NEUT) % (test code = 770-8) 80.8 % IMM GRAN % (test code = 1880136423) 0.50 % LYMPH % (test code = 736-9) 7.0 % MONO % (test code = 5905-5) 10.7 % EOS % (test code = 713-8) 0.7 % BASO % (test code = 706-2) 0.3 % GRAN MAT x10^3(ANC) (test code = 4778615540) 11.83 10*3/uL 1.88-7.09 H IMM GRAN x10^3 (test code = 8908041585) 0.07 10*3/uL 0.00-0.06 H LYMPH x10^3 (test code = 731-0) 1.03 10*3/uL 1.32-3.29 L MONO x10^3 (test code = 742-7) 1.57 10*3/uL 0.33-0.92 H EOS x10^3 (test code = 711-2) 0.10 10*3/uL 0.03-0.39 BASO x10^3 (test code = 704-7) 0.05 10*3/uL 0.01-0.07 Lab Interpretation (test code = 24491-1) [facility] 1 [id number] 19:57:03PROCEDURE: XR CHEST 1 VW CLINICAL INDICATION: shortness of breath COMPARISON: 11/21/2019 FINDINGS: Right lung is partial expanded with a trace effusion. Left lung only theupper lobe is aerated. A moderate to large left effusion seen. Perihilarvessels are prominent. The cardiac silhouette is enlarged althoughobscured. No acute bony abnormality.[facility] Troponin [id number] 19:53:20* Test Item Value Reference Range Interpretation Comme nts TROPONIN I (test code = 2033526976) 0.007 ng/mL <=0.034 ALDO (test code = ALDO) Reference (Normal) Range (defined by the 99th percentile reference limit): <= 0.034 ng/mL Note: Cardiac troponin begins to rise 3-4 hours after the onset of ischemia. Repeat in 4-6 hours if the sample was drawn within 3-4 hours of the onset of the symptom and found normal. Diagnosis of myocardial injury is made with acute changes in cTn concentrations with at least one serial sample above the 99th percentile upper reference limit (URL), taken together with the patient's clinical presentation. Biotin has been reported to cause a negative bias, interpret results relative to patient's use of biotin. Lab Interpretation (test code = 06933-1) Normal [facility] HospitalN-Terminal Hbf-Aoq4987-01-10 19:50:58* Test Item Value Reference Range Interpretation Comme nts NT-proBNP (test code = 06628-3) 5790 pg/mL <=125 H ALDO (test code = ALDO) Positive: Heart Failure Likely Lab Interpretation (test code = 17658-2) [facility] HospitalComp. Metabolic Panel (72124)2023-05-06 19:41:57* Test Item Value Reference Range Interpretation Comme nts NA (test code = 7870393599) 133 mmol/L 135-145 L K (test code = 7317844338) 4.0 mmol/L 3.5-5.0 CL (test code = 1546665393) 100 mmol/L 98-108 CO2 TOTAL (test code = 6419724575) 22 mmol/L 23-31 L AGAP (test code = 8691412984) 11 2-16 BUN (test code = 0110598110) 31 mg/dL 7-23 H GLUCOSE (test code = 9815447151) 119 mg/dL 70-110 H CREATININE (test code = 2173639360) 5.01 mg/dL 0.50-1.04 H TOTAL BILI (test code = 5403708674) 0.8 mg/dL 0.1-1.1 CALCIUM (test code = 5319338354) 8.7 mg/dL 8.6-10.6 T PROTEIN (test code = 6571241862) 7.4 g/dL 6.3-8.2 ALBUMIN (test code = 2426262360) 3.4 g/dL 3.5-5.0 L ALK PHOS (test code = 7503848120) 57 U/L 34-122 ALTv (test code = 1742-6) 15 U/L 5-35 AST(SGOT) (test code = 1220717465) 16 U/L 13-40 eGFR (test code = 42242-5) 9.3 mL/min/1.73m2 CKD-EPI eGFR (2020). Assuming creatinine has been stable day-to-day for at least three months, the eGFR indicates Category G5 (<= 14mL/min/1.73 m2) Lab Interpretation (test code = 91459-0) Abnormal [facility] GLUCOSE (AUTOMATED)2019-11-24 17:58:00* Test Item Value Reference Range Interpretation Comme [facility] POCT GLU (test code = 0257979256) 227 mg/dL 70-110 H Lab Interpretation (test cod e = 08114-5) Abnormal [facility] GLUCOSE (AUTOMATED)2019-11-24 12:36:00* Test Item Value Reference Range Interpretation Comme [facility] POCT GLU (test code = 6072621548) 192 mg/dL 70-110 H Lab Interpretation (test cod e = 01395-1) Abnormal [facility] METABOLIC PANEL (NA, K, CL, CO2, GLUCOSE, BUN, CREATININE, CA)2019-11-24 10:21:00* Test Item Value Reference Range Interpretation Comme [facility] NA (test code = 3944113202) 136 mmol/L 135-145 K (test code = 3040231943) 4.2 mmol/L 3.5-5 CL (test code = 2870103872) 102 mmol/L 98-108 CO2 TOTAL (test code = 0872761042) 27 mmol/L 23-31 AGAP (test code = 8968245234) 2-16 BUN (test code = 3546379679) 35 mg/dL 7-23 H GLUCOSE (test code = 7130074495) 224 mg/dL 70-110 H CREATININE (test code = 0593427096) 3.86 mg/dL 0.5-1.04 H CALCIUM (test code = 2257470409) 8.0 mg/dL 8.6-10.6 L eGFR Calculation (Non-) (test code = 7081554388) mL/min/1.73m2 eGFR Calculation () (test code = 8060475219) mL/min/1.73m2 ALDO (test code = ALDO) Association of [...] or abnormalities in imaging tests). Lab Interpretation (test code = 47219-3) Abnormal [facility] WITH [id number] 09:58:00* Test Item Value Reference Range Interpretation Comme nts WBC (test code = 6690-2) See_Comment H [Automated messa ge] The system which generated this result transmitted reference range: 4.30 - 11.10 10*3/?L. The reference range was not used to interpret this result as normal/abnormal. RBC (test code = 789-8) See_Comment L [Automated messa ge] The system which generated this result transmitted reference range: 3.93 - 5.25 10*6/?L. The reference range was not used to interpret this result as normal/abnormal. HGB (test code = 718-7) 8.3 g/dL 11.6-15 L HCT (test code = 4544-3) 27.0 % 35.7-45.2 L MCV (test code = 787-2) 95.7 fL 80.6-95.5 H MCH (test code = 785-6) 29.4 pg 25.9-32.8 MCHC (test code = 786-4) 30.7 g/dL 31.6-35.1 L RDW-SD (test code = 43376-3) 46.5 fL 39-49.9 RDW-CV (test code = 788-0) 13.3 % 12-15.5 PLT (test code = 777-3) See_Comment [Automated messa ge] The system which generated this result transmitted reference range: 166 - 358 10*3/?L. The reference range was not used to interpret this result as normal/abnormal. MPV (test code = 29369-0) 11.1 fL 9.5-12.9 NRBC/100 WBC (test code = 1621314939) See_Comment [Automated [employer] ssage] The system which generated this result transmitted reference range: 0.0 - 10.0 /100 WBCs. The reference range was not used to interpret this result as normal/abnormal. NRBC x10^3 (test code = 5522233040) <0.01 See_Comment [Automated messa ge] The system which generated this result transmitted reference range: 10*3/?L. The reference range was not used to interpret this result as normal/abnormal. GRAN MAT (NEUT) % (test code = 770-8) 74.1 % IMM GRAN % (test code = 2568154699) 0.70 % LYMPH % (test code = 736-9) 13.1 % MONO % (test code = 5905-5) 8.4 % EOS % (test code = 713-8) 3.3 % BASO % (test code = 706-2) 0.4 % GRAN MAT x10^3(ANC) (test code = 1165071793) 9.01 10*3/uL 1.88-7.09 H IMM GRAN x10^3 (test code = 1132281253) 0.08 10*3/uL 0-0.06 H LYMPH x10^3 (test code = 731-0) 1.59 10*3/uL 1.32-3.29 MONO x10^3 (test code = 742-7) 1.02 10*3/uL 0.33-0.92 H EOS x10^3 (test code = 711-2) 0.40 10*3/uL 0.03-0.39 H BASO x10^3 (test code = 704-7) 0.05 10*3/uL 0.01-0.07 Lab Interpretation (test code = 55517-2) Abnormal [facility] GLUCOSE (AUTOMATED)2019-11-24 01:21:00* Test Item Value Reference Range Interpretation Comme nts POCT GLU (test code = 9730623447) 241 mg/dL 70-110 H Lab Interpretation (test cod e = 41498-5) Abnormal [facility] GLUCOSE (AUTOMATED)2019-11-23 20:46:00* Test Item Value Reference Range Interpretation Comme nts POCT GLU (test code = 7535345122) 223 mg/dL 70-110 H Lab Interpretation (test cod e = 93462-0) Abnormal [facility] GLUCOSE (AUTOMATED)2019-11-23 16:08:00* Test Item Value Reference Range Interpretation Comme nts POCT GLU (test code = 7038846537) 159 mg/dL 70-110 H Lab Interpretation (test cod e = 83918-9) Abnormal [facility] GLUCOSE (AUTOMATED)2019-11-23 12:44:00* Test Item Value Reference Range Interpretation Comme nts POCT GLU (test code = 7622247181) 211 mg/dL 70-110 H Lab Interpretation (test cod e = 42452-5) [facility] (NA, K, CL, CO2, GLUCOSE, BUN, CREATININE, CA)2019-11-23 10:17:00* Test Item Value Reference Range Interpretation Comme nts NA (test code = 9833206618) 136 mmol/L 135-145 K (test code = 9622245123) 4.3 mmol/L 3.5-5 CL (test code = 9407439236) 106 mmol/L 98-108 CO2 TOTAL (test code = 0317992194) 23 mmol/L 23-31 AGAP (test code = 8833720477) 2-16 BUN (test code = 9661977395) 50 mg/dL 7-23 H GLUCOSE (test code = 8921668810) 243 mg/dL 70-110 H CREATININE (test code = 8650828630) 4.84 mg/dL 0.5-1.04 H CALCIUM (test code = 0500362309) 7.2 mg/dL 8.6-10.6 L eGFR Calculation (Non-) (test code = 8993754378) mL/min/1.73m2 eGFR Calculation () (test code = 0150472962) mL/min/1.73m2 ALDO (test code = ALDO) Association of [...] or abnormalities in imaging tests). Lab Interpretation (test code = 15957-6) [facility] 10:16:00* Test Item Value Reference Range Interpretation Comme nts PHOSPHORUS (test code = 8989118783) 5.5 mg/dL 2.5-5 H Lab Interpretation (test cod e = 61712-8) [facility] [id number] 06:02:00* Test Item Value Reference Range Interpretation Comme nts Blood Culture-Aerobic (test code = 11248-5) No organisms isolated No growth Previous preliminary verified result was Culture In Progress on 11/18/2019 at 0401 CDTPrevious preliminary verified result was No growth at 24 hours on 11/19/2019 at 0101 CDTPrevious preliminary verified result was No growth at 48 hours on 11/20/2019 at 0101 CDTPrevious preliminary verified result was No growth at 72 hours on 11/21/2019 at 0101 CDT Blood Culture-Anaerobic (test code = 98038-5) No organisms isolated No growth Previous preliminary verified result was Culture In Progress on 11/18/2019 at 0401 CDTPrevious preliminary verified result was No growth at 24 hours on 11/19/2019 at 0101 CDTPrevious preliminary verified result was No growth at 48 hours on 11/20/2019 at 0101 CDTPrevious preliminary verified result was No growth at 72 hours on 11/21/2019 at 0101 CDT Lab Interpretation (test code = 07364-8) [facility] [id number] 06:01:00* Test Item Value Reference Range Interpretation Comme nts Blood Culture-Aerobic (test code = 78310-9) No organisms isolated No growth Previous preliminary verified result was Culture In Progress on 11/18/2019 at 0401 CDTPrevious preliminary verified result was No growth at 24 hours on 11/19/2019 at 0101 CDTPrevious preliminary verified result was No growth at 48 hours on 11/20/2019 at 0101 CDTPrevious preliminary verified result was No growth at 72 hours on 11/21/2019 at 0101 CDT Blood Culture-Anaerobic (test code = 80497-4) No organisms isolated No growth Previous preliminary verified result was Culture In Progress on 11/18/2019 at 0401 CDTPrevious preliminary verified result was No growth at 24 hours on 11/19/2019 at 0101 CDTPrevious preliminary verified result was No growth at 48 hours on 11/20/2019 at 0101 CDTPrevious preliminary verified result was No growth at 72 hours on 11/21/2019 at 0101 CDT Lab Interpretation (test code = 98761-6) Normal [facility] GLUCOSE (AUTOMATED)2019-11-23 01:45:00* Test Item Value Reference Range Interpretation Comme nts POCT GLU (test code = 9274103526) 271 mg/dL 70-110 H Lab Interpretation (test cod e = 04680-9) Abnormal [facility] GLUCOSE (AUTOMATED)2019-11-22 21:31:00* Test Item Value Reference Range Interpretation Comme nts POCT GLU (test code = 8962961787) 191 mg/dL 70-110 H Lab Interpretation (test cod e = 63184-7) Abnormal [facility] GLUCOSE (AUTOMATED)2019-11-22 17:10:00* Test Item Value Reference Range Interpretation Comme nts POCT GLU (test code = 4568595989) 157 mg/dL 70-110 H Lab Interpretation (test cod e = 35846-5) Abnormal [facility] GLUCOSE (AUTOMATED)2019-11-22 12:53:00* Test Item Value Reference Range Interpretation Comme nts POCT GLU (test code = 2664051640) 228 mg/dL 70-110 H Lab Interpretation (test cod e = 19235-0) Abnormal [facility] GLUCOSE (AUTOMATED)2019-11-22 10:06:00* Test Item Value Reference Range Interpretation Comme nts POCT GLU (test code = 4903733892) 251 mg/dL 70-110 H Lab Interpretation (test cod e = 55101-3) Abnormal [facility] GLUCOSE (AUTOMATED)2019-11-21 21:20:00* Test Item Value Reference Range Interpretation Comme [facility] POCT GLU (test code = 8354864207) 211 mg/dL 70-110 H Lab Interpretation (test cod e = 46051-8) [facility] HospitalXR CHEST 1 [id number] 20:16:48Cardiomegaly The right internal jugular dialysis catheter with its tip in the upperright atrium is visualized.The patchy opacity in the right paracardiac region is likely result ofoverlapping shadows. PROCEDURE: XR CHEST 1 VW CLINICAL INDICATION: Line placement COMPARISON: None FINDINGS: A tunneleddialysis catheter with its tip in right atrium is visualized. Heart is enlarged. Central venous congestion. Patchy ?opacities in theright pericardiac region. Rest of the lungs are clear. No pleural effusion or pneumothorax is seen.The heart is normal in size. No acute bony abnormality. [facility], Radiant Results Inft User - 11/21/2019 3:17 PM CDTPROCEDURE: XR CHEST 1 VWCLINICAL INDICATION: Line placement COMPARISON: NoneFINDINGS:A tunneled dialysis catheter with its tip [...] right paracardiac region is likely result ofoverlapping shadows.[facility] HospitalFL TIME OR (NON-REPORTABLE)2019-11-21 18:43:07These images do not require a Radiology diagnostic report.[facility] POCT [facility]UCOSE (AUTOMATED)2019-11-21 12:51:00* Test Item Value Reference Range Interpretation Comme [facility] POCT GLU (test code = 7021711499) 193 mg/dL 70-110 H Lab Interpretation (test cod e = 05700-7) [facility] Met[facility] (NA, K, CL, CO2, GLUCOSE, BUN, CREATININE, CA)2019-11-21 09:12:00* Test Item Value Reference Range Interpretation Comme nts NA (test code = 4714143143) 139 mmol/L 135-145 K (test code = 8486548268) 4.8 mmol/L 3.5-5 CL (test code = 2720251130) 110 mmol/L 98-108 H CO2 TOTAL (test code = 4161179480) 19 mmol/L 23-31 L AGAP (test code = 5205797714) 2-16 BUN (test code = 9354171218) 65 mg/dL 7-23 H GLUCOSE (test code = 6264955169) 226 mg/dL 70-110 H CREATININE (test code = 3384478909) 6.20 mg/dL 0.5-1.04 H CALCIUM (test code = 6553241589) 6.3 mg/dL 8.6-10.6 L eGFR Calculation (Non-) (test code = 2558800715) mL/min/1.73m2 eGFR Calculation () (test code = 0109366161) mL/min/1.73m2 ALDO (test code = ALDO) Association of [...] or abnormalities in imaging tests). Lab Interpretation (test code = 71028-8) Abnormal [facility] with [id number] 08:27:00* Test Item Value Reference Range Interpretation Comme nts WBC (test code = 6690-2) See_Comment H [Automated messa ge] The system which generated this result transmitted reference range: 4.30 - 11.10 10*3/?L. The reference range was not used to interpret this result as normal/abnormal. RBC (test code = 789-8) See_Comment L [Automated messa ge] The system which generated this result transmitted reference range: 3.93 - 5.25 10*6/?L. The reference range was not used to interpret this result as normal/abnormal. HGB (test code = 718-7) 7.7 g/dL 11.6-15 L HCT (test code = 4544-3) 24.4 % 35.7-45.2 L MCV (test code = 787-2) 94.6 fL 80.6-95.5 MCH (test code = 785-6) 29.8 pg 25.9-32.8 MCHC (test code = 786-4) 31.6 g/dL 31.6-35.1 RDW-SD (test code = 62997-7) 47.8 fL 39-49.9 RDW-CV (test code = 788-0) 13.7 % 12-15.5 PLT (test code = 777-3) See_Comment [Automated [employer] ge] The system which generated this result transmitted reference range: 166 - 358 10*3/?L. The reference range was not used to interpret this result as normal/abnormal. MPV (test code = 29974-1) 10.8 fL 9.5-12.9 NRBC/100 WBC (test code = 0772841527) See_Comment [Automated [employer] ssage] The system which generated this result transmitted reference range: 0.0 - 10.0 /100 WBCs. The reference range was not used to interpret this result as normal/abnormal. NRBC x10^3 (test code = 4759553897) <0.01 See_Comment [Automated messa ge] The system which generated this result transmitted reference range: 10*3/?L. The reference range was not used to interpret this result as normal/abnormal. GRAN MAT (NEUT) % (test code = 770-8) 69.1 % IMM GRAN % (test code = 7747039034) 0.60 % LYMPH % (test code = 736-9) 18.5 % MONO % (test code = 5905-5) 8.1 % EOS % (test code = 713-8) 3.1 % BASO % (test code = 706-2) 0.6 % GRAN MAT x10^3(ANC) (test code = 7417168324) 7.90 10*3/uL 1.88-7.09 H IMM GRAN x10^3 (test code = 2622960991) 0.07 10*3/uL 0-0.06 H LYMPH x10^3 (test code = 731-0) 2.11 10*3/uL 1.32-3.29 MONO x10^3 (test code = 742-7) 0.93 10*3/uL 0.33-0.92 H EOS x10^3 (test code = 711-2) 0.35 10*3/uL 0.03-0.39 BASO x10^3 (test code = 704-7) 0.07 10*3/uL 0.01-0.07 Lab Interpretation (test code = 91064-9) Abnormal [facility] GLUCOSE (AUTOMATED)2019-11-21 01:54:00* Test Item Value Reference Range Interpretation Comme nts POCT GLU (test code = 5715222454) 230 mg/dL 70-110 H Lab Interpretation (test cod e = 01162-1) [facility] HospitalCLOSTRIDIUM DIFFICILE [id number] 01:43:00 * Test Item Value Reference Range Interpretation Comme nts Clostridioides (Clostridium) difficile (test code = 53475-3) Negative Negative Lab Interpretation (test cod e = 10205-7) Normal [facility] GLUCOSE (AUTOMATED)2019-11-20 16:31:00* Test Item Value Reference Range Interpretation Comme nts POCT GLU (test code = 6040334992) 336 mg/dL 70-110 H Lab Interpretation (test cod e = 38970-4) Abnormal [facility] GLUCOSE (AUTOMATED)2019-11-20 16:00:00* Test Item Value Reference Range Interpretation Comme nts POCT GLU (test code = 9568816750) 276 mg/dL 70-110 H Lab Interpretation (test cod e = 70908-8) Abnormal [facility] with [id number] 09:51:00* Test Item Value Reference Range Interpretation Comme nts WBC (test code = 6690-2) See_Comment H [Automated message] The system which generated this result transmitted reference range: 4.30 - 11.10 10*3/?L. The reference range was not used to interpret this result as normal/abnormal. RBC (test code = 789-8) See_Comment L [Automated message] The system which generated this result transmitted reference range: 3.93 - 5.25 10*6/?L. The reference range was not used to interpret this result as normal/abnormal. HGB (test code = 718-7) 7.6 g/dL 11.6-15 L HCT (test code = 4544-3) 23.9 % 35.7-45.2 L MCV (test code = 787-2) 94.1 fL 80.6-95.5 MCH (test code = 785-6) 29.9 pg 25.9-32.8 MCHC (test code = 786-4) 31.8 g/dL 31.6-35.1 RDW-SD (test code = 55290-9) 46.7 fL 39-49.9 RDW-CV (test code = 788-0) 13.7 % 12-15.5 PLT (test code = 777-3) See_Comment [Automated message] The system which generated this result transmitted reference range: 166 - 358 10*3/?L. The reference range was not used to interpret this result as normal/abnormal. MPV (test code = 13607-0) 10.8 fL 9.5-12.9 NRBC/100 WBC (test code = 6593875907) See_Comment [Automated message] The system which generated this result transmitted reference range: 0.0 - 10.0 /100 WBCs. The reference range was not used to interpret this result as normal/abnormal. NRBC x10^3 (test code = 9000321779) <0.01 See_Comment [Automated message] The system which generated this result transmitted reference range: 10*3/?L. The reference range was not used to interpret this result as normal/abnormal. GRAN MAT (NEUT) % (test code = 770-8) 85.7 % IMM GRAN % (test code = 1564929682) 0.40 % LYMPH % (test code = 736-9) 8.0 % MONO % (test code = 5905-5) 5.5 % EOS % (test code = 713-8) 0.2 % BASO % (test code = 706-2) 0.2 % GRAN MAT x10^3(ANC) (test code = 9359162992) 15.70 10*3/uL 1.88-7.09 H IMM GRAN x10^3 (test code = 1122609800) 0.08 10*3/uL 0-0.06 H LYMPH x10^3 (test code = 731-0) 1.46 10*3/uL 1.32-3.29 MONO x10^3 (test code = 742-7) 1.01 10*3/uL 0.33-0.92 H EOS x10^3 (test code = 711-2) 0.04 10*3/uL 0.03-0.39 BASO x10^3 (test code = 704-7) 0.04 10*3/uL 0.01-0.07 Lab Interpretation (test code = 48892-8) Abnormal [facility]. METABOLIC PANEL (10991)2019-11-20 09:35:00* Test Item Value Reference Range Interpretation Comme nts NA (test code = 0298441790) 135 mmol/L 135-145 K (test code = 6058474189) 4.9 mmol/L 3.5-5 CL (test code = 6569809647) 110 mmol/L 98-108 H CO2 TOTAL (test code = 7307604896) 18 mmol/L 23-31 L AGAP (test code = 6158257661) 2-16 BUN (test code = 5616984351) 59 mg/dL 7-23 H GLUCOSE (test code = 7330083299) 269 mg/dL 70-110 H CREATININE (test code = 7861309604) 5.42 mg/dL 0.5-1.04 H TOTAL BILI (test code = 4808949099) 0.3 mg/dL 0.1-1.1 CALCIUM (test code = 1665890141) 7.1 mg/dL 8.6-10.6 L T PROTEIN (test code = 9538344567) 6.4 g/dL 6.3-8.2 ALBUMIN (test code = 4073512821) 2.6 g/dL 3.5-5 L ALK PHOS (test code = 2429380765) 52 U/L 34-122 ALTv (test code = 1742-6) 7 U/L 5-35 AST(SGOT) (test code = 1316122664) 9 U/L 13-40 L eGFR Calculation (Non-) (test code = 6740384797) mL/min/1.73m2 eGFR Calculation () (test code = 7105728990) mL/min/1.73m2 ALDO (test code = ALDO) Association of [...] or abnormalities in imaging tests). Lab Interpretation (test code = 49661-4) Abnormal [facility] GLUCOSE (AUTOMATED)2019-11-20 04:26:00* Test Item Value Reference Range Interpretation Comme [facility] POCT GLU (test code = 8817837915) 279 mg/dL 70-110 H Lab Interpretation (test cod e = 63953-0) Abnormal [facility] GLUCOSE (AUTOMATED)2019-11-20 00:25:00* Test Item Value Reference Range Interpretation Comme [facility] POCT GLU (test code = 7746360186) 338 mg/dL 70-110 H Lab Interpretation (test cod e = 62794-6) Abnormal [facility] METABOLIC PANEL (NA, K, CL, CO2, GLUCOSE, BUN, CREATININE, CA)2019-11-20 00:23:00* Test Item Value Reference Range Interpretation Comme [facility] NA (test code = 7895016254) 136 mmol/L 135-145 K (test code = 4182144196) 5.1 mmol/L 3.5-5 H CL (test code = 2206726720) 110 mmol/L 98-108 H CO2 TOTAL (test code = 0569230592) 16 mmol/L 23-31 L AGAP (test code = 0572814163) 2-16 BUN (test code = 3436146412) 55 mg/dL 7-23 H GLUCOSE (test code = 1046547831) 345 mg/dL 70-110 H CREATININE (test code = 7156225418) 5.62 mg/dL 0.5-1.04 H CALCIUM (test code = 1543356181) 7.6 mg/dL 8.6-10.6 L eGFR Calculation (Non-) (test code = 9795495482) mL/min/1.73m2 eGFR Calculation () (test code = 2966438614) mL/min/1.73m2 ALDO (test code = ALDO) Association of [...] or abnormalities in imaging tests). Lab Interpretation (test code = 43677-2) [facility]2019-11-19 21:31:00* Test Item Value Reference Range Interpretation Comme [facility] POCT GLU (test code = 5119534127) 345 mg/dL 70-110 H Lab Interpretation (test cod e = 03282-7) [facility] HospitalHepatitis B Core Antibody, [id number] 19:51:00* Test Item Value Reference Range Interpretation Comme nts HBC (test code = 0327482202) Negative HBC Semi-Quantitative (test code = 0997342186) [facility] Hospital[facility] STIM[facility]ATING [id number] 18:38:00 * Test Item Value Reference Range Interpretation Comme nts TSH (test code = 9833734887) See_Comment Biotin has been reported to cause a negative bias, interpret results relative to patient's use of biotin. [Automated message] The system which generated this result transmitted reference range: 0.45 - 4.70 mIU/L. The reference range was not used to interpret this result as normal/abnormal. Lab Interpretation (test code = 00563-8) Normal [facility] HospitalHCV [id number] 17:20:00* Test Item Value Reference Range Interpretation Comme [facility] HCV Ab (test code = 22279-2) Negative HCV Semi-Quantitative (test code = 97038-1) [facility] B SURFACE [id number] 17:15:00* Test Item Value Reference Range Interpretation Comme [facility] HBsAB (test code = 7904556807) Negative HBsAb Semi-Quantitative (test code = 9714492106) mIU/mL ALDO (test code = ALDO) Interpretation: ?Hepatitis B Surface Antibody ? Negative - Patient is considered to be not immune to infection with HBV. ? ? Positive - Anti-HBs detected at greater than or equal to 12 mIU/mL. ?Patient is considered to be immune to infection with HBV. ? [facility] B SURFACE [id number] 16:57:00 * Test Item Value Reference Range Interpretation Comme [facility] HBsAg Semi-Quantitative (rach t code = 5195-3) Negative Negative [facility] GLUCOSE (AUTOMATED)2019-11-19 16:23:00* Test Item Value Reference Range Interpretation Comme [facility] POCT GLU (test code = 3918264887) 379 mg/dL 70-110 H Lab Interpretation (test cod e = 89381-9) Abnormal [facility] GLUCOSE (AUTOMATED)2019-11-19 13:20:00* Test Item Value Reference Range Interpretation Comme [facility] POCT GLU (test code = 2355018103) 281 mg/dL 70-110 H Lab Interpretation (test cod e = 91498-7) Abnormal [facility] Metabolic Panel (NA, K, CL, CO2, GLUCOSE, BUN, CREATININE, CA)2019-11-19 12:03:00* Test Item Value Reference Range Interpretation Comme nts NA (test code = 4357331156) 136 mmol/L 135-145 K (test code = 4147080399) 6.0 mmol/L 3.5-5 H CL (test code = 1234459321) 112 mmol/L 98-108 H CO2 TOTAL (test code = 2559958576) 14 mmol/L 23-31 L AGAP (test code = 3275852808) 2-16 BUN (test code = 7796586097) 53 mg/dL 7-23 H GLUCOSE (test code = 4692580727) 280 mg/dL 70-110 H CREATININE (test code = 4176321790) 5.81 mg/dL 0.5-1.04 H CALCIUM (test code = 4255553637) 7.9 mg/dL 8.6-10.6 L eGFR Calculation (Non-) (test code = 5508325769) mL/min/1.73m2 eGFR Calculation () (test code = 4705387025) mL/min/1.73m2 ALDO (test code = ALDO) Association of [...] or abnormalities in imaging tests). Lab Interpretation (test code = 76847-6) Abnormal [facility] with Eslsouzzqdtq4233-07-66 09:42:00* Test Item Value Reference Range Interpretation Comme nts WBC (test code = 6690-2) See_Comment H [Automated message] The system which generated this result transmitted reference range: 4.30 - 11.10 10*3/?L. The reference range was not used to interpret this result as normal/abnormal. RBC (test code = 789-8) See_Comment L [Automated message] The system which generated this result transmitted reference range: 3.93 - 5.25 10*6/?L. The reference range was not used to interpret this result as normal/abnormal. HGB (test code = 718-7) 8.2 g/dL 11.6-15 L HCT (test code = 4544-3) 25.9 % 35.7-45.2 L MCV (test code = 787-2) 95.6 fL 80.6-95.5 H MCH (test code = 785-6) 30.3 pg 25.9-32.8 MCHC (test code = 786-4) 31.7 g/dL 31.6-35.1 RDW-SD (test code = 27855-5) 50.2 fL 39-49.9 H RDW-CV (test code = 788-0) 14.6 % 12-15.5 PLT (test code = 777-3) See_Comment [Automated message] The system which generated this result transmitted reference range: 166 - 358 10*3/?L. The reference range was not used to interpret this result as normal/abnormal. MPV (test code = 01902-7) 12.4 fL 9.5-12.9 NRBC/100 WBC (test code = 0424731716) See_Comment [Automated message] The system which generated this result transmitted reference range: 0.0 - 10.0 /100 WBCs. The reference range was not used to interpret this result as normal/abnormal. NRBC x10^3 (test code = 9677063212) <0.01 See_Comment [Automated message] The system which generated this result transmitted reference range: 10*3/?L. The reference range was not used to interpret this result as normal/abnormal. GRAN MAT (NEUT) % (test code = 770-8) 94.4 % IMM GRAN % (test code = 5595349866) 0.50 % LYMPH % (test code = 736-9) 4.2 % MONO % (test code = 5905-5) 0.8 % EOS % (test code = 713-8) 0.0 % BASO % (test code = 706-2) 0.1 % GRAN MAT x10^3(ANC) (test code = 5286531040) 12.14 10*3/uL 1.88-7.09 H IMM GRAN x10^3 (test code = 4897801381) 0.06 10*3/uL 0-0.06 LYMPH x10^3 (test code = 731-0) 0.54 10*3/uL 1.32-3.29 L MONO x10^3 (test code = 742-7) 0.10 10*3/uL 0.33-0.92 L EOS x10^3 (test code = 711-2) <0.03 0.03-0.39 L BASO x10^3 (test code = 704-7) <0.03 0.01-0.07 Lab Interpretation (test code = 55156-9) Abnormal [facility] GLUCOSE (AUTOMATED)2019-11-19 01:15:00* Test Item Value Reference Range Interpretation Comme nts POCT GLU (test code = 4560342523) 144 mg/dL 70-110 H Lab Interpretation (test cod e = 82979-4) [facility]normal [facility] HospitalFL TIME OR (NON-REPORTABLE)2019-11-18 22:37:32 These images do not require a Radiology diagnostic report.[facility] GLUCOSE (AUTOMATED)2019-11-18 20:25:00* Test Item Value Reference Range Interpretation Comme nts POCT GLU (test code = 9902164977) 106 mg/dL 70-110 Lab Interpretation (test cod e = 82780-9) Normal [facility] FOOT RIGHT WO [id number] 19:04:14 Ulcerations with subcutaneous gas and osteomyelitis [...] phalanx with questionable erosions involving the rightlateral fourthmetatarsal head and proximal phalanx base. Chronic articularcollapse with sclerotic remodeling is seen about the great toe proximalphalanx and the articular margins of the talonavicular, subtalar,calc aneocuboid, navicular cuneiform joints as well as the second throughfifth TMT joint. A remote lateral malleolus fracture is noted. A remoteanterior fragmented tibial plafond fracture versus fragmented osteochondraldefect is noted. [facility], Radiant Results Inft User - 11/18/2019 2:05 [...] and the articular margins of the talonavicular, subtalar,calcaneocuboid, navicular cuneiform joints as well as the second throughfifth TMT joint. A remote lateral malleolus fracture is noted. A remoteanterior fragmented tibial plafond fracture versus fragmented osteochondraldefect is noted.IMPRESSIONUlcerations with subcutaneous gas and osteomyelitis involving the fifth toeand fifth metatarsal base and head with suspicion for osteomyelitis of thefourth metatarsal head and fourth digit p roximal phalanx base. RecommendMRI for further characterization.Charcot arthropathy.Preliminary Report Dictated by Resident: Romario Lao, Oz Peres MD., have reviewed this study and agree with the abovereport.[facility] HospitalPROTEIN CREAT RATIO URINE [id number] 17:57:00* Test Item Value Reference Range Interpretation Comme nts T. PROT U (test code = 2888-6) 255 mg/dL CREAT U (test code = 4876137666) 50.0 mg/dL Protein/Creatinine Ratio Uri ne (test code = 3937830180) 0.0-2.0 H Lab Interpretation (test cod e = 35897-1) [facility] HospitalINTACT PTH CALCIUM [id number] 17:04:00* Test Item Value Reference Range Interpretation Comme nts CALCIUM (test code = 6362550895) 7.5 mg/dL 8.6-10.6 L PTH-INTACT (test code = 4902412298) 593.8 pg/mL 12-88 H PTH-CA Interpretation (test code = 0788109110) Further clinical data needed for interpretation. Lab Interpretation (test code = 11900-5) [facility] HospitalUS RETROPERITONEAL [id number] 16:33:55 Bilateral normal size kidneys with increased [...] Cortical thickness is maintained on bothsides. BLADDER: Unremarkable.Incidental finding of a hydropic gallbladder, with [...] (184 mL). Nohydronephrosis.LEFT KIDNEY: Normal size, contour, and echotexture. The left kidneymeasures 11.5 cm (156 mL). No hydronephrosis. A 3 cm x 2 cm anechoic lesionsuggestive of a simple cyst is at the lower pole of left kidneyBoth kidneys show increased cortical echogenicity with decreasedcorticomedullary differentiation. Cortical thickness ismaintained on bothsides.BLADDER: Unremarkable.Incidental finding of a hydropic gallbladder, with multiple echogenic fociwith distal shadowing in the dependent part of the gallbladder compatiblewith gallstones.IMPRESSIONBilateral normal size kidneys with increased cortical echogenicity anddecreased cortical medullary differentiation. 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 [facility] HospitalUREA NITROGEN, URINE [id number] 16:07:00 * Test Item Value Reference Range Interpretation Comme nts UREA N UR (test code = 2233077679) 256 mg/dL [facility] HospitalCHLORIDE, URINE [id number] 16:07:00* Test Item Value Reference Range Interpretation Comme nts CL URINE (test code = 4290389513) 87 mmol/L 24-255 Lab Interpretation (test cod e = 51371-6) Normal [facility] HospitalPOCT GLUCOSE (AUTOMATED)2019-11-18 15:55:00* Test Item Value Reference Range Interpretation Comme nts POCT GLU (test code = 6258959872) 109 mg/dL 70-110 Lab Interpretation (test cod e = 27621-9) Normal [facility] HospitalCREATINE [id number] 13:43:00* Test Item Value Reference Range Interpretation Comme nts CK (test code = 3283663326) 61 U/L 33-194 Lab Interpretation (test cod e = 61022-5) Normal [facility] HospitalURIC [id number] 13:43:00* Test Item Value Reference Range Interpretation Comme nts URIC ACID (test code = 9682531970) 6.7 mg/dL 2.9-6 H Lab Interpretation (test cod e = 30406-9) [facility] HospitalCREATININE, URINE [id number] 12:40:00* Test Item Value Reference Range Interpretation Comme nts CREAT U (test code = 1273378922) 47.3 mg/dL [facility] HospitalPOTASSIUM, URINE [id number] 12:36:00* Test Item Value Reference Range Interpretation Comme nts K URINE (test code = 0748731519) 14.0 mmol/L [facility] HospitalSODIUM, URINE [id number] 12:36:00* Test Item Value Reference Range Interpretation Comme nts NA URINE (test code = 6930814718) 99 mmol/L [facility] HospitalPOCT GLUCOSE (AUTOMATED)2019-11-18 12:31:00* Test Item Value Reference Range Interpretation Comme nts POCT GLU (test code = 0688134999) 72 mg/dL 70-110 Lab Interpretation (test cod e = 40888-4) Normal [facility] HospitalXR FOOT <3 VW [id number] 12:07:14 Ulcerations with osteomyelitis involving the fifth toe, proximal and fifthmetatarsal and great toe.Charcot arthropathy. Cellulitis. I, Oz Peres MD., have reviewed this study and agree with the abovereport.EXAM: XR FOOT <3 VW RIGHT HISTORY: wound [...] of the great toe distal phalanx. Chronic articularcollapse withsclerotic remodeling is seen about the great toe proximal phalanx and thearticular margins of the talonavicular, subtalar, calcaneocuboid, navicularcuneiform joints and second through fifth TMT joints. [facility], Radiant Results Inft User - 11/18/2019 7:08 AM CDTEXAM:XR FOOT <3 VW RIGHTHISTORY:wound COMPARISON:NoneFINDINGS: Imaging of the right foot demonstrates [...] reviewed this study and agree with the abovereport. [facility] HospitalPOCT GLUCOSE (AUTOMATED)2019-11-18 10:38:00* Test Item Value Reference Range Interpretation Comme [facility] POCT GLU (test code = 5361181114) 88 mg/dL 70-110 Lab Interpretation (test cod e = 12862-2) Normal [facility] HospitalGlycosylated Hemoglobin (A1C)2019-11-18 09:43:00* Test Item Value Reference Range Interpretation Comme [facility] HGB A1C (test code = 4548-4) 5.3 % 4-6 ALDO (test code = ALDO) %A1C (NGSP) Interpretation (ADA)4.8-5.6 ? ? Normal or (Non-Diabetic Range)5.7-6.4 ? ? Increased Risk (Pre-Diabetic)>6.5 ?Diabetes Indicated Lab Interpretation (test code = 80040-7) Normal [facility] HospitalURINALYSIS2020-07-24 07:22:00* Test Item Value Reference Range Interpretation Comme nts APPEARANCE (test code = 5747991725) Cloudy Clear A COLOR (test code = 5704687027) Yellow Yellow PH (test code = 4097768573) 4.8-8.0 SP GRAVITY (test code = 6814585264) 1.003-1.030 GLU U QUAL (test code = 3779876739) Normal Normal BLOOD (test code = 1711632278) 3+ Negative A KETONES (test code = 7383373235) Negative Negative PROTEIN (test code = 2887-8) 100 mg/dL Negative A UROBILIN (test code = 6042704061) Normal Normal BILIRUBIN (test code = 3968556221) Negative Negative NITRITE (test code = 8303719266) Negative Negative LEUK BRIEN (test code = 8214397072) 500/uL Negative A RBC/HPF (test code = 9215366694) See_Comment H [Automated messa ge] The system which generated this result transmitted reference range: 0 - 3 HPF. The reference range was not used to interpret this result as normal/abnormal. WBC/HPF (test code = 9698438895) See_Comment H [Automated messa ge] The system which generated this result transmitted reference range: 0 - 5 HPF. The reference range was not used to interpret this result as normal/abnormal. BACTERIA (test code = 3207859290) Few Negative A MUCOUS (test code = 9779130169) Slight Negative LPF A SQ EPITH (test code = 1689640933) HPF Lab Interpretation (test code = 28533-6) Abnormal [facility] with [id number] 06:37:00* Test Item Value Reference Range Interpretation Comme nts WBC (test code = 6690-2) See_Comment H [Automated message] The system which generated this result transmitted reference range: 4.30 - 11.10 10*3/?L. The reference range was not used to interpret this result as normal/abnormal. RBC (test code = 789-8) See_Comment L [Automated message] The system which generated this result transmitted reference range: 3.93 - 5.25 10*6/?L. The reference range was not used to interpret this result as normal/abnormal. HGB (test code = 718-7) 8.9 g/dL 11.6-15 L HCT (test code = 4544-3) 28.8 % 35.7-45.2 L MCV (test code = 787-2) 95.7 fL 80.6-95.5 H MCH (test code = 785-6) 29.6 pg 25.9-32.8 MCHC (test code = 786-4) 30.9 g/dL 31.6-35.1 L RDW-SD (test code = 71114-0) 49.1 fL 39-49.9 RDW-CV (test code = 788-0) 13.9 % 12-15.5 PLT (test code = 777-3) See_Comment [Automated message] The system which generated this result transmitted reference range: 166 - 358 10*3/?L. The reference range was not used to interpret this result as normal/abnormal. MPV (test code = 82124-2) 11.1 fL 9.5-12.9 NRBC/100 WBC (test code = 3028094857) See_Comment [Automated message] The system which generated this result transmitted reference range: 0.0 - 10.0 /100 WBCs. The reference range was not used to interpret this result as normal/abnormal. NRBC x10^3 (test code = 4564185370) <0.01 See_Comment [Automated message] The system which generated this result transmitted reference range: 10*3/?L. The reference range was not used to interpret this result as normal/abnormal. GRAN MAT (NEUT) % (test code = 770-8) 78.2 % IMM GRAN % (test code = 9184495251) 0.80 % LYMPH % (test code = 736-9) 9.8 % MONO % (test code = 5905-5) 9.6 % EOS % (test code = 713-8) 1.2 % BASO % (test code = 706-2) 0.4 % GRAN MAT x10^3(ANC) (test code = 7574988422) 12.68 10*3/uL 1.88-7.09 H IMM GRAN x10^3 (test code = 4057431144) 0.13 10*3/uL 0-0.06 H LYMPH x10^3 (test code = 731-0) 1.59 10*3/uL 1.32-3.29 MONO x10^3 (test code = 742-7) 1.55 10*3/uL 0.33-0.92 H EOS x10^3 (test code = 711-2) 0.19 10*3/uL 0.03-0.39 BASO x10^3 (test code = 704-7) 0.06 10*3/uL 0.01-0.07 Lab Interpretation (test code = 60858-6) Abnormal [facility] GLUCOSE (AUTOMATED)2019-11-18 06:35:00* Test Item Value Reference Range Interpretation Comme nts POCT GLU (test code = 6271955482) 110 mg/dL 70-110 Lab Interpretation (test cod e = 76880-3) Normal [facility] GLUCOSE (AUTOMATED)2019-11-18 06:29:00* Test Item Value Reference Range Interpretation Comme nts POCT GLU (test code = 4822347628) 45 mg/dL 70-110 LL Lab Interpretation (test cod e = 36788-0) Abnormal [facility] GLUCOSE (AUTOMATED)2019-11-18 06:29:00* Test Item Value Reference Range Interpretation Comme nts POCT GLU (test code = 0775980544) 50 mg/dL 70-110 LL Lab Interpretation (test cod e = 80427-4) [facility]normal [facility] HospitalLamsic Acid Whole Pkjhs8672-79-94 06:05:00* Test Item Value Reference Range Interpretation Comme nts LACTIC ACID (test code = 4233290146) 0.97 mmol/L [facility] HospitalCOVID-19 (ID NOW RAPID TESTING)2019-11-18 06:01:00* Test Item Value Reference Range Interpretation Comme nts SARS-CoV-2 Rapid ID NOW (test code = 64567-5) Not Detected Not Detected ALDO (test code = ALDO) ID NOW COVID-19 As say is an isothermal nucleic acid amplification test intended for the qualitative detection of nucleic acid from SARS-CoV-2 viral RNA in nasopharyngeal (BLANKING MACHINE OPERATOR) specimens. It is used under Emergency Use [...] patient testing if clinically indicated. Lab Interpretation (test code = 75002-6) Normal [facility]. Metabolic Panel (36918)2019-11-18 05:57:00* Test Item Value Reference Range Interpretation Comme nts NA (test code = 8459703337) 138 mmol/L 135-145 K (test code = 8091189008) 4.4 mmol/L 3.5-5 CL (test code = 3435511765) 111 mmol/L 98-108 H CO2 TOTAL (test code = 4132854730) 16 mmol/L 23-31 L AGAP (test code = 2012163864) 2-16 BUN (test code = 4691285475) 51 mg/dL 7-23 H GLUCOSE (test code = 3926232101) 60 mg/dL 70-110 L CREATININE (test code = 9982353262) 6.47 mg/dL 0.5-1.04 H TOTAL BILI (test code = 7961229031) 0.4 mg/dL 0.1-1.1 CALCIUM (test code = 8210711405) 8.0 mg/dL 8.6-10.6 L T PROTEIN (test code = 9588916697) 7.8 g/dL 6.3-8.2 ALBUMIN (test code = 4063756451) 3.3 g/dL 3.5-5 L ALK PHOS (test code = 6163533429) 73 U/L 34-122 ALTv (test code = 1742-6) 9 U/L 5-35 AST(SGOT) (test code = 9128130062) 16 U/L 13-40 eGFR Calculation (Non-) (test code = 2259432433) mL/min/1.73m2 eGFR Calculation () (test code = 9403762465) mL/min/1.73m2 ALDO (test code = ALDO) Association of [...] or abnormalities in imaging tests). Lab Interpretation (test code = 46041-8) [facility] Consult Notes Date/Time Note Provider Source 2023-05-08 12:16:42 DqVi92rS+hE5hmPLcobHDzyJ0NI5KXEqhPuf 2vx0cXf4/7Yhbvf8f0V/+zjke45j0304-91- 12T12:16:42Associated Order(s): CONSULT ADULT PHYSICAL THERAPY Patient agreeable to working with physical therapy. Patient met semi reclined in bed.Recommend nursing staff utilize mod A to safely assist patient with mobility out of the bed or chair.PHYSICAL THERAPY EVALUATIONConsult received, chart reviewed and evaluation complete this date. Patient is referred to PT for evaluation and treatment. Patient is a 63 year old female who presents to hospital for Atrial fibrillation, unspecified type [I48.91]Acute respiratory failure with hypoxia [J96.01] .Discharge Recommendations:Therapy Needs and Potential:Patient would benefit from continued physical therapy services to address: decline in bed mobility decline in transfers decline in gait and/or balance decreased strength decreased endurancePatient demonstrates good potential to improve and meet therapy goals with further physical therapy services.Challenges to Home Transition:increased risk of fallsdecreased safety awarenessEquipment recommendations:Patient has or access to necessary equipmentCurrent Functional Status and/or Treatment:AM-PAC 6 Clicks (Raw Score 0=Dependent, 24=Independent; Low function Raw Score 0= Dependent, 32=Independent):Raw Score - Basic Mobility : 13T-Scale Score - Basic Mobility : 33.99Bed Mobility:Rolling: Minimal AssistanceBridging: Minimal AssistanceSitting balance Fair+Scooting to edge of bed: Minimal AssistanceTransfers:Sit to stand: Minimal Assistance using Rolling WalkerStand to sit: Minimal Assistance using Rolling WalkerAmbulation:Assisted patient with ambulation as follows: 3 feet using Rolling Walker and Moderate Assistance.Therapeutic exercise:patient educated in Fall prevention and General strengthening.After session, patient semi reclined in bed. Call button provided.PLAN OF CARE:While in the hospital, PT will follow patient at least 3 times per week,once or twice a day, per patient's tolerance and needs.See below for complete details.Admit Date: 05/06/2023Hospital Diagnosis:Atrial fibrillation, unspecified type [I48.91]Acute respiratory failure with hypoxia [J96.01]PT Diagnosis: Difficulty walking, Weakness, Malaise/fatigue, and Abnormality of gait and balanceWeight Bearing Precaution: WBATGeneral Precautions: Fall,Crisostomo catheter, IV , oxygen: Nasal canulaBracing/Cast present or required:N/APMH:Past Medical History:Diagnosis DateDM (diabetes mellitus)HTN (hypertension)PSH:Past Surgical History:Procedure Laterality DateCENTRAL VENOUS ACCESS CATHETER PLACEMENT Right 11/21/2019Surgeon: Debby Nielsen MD; [facility]Surgeon: Varun Yanez Jr. [facility]; Location: [facility] OR LocationPrior Living Situation: lives with their family and in a houseDME: Rolling Walker, Wheel ChairPrior level of Mobility: house hold ambulation, ambulates with Rolling Walker , requires assistance with transfers, requires assistance with bed mobility, uses w/c primarilySuspected ischemic or hemorraghic stroke:NoSubjective: Pt stated she came into hospital due to shortness of breath and fluid in her legs. Her was in the room with her to assist with subjective information. 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 due to diabetes and that is why she can't walk very much.Patient/Family Goals: Be able to go home.Patient/Family verbalizes understanding of condition: YesPAIN:denies pain before and after sessionCOMMUNICATIONPrimary Language: EnglishAble to Verbalize needs: YesVision:good; no issues reported Hearing:good; no issues reportedORIENTATION/COGNITION:[place] ed to: person, place, date/time, and situationAwake: Yes Alert: Yes Dizzy: NoFollows Commands: Yes1-Step Yes Multi-Step YesInconsistent: NoNEUROLOGICALLight Touch: within functional limits bilateral LEBALANCE:Sitting: Static: Fair+ Dynamic: Fair+Standing: Static: Fair+ Dynamic: Fair+RANGE OF MOTION: within functional limits bilateral LESTRENGTH: 4-/5 (G-), bilateral LEENDURANCE: Poor+, Nasal canulaSKIN INTEGRITY: intactPROBLEM LIST: Decline in bed mobility, Decline in gait, Decline in transfers, Decreased strength, Decreased endurance, Decreased balance, and Safety awareness deficitsASSESSMENT: Patient is a 63 year old female seen secondary to the above listed diagnosis. Patient would benefit from continued PT to address the above listed deficits to maximize independence and safety with functional mobility.Rehabilitation Potential: fairGoals: The following goals are to maximize independence and safety with functional mobility to eventually return to prior living situation and prior functional status.Upon discharge, patient and/or family will demonstrate the followin. Rolling: SupervisionBridging: SupervisionSitting balance GoodScooting to edge of bed: Supervision2. Sit to stand: Supervision using Rolling WalkerStand to sit: Supervision using Rolling Walker3. Minimal Assistance with ambulation, Feet: 20 using least assistive device.4. Demonstrate or verbalize understanding of home exercise program in order to continue with their rehab on their own.Treatment Plan: Gait training, Therapeutic exercise, Transfer training, Bed mobility training, Equipment needs assessment, and Safety education, patient/caregiver educationPATIENT EDUCATION: Patient provided with preferred teaching of verbal information on role of PT, plan of care. Shows readiness to learn. Verbal instruction teaching provided. Individual is able to read and verbalizes understanding of teaching provided and accurately returns demonstration of skill.Total Time Tx Codes in Minutes: 15 minTotal Treatment Time in Minutes: 25 Bryan Haddad, PTTX PT [id number] Health ADCRehabilitation Services [phone] (phone) (fax) 58291-1Aajjkcb wejtWV6049-88-28B75:30:18Consult noteTXT1.2.840.650130.1.13.104.2.7.2 .673419|[id number] for patient vgrs61152-2Jvoeylt noteLNNARRATIVEFormatted C-CDA narrative [id number] Johanson PTSHARP M[facility] - [address][id number] CABSQBZVBYMSPGHKPBYMUX4322-88-49K85: 30:181.2.840.699327.1.72.3.15|1.2.84 0.951513.1.13.104.2.7.2.727879_19985 20184 Eleanor Haddad PT [facility] History and Physical Notes Date/Time Note Provider Source 2023-05-06 21:45:22 AmkgC05WEowC+w+mrDzAvv64DUy41ATwJnNL+5U8 QZtr1f0utZiD Q3dx48Zj7Uh98732-49-68M32:45:22 MEDICINE MEGAIN ADMIT H&PDate of Service: 05/06/2023HIEF COMPLAINT: shortness of breathSubjectiveHistory of Present Tpgzahf52 yo female with pmh of DM, HTN, ESRD (MWF), who presents to the ED secondary to 4 day history of worsening dyspnea for the past 5 days. Associated symptoms: wheezing, nonproductive cough, nausea, vomiting, and subjective fever/chills. She denies chest pain.PAST MEDICAL HISTORYPast Medical History:Diagnosis DateDM (diabetes mellitus)HTN (hypertension)ESRDPast Surgical History:Procedure Laterality DateCENTRAL VENOUS ACCESS CATHETER PLACEMENT Right 11/21/2019Surgeon: Debby Nielsen MD; Location: [facility] OR LocationFOOT AMPUTATION Right 11/18/2019Surgeon: Varun Yanez Jr., DPRosa; Location: [facility] OR [facility] Family HistoryNoncontributoryALLERGIESAllergiesAllergen ReactionsLevaquin [Levofloxacin] Other - See commentsweaknesLisinopril CoughTylenol-Codeine #3 [Acetaminophen-Codeine] Nausea and/or VomitingMEDICATIONSNo current facility-administered medications on file prior to encounter.Current Outpatient Medications on File Prior to EncounterMedication Sig Dispense Refillaspirin 81 mg Cap Take 1 tablet by mouth in the morning.calcium acetate 667 mg Tab Take 3 capsules by mouth in the morning and 3 capsules at noon and 3 capsules in the evening.calcium acetate 667 mg Tab Take 1 capsule by mouth 2 (two) times daily with meals as needed for Other.furosemide 80 mg tablet Take 1 tablet by mouth in the morning and 1 tablet in the evening.losartan 100 mg tablet Take 1 tablet by mouth in the morning.pregabalin 25 mg capsule Take 1 capsule by mouth in the morning.vitamin b complex-vitamin c-folic acid (REGINA-WILBER) 0.8 mg tablet Take 1 tablet by mouth in the morning.insulin NPH hum/reg insulin hm (INSULIN 70/30 SC) inject 45 % under the skin 2 (two) times daily.I attest that the foregoing medication list in the medical record is true, accurate and omplete to the best of my knowledge.SOCIAL HISTORYSocial HistorySocioeconomic HistoryMarital status: MarriedTobacco UseSmoking status: FormerSmokeless tobacco: NeverREVIEW OF SYSTEMSReview of SystemsConstitutional: Positive for chills and fever. Negative for activity change, appetite change, diaphoresis, fatigue and unexpected weight change.HENT: Negative.Eyes: Negative.Respiratory: Positive for cough (nonproductive cough), shortness of breath and wheezing. Negative for apnea, choking, chest tightness and stridor.Breasts: Negative.Cardiovascular: Negative.Gastrointestinal: Positive for nausea and vomiting. Negative for abdominal distention, abdominal pain, anal bleeding, blood in stool, constipation, diarrhea and rectal pain.Genitourinary: Negative.Musculoskeletal: Negative.Skin: Negative.Neurological: Negative.Psychiatric/Behavioral: Negative.Endocrine: Endocrine negativeObjectivePHYSICAL EXAMINATIONVitals:05/06/23 1832 01/02/17 190005/06/23193805/06/23 2000BP: 112/68 105/60 105/60 121/65Pulse: 88 87 84 87Resp: 19 18Temp: 36.2 ?C (97.2 ?F) 36.2 ?C (97.2 ?F)TempSrc: Temporal Artery OralSpO2: 94% 92% 92% (!) 88%Weight: 133 kg (293 lb 3.2 oz)Height: 1.676 m (5' 6")Physical ExamVitals and nursing note reviewed.Constitutional:General: She is not in acute distress.Appearance: Normal appearance. She is not ill-appearing, toxic-appearing or diaphoretic.HENT:Head: Normocephalic and atraumatic.Right Ear: External ear normal.Left Ear: External ear normal.Nose: Nose normal. No congestion.Mouth/Throat:Mouth: Mucous membranes are moist.Pharynx: No oropharyngeal exudate or posterior oropharyngeal erythema.Eyes:General: No scleral icterus.Extraocular Movements: Extraocular movements intact.Conjunctiva/sclera: Conjunctivae normal.Pupils: Pupils are equal, round, and reactive to light.Cardiovascular:Rate and Rhythm: Normal rate and regular rhythm.Pulmonary:Effort: Pulmonary effort is normal.Breath sounds: Normal breath sounds.Abdominal:General: Abdomen is flat. Bowel sounds are normal. There is no distension.Palpations: Abdomen is soft.Tenderness: There is no abdominal tenderness. There is no guarding.Musculoskeletal:General: Normal range of motion.Cervical back: Normal range of motion and neck supple.Neurological:Mental Status: She is alert.LABS/IMAGING - reviewedPROCEDURE: XR CHEST 1 VWCLINICAL INDICATION: shortness of breathCOMPARISON: 11/21/2019FINDINGS:Right lung is partial expanded with a trace effusion. Left lung only theupper lobe is aerated. A moderate to large left effusion seen. Perihilarvessels are prominent. The cardiac silhouette is enlarged althoughobscured.No acute bony abnormality.IMPRESSIONCardiomegaly with moderate pulmonary edema pattern and a large left pleuraleffusion.EKG: atrial fibrllationAssessment & PlanSneha Whitehead is a 63 year old female with PMH as listed above, admitted to the hospital with:Atrial fibrillation with RVR, unspecified type: unsure if it is new onset. She is rate controlled and appears to be in since rhythm-- will continue to metoprolol-- on heparin for now, holding off on eliquis or any other anticoagulation until after procedure.2. Large left pleural effusion:-- Thoracentesis has been ordered. Consent is in the chart3. Acute cystitis:-- Will continue with ceftriaxone-- Urine culture is pending4. DM-- Will continue with insulin sliding scale5. HTN-- Will continue to metoprolol and losartan6. ESRD:-- Will consult nephrologyProphylaxis: DVT- heparinCode Status: Full Code 88511-2Kcjlfyp and physical zorwKV1018-37-11U21:23:29History and physical noteTXT1.2.840.542492.1.13.104.2.7.2.004465|[id number] 88AVAvailable for patient aczb65156-1Qmejmpk and physical noteLNNARRATIVEFormatted C-CDA narrative textUT[address] Zniq[id number] ZXQLCS0702-93-38D07:23:291.2.840.549333.1.72.3.15|1. 2.840.348655.1.13.104.2.7.2.727879_[id number] [facility] Procedure Notes Date/Time Note Provider Source 2023-05-08 07:12:04 kqq8kAtmgklet+RP3z0AB07XudnhY2B9 DPH3WhwcPVRA62r/rBKT8Z92+uIgd7MM 0949-26-23B82:12:04 VASCULAR & INTERVENTIONAL RADIOLOGY PROCEDURE NOTE:Pre-procedure Diagnosis: Pleural Effusion, LEFTPost-procedure Diagnosis: Pleural Effusion, LEFTProcedure: US-guided ThoracentesisFindings:- US showed moderate volume effusion.- Volume drained 560 mL serous fluid.- Samples sent for analysis.- A CXR is ordered.Complications: NoneEBL: MinimalPlease refer to PACS for full dictated report. 20181-4Vybqvooar ziwjWB9393-31-51X16:12:38Procedu re noteTXT1.2.840.698590.1.13.104.2 .7.2.626526|[id number] e for patient popo43946-2Mlfsdjede noteLNNARRATIVEFormatted C-CDA narrative textRAD-VASCULAR & INTERVENTIONAL RADIOLOGY STAFFRAD-VASCULAR & INTERVENTIONAL RADIOLOGY [address] ZzbyAamlxvbjcTeadjlpbeLQRO622973 1657UWTUKOBMQMQZFQGDBCMPBN4491-0 1-12T07:12:381.2.840.811422.1.72 .3.15|1.2.840.761807.1.13.104.2. 7.2.727879_[id number] RAD-VASCULAR & INTERVENTIONAL RADIOLOGY STAFF [facility] Notes Date/Time Note Provider Source 2023-05-27 14:27:00 w7B2WN/jlY34xJiZ+Vi+clCj8gSAxi6UZRsLL p3KyuvKmULNaupIrI29dtuq/azx0563-17-78 T14:27:00 Pt given printed and verbal discharge instructions regarding vaginal bleeding, encouraged hydration.0 Prescriptions providedPt verbalized understanding of instructions, pt awake alert oriented, resp reg unlabored, skin w/d, color appropriate for race, moves all ext well,pt encouraged to follow up with pcp.Advised to seek medical attention for new/prolonged/worsening of symptoms,Symptoms improvedNo adverse reaction to meds given in ER noted upon dischargePIV x2 d'cd, dressing to site, catheter in tact.Awake, alert oriented, resp reg unlabored, skin w/d, pt leaving via personal wheelchair, in no apparent distress. 09254-5Hqktuljrx department KmwrYR0345-77-70Z33:27:59[facility] department NoteTXT1.2.840.957519.1.13.104.2.7.2. 908135|[id number] for patient nywe37824-5UkqxWQTKWYSRCHPEovtbqkyk C-CDA narrative jbzu278635689Gkkiy L Barker RNUT[address] Fox [id number] HKTXVDPVNWKDCAGRSZGUI5395-22-00C98:27 :591.2.840.276896.1.72.3.15|1.2.840.1 60699.1.13.104.2.7.2.727879_[id number] 7 Lynn Owens RN [facility] 2023-05-27 08:24:57 Sz71Z31RF8qbsfTdZQ+1IDGQwcXlhcZgpnjyJ ZzY4XSSETxj6ZeQtAo0l2ZebrYH2607-15-91 T08:24:57 Pt returned to cq6Yduvmaqybimcgc signed by Lynn Owens RN at 05/27/2023 8:25 AM VJB85289-6Cdudlqprk department PllpEY6903-26-82E47:25:21[facility] department NoteTXT1.2.840.003948.1.13.104.2.7.2. 022076|[id number] for patient hqxc12399-5GlznDMMBUXQIRZIUxgngjezp C-CDA narrative text[address] [id number] UTONVGNKUQCXGIGGEBXPY8494-41-60N90:25 :211.2.840.635761.1.72.3.15|1.2.840.1 30321.1.13.104.2.7.2.727879_[id number] 8 [facility] 2023-05-27 07:20:00 HRp2VLuFHx//tdVR8+bY8YmrkFSSAkCQSZVFm TU2frfXZTzkmU9ao7/E+adfNFbl5436-48-38 T07:20:00 Pt to radiology. 62628-6Fqjdqynga department JmegGD5981-67-78A01:29:12Emer[facility] department NoteTXT1.2.840.596119.1.13.104.2.7.2. 451607|[id number] for patient mnyw77232-9MkfuKBDKXLNWUXDEwjtudbcf C-CDA narrative [address] FopnTpmozidkvNhhrxvcogJOXT3316757289F LBZWOSIMKKVHTPZUUTDNE8798-47-68F95:29 :121.2.840.811266.1.72.3.15|1.2.840.1 34280.1.13.104.2.7.2.727879_[id number] 7 [facility] 2023-05-27 04:45:55 WutwxRoCWHihLX+Oak0Nop0GfBWCN4w5Abh5W UJpsFqXFUHrBBflJ7DEp4Gqd9r45377-02-89 T04:45:55 Pt arrives in wheelchair to ED reporting that she came in 2 weeks ago and while in the hospital she was put on Eliquis and started having vaginal bleeding while admitted. She says it was only light at that time but when she got home the bleeding continued and she began passing large amts of clots. She says she is very weak and has no energy. Pt has on dialysis , , & Thu. Pt also reports that her legs became swollen and painful yesterday after returning home from dialysis. 50075-2Xcyhearxk department Triage yazfNJ4424-16-58F82:54:40Emer[facility] department Triage noteTXT1.2.840.992942.1.13.104.2.7.2. 942675|[id number] for patient liss28369-8Ycucwufbu department NoteLNNARRATIVEFormatted C-CDA narrative utyq527200342Aedetf L Williams RNUT[address] BwitLnwjfkxylCvawobxvtNXCP1569813866Z NBIKXKNZFOTXLYLMENGFR0891-89-31N09:54 :401.2.840.829932.1.72.3.15|1.2.840.1 63811.1.13.104.2.7.2.727879_[id number] 4 Estella Fox Triana RN [facility] 2023-05-27 04:35:00 nM8tLKIfwUiuoUCYO4RQngI7v6BcHTWS0frCJ tKovILQiUr8zb2ZRXmSp9qGVRrS4655-92-60 T04:35:00 [facility] Emergency Department NotePatient Name: Sneha Malik of : 1960 63 year old femaleTreatment Room: [facility] [place]/DK5Jvbhjic Record Number: [id number] Care Physician: PATIENT DOES NOT HAVE A PCPPatient Escorted by: Family [5]Mode of Arrival: Personal means [1]EMS Treatment Prior to ED Arrival: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 female with ESRD, CHF, Atrial Fibrillation, now with c/o vaginal bleeding (on Eliquis). Reports receiving normal Dialysis yesterday.Past Medical History/Immunizations:Past Medical History:Diagnosis Date CHF (congestive heart failure) Chronic atrial fibrillation DM (diabetes mellitus) ESRD (end stage renal disease) HTN (hypertension)Tetanus received in last 5 years: NoAllergies:AllergiesAllergen Reactions Levaquin [Levofloxacin] Other - See commentsweaknes Lisinopril Cough Tylenol-Codeine #3 [Acetaminophen-Codeine] Nausea and/or VomitingPast Social History:Tobacco UseNever smoked or used smokeless tobacco.Passive Exposure: Past; (while growing up with siblings)Past Surgical History:Past Surgical History:Procedure Laterality Date CENTRAL VENOUS ACCESS CATHETER PLACEMENT Right 11/21/2019Surgeon: Debby Nielsen MD; Location: [facility] OR [facility] FOOT AMPUTATION Right 11/18/2019Surgeon: Varun Yanez Jr., DPRosa; [facility]Review of Systems:Review of SystemsPhysical Exam:ED Triage Vitals [05/27/23 0450]Weight 130 kg (286 lb 9.6 oz)Actual or estimated Estimated by patient/family reportHeight 1.676 m (5' 6")BP (!) 142/58Pulse 72Resp 16Temp 36.7 ?C (98.1 ?F)Temp source OralSpO2 100 %Measured on Room airPhysical ExamRadiology:No orders to displayLab Results:Lab Results - No data to displayEKG:If EKG completed, see Procedure Note.Orders and Treatments:Orders Placed This EncounterProcedures US PELVIS COMPLETE WITH TRANSVAGINAL Cbc with Diff Comp. Metabolic Panel (59356) Type and Screen - ONCE Routine Prothrombin Time / INR Activated Partial Thrmplas TimNo orders of the defined types were placed in this encounter.First Provider Eval:ED EventsDate/Time Event User Sxyrvios33/31/24513 Medical Screening Begins NOMI CANALES MD --05/27/23513 First Provider Evaluation NOMI CANALES MD --ED COURSEDiagnosis/Impression as of 05/27/23 0935Vaginal bleedingSymptomatic anemiaAtrial fibrillation, unspecified typeAnticoagulatedIron deficiency anemia, unspecified iron deficiency anemia typeESRD (end stage renal disease) on dialysisProcedures:ProceduresMDM:[facility] Decision MakingAmount and/or Complexity of Data ReviewedLabs: ordered.Radiology: ordered.A) Anemia with Vaginal Bleeding--on Eliquis, ESRD, CHF/Atrial FibrillationDisposition/Condition: Pending TVUS. Transfuse 1 unit PRBC. Likely Admit for Transfusion, SURGICAL ELASTIC KNITTER Consultation, serial exam/labs and usual Dialysis tomorrow morning.ED DispositionNoneDischarge Medications:Patient's MedicationsSTART taking these medicationsNo medications on fileCONTINUE taking these medications which have NOT CHANGEDAPIXABAN 5 MG TABLET Take 1 tablet by mouth in the morning and 1 tablet in the evening. Do all this for 30 days. Indications: atrial fibrillationASPIRIN 81 MG CAP Take 1 tablet by mouth in the morning.CALCIUM ACETATE 667 MG TAB Take 3 capsules by mouth in the morning and 3 capsules at noon and 3 capsules in the evening.CALCIUM ACETATE 667 MG TAB Take 1 capsule by mouth 2 (two) times daily with meals as needed for Other.FUROSEMIDE 80 MG TABLET Take 1 tablet by mouth in the morning and 1 tablet in the evening.INSULIN NPH HUM/REG INSULIN HM (INSULIN 70/30 SC) inject 45 % under the skin 2 (two) times daily.LOSARTAN 25 MG TABLET Take 1 tablet by mouth in the morning for 30 days.METOPROLOL TARTRATE 25 MG TABLET Take 1 tablet by mouth in the morning and 1 tablet in the evening. Do all this for 30 days.PREGABALIN 25 MG CAPSULE Take 1 capsule by mouth in the morning.SEVELAMER 800 MG TABLET Take 1 tablet by mouth in the morning and 1 tablet at noon and 1 tablet in the evening. Take with meals. Do all this for 30 days.VITAMIN B COMPLEX-VITAMIN C-FOLIC ACID (REGINA-WILBER) 0.8 MG TABLET Take 1 tablet by mouth in the morning.START taking Modified Medications as PrescribedNo medications on fileSTOP taking these medicationsNo medications on fileElectronically signed by:Nomi Canales MD05/27/23 0614Nomi Canales MD05/27/23 0642Nomi Canales MD05/27/23 0658 99966-9Gximsumht Emergency department IyekSH6383-28-72D92:58:29Physician Emergency department NoteTXT1.2.840.660439.1.13.104.2.7.2. 594500|[id number] for patient vewo01403-0Zojorgonm department NoteLNNARRATIVEFormatted C-CDA narrative textBERNARDINO[address] NiurGoysctzkwNszjhpjjcITKY5591692215H JYZJQGEPWJRXPWFJLGCHR6057-70-94M55:58 :291.2.840.178345.1.72.3.15|1.2.840.1 84456.1.13.104.2.7.2.727879_[id number] 7 [facility] 2023-05-27 04:35:00 KZAPIbUHXkhvSImDHkNH4gQNXfnX5C0+NnMWa 3MyKiyfqRunRh7DxuOlZGRdMG3b2060-40-11 T04:35:00Associated Order(s): Critical Care AddendumCare transferred from Dr Canales at 0700 with studies, transfusion pending.Recent hospitalization for atrial fibrillation. Started on Eliquis. No prior anticoagulation. Menopause around age 52. Has episodic vaginal bleeding since then, at least once a year. ESRD on HD, TTS schedule. Anemia of chronic disease and iron-deficiency anemia. Gets monthly iron infusions. Established with [facility] Family Medicine with hospitalization follow-up. Already has [facility] [employer] [facility] referral to discuss abnormal uterine bleeding options.HD stable in EDStudies reviewedRecent Results (from the past 24 hour(s))Cbc with DiffCollection Time: 05/27/23 5:54 AMResult Value Ref RangeWBC 9.79 4.30 - 11.10 10*3/?LRBC 1.98 (L) 3.93 - 5.25 10*6/?LHGB 6.4 (L) 11.6 - 15.0 g/dLHCT 20.8 (L) 35.7 - 45.2 %MCV 105.1 (H) 80.6 - 95.5 fLMCH 32.3 25.9 - 32.8 pgMCHC 30.8 (L) 31.6 - 35.1 g/dLRDW-SD 62.4 (H) 39.0 - 49.9 fLRDW-CV 16.6 (H) 12.0 - 15.5 %PLT 185 166 - 358 10*3/?LMPV 11.4 9.5 - 12.9 fLNRBC/100 WBC 0.0 0.0 - 10.0 /100 WBCsNRBC x10^3 <0.01 10*3/?LGRAN MAT (NEUT) % 71.4 %IMM GRAN % 0.40 %LYMPH % 17.8 %MONO % 8.4 %EOS % 1.6 %BASO % 0.4 %GRAN MAT x10^3(ANC) 6.99 1.88 - 7.09 10*3/uLIMM GRAN x10^3 0.04 0.00 - 0.06 10*3/uLLYMPH x10^3 1.74 1.32 - 3.29 10*3/uLMONO x10^3 0.82 0.33 - 0.92 10*3/uLEOS x10^3 0.16 0.03 - 0.39 10*3/uLBASO x10^3 0.04 0.01 - 0.07 10*3/uLComp. Metabolic Panel ([id number])Collection Time: 05/27/23 5:54 AMResult Value Ref RangeNA 140 135 - 145 mmol/LK 3.4 (L) 3.5 - 5.0 mmol/LCL 104 98 - 108 mmol/LCO2 TOTAL 27 23 - 31 mmol/LAGAP 9 2 - 16BUN 24 (H) 7 - 23 mg/dLGLUCOSE 70 70 - 110 mg/dLCREATININE 4.91 (H) 0.50 - 1.04 mg/dLTOTAL BILI 0.6 0.1 - 1.1 mg/dLCALCIUM 8.4 (L) 8.6 - 10.6 mg/Wesly PROTEIN 7.0 6.3 - 8.2 g/dLALBUMIN 3.3 (L) 3.5 - 5.0 g/dLALK PHOS 56 34 - 122 U/LALTv 13 5 - 35 U/LAST(SGOT) 19 13 - 40 U/LeGFR 9.5 mL/min/1.38e8Cbbm and Screen - ONCE RoutineCollection Time: 05/27/23 5:54 AMResult Value Ref RangeABO & RH A PositiveIAT NegativeProthrombin Time / INRCollection Time: 05/27/23 5:54 AMResult Value Ref RangePROTIME PATIENT 16.2 (H) 12.0 - 14.7 SecondsINR 1.3Activated Partial Thrmplas TimCollection Time: 05/27/23 5:54 AMResult Value Ref RangeAPTT Patient 33 23 - 38 SecondsABORH Confirmation (Lab Only)Collection Time: 05/27/23 8:42 AMResult Value Ref RangeABO & RH A PositivePrepare Packed RBC (in units), 1 UnitsCollection Time: 05/27/23 9:47 AMResult Value Ref RangeCross Match Result CompatibleISBT Blood Type Code 6200Unit Blood Type A PosUnit Number [id number] Expiration Date & Time [id number] Information IssuedProduct Identification Red Blood CellsProduct Code K3270C11Qnuiicoe Encounter on 05/27/23US PELVIS COMPLETE WITH TRANSVAGINALNarrativeHISTORY: Vaginal bleeding.TECHNIQUE: Both transabdominal and transvaginal pelvic ultrasound studieswere completed by the technologist.FINDINGS: This examination is severely limited due to large body habitus ofthe patient.Uterus is poorly visualized even with endovaginal technique, appears to beslightly enlarged, measures approximately 8.5 x 4.4 x 4.5 cm in size withhomogeneous heterogeneous myometrial texture due to multiplecalcifications.Small nabothian cysts are seen in the cervix. Endometrial echo complex is8.2 mm. No free fluid in the cul-de-sac.Right ovary is 2.1 x 1.7 x 1.2 cm (2.41 ml) and left ovary is notvisualized.CONCLUSIONS: Very limited study with poor visualization of the uterus.Several calcifications within the myometrium including submucosal liningnoted obscuring the details of the endometrium. Endometrial stripe isthickened for the patient's age.XR CHEST 1 VWNarrativeEXAM: XR CHEST 1 VWCOMPARISON: Chest radiograph on 05/09/2023.HISTORY: ESRD, evaluate for interstitial edema, etc.FINDINGS:Lungs: The left lung volume is decreased with chronic small to moderatepleural effusion. The right lung appears well-expanded and clear.Heart/Mediastinum: The cardiac silhouette appears enlarged accounting fortechnique and degree of inspiration. Moderate aortic arch calcificationsare present.Bones and soft tissues: No osseous abnormality is visualized.ImpressionCardiomegaly with engorged pulmonary vasculature and chronic persistentleft pleural effusion. Underlying consolidation or atelectasis cannot beexcluded.Preliminary Report Dictated by Resident: Jh Carter MD., have reviewed this study and agree with theabove report.Critical CarePerformed by: Evangelist Xie [facility] HEALTHuthorized by: Evangelist Xie [facility] VINITAritical care provider statement:Critical care time (minutes): 35Critical care time was exclusive of: Separately billable procedures and treating other patientsCritical care was necessary to treat or prevent imminent or life-threatening deterioration of the following conditions: Cardiac failure, shock and circulatory failureCritical care was time spent personally by me on the following activities: Development of treatment plan with patient or surrogate, evaluation of patient's response to treatment, examination of patient, obtaining history from patient or surrogate, ordering and performing treatments and interventions, ordering and review of laboratory studies, ordering and review of radiographic studies, pulse oximetry, re-evaluation of patient's condition and review of old chartsI assumed direction of critical care for this patient from another provider in my specialty: yesComments:Blood transfusion.Medical Decision MakingPrimary impression: symptomatic anemiaSecondary impression: abnormal uterine bleeding. Eliquis use, ESRD on hemodialysis, iron deficiency anemiaDifferential Diagnoses, including but not limited to: neoplasm, fibroid, HD instabilityProblems Addressed:Anticoagulated: chronic illness or injuryDetails: Eliquis. New since hospitalization 04/2023.Atrial fibrillation, unspecified type: chronic illness or injuryESRD (end stage renal disease) on dialysis: chronic illness or injuryIron deficiency anemia, unspecified iron deficiency anemia type: chronic illness or injurySymptomatic anemia: acute illness or injuryVaginal bleeding: acute illness or injuryDetails: Recurrent since menopauseAmount and/or Complexity of Data ReviewedIndependent Historian:Details: Self, spouseLabs: ordered. Decision-making details documented in ED Course.Radiology: ordered. Decision-making details documented in ED Course.Discussion of management or test interpretation with external provider(s): N/aRiskPrescription drug management.Risk Details: Unremarkable OBS in ED. HD stable throughout. Findings and plan discussed with patient and spouse. Transfuse one unit PRBC. Stop Eliqiuis until PCP follow-up and vaginal bleeding stops. No findings that require acute hospitalization today. Family Medicine clinic referral placed for close follow-up. She already has [facility] referral and will pursue appointment to discussed abnormal uterine bleeding options.Evangelist Xie MD, [facility] MedicineEvangelist Xie MD05/27/23 0948 92732-9Mfhmczsrp Emergency department IiqiMG7003-45-56A34:48:35Physician Emergency department NoteTXT1.2.840.186830.1.13.104.2.7.2. 659986|[id number] for patient hbch67683-9Bxcqwdlze department NoteLNNARRATIVEFormatted C-CDA narrative [address][id number] LZCADPCNNFSSIFQCVXBOT8321-65-72F49:48 :351.2.840.582618.1.72.3.15|1.2.840.1 69626.1.13.104.2.7.2.727879_[id number] 9 [facility] 2023-05-14 16:13:25 YQL6MaS/vkpRRICL8WH+xdWPvmVoAR9FLpX70 RgJDmGXJ2AZQXvOKtT0BbKYoutw9735-98-46 T16:13:25 TRANSITIONAL CARE MANAGEMENT ASSESSMENT4Awhitney flaco Anna DuarteXuun649474ZCurx Whitehead is a 63 year old /White female was admitted on 05/06/23 to [facility], ADC MED SURG. She was discharged on 05/12/23 with discharge disposition of HR- Routine Discharge.Admitting Physician: Katelynn Cueto Diagnosis: Acute respiratory failure with hypoxia due acute on chronic HFpEF with a large left pleural effusion:- Due to missed HD session and volume overload.- S/p sequential HD x2. Continue HD MWF- S/p left therapeutic thoracentesis, POD #3 with 560 mL of serous fluid removed.- On 1.5 L NC. Wean oxygen as tolerated.-Home O2 evaluation wears patient was 94% at rest on room air, room air on exertion 74%.--Continue home O2 3 L 92%-Home O2 referral sent to [facility] awaiting delivery for patient to be discharged likely tomorrowESRD on HD MWF:- Continue sequential HD sessions today.- Remains anuric. D/c IV Lasix.- Management discussed with Dr. Miller medical supply technician, who agrees with the current plan- Discontinue crisostomo.Metabolic acidosis:- Resolved.- Continue HD.Hyperphosphatemia:- Continue HD and Renvela.Atrial fibrillation with RVR:- RVR resolved.- Continue PO metoprolol tartrate.- Resume Eliquis for discharge homeAcute UTI:- Completed 3 day course of IV ceftriaxone.- Urine and blood cultures are negative.HTN:- Continue PO metoprolol tartrate and losartan.DM II:- Continue SSI.Morbid obesity:- Continue supportive care.Linked EpisodesType: Episode: Status: Noted: Resolved: Last update: Updated by:TRANSITION OF CARE TCM Active 05/12/2023 05/14/2023 12:05 PM Doug Abreu RNComments:TCM Aoc-zxon-gm-face outreach documentation: CM made follow up call to patient post-discharge. No answer and call went to voicemail. CM left a discreet message with purpose of call and CM's call back information. Two attempts made to reach patient.Discharge AssessmentChart Assessed: 05/14/23TCM Outreach Completed: 05/14/23Future Appointments:Future AppointmentsProvider Department Dept Phone05/21/2023 10:00 AM Lizette Goetz PA [facility] [phone] signed by Doug Abreu, RN at 05/14/2023 4:15 PM MVF01592-8Msnbdcnlm encounter DwirCH5293-49-47B86:15:13Telephone encounter NoteTXT1.2.840.075368.1.13.104.2.7.2. 622236|[id number] for patient gded50104-6HmhbYXEWNHJSPFSZnlbddqrx C-CDA narrative kesy787046655Etdintm A Gaudet RNBERNARDINO87 [address] [id number] HJLCVSGCJHTATJZNUCVEL8949-54-34Z62:15 :131.2.840.280535.1.72.3.15|1.2.840.1 88905.1.13.104.2.7.2.727879_[id number] 0 Doug Abreu RN [facility] 2023-05-14 12:06:22 R1umoglb4GHnKDy+AFRv1FAXsf+CWuc1tW7oc gOVlwedKP+MQLP6js1OkVH3v1Xx8815-15-94 T12:06:22 CM made follow up call to patient post-discharge. No answer and call went to voicemail. CM left a discreet message with purpose of call and CM's call back information. 85958-5Bimslhwbc encounter JupkUM7053-78-30A38:06:50Telephone encounter NoteTXT1.2.840.538272.1.13.104.2.7.2. 145342|[id number] for patient bohw87099-0OkzkWPOOTWXMDBROxscitqlh C-CDA narrative text63 [address] [id number] MKHZCRYJMURVOYAIYGTFS3954-12-40G16:06 :501.2.840.236240.1.72.3.15|1.2.840.1 10744.1.13.104.2.7.2.727879_[id number] 5 [facility] 2023-05-12 12:07:13 Yxx4jFbHQyV4k/6NLnR4suK5V7XwhJBNVkR27 KvANYk2q9pyAAOGH+TMidEuAywu2105-63-21 T12:07:13 Problem: Discharge PlanningGoal: Adequate for dischargeOutcome: Adequate for dischargeProblem: Falls, Risk ofGoal: Absence of fallsOutcome: Adequate for dischargeProblem: Fluid Volume - ImbalancedGoal: Absence of signs and symptoms of imbalanced fluid volumeOutcome: Adequate for dischargeProblem: Respiratory Function - ImpairedGoal: Adequate oxygenationOutcome: Adequate for dischargeGoal: Adequate work of breathingOutcome: Adequate for dischargeProblem: Skin integrity Impaired (Risk or Actual)Goal: Prevention of new skin breakdownOutcome: Adequate for dischargeProblem: Tissue Perfusion - Altered, Risk ofGoal: Hemodynamically stableOutcome: Adequate for dischargeProblem: Procedure RoutineGoal: Knowledge of procedureOutcome: Adequate for dischargeProblem: PainGoal: Control of pain at or below patient's documented comfort goalOutcome: Adequate for dischargeGoal: Reduction in pain sensationOutcome: Adequate for dischargeProblem: Skin integrity Impaired (Risk or Actual)Goal: Wound healingOutcome: Adequate for dischargeGoal: Prevention of new skin breakdownOutcome: Adequate for dischargeProblem: Discharge PlanningGoal: Adequate for dischargeOutcome: Adequate for dischargeGoal: Effective communicationOutcome: Adequate for discharge 31979-3Eoxh of care nyolRL6678-57-66U85:07:16Plan of care noteTXT1.2.840.464869.1.13.104.2.7.2. 400227|[id number] for patient astl91056-7OcitQLLUJIZHLLIHgoottzys C-CDA narrative jkwu549538293Tevafsf C Johnson RNUTMBUT - [address] MjwwUefuslnvdWjdsjpjbxUJLY7905758841H TOXIYYGAQCMXSPQFFTPGD0713-79-90B69:07 :161.2.840.737168.1.72.3.15|1.2.840.1 39757.1.13.104.2.7.2.727879_[id number] 9 Latha Espinoza RN [facility] 2023-05-11 23:47:09 IAvWeFWTRYpTO8V9rxuLPSmuY2msVJRKXa5hG 5SArv58Pzs1kw7sDPTaXYJEzVeX0182-19-09 T23:47:09 Problem: Discharge PlanningGoal: Adequate for dischargeOutcome: Progressing as expectedProblem: Falls, Risk ofGoal: Absence of fallsOutcome: Progressing as expectedProblem: Fluid Volume - ImbalancedGoal: Absence of signs and symptoms of imbalanced fluid volumeOutcome: Progressing as expectedProblem: Respiratory Function - ImpairedGoal: Adequate oxygenationOutcome: Progressing as expectedGoal: Adequate work of breathingOutcome: Progressing as expectedProblem: Skin integrity Impaired (Risk or Actual)Goal: Prevention of new skin breakdownOutcome: Progressing as expectedProblem: Tissue Perfusion - Altered, Risk ofGoal: Hemodynamically stableOutcome: Progressing as expectedProblem: Procedure RoutineGoal: Knowledge of procedureOutcome: Progressing as expected 43347-0Zeqh of care eacfBV6626-34-65X34:47:15Plan of care noteTXT1.2.840.270738.1.13.104.2.7.2. 857149|[id number] for patient oefc50601-3SbnjMRDZOIOQXZVFsekzqkye C-CDA narrative jqww373503881Oijvzytth Aniceto Johnson RN[address] RjjzUsrdvurggOfeafdlorFNVO2548608447H PFBOLZMNMBDZQUNRIAKZW6849-24-62E45:47 :151.2.840.737968.1.72.3.15|1.2.840.1 38512.1.13.104.2.7.2.727879_[id number] 4 Adin Johnson RN [facility] 2023-05-11 12:35:26 8zcM8HjfUBljLNPt19wG0ZAhfoB972oqWs49H J+X/O4v7NdzPorPAyT/VrndgMKA6496-68-70 T12:35:26 Problem: Discharge PlanningGoal: Adequate for dischargeOutcome: Progressing as expectedProblem: Falls, Risk ofGoal: Absence of fallsOutcome: Progressing as expectedProblem: Fluid Volume - ImbalancedGoal: Absence of signs and symptoms of imbalanced fluid volumeOutcome: Progressing as expectedProblem: Respiratory Function - ImpairedGoal: Adequate oxygenationOutcome: Progressing as expectedGoal: Adequate work of breathingOutcome: Progressing as expectedProblem: Skin integrity Impaired (Risk or Actual)Goal: Prevention of new skin breakdownOutcome: Progressing as expectedProblem: Tissue Perfusion - Altered, Risk ofGoal: Hemodynamically stableOutcome: Progressing as expectedProblem: Procedure RoutineGoal: Knowledge of procedureOutcome: Progressing as expected 43364-9Tety of care bhjxYX3687-00-04C73:35:28Plan of care noteTXT1.2.840.681501.1.13.104.2.7.2. 745862|[id number] for patient wjsr91752-8OboaHJLATAHYFKOWludjdudl C-CDA narrative ftbp112520747Iznvdzg B Vanier RN[id number] SIOMKWLQFTVNRQBXFLFJW4563-92-37S47:35 :281.2.840.398502.1.72.3.15|1.2.840.1 73135.1.13.104.2.7.2.727879_[id number] 6 Odalis Araujo RN [facility] 2023-05-11 09:28:12 b0PsLsmi5/Ff8dcCEq9KuR34cb6zpEessAOc8 URaC8/hqQYPSHOXI4Pxphq0ag4g9576-23-06 T09:28:12 HEMODIALYSIS NURSING NOTENumber Hours: 3.0 hoursBath: 2K 2.5 Calcium (low calcium)Heparin: zeroAccess: left AVF upper armNet UF: 2.8 LWeight: pre 139 kg, post 136.5 kg bed scalePost BP 119/62 Post Pulse 60Antibiotics/Medications Given: noneComplications/Events of Treatment: Unable to achieved prescription goal due to bp dropped towards the end of treatment. BP stable post HD. Patient denied complaints and tolerated treatment. Left patient in room without distress nor complications, bed in lowest position, side rails up x2, call torre within reach, and endorsed to primary RN.Verbal report to: STEPH JacoboMode of Transport Back to Unit: NA - patient done at bedside [facility] 2211See hemodialysis flowsheet for details of treatment. 04219-8Bpnpj WweaCT8044-34-53U38:30:16Nurse NoteTXT1.2.840.724497.1.13.104.2.7.2. 038425|[id number] for patient iksj96557-6JsqeLXSVMGZITUEJxgmbljkg C-CDA narrative textUT[address] Oc[id number] QDCEMWQHITNONFOWYTVHS4089-44-56B51:30 :161.2.840.010454.1.72.3.15|1.2.840.1 45471.1.13.104.2.7.2.727879_[id number] 0 [facility] 2023-05-11 09:27:45 9Ku68WekUO3hkbMWEN+YiK2YgRk128bnsIigH lxNDLZNGUng8PSxYdp9mkhEh1G16124-56-47 T09:27:45 Problem: Procedure RoutineGoal: Knowledge of procedureOutcome: Progressing as expectedNote: Hemodialysis Plan of care reviewed r/t treatment time, UF goal, and fluid restrictions. Also reviewed care of dialysis access during tx. Pt updated during tx as needed with teaching done. Also reviewed possible side effects of HD tx, such as s/s of hypotension, cramping (during tx and at rare times after tx), N/V, CP or any other concerns. Patient acknowledge understanding of treatment plan. 00553-0Ujph of care aiweOP5791-72-34A47:27:48Plan of care noteTXT1.2.840.705253.1.13.104.2.7.2. 169759|[id number] for patient yfyc69070-9PfkzGYCKPVSSOIPPqhdpnxoj C-CDA narrative [id number] RIQEIUUJUXWGGSLZWTACA3543-29-37X52:27 :481.2.840.714832.1.72.3.15|1.2.840.1 79719.1.13.104.2.7.2.727879_[id number] 8 [facility] 2023-05-11 00:29:29 zKX2lnUc28EprBEyhFU2DceJ22/kLdjnbk+Un c/pZXVsWt4PJ9IyhvpOpAOV9JzC4868-88-05 T00:29:29 Problem: Discharge PlanningGoal: Adequate for dischargeOutcome: Progressing as expectedProblem: Falls, Risk ofGoal: Absence of fallsOutcome: Progressing as expectedProblem: Fluid Volume - ImbalancedGoal: Absence of signs and symptoms of imbalanced fluid volumeOutcome: Progressing as expectedProblem: Respiratory Function - ImpairedGoal: Adequate oxygenationOutcome: Progressing as expectedGoal: Adequate work of breathingOutcome: Progressing as expectedProblem: Skin integrity Impaired (Risk or Actual)Goal: Prevention of new skin breakdownOutcome: Progressing as expectedProblem: Tissue Perfusion - Altered, Risk ofGoal: Hemodynamically stableOutcome: Progressing as expectedProblem: Procedure RoutineGoal: Knowledge of procedureOutcome: Progressing as expected 65743-1Odta of care xzhzGI6996-69-55L91:29:32Plan of care noteTXT1.2.840.779063.1.13.104.2.7.2. 520855|[id number] for patient olbm85816-7PojtYTIJRDJRYTAHwzfapsgn C-CDA narrative [id number] Lara Maldonado RNUT[address] [id number] VPYRFJBPXFRVPRLSMBLAX8172-40-97C17:29 :321.2.840.673692.1.72.3.15|1.2.840.1 13300.1.13.104.2.7.2.727879_[id number] 9 Main Maldonado RN [facility] 2023-05-10 09:30:47 7ElCeEabivZslfz53fNA1WqMxXAwP35aLAsql MzbXI/i9SkTzIie0blNZJG3kZrM5998-25-00 T09:30:47 Problem: Discharge PlanningGoal: Adequate for dischargeOutcome: Progressing as expectedProblem: Falls, Risk ofGoal: Absence of fallsOutcome: Progressing as expectedProblem: Fluid Volume - ImbalancedGoal: Absence of signs and symptoms of imbalanced fluid volumeOutcome: Progressing as expectedProblem: Respiratory Function - ImpairedGoal: Adequate oxygenationOutcome: Progressing as expectedGoal: Adequate work of breathingOutcome: Progressing as expectedProblem: Skin integrity Impaired (Risk or Actual)Goal: Prevention of new skin breakdownOutcome: Progressing as expectedProblem: Tissue Perfusion - Altered, Risk ofGoal: Hemodynamically stableOutcome: Progressing as expectedProblem: Procedure RoutineGoal: Knowledge of procedureOutcome: Progressing as expected 18422-0Vmjg of care mchbME2213-66-16P35:30:56Plan of care noteTXT1.2.840.455920.1.13.104.2.7.2. 657719|[id number] for patient xckp36911-7GlcwSWESULYHYQNXlltvlgwe C-CDA narrative owrn030476300Lhnbfc A Webb RN[address] TvmbO[id number] BQIMLWXWUASSFWNCWKURI7380-58-33V31:30 :561.2.840.142073.1.72.3.15|1.2.840.1 92571.1.13.104.2.7.2.727879_[id number] 0 Loly Garcia RN [facility] 2023-05-10 02:41:10 mT8a6qSr+aLhHUoptAV3bwnkZIjS+nly+cuvc ShA9FY+gSUFd8HFavNmoXTYpr9v6397-36-35 T02:41:10 Problem: Discharge PlanningGoal: Adequate for dischargeOutcome: Progressing as expectedProblem: Falls, Risk ofGoal: Absence of fallsOutcome: Progressing as expectedProblem: Fluid Volume - ImbalancedGoal: Absence of signs and symptoms of imbalanced fluid volumeOutcome: Progressing as expectedProblem: Respiratory Function - ImpairedGoal: Adequate oxygenationOutcome: Progressing as expectedGoal: Adequate work of breathingOutcome: Progressing as expectedProblem: Skin integrity Impaired (Risk or Actual)Goal: Prevention of new skin breakdownOutcome: Progressing as expectedProblem: Tissue Perfusion - Altered, Risk ofGoal: Hemodynamically stableOutcome: Progressing as expectedProblem: Procedure RoutineGoal: Knowledge of procedureOutcome: Progressing as expected 88121-2Lpkr of care xrybTB0111-60-75C99:41:24Plan of care noteTXT1.2.840.422966.1.13.104.2.7.2. 470499|[id number] for patient cnhe22492-5JmdkCBGUGBRVRSSFurfplztp C-CDA narrative [id number] Perez RNUT[address] [id number] YHQFCXBOWYDGPYSDEYNFM3486-78-52Z39:41 :241.2.840.045016.1.72.3.15|1.2.840.1 63601.1.13.104.2.7.2.727879_[id number] 6 Angelica Willson RN [facility] 2023-05-09 17:12:51 bSIwy4n8K8xHbkV6VB+gCLQMYcGgmFwjtsh94 e1txfR1P/2SbqhxwCxTp0STtAI46340-19-09 T17:12:51 Problem: Discharge PlanningGoal: Adequate for dischargeOutcome: Progressing as expectedProblem: Falls, Risk ofGoal: Absence of fallsOutcome: Progressing as expectedProblem: Fluid Volume - ImbalancedGoal: Absence of signs and symptoms of imbalanced fluid volumeOutcome: Progressing as expectedProblem: Respiratory Function - ImpairedGoal: Adequate oxygenationOutcome: Progressing as expectedGoal: Adequate work of breathingOutcome: Progressing as expectedProblem: Skin integrity Impaired (Risk or Actual)Goal: Prevention of new skin breakdownOutcome: Progressing as expectedProblem: Tissue Perfusion - Altered, Risk ofGoal: Hemodynamically stableOutcome: Progressing as expectedProblem: Procedure RoutineGoal: Knowledge of procedureOutcome: Progressing as expected 01113-2Vhlg of care heysVE5360-13-53A31:13:43Plan of care noteTXT1.2.840.680853.1.13.104.2.7.2. 926847|[id number] for patient uuhv15574-7IdnoYOOGZNQUOLPBuexkljgl C-CDA narrative zupa120143298Quzx A Salazar RNUT[address] AozfTrsicrucpPcpfthjnaHDIB1085727211P PKXQFTETMTXDLUITRZPRQ9686-94-54U14:13 :431.2.840.784507.1.72.3.15|1.2.840.1 87968.1.13.104.2.7.2.727879_[id number] 6 Yusra Worley RN [facility] 2023-05-08 14:39:44 K8VRqDuexnAsWwQSddoV1zr7btrbm4DA2wrgu iaoqJbFV+u1VpgdZ0Pe4OTbNXHH8754-16-39 T14:39:44 HEMODIALYSIS NURSING NOTENumber Hours: 3.5 hoursBath: 2K 2.5 Calcium (low calcium)Heparin: zeroAccess: left AVF upper armNet UF: 2.3 LWeight: pre 130.5 kg, post 128.5 kg bed scalePost BP 108/65 Post Pulse 72Antibiotics/Medications Given: Lidocaine 1% 0.3ml sqComplications/Events of Treatment: Patients bp dropped, UF goal adjusted accordingly. Seen by Dr Corbett during HD and informed of the above. Patient denied complaints. Left patient in room without distress nor complications, bed in lowest position, side rails up x2, call torre within reach, and endorsed to primary RN.Verbal report to: STEPH GaliciaMode of Transport Back to Unit: NA - patient done at bedside ADC ICU 210 (tele status)See hemodialysis flowsheet for details of treatment. 07845-3Mgqzj GvcaFM6063-78-26W85:45:19Nurse NoteTXT1.2.840.780832.1.13.104.2.7.2. 438683|[id number] for patient wjjc70650-4QjhtQUDDDPEBYMSXqarzrnkg C-CDA narrative text[address] StreetAlafSldpqyqtqTjrxzwflaDYGA0372312632T GFCJYBXDASGSLECQRMFTO9280-30-32C87:45 :191.2.840.427176.1.72.3.15|1.2.840.1 27140.1.13.104.2.7.2.727879_[id number] 8 [facility] 2023-05-08 14:38:52 x4QJ5HulnBVnsyzgw/BVf8qknnsE/5Pgtb8p0 uMFvuCk9qZBKdhIXZEWaacxKZ137200-77-60 T14:38:52 Hemodialysis Plan of care reviewed r/t treatment time, UF goal, and fluid restrictions. Also reviewed care of dialysis access during tx. Pt updated during tx as needed with teaching done. Also reviewed possible side effects of HD tx, such as s/s of hypotension, cramping (during tx and at rare times after tx), N/V, CP or any other concerns. Patient acknowledge understanding of treatment plan. 22986-0Bcsz of care ohvdSW6710-45-53L69:38:58Plan of care noteTXT1.2.840.324450.1.13.104.2.7.2. 645108|[id number] for patient usgm71815-8RwjnHGZBPLURYEPWuftofbka C-CDA narrative text[id number] IGCCOHIQTBSGGDUSJMAYQ7101-49-84U08:38 :581.2.840.266574.1.72.3.15|1.20.1 38186.1.13.104.2.7.2.727879_[id number] 4 [facility] 2023-05-08 12:20:18 W5+iuKPhIDwh7PvZ7kaGfygbHJPlLwVhCRW8z aziDiqCg1aHGHMv/MC6jEMPSVxT6926-41-87 T12:20:18 Problem: Discharge PlanningGoal: Adequate for dischargeOutcome: Progressing as expectedProblem: Falls, Risk ofGoal: Absence of fallsOutcome: Progressing as expectedProblem: Fluid Volume - ImbalancedGoal: Absence of signs and symptoms of imbalanced fluid volumeOutcome: Progressing as expectedProblem: Respiratory Function - ImpairedGoal: Adequate oxygenationOutcome: Progressing as expectedGoal: Adequate work of breathingOutcome: Progressing as expectedProblem: Skin integrity Impaired (Risk or Actual)Goal: Prevention of new skin breakdownOutcome: Progressing as expectedProblem: Tissue Perfusion - Altered, Risk ofGoal: Hemodynamically stableOutcome: Progressing as expected 31411-8Milh of care fgdcTA0264-58-41T78:20:20Plan of care noteTXT1.2.840.126185.1.13.104.2.7.2. 338921|[id number] for patient vwhg60531-3EnwrWWRDXTVVJFUXgqgxqzyk C-CDA narrative [id number] Postorino RN[address] Xu[id number] HVSJPKKVBWJIESYFPVXYZ8344-45-21M97:20 :201.2.840.080665.1.72.3.15|1.2.840.1 26100.1.13.104.2.7.2.727879_[id number] 4 Cathy [facility] 2023-05-08 01:51:17 BrSLVqf6OrkPBuDHBWLDnqIM3VN78GpXuCflI qzn+dPQ9AC212IvCmza2n5VmNSX1868-17-81 T01:51:17 Problem: Discharge PlanningGoal: Adequate for dischargeOutcome: Progressing as expectedProblem: Falls, Risk ofGoal: Absence of fallsOutcome: Progressing as expectedProblem: Fluid Volume - ImbalancedGoal: Absence of signs and symptoms of imbalanced fluid volumeOutcome: Progressing as expectedProblem: Respiratory Function - ImpairedGoal: Adequate oxygenationOutcome: Progressing as expectedGoal: Adequate work of breathingOutcome: Progressing as expectedProblem: Skin integrity Impaired (Risk or Actual)Goal: Prevention of new skin breakdownOutcome: Progressing as expectedProblem: Tissue Perfusion - Altered, Risk ofGoal: Hemodynamically stableOutcome: Progressing as expected 50177-6Zcdh of care bkbkUP8199-25-56S14:51:31Plan of care noteTXT1.2.840.171949.1.13.104.2.7.2. 096973|[id number] for patient dmvt99461-4QxghZTBJUKWRGPPNncjnhoyy C-CDA narrative text52 [address] StreetVjkoNhyolcklxPwtrmunfqAJIV3648170459R RTDLDOUDFNYZJFAUYSNHT0051-73-43M81:51 :311.2.840.408610.1.72.3.15|1.2.840.1 39496.1.13.104.2.7.2.727879_[id number] 7 [facility] 2023-05-07 17:03:50 iZMR+JRVCwIE57FoAq0jvPpNdC2woMgg9bGVX 0XJWfYIX31lD38be89+qi2xjCZz4953-68-49 T17:03:50 HEMODIALYSIS NURSING NOTENumber Hours: 2.5 hoursBath: Dialysate: UF OnlyHeparin: zeroAccess: left AVF upper armTotal UF: 2LPost Weight: 130.5kgPost B/P 129/63 f20Tilqemeozft Given: NoneComplications/Events of Treatment: Venous access pressures became high 2h into treatment. Pt states that this happens in her chronic setting quite often. Efforts were made to secure the access with better pressures but were ultimately unsuccessful.Written handoff report completed and attached to the patient chart.Mode of Transport Back to Unit: NA - patient done at bedsideSee hemodialysis flowsheet for details of treatment. 92071-6Ubgyq SyroDY0329-94-79D39:20:16Nurse NoteTXT1.2.840.161196.1.13.104.2.7.2. 150715|[id number] for patient ufqx75152-4Ezmjj NoteLNNARRATIVEFormatted C-CDA narrative text[address] StreetRezpFdjruixozYjamwtkxbTJZL4805063892Q JTXYRXMFIWQMYOLRDGUKY7225-15-19P08:20 :161.2.840.322861.1.72.3.15|1.2.840.1 40185.1.13.104.2.7.2.727879_[id number] 3 [facility] 2023-05-07 11:15:01 Hku48ZKTcaNO5jhbxJFKTmpKsW6WQtfbis2+f Efd+8nlWrQv7plJkP+qsFL2X08o6635-03-45 T11:15:01 Problem: Discharge PlanningGoal: Adequate for dischargeOutcome: Progressing as expectedProblem: Falls, Risk ofGoal: Absence of fallsOutcome: Progressing as expectedProblem: Fluid Volume - ImbalancedGoal: Absence of signs and symptoms of imbalanced fluid volumeOutcome: Progressing as expectedProblem: Respiratory Function - ImpairedGoal: Adequate oxygenationOutcome: Progressing as expectedGoal: Adequate work of breathingOutcome: Progressing as expectedProblem: Skin integrity Impaired (Risk or Actual)Goal: Prevention of new skin breakdownOutcome: Progressing as expectedProblem: Tissue Perfusion - Altered, Risk ofGoal: Hemodynamically stableOutcome: Progressing as expected 69029-9Fypr of care tgwuWC3478-41-46L07:15:09Plan of care noteTXT1.2.840.844237.1.13.104.2.7.2. 616021|6501059515VSCzwijegqc for patient xamj87695-7IywhCOLMYPVBYXDClsswgrta C-CDA narrative textUT76 [address] StreetQfxbHrkzyrndjIzfjamcxxMRMW0223902268L IKYEMFLOLVXLHLTQSSAXV9398-59-13Z12:15 :091.2.840.561782.1.72.3.15|1.2.840.1 76640.1.13.104.2.7.2.727879_[id number] 0 [facility] 2023-05-06 22:59:59 rTOrRsMr/4nM+zdRtYhPQgiLwymzFYfgubhT+ uf3z1/CQlU38vazDezQ5C+TVJTl4601-85-56 T22:59:59 Problem: Discharge PlanningGoal: Adequate for dischargeOutcome: Progressing as expectedProblem: Falls, Risk ofGoal: Absence of fallsOutcome: Progressing as expectedProblem: Fluid Volume - ImbalancedGoal: Absence of signs and symptoms of imbalanced fluid volumeOutcome: Progressing as expectedProblem: Respiratory Function - ImpairedGoal: Adequate oxygenationOutcome: Progressing as expectedGoal: Adequate work of breathingOutcome: Progressing as expectedProblem: Skin integrity Impaired (Risk or Actual)Goal: Prevention of new skin breakdownOutcome: Progressing as expectedProblem: Tissue Perfusion - Altered, Risk ofGoal: Hemodynamically stableOutcome: Progressing as expected 97723-6Cssg of care evpnKR5206-05-13U92:00:12Plan of care noteTXT1.2.840.071808.1.13.104.2.7.2. 820506|[id number] for patient ypux22343-5YvmyDVIRSFKVJFZGzqrhjhci C-CDA narrative cxub073315473Jvyq [address]rn CHOI[address]TXTX[address]5577555U GNDNTZUZGXSXBLEFSQXAJ6735-88-42J99:00 :121.2.840.099867.1.72.3.15|1.2.840.1 57845.1.13.104.2.7.2.727879_[id number] 2 Kendrick Pool RN [facility] 2023-05-06 17:56:05 GfiuLByHLsBcvSxpF01IY/xTqTxDh4iGcTT20 TCET0idLGb7f58WDLqu3/uxRCFj0439-64-33 T17:56:05 Nurse ReportReport [facility] Chief complaint, assessment findings, infusion verify and orders reviewed. Plan of care [place] [address]-9Vqdldtfqc department BwsuPO3944-23-42U40:56:27Emergen department NoteTXT1.2.840.966598.1.13.104.2.7.2. 080710|[id number] for patient wajv93284-3PvzaCXMVHEPTSEKYmvwrpglx C-CDA narrative mmwe460770363LjvhgOrquidea Wright RN[address]TXTX[address]5577555U KVTQODKGATQGSKAAQCGPT8747-00-58Z68:56 :271.2.840.456290.1.72.3.15|1.2.840.1 45692.1.13.104.2.7.2.727879_[id number] 5 Orquidea Wright RN [facility] 2023-05-06 12:43:21 fS1p1R9Pni1LvOxrW95EvQmIxf/cqo9sENPto uBXWg5e6QwMbe/ZAL1gh8jQUeqW7612-80-86 T12:43:21 Safety NoteBed low/locked, side rails up x2, call light within reach, patient verbalized understanding of how/when to use. [place] [address]-4Ruvwlkxwb department GdqlRS3632-23-76Y80:43:23[facility] department NoteTXT1.2.840.130617.1.13.104.2.7.2. 350315|[id number] for patient vuhq57986-5ItgzAVCRUKTBHGZKwvfeojdd C-CDA narrative ndhk543629558XjrddJanna Deleon RN[address] WsgoZanwiyxdaXbpapbnctJAWO3519816049G DAEFCXEFBSUGUCIXANNOP5199-64-95Z55:43 :231.2.840.832906.1.72.3.15|1.2.840.1 08854.1.13.104.2.7.2.727879_[id number] 5 Janna Deleon RN [facility] 2023-05-06 12:28:24 0hkrSZVMQ2mFJfQ12a/b5ShwbSgU9v4wD2LBI 8uZ6Ak7cjSUadJkcb8RznHbahSm7550-89-01 T12:28:24 Patient states "I had dialysis this morning and the past several days I haven't been able to breathe that well."Patient c/o shortness of breath for 4 days. O2 saturation 85-87% on room air. 52881-3Vubcwigar department Triage tjcjWB3411-64-54L98:29:26Emer[facility] department Triage noteTXT1.2.840.407178.1.13.104.2.7.2. 660122|[id number] for patient ryry96759-3Jmjbhgvoz department NoteLNNARRATIVEFormatted C-CDA narrative wdsb275310330Ondzd S Cryer RNUT[address] SqsnUvxjrlokvQnmmzeshnKKRM4236281164U ZNLHOKAULXKVDGVEEZBVG4508-45-60G40:29 :261.2.840.562241.1.72.3.15|1.2.840.1 18514.1.13.104.2.7.2.727879_[id number] 0 Paul Gould RN [facility] 2023-05-06 12:26:00 SMOr1AU2RbY11T6cEeXabcxnYDjPuPKuOTqG4 UyG10BpkfQy4NM0f7TaGIi6QB8A3990-23-15 T12:26:00 [facility] Emergency Department NotePatient Name: Sneha Malik of : 1960 63 year old femaleTreatment Room: [address] Record Number: [id number] Care Physician: PATIENT DOES NOT HAVE A PCPPatient Escorted by: Family [5]Mode of Arrival: Personal means [1]EMS Treatment Prior to ED Arrival:[employer] treatment: Medication (comment)Travel and Exposure Screening:SymptomsDoes patient have any of these symptoms?: (not recorded)Exposure ScreeningHas patient had contact with someone with a communicable disease in the last month?: (not recorded)Diseases exposed to:: (not recorded)Is Patient ?: (not recorded)Exposure Date: (not recorded)Chief Complaint:Chief ComplaintPatient presents withShortness of BreathED Triage Paul Moe RN 05/06/2023 12:29Patient states "I had dialysis this morning and the past several days I haven't been able to breathe that well."Patient c/o shortness of breath for 4 days. O2 saturation 85-87% on room air.History of Present Illness:Sneha Whitehead is a 63 year old female with shortness of breath. Had HD today. Found to be hypoxic. Denies fever. No history of PE. Has right foot amputation.Past Medical History/Immunizations:Past Medical History:Diagnosis DateDM (diabetes mellitus)HTN (hypertension)Tetanus received in last 5 years: UnknownChildhood immunizations: Xy-so-eqowVyudtqbhg:AllergiesAllergen ReactionsLevaquin [Levofloxacin] Other - See commentsweaknesLisinopril CoughTylenol-Codeine #3 [Acetaminophen-Codeine] Nausea and/or VomitingPast Social History:Tobacco UseFormerSmokeless Tobacco: Never used smokeless tobacco.Past Surgical History:Past Surgical History:Procedure Laterality DateCENTRAL VENOUS ACCESS CATHETER PLACEMENT Right 11/21/2019Surgeon: Debby Nielsen MD; [facility]18[facility]2019Surgeon: Varun Yanez Jr., DP; [facility] CareReview of Systems:Review of SystemsConstitutional: Positive for fatigue. Negative for chills and fever.HENT: Negative for sore throat.Eyes: Negative for pain.Respiratory: Positive for shortness of breath. Negative for cough, chest tightness and stridor.Breasts: Negative for pain.Cardiovascular: Negative for chest pain and palpitations.Gastrointestinal: Negative for abdominal pain, constipation and diarrhea.Genitourinary: Negative for bladder incontinence and difficulty urinating.Musculoskeletal: Negative for back pain.Skin: Negative for color change.Neurological: Negative for dizziness, seizures, weakness, light-headedness and headaches.Physical Exam:ED Triage VitalsWeight 05/06/23 1229 130.6 kg (288 lb)Actual or estimated 05/06/23 1939 ActualHeight 05/06/23 1229 1.676 m (5' 6")BP 05/06/23 1229 95/51Pulse 05/06/23 1229 106Resp 05/06/23 1229 22Temp 05/06/23 1229 37 ?C (98.6 ?F)Temp source 05/06/23 1229 OralSpO2 05/06/23 1229 (!) 87 %Measured on 05/06/23 1229 Room airPhysical ExamVitals and nursing note reviewed.Constitutional:General: She is not in acute distress.Appearance: She is well-developed. She is not diaphoretic.HENT:Head: Normocephalic and atraumatic.Right Ear: External ear normal.Left Ear: External ear normal.Nose: Nose normal.Eyes:General: No scleral icterus.Conjunctiva/sclera: Conjunctivae normal.Pupils: Pupils are equal, round, and reactive to light.Cardiovascular:Rate and Rhythm: Normal rate and regular rhythm.Heart sounds: Normal heart sounds.Pulmonary:Effort: Pulmonary effort is normal.Breath sounds: Normal breath sounds.Abdominal:General: Bowel sounds are normal.Palpations: Abdomen is soft.Tenderness: There is no abdominal tenderness.Musculoskeletal:General: Normal range of motion.Cervical back: Normal range of motion and neck supple.Comments: Right foot amputationSkin:General: Skin is warm and dry.Neurological:Mental Status: She is alert and oriented to person, place, and time.Cranial Nerves: No cranial nerve deficit.Deep Tendon Reflexes: Reflexes are normal and symmetric.Psychiatric:Behavior: Behavior normal.Thought Content: Thought content normal.Radiology:XR CHEST 1 VWFinal ResultPROCEDURE: XR CHEST 1 VWCLINICAL INDICATION: shortness of breathCOMPARISON: 11/21/2019FINDINGS:Right lung is partial expanded with a trace effusion. Left lung only theupper lobe is aerated. A moderate to large left effusion seen. Perihilarvessels are prominent. The cardiac silhouette is enlarged althoughobscured.No acute bony abnormality.IMPRESSIONCardiomegaly with moderate pulmonary edema pattern and a large leftpleuraleffusion.Lab Results:Lab ResultsCBC WITH DIFF - AbnormalResult Value Ref RangeWBC 14.65 (*) 4.30 - 11.10 10*3/?LRBC 3.20 (*) 3.93 - 5.25 10*6/?LHGB 10.2 (*) 11.6 - 15.0 g/dLHCT 30.9 (*) 35.7 - 45.2 %MCV 96.6 (*) 80.6 - 95.5 fLMCH 31.9 25.9 - 32.8 pgMCHC 33.0 31.6 - 35.1 g/dLRDW-SD 45.2 39.0 - 49.9 fLRDW-CV 12.7 12.0 - 15.5 %PLT 282 166 - 358 10*3/?LMPV 10.9 9.5 - 12.9 fLNRBC/100 WBC 0.0 0.0 - 10.0 /100 WBCsNRBC x10^3 <0.01 10*3/?LGRAN MAT (NEUT) % 80.8 %IMM GRAN % 0.50 %LYMPH % 7.0 %MONO % 10.7 %EOS % 0.7 %BASO % 0.3 %GRAN MAT x10^3(ANC) 11.83 (*) 1.88 - 7.09 10*3/uLIMM GRAN x10^3 0.07 (*) 0.00 - 0.06 10*3/uLLYMPH x10^3 1.03 (*) 1.32 - 3.29 10*3/uLMONO x10^3 1.57 (*) 0.33 - 0.92 10*3/uLEOS x10^3 0.10 0.03 - 0.39 10*3/uLBASO x10^3 0.05 0.01 - 0.07 10*3/uLCOMP. METABOLIC PANEL (42791) - AbnormalNA 133 (*) 135 - 145 mmol/LK 4.0 3.5 - 5.0 mmol/LCL 100 98 - 108 mmol/LCO2 TOTAL 22 (*) 23 - 31 mmol/LAGAP 11 2 - 16BUN 31 (*) 7 - 23 mg/dLGLUCOSE 119 (*) 70 - 110 mg/dLCREATININE 5.01 (*) 0.50 - 1.04 mg/dLTOTAL BILI 0.8 0.1 - 1.1 mg/dLCALCIUM 8.7 8.6 - 10.6 mg/[place]es[place] PROTEIN 7.4 6.3 - 8.2 g/dLALBUMIN 3.4 (*) 3.5 - 5.0 g/dLALK PHOS 57 34 - 122 U/LALTv 15 5 - 35 U/LAST(SGOT) 16 13 - 40 U/LeGFR 9.3 mL/min/1.60c2Y-ECDTYFQK PRO-BNP - AbnormalNT-proBNP 5,790 (*) <=125 pg/mLURINALYSIS - AbnormalAPPEARANCE Cloudy (*) ClearCOLOR Leeann (*) YellowPH 5.0 4.8 - 8.0SP GRAVITY 1.018 1.003 - 1.030GLU U QUAL Normal NormalBLOOD 2+ (*) NegativeKETONES 5 mg/dL (*) NegativePROTEIN 30 mg/dL (*) NegativeUROBILIN Normal NormalBILIRUBIN Negative NegativeNITRITE Negative NegativeLEUK BRIEN 500/uL (*) NegativeRBC/HPF 20 (*) 0 - 3 HPFWBC/HPF >182 (*) 0 - 5 HPFBACTERIA Many (*) NegativeMUCOUS Slight (*) Negative LPFSQ EPITH 12 HPFWBC CLUMPS 11 (*) <=1 HPFTRANS EPI 1 <=1 HPFTROPONIN I - NormalTROPONIN I 0.007 <=0.034 ng/mLURINE CULTUREEKG:If EKG completed, see Procedure Note.Orders and Treatments:Orders Placed This EncounterProceduresXR CHEST 1 VWIR THORACENTESISCbc with DiffComp. Metabolic Panel (53703)N-Terminal Pro-BnpTroponin IUrinalysisBLOOD CULTURE SCREENBLOOD CULTURE SCREENUrine CultureCBC with DifferentialBasic Metabolic Panel (NA, K, CL, CO2, GLUCOSE, BUN, CREATININE, CA)Magnesium SerumHepatitis B Surface Antibody (HBsAb)Hepatitis B Surface Antigen (HBsAg)Phosphorus SerumGlycosylated Hemoglobin (A1C)POCT Glucose (Age >30 Days)COVID-19 (ID NOW TESTING)Lab Only COVID InterpretationPOCT GLUCOSE (AUTOMATED)POCT GLUCOSE (AUTOMATED)MRSA / MSSA SCREEN BY PCR, NARESPOCT GLUCOSE (AUTOMATED)Basic Metabolic Panel (NA, K, CL, CO2, GLUCOSE, BUN, CREATININE, CA)MagnesiumPhosphorusCbc with DiffPOCT GLUCOSE (AUTOMATED)Consult Nephrology: ESRD Patient Needing DialysisO2 Per ProtocolOrders Placed This EncounterMedicationsdiltiazem (CARDIZEM IV) injection 15 mgcefTRIAXone (ROCEPHIN) 1,000 mg in NaCl 0.9% (NS) 100 mL MINI-BAGDISCONTD: heparin (porcine) injection 5,000 Unitsacetaminophen (TYLENOL) tablet 650 mgondansetron (ZOFRAN (PF)) injection 4 mgmetoprolol tartrate (LOPRESSOR) tablet 25 mgcefTRIAXone (ROCEPHIN) 1,000 mg in NaCl 0.9% (NS) 100 mL MINI-BAGlosartan 100 mg tabletcalcium acetate 667 mg Tabcalcium acetate 667 mg Tabfurosemide 80 mg tabletaspirin 81 mg Capvitamin b complex-vitamin c-folic acid (REGINA-WILBER) 0.8 mg tabletpregabalin 25 mg capsuledextrose 50 % in water (D50W) injection 25 mLglucagon (GLUCAGEN DIAGNOSTIC KIT) injection 1 mgSliding Scale Insulin-Regularpregabalin (LYRICA) capsule 25 mgDISCONTD: losartan (COZAAR) tablet 100 mgaspirin chewable tablet 81 mgfurosemide (LASIX) injection 60 mgheparin (porcine) injection 5,000 Unitsmupirocin (BACTROBAN NASAL OINT) 2 % nasal ointmentDISCONTD: heparin 1,000 unit/mL injection 1,500 UnitsDISCONTD: heparin 1,000 unit/mL injection 1,500 Unitslosartan (COZAAR) tablet 25 mgFOLLOWED BY Linked Order Groupheparin 1,000 unit/mL injection 1,500 Unitsheparin 1,000 unit/mL injection 1,500 Unitslidocaine 1% (PF) (XYLOCAINE) injection 0.3 mLFirst Provider Eval:ED EventsDate/Time Event User Imvcfciz28/10/24 1230 Medical Screening Begins GUMARO WISE --05/06/23 1230 First Provider Evaluation GUMARO WISE --ED COURSEED Course as of 05/07/232155Wed May [id number] BACTERIA(!): Many [PS]1643 WBC/HPF(!): >182 [PS]1642 LEUK BRIEN(!): 500/uL [PS]1339 WBC x10^3(!): 14.65 [PS]ED Course User Index[PS] Gumaro Wise DODiagnosis/Impression as of 05/07/23 2156Atrial fibrillation, unspecified typeProcedures:ProceduresMDM:Medical Decision MakingSneha Whitehead is a 63 year old female with complicated UTI. New onset Afib. Acute hypoxic respiratory failure. Concern for sepsis. IVF and abx started. Admitted for further evaluation and management.Amount and/or Complexity of Data ReviewedLabs: ordered. Decision-making details documented in ED Course.Radiology: ordered.RiskPrescription drug management.Flowsheet Documentation:Scoring Tools:No data recordedDisposition/Condition:ED DispositionED DispositionAdmit - IMCUCondition--Comment--Discharge Medications:Current Discharge Medication ListSTOP taking these medicationsaspirin 81 mg Cap Comments:Reason for Stopping:calcium acetate 667 mg Tab Comments:Reason for Stopping:calcium acetate 667 mg Tab Comments:Reason for Stopping:furosemide 80 mg tablet Comments:Reason for Stopping:losartan 100 mg tablet Comments:Reason for Stopping:pregabalin 25 mg capsule Comments:Reason for Stopping:vitamin b complex-vitamin c-folic acid (REGINA-WILBER) 0.8 mg tablet Comments:Reason for Stopping:insulin NPH hum/reg insulin hm (INSULIN 70/30 SC) Comments:Reason for Stopping:Follow-up:Electronically signed by:Gumaro Wise DO05/07/23 2156 [id number] Emergency department [id number]:22Physician Emergency department [id number] for patient [id number] department NoteLNNARRATIVEFormatted C-CDA narrative textEMCARE EMERGENCY PHYSICIAN STAFFEMCARE EMERG[facility] PHYSIC[facility] STAFF[address] A[id number] [id number] [id number] [facility]
[2023-05-29 13:19] LABS: Absolute Lymphocytes (CBC) 1.6 K/uL (0.7-4.9); Hematocrit 15.5 % (36.0-45.0); Lymphocytes % 13.1 % (15.3-44.8); MCV 95.1 fL (80-100); MPV 9.5 fL (7.6-11.3); Platelets 186 thou/uL (152-406); RBC Red Blood Cell Count 1.63 M/uL (3.86-4.86)
[2023-05-29 13:32] LABS: Potassium 4.1 mEq/L (3.5-5.1)
[2023-05-29 13:52] LABS: Anisocytosis 1+; Blood Morphology Comment NOTED (NOT SEEN); Platelet Estimate ADEQ; Polychromasia 2+; Stomatocytes 1+; White Blood Cell Scan OK (OK)
--- NOTE | 2023-05-29 13:53 | RAD REPORT ---
EXAM DESCRIPTION: US - Transvaginal Study Probe - 05/29/2023 1:42 pm CLINICAL HISTORY: Postmenopausal vaginal bleeding COMPARISON: none FINDINGS: The uterus measures 9 x 4 x 4 cm.. The endometrial stripe measures 7 millimeters. Tiny jazlyn rine calcifications likely not significant Neither ovary seen secondary overlying bowel gas The right and left adnexa unremarkable No significant free fluid is seen. IMPRESSION: Mild endometrial thickening findings in this postmenopausal patient. This can be seen wi th neoplasm, hyperplasia or polyp
--- NOTE | 2023-05-29 14:17 | ER ---
Nurse's Notes [facility] Name: Jena Corrales Age: 63 yrs Sex: Female : 1960 Arrival Date: 05/29/2023 Time: 12:41 Bed 2 Private MD: Diagnosis: Abnormal uterine and vaginal bleeding, unspecified;Anemia, unspecified;End stage renal disease Presentation: 05/29 12:54 Chief complaint: EMS states: called for vaginal bleeding, received a unit of blood at [address] for low hgb but bleeding continues. Coronavirus screen: At this time, the client does not indicate any symptoms associated with coronavirus-19. Ebola Screen: No symptoms or risks identified at this time. Initial Sepsis Screen: Does the patient meet any 2 criteria? No. Patient's initial sepsis screen is negative. Does the patient have a suspected source of infection? No. Patient's initial sepsis screen is negative. Risk Assessment: Do you want to hurt yourself or someone else? Patient reports no desire to harm self or others. Onset of symptoms was May 29, 2023. 12:54 Method Of Arrival: EMS: [facility] ko1 12:54 Acuity: NUZHAT 3 ko1 Triage Assessment: 12:56 General: Appears in no apparent distress. uncomfortable, Behavior is calm, cooperative, ko1 appropriate for age. Pain: Complains of pain in right lower quadrant and left lower quadrant. Historical: - Allergies: 12:56 Levaquin; ko1 12:56 Lisinopril; ko1 12:56 Tylenol-Codeine #3 (Vomiting); ko1 - PMHx: 12:56 Congestive heart failure; Diabetes - NIDDM; Dialysis; MWF; Hypertension; Myocardial ko1 infarction; - PSHx: 12:56 Left upper arm dialysis fistula; Multiple toe amputations on bilateral feet; ko1 - Immunization history:: Adult Immunizations up to date. - Social history:: Smoking status: Patient denies any tobacco usage or history of. Screenin:53 [facility] ED Fall Risk Assessment (Adult) History of falling in the last 3 months, ko1 including since admission No falls in past 3 months (0 pts) Confusion or Disorientation No (0 pts) Intoxicated or Sedated No (0 pts) Impaired Gait Yes (1 pt) Mobility Assist Device Used No (0 pt) Altered Elimination No (0 pt) Score/Fall Risk Level 0 - 2 = Low Risk Oriented to surroundings, Maintained a safe environment, Educated pt \T\ family on fall prevention, incl call for assistance when getting out of bed, Assessed \T\ reinforced patient's understanding of fall precautions, Provided non-skid footwear, Hourly rounding (assess needs \T\ fall precautionary measures) done, Used ambulatory aids as needed (educated on \T\ assisted with), Used gait belt as appropriate. Abuse screen: Denies threats or abuse. Denies injuries from another. Nutritional screening: No deficits noted. Tuberculosis screening: No symptoms or risk factors identified. Assessment: 13:00 General: Appears ill, obese, unkempt. Derm: Skin is pale. ko1 Vital Signs: 12:54 BP 91 / 35; Pulse 77; Resp 18; Temp 97; Pulse Ox 96% ; ko1 13:33 Weight 132.45 kg; Height 5 ft. 2 in. ; hb 14:53 BP 104 / 45; Pulse 63; Resp 17; Pulse Ox 97% ; ko1 13:33 Body Mass Index 53.41 (132.45 kg, 157.48 cm) hb ED Course: 12:47 Patient arrived in ED. eb 12:48 Andrea Ordoñez DO is Attending Physician. ms3 12:53 Veda Yap, RN is Primary Nurse. ko1 12:56 Triage completed. ko1 12:56 Arm band placed on right wrist. Patient placed in waiting room, on a stretcher, on ko1 athletic monitor, on pulse oximetry, Patient notified of wait time. 13:00 Inserted saline lock: 20 gauge in right antecubital area, using aseptic technique. ko1 Blood collected. 13:05 Basic Metabolic Panel Sent. ko1 13:05 CBC with Diff Sent. ko1 13:44 Transvaginal Study Probe In Process Unspecified. EDMS 14:13 Type And Screen Sent. ko1 14:13 Bb Add On Sent. ko1 14:18 attempted to initiate with [facility] Transfer center/ pamela for three minutes without eb any answer. 14:25 initiated a transfer with Carla from the [facility] transfer Center. eb 14:32 connected the [employer] contract manager for [facility] with Dr. Ordoñez for patient transfer consultation. eb 14:35 administrative approval given by Carla Arroyo/ patient has been accepted to [facility] room 2602/ Dr. Blanca Shepherd has accepted the patient in transfer./ report to be called to [phone]. 14:53 Patient has correct armband on for positive identification. Placed in gown. Bed in low ko1 position. Call light in reach. Side rails up X2. Pulse ox on. NIBP on. Door closed. Noise minimized. Lights dimmed. Warm blanket given. 16:06 called [facility] transfer center spoke with Abimael he will check into situation and call us eb back. 16:24 per Abimael patient has been auto accepted to [facility] ER/ administrative approval eb given by Abimael Morris Rn/ report to be called to [phone]/ Dr. Amanda Cano has accepted the patient without conference with Dr. Ordoñez. 17:21 No provider procedures requiring assistance completed. Patient transferred, IV remains as6 in place. 17:22 Provided Education on: Blood Transfusion. as6 Administered Medications: No medications were administered Medication: 14:53 VIS not applicable for this client. ko1 Outcome: 14:17 ER care complete, transfer ordered by . ms3 17:22 Transferred by ground EMS Transfer form completed. X-rays sent w/ patient. as6 17:22 Condition: stable 17:22 Instructed on the need for transfer, 17:22 Patient left the ED. as6 Signatures: Dispatcher [employer] EDMS Loren Perez, RN RN Toshia Lozano Andrea Ordoñez DO DO ms3 Ethan Magana RN RN as6 Veda Yap RN RN ko1 Corrections: (The following items were deleted from the chart) 13:30 13:05 ABO/RH TYPING+BB.LAB.BRZ drawn and sent. ko1 EDMS
--- NOTE | 2023-05-29 14:17 | EDPHYS ---
Physician Documentation [facility] Name: Jena Corrales Age: 63 yrs Sex: Female : 1960 Arrival Date: 05/29/2023 Time: 12:41 Bed 2 Private MD: ED Physician Andrea Ordoñez HPI: 05/29 12:51 This 63 yrs old Female presents to ER via Unassigned with complaints of ms3 vaginal bleeding. 12:51 63-year-old female with past medical history of incisional disease, diabetes, anemia ms3 atrial fibrillation presents to the emergency department for vaginal bleeding that is been ongoing for 2 and half weeks. Patient states she goes through 5 pads per day. Patient states she has not had vaginal bleeding for the last 1-1/2 years. Patient was seen at [facility] on Thursday for vaginal bleeding and a pelvic ultrasound was normal at that time. Patient's hemoglobin was found to be 6.7 and patient was administered 1 unit PRBCs. Patient denies pain at this time. Patient denies any alleviating or inciting factors. Historical: - Allergies: 12:56 Levaquin; ko1 12:56 Lisinopril; ko1 12:56 Tylenol-Codeine #3 (Vomiting); ko1 - PMHx: 12:56 Congestive heart failure; Diabetes - NIDDM; Dialysis; MWF; Hypertension; Myocardial ko1 infarction; - PSHx: 12:56 Left upper arm dialysis fistula; Multiple toe amputations on bilateral feet; ko1 - Immunization history:: Adult Immunizations up to date. - Social history:: Smoking status: Patient denies any tobacco usage or history of. ROS: 12:51 Constitutional: Negative for fever, and chills. Neck: Negative for injury, pain, and ms3 swelling, Cardiovascular: Negative for chest pain, and palpitations. Respiratory: Negative for shortness of breath, cough, wheezing, and pleuritic chest pain, Abdomen/GI: Negative for abdominal pain, nausea, vomiting, diarrhea, and constipation, MS/Extremity: Negative for injury and deformity, 12:51 : Positive for vaginal bleeding, 12:51 All other systems are negative, Exam: 12:51 Constitutional: This is a well developed, well nourished patient who is awake, alert, ms3 and in no acute distress. Head/Face: Normocephalic, atraumatic. Chest/axilla: Normal chest wall appearance and motion. Nontender with no deformity. Cardiovascular: Regular rate and rhythm with a normal S1 and S2. No gallops, murmurs, or rubs. Normal PMI, no JVD. No pulse deficits. Respiratory: Lungs have equal breath sounds bilaterally, clear to auscultation and percussion. No rales, rhonchi or wheezes noted. No increased work of breathing, no retractions or nasal flaring. Abdomen/GI: Soft, non-tender, with normal bowel sounds. No distension or tympany. No guarding or rebound. No evidence of tenderness throughout. Skin: Warm, dry with normal turgor. Normal color with no rashes, no lesions, and no evidence of cellulitis. MS/ Extremity: Pulses equal, no cyanosis. Neurovascular intact. Full, normal range of motion. Vital Signs: 12:54 BP 91 / 35; Pulse 77; Resp 18; Temp 97; Pulse Ox 96% ; ko1 13:33 Weight 132.45 kg; Height 5 ft. 2 in. ; hb 14:53 BP 104 / 45; Pulse 63; Resp 17; Pulse Ox 97% ; ko1 13:33 Body Mass Index 53.41 (132.45 kg, 157.48 cm) hb MDM: 12:48 Patient medically screened. ms3 12:51 Differential diagnosis: dysfunctional uterine bleeding, malignancy, uterine cancer [facility] Neoplasm. 14:34 ED course: Unable to contact [facility] transfer center at 1418. Patient accepted at [address], Dr Reed. 14:34 Data reviewed: vital signs, nurses notes, lab test result(s), radiologic studies, [facility] ultrasound, and as a result, I will transfer patient. Management of patient was discussed with the following: Dr Rede. Historians other than the Patient: EMS: [facility]. Counseling: I had a detailed discussion with the patient and/or guardian regarding the historical points, exam findings, and any diagnostic results supporting the discharge/admit diagnosis, lab results, radiology results, the need to transfer to another facility, [facility] does not immediately have the required specialist. 16:20 ED course: Called by [facility] transfer center and patient declined at [facility] ms3 as they do not have dialysis available.. 02 12:49 Order name: Basic Metabolic Panel; Complete Time: 13:56 ms3 05/29 12:49 Order name: CBC with Diff; Complete Time: 13:56 ms3 05/29 13:25 Order name: Type And Screen hb 05/29 13:52 Order name: CBC Smear Scan; Complete Time: 13:56 EDMS 05/29 14:02 Order name: Bb Add On eb 05/29 14:59 Order name: ABO/RH no charge EDMS 05/29 15:00 Order name: Packed RBC Leukored EDMS 05/29 13:02 Order name: Transvaginal Study Probe; Complete Time: 13:56 EDMS 05/29 12:49 Order name: IV Saline Lock; Complete Time: 13:04 ms3 05/29 12:49 Order name: Labs collected and sent; Complete Time: 13:05 ms3 05/29 12:49 Order name: NPO; Complete Time: 13:04 ms3 Administered Medications: No medications were administered Disposition Summary: 05/29/23 14:17 Transfer Ordered Notes: Transfer Location: [facility] ms3 Reason: Higher level of care ms3 Condition: Stable ms3 Problem: new ms3 Symptoms: are unchanged ms3 Accepting Physician: (05/29/23 17:22) as6 Diagnosis - Abnormal uterine and vaginal bleeding, unspecified ms3 - Anemia, unspecified ms3 - End stage renal disease ms3 Forms: - Medication Reconciliation Form ms3 - SBAR form ms3 Critical care time excluding procedures: 14:37 Critical care time: Bedside Care: 25 minutes, Consultation: 5 minutes, Family ms3 Intervention: 5 minutes. Total time: 35 minutes Signatures: Dispatcher [employer] EDMS Andrea Ordoñez DO DO ms3 Ethan Magana RN RN as6 Veda Yap, RN RN ko1 Corrections: (The following items were deleted from the chart) 13:02 12:49 Pelvis Complete+US.RAD.BRZ ordered. EDMS EDMS 13:30 12:49 ABO/RH TYPING+BB.LAB.BRZ ordered. EDMS EDMS 17:22 14:17 ms3 as6
[2023-05-29 17:47] VITALS: BP 104/45; TEMP 97; O2SAT 97
== END ==
LOC: ER 12:41
PROC: 30233N1 Transfusion of Nonautologous Red Blood Cells into Peripheral Vein, Percutaneous Approach (ICD-10-PCS; principal; 2023-05-29)
DX: D64.9 Anemia, unspecified (principal); E11.22 Type 2 diabetes mellitus with diabetic chronic kidney disease; I13.2 Hypertensive heart and chronic kidney disease with heart failure and with stage 5 chronic kidney disease, or end stage renal disease; I50.9 Heart failure, unspecified; N18.6 End stage renal disease; Z99.2 Dependence on renal dialysis
CPT/HCPCS: 85025; 80048; 36415; 86900; 86850; 86901; 86920 ×2; 76830; 36430; P9016; J7050